=== PATIENT | female | born 1970 | race Caucasian/White ===

== ENCOUNTER 2018-02-21 19:45 | Emergency (ER) | payer OTHER ==
--- OUTSIDE RECORDS SUMMARY | 2018-02-21 19:47 | XMS REPORT ---
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
--- OUTSIDE RECORDS SUMMARY | 2018-02-21 19:47 | XMS REPORT ---
:1970 [facility] Providers Name Role Phone Pernell Hayes Provider Role Unavailable Allergies, Adverse Reactions, Alerts Substance Reaction Event Type N.K.D.A. Info Not Available Non Drug Allergy Problems Problem Type Condition Code Onset Dates Condition Status Assessment BMI 27.0-27.9,adult Z68.27 Active Assessment Encounter for breast cancer Z12.39 Active screening other than mammogram Assessment GERD without esophagitis K21.9 Active Assessment Tobacco use disorder F17.200 Active Assessment Osteoarthritis of multiple joints M15.9 Active Assessment Insomnia G47.00 Active Problem Hypothyroidism E03.9 Active Assessment Generalized anxiety disorder F41.1 Active Problem Hyperlipidemia E78.5 Active Assessment Panic disorder [episodic paroxysmal F41.0 Active anxiety] Problem Memory deficit R41.3 Active Problem Bipolar disorder F31.9 Active Problem Chronic pain syndrome G89.4 Active Problem Panic disorder [episodic paroxysmal F41.0 Active anxiety] Problem 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 without prior episode Assessment Chronic pain syndrome G89.4 Active Assessment Bipolar disorder F31.9 Active Problem Generalized anxiety disorder F41.1 Active Assessment 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 without prior episode Problem Migraine without aura G43.009 Active Problem Osteoarthritis of multiple joints M15.9 Active Problem Tobacco use disorder F17.200 Active Problem GERD without esophagitis K21.9 Active Assessment Encounter for Medicare annual Z00.00 Active wellness exam Assessment Hypothyroidism E03.9 Active Assessment Drug-induced constipation K59.03 Active Assessment Hyperlipidemia E78.5 Active Problem Constipation K59.00 Active Problem Insomnia G47.00 Active Problem Drug-induced constipation K59.03 Active Medications Medication Code Code Instructions Start End Status Dosage System Date Date Fluoxetine HCl ND 28021569447 40 MG Orally Active 1 capsule Once a day Linzess ND 45658694764 290 MCG Orally January Active 1 capsule Once a day 2018 Mirtazapine ND 46475494924 45 MG Orally Active 1 tablet at Once a day bedtime [place] [facility] 75361420418 300 MG Orally Active 1 capsule at Carbonate Once a day bedtime Nexium [facility] 81149848977 40 MG Orally Active 1 capsule Once a day Dilaudid [facility] 78689367785 8 MG Orally Active 1 tablet as every 6 hrs needed Synthroid [facility] 48368568216 75 MCG Orally Active 1 tablet on Once a day an empty stomach in the morning Pravastatin [facility] 04607038140 40 MG Orally Active 1 tablet Sodium Once a day Lunesta [facility] 26521807278 3 MG Orally Active 1 tablet Once a day immediately before bedtime MiraLax [facility] 97715430284 - Orally Active not defined Zanaflex [facility] 90654894551 4 MG Orally Active 1 capsule as Three times a needed day Results No Known Results Summary Purpose eClinicalWorks Submission
--- OUTSIDE RECORDS SUMMARY | 2018-02-21 19:48 | XMS REPORT ---
:1970 Author Organization eClinicalWorks Care Team Providers Name Role Phone Pernell [facility] Provider Role Unavailable Allergies No Known Allergies [...] K59.03 Active Problem Hyperlipidemia E78.5 Active Medications Medication Code System Code Instructions Start End Date Status Dosage Date [facility] 90871449482 24 MCG Orally Feb 13, Active 1 capsule Once a day 2017 with food Results No Known Results Summary Purpose eClinicalWorks Submission
[2018-02-21 20:27] LABS: Absolute Lymphocytes (CBC) 3.7 K/uL (0.7-4.9); Absolute Monocytes 0.9 K/uL (0.1-1.3); Absolute Neutrophil 5.9 K/uL (1.8-8.0); Eosinophils % 3.1 % (0-4.4); Hematocrit 34.1 % (36.0-45.0); Lymphocytes % 33.3 % (15.3-44.8); MCH 33.2 pg (27.0-35.0); MCV 97.9 fL (80-100); MPV 8.3 fL (7.6-11.3); RBC Red Blood Cell Count 3.48 M/uL (3.86-4.86)
[2018-02-21] MEDS ORDERED: NA CHLORIDE 0.9% 1,000 ML ONE (20:35)
[2018-02-21 20:58] LABS: Barbiturates NEGATIVE (NEGATIVE); Benzodiazepines NEGATIVE (NEGATIVE); Cocaine NEGATIVE (NEGATIVE); METHAMPHETAM NEGATIVE (NEGATIVE); Methadone NEGATIVE (NEGATIVE); Opiates POSITIVE (NEGATIVE); Phencyclidine NEGATIVE (NEGATIVE); THC Cannibis NEGATIVE (NEGATIVE)
--- NOTE | 2018-02-21 21:09 | RAD REPORT ---
EXAM DESCRIPTION: CT - Head Brain Wo Cont - 02/21/2018 8:48 pm CLINICAL HISTORY: Transient alteration of awareness COMPARISON: June 2012 TECHNIQUE: Axial 5 mm thick images of the head were obtained without IV contrast. All CT scans are performed using dose optimization technique as appropriate and may include automated exposure control or mA/KV adjustment according to patient size. FINDINGS: No intracranial hemorrhage, mass, edema or shift of mid-line structures. No acute infarcti on changes seen. Bilateral subfrontal gliosis is present matching the prior study. This is usually fr om old trauma. Ventricles are normal. Basilar cisterns are normal. Mastoid air cells and visualized portions of the paranasal sinuses are clear. No acute bony findings. IMPRESSION: Negative non-contrast CT head examination for acute finding. Subfrontal gliosis is present matching the 2012 study.
--- NOTE | 2018-02-21 21:11 | RAD REPORT ---
EXAM DESCRIPTION: RAD - Chest Single View - 02/21/2018 8:39 pm CLINICAL HISTORY: Transient alteration of awareness COMPARISON: October 2015 TECHNIQUE: AP portable chest image was obtained 2025 hours . FINDINGS: Lungs are clear. Heart and vasculature are normal. No measurable pleural effusion and no p neumothorax. No gross bony abnormality seen. No acute aortic findings suspected. IMPRESSION: No acute cardiopulmonary process. No significant change from comparison.
[2018-02-21 21:13] LABS: ALT/SGPT 20 U/L (12-78); AST/SGOT 20 U/L (15-37); Albumin 3.5 g/dL (3.4-5.0); Alkaline Phosphatase 63 U/L (45-117); BUN Blood Urea Nitrogen 7 mg/dL (7-18); Bicarbonate 29 mmol/L (21-32); Bilirubin Direct < 0.1 mg/dL (0-0.2); Bilirubin Total 0.2 mg/dL (0.2-1.0); CKMB Creatine Kinase MB 1.4 ng/mL (0.3-3.6); Creatine Phosphokinase 139 U/L (26-192); Glucose Level 94 mg/dL (74-106); Magnesium 2.5 mg/dL (1.8-2.4); NT PRO-BNP 143 pg/mL (<125); Potassium 3.6 mmol/L (3.5-5.1); Protein, Total 6.6 g/dL (6.4-8.2); Sodium Level 139 mmol/L (136-145)
[2018-02-21 21:27] LABS: Urine Blood TRACE (NEG); Urine Glucose NEGATIVE (NEG); Urine Protein NEGATIVE (NEG); Urine Specific Gravity 1.015 (1.005-1.030)
[2018-02-21 21:29] LABS: Urine Bacteria <20 /HPF (<20); Urine Culture Reflex Order NOT NEEDED; Urine Mucus SLIGHT /HPF (NONE SEEN); Urine RBC <5 /HPF (NONE SEEN)
--- NOTE | 2018-02-21 21:55 | ER ---
Nurse's Notes [facility] Name: Mitzi Murphy Age: 48 yrs Sex: Female : 1970 Arrival Date: 02/21/2018 Time: 19:47 Bed 28 Private MD: Diagnosis: Patient's other noncompliance with medication regimen;Opioid abuse Presentation: 02/21 19:47 Presenting complaint: EMS states: "TWO DAYS AGO SHE HAS BEEN OFF AND TWO HOURS AGO rv SHE'S BEEN LETHARGIC AND SLOW. SHE HAS A HISTORY OF HEAD INJURY 20 YEARS AGO AND SHE IS ON DILAUDID SINCE THEN. SHE TOOK 8MG/TAB 4 TABS OF DILAUDID TODAY BUT PARENT IS NOT SURE IF SHE TOOK MORE THAN THAT AFTER". Transition of care: patient was not received from another setting of care. Onset of symptoms was February 21, 2018 at 19:30. Risk Assessment: Do you want to hurt yourself or someone else? Patient reports no desire to harm self or others. Initial Sepsis Screen: Does the patient meet any 2 criteria? No. Patient's initial sepsis screen is negative. Does the patient have a suspected source of infection? No. Patient's initial sepsis screen is negative. Care prior to arrival: None. 19:47 Method Of Arrival: EMS: [facility] rv 19:47 Acuity: DIANA 3 rv Historical: - Allergies: 21:20 No Known Allergies; rv - Home Meds: 21:20 dilaudid 8mg/tab 4 tabs per day [Active]; rv - PMHx: 21:20 Bipolar disorder; insomnia; rv - PSHx: 21:20 None; rv - Immunization history:: Adult Immunizations up to date. - Ebola Screening: : Patient negative for fever greater than or equal to 101.5 degrees Fahrenheit, and additional compatible Ebola Virus Disease symptoms Patient denies exposure to infectious person Patient denies travel to an Ebola-affected area in the 21 days before illness onset. - Social history:: Smoking status: Smoking status: Patient uses tobacco products, smokes one-half pack cigarettes per day. Screenin:51 Abuse screen: Denies threats or abuse. Denies injuries from another. Nutritional rv screening: No deficits noted. Tuberculosis screening: No symptoms or risk factors identified. Fall Risk None identified. Assessment: 19:51 General: Appears in no apparent distress. comfortable, Behavior is calm, cooperative, rv drowsy, quiet. Pain: Denies pain. Neuro: Level of Consciousness is awake, alert, obeys commands, Oriented to person, place, time, situation. Cardiovascular: Capillary refill < 3 seconds. Respiratory: Airway is patent. GI: No signs and/or symptoms were reported involving the gastrointestinal system. : No signs and/or symptoms were reported regarding the genitourinary system. EENT: No signs and/or symptoms were reported regarding the EENT system. Derm: Skin is intact. Vital Signs: 19:50 BP 116 / 73; Pulse 62; Pulse Ox 95% on R/A; rv 22:07 BP 132 / 61; Pulse 61; Pulse Ox 95% on R/A; rv ED Course: 19:47 Patient arrived in ED. rv 19:50 Triage completed. rv 19:52 Arm band placed on left wrist. rv 19:52 Patient has correct armband on for positive identification. Bed in low position. Call rv light in reach. Side rails up X 1. court monitor on. Pulse ox on. NIBP on. 19:54 Luis Alfredo Rose PA is PHCP. cp 19:54 Luis Alfredo Brown MD is Attending Physician. cp 20:00 EKG done, by ED staff, reviewed by Luis Alfredo SMITH. jp3 20:15 Initial lab(s) drawn, by nj, sent to lab. First set of blood cultures drawn by nj, jp3 Second set of blood cultures drawn by nj. 20:37 XRAY Chest (1 view) In Process Unspecified. EDMS 20:48 CT Head Brain wo Cont In Process Unspecified. EDMS 21:00 Lab(s) recollected, by me, sent to lab. jp3 21:00 No provider procedures requiring assistance completed. Inserted saline lock: 20 gauge rv in left hand, using aseptic technique. 21:08 PT-INR Sent. jp3 21:08 Ptt, Activated Sent. jp3 22:08 IV discontinued, bleeding controlled, No redness/swelling at site. Pressure dressing rv applied. Administered Medications: 20:30 Drug: NS 0.9% 1000 ml Route: IV; Rate: 1 bolus; Site: left hand; rv Outcome: 21:55 Discharge ordered by . cp 22:08 Discharged to home ambulatory. rv 22:08 Condition: good 22:08 Discharge instructions given to patient, family, Instructed on discharge instructions, follow up and referral plans. 22:09 Patient left the ED. rv Signatures: Dispatcher [employer] EDMS Luis Alfredo Roes PA PA cp Vicente, Ronaldo, RN RN rv Emmanuel Stockton jp3
--- NOTE | 2018-02-21 21:56 | EDPHYS ---
Physician Documentation [facility] Name: Mitzi Murphy Age: 48 yrs Sex: Female : 1970 Arrival Date: 02/21/2018 Time: 19:47 Bed 28 Private MD: ED Physician Luis Alfredo Brown HPI: 02/21 20:05 This 48 yrs old Female presents to ER via EMS with complaints of medication cp overdose. 20:05 The patient presents with decreased responsiveness. Onset: The symptoms/episode cp began/occurred today. Possible causes: drug use, narcotics. 20:05 Associated signs and symptoms: Pertinent negatives: abdominal pain, chest pain, cp diaphoresis, dizziness, headache, seizure, vomiting. Current symptoms: In the emergency department the patient's symptoms are unchanged from the initial presentation, despite home interventions. Patient's baseline: The patient has a previous history of head injury. Historical: - Allergies: 21:20 No Known Allergies; rv - Home Meds: 21:20 dilaudid 8mg/tab 4 tabs per day [Active]; rv - PMHx: 21:20 Bipolar disorder; insomnia; rv - PSHx: 21:20 None; rv - Immunization history:: Adult Immunizations up to date. - Ebola Screening: : Patient negative for fever greater than or equal to 101.5 degrees Fahrenheit, and additional compatible Ebola Virus Disease symptoms Patient denies exposure to infectious person Patient denies travel to an Ebola-affected area in the 21 days before illness onset. - Social history:: Smoking status: Smoking status: Patient uses tobacco products, smokes one-half pack cigarettes per day. ROS: 20:10 Constitutional: Negative for body aches, chills, fever, poor PO intake. cp 20:10 Eyes: Negative for injury, pain, redness, and discharge. cp 20:10 ENT: Negative for drainage from ear(s), ear pain, sore throat, difficulty swallowing, difficulty handling secretions. 20:10 Cardiovascular: Negative for chest pain, edema, palpitations. 20:10 Respiratory: Negative for cough, shortness of breath, wheezing. 20:10 Abdomen/GI: Negative for abdominal pain, nausea, vomiting, and diarrhea, constipation, black/tarry stool, rectal bleeding. 20:10 Back: Negative for pain at rest, pain with movement, radiated pain. 20:10 Skin: Negative for cellulitis, rash. 20:10 Neuro: Positive for altered mental status, Negative for headache, loss of consciousness, syncope, near syncope, weakness. 20:10 All other systems are negative. Exam: 20:15 Constitutional: The patient appears in no acute distress, alert, awake, cp non-diaphoretic, non-toxic, well developed, well nourished. 20:15 Head/Face: Normocephalic, atraumatic. cp 20:15 Eyes: Periorbital structures: appear normal, Pupils: constricted, bilaterally, Extraocular movements: intact throughout, Conjunctiva: normal, no exudate, no injection, Sclera: no appreciated abnormality, Lids and lashes: appear normal, bilaterally. 20:15 ENT: External ear(s): are unremarkable, Ear canal(s): are normal, clear, TM's: dullness, bilaterally, Nose: is normal, Mouth: Lips: moist, Oral mucosa: moist, Posterior pharynx: is normal, airway is patent, no erythema, no exudate. 20:15 Neck: ROM/movement: is normal, is supple, without pain, no range of motions limitations, no nuchal rigidity. 20:15 Chest/axilla: Inspection: normal, Palpation: is normal, no crepitus, no tenderness. 20:15 Cardiovascular: Rate: normal, Rhythm: regular, Pulses: Pulses are 2+ in right radial artery and left radial artery. Edema: is not appreciated, JVD: is not appreciated. 20:15 Respiratory: the patient does not display signs of respiratory distress, Respirations: normal, no use of accessory muscles, no retractions, no splinting, no tachypnea, labored breathing, is not present, Breath sounds: are clear throughout, no decreased breath sounds, no stridor, no wheezing. 20:15 Abdomen/GI: Inspection: abdomen appears normal, Bowel sounds: active, all quadrants, Palpation: abdomen is soft and non-tender, in all quadrants, rebound tenderness, is not appreciated, voluntary guarding, is not appreciated, involuntary guarding, is not appreciated. 20:15 Back: pain, is absent, ROM is normal. 20:15 Skin: cellulitis, is not appreciated, no rash present. 20:15 Neuro: Orientation: to person, place, Mentation: able to follow commands, slow to respond, Motor: moves all fours, strength is normal, Sensation: no obvious gross deficits. Vital Signs: 19:50 BP 116 / 73; Pulse 62; Pulse Ox 95% on R/A; rv 22:07 BP 132 / 61; Pulse 61; Pulse Ox 95% on R/A; rv MDM: 20:13 Patient medically screened. lacie 21:00 Differential Diagnosis: CVA, electrolyte abnormality, alcohol intoxication, cp intracranial bleed, overdose, pneumonia, seizure, TIA, UTI, volume depletion. 21:53 Data reviewed: vital signs, nurses notes, lab test result(s), radiologic studies, CT cp scan, plain films. 21:53 Test interpretation: by ED physician or midlevel provider: plain radiologic studies. cp Counseling: I had a detailed discussion with the patient and/or guardian regarding: the historical points, exam findings, and any diagnostic results supporting the discharge/admit diagnosis, lab results, radiology results, to return to the emergency department if symptoms worsen or persist or if there are any questions or concerns that arise at home. Response to treatment: the patient's symptoms have markedly improved after treatment, Mother at bedside with patient and reports patient at baseline. Patient and family requesting discharge, and as a result, I will discharge patient. 02/21 19:57 Order name: Basic Metabolic Panel; Complete Time: 21:50 cp 02/21 21:50 Interpretation: Normal except: GFR 59. cp 02/21 19:57 Order name: CBC with Diff; Complete Time: 21:50 cp 02/21 21:52 Interpretation: Normal except: WBC 11.1; RBC 3.48; HGB 11.6; HCT 34.1; BASO% 2.0. cp 02/21 19:57 Order name: Ckmb; Complete Time: 21:50 cp 02/21 19:57 Order name: CPK; Complete Time: 21:50 cp 02/21 19:57 Order name: LFT's; Complete Time: 21:50 cp 02/21 19:57 Order name: Magnesium; Complete Time: 21:50 cp 02/21 19:57 Order name: NT PRO-BNP; Complete Time: 21:50 cp 02/21 19:57 Order name: PT-INR; Complete Time: 21:50 cp 02/21 19:57 Order name: Ptt, Activated; Complete Time: 21:50 cp 02/21 19:57 Order name: Troponin (emerg Dept Use Only); Complete Time: 21:50 02/21 19:57 Order name: UDS; Complete Time: 21:50 02/21 21:51 Interpretation: Normal except: OPI POSITIVE. 02/21 19:57 Order name: AMMONIA; Complete Time: 21:50 02/21 19:57 Order name: Blood Culture Adult (2) 02/21 19:57 Order name: Urine Microscopic Only; Complete Time: 21:50 02/21 19:57 Order name: Urine Test (obtain specimen); Complete Time: 21:19 02/21 19:57 Order name: XRAY Chest (1 view); Complete Time: 21:50 02/21 21:51 Interpretation: Report review. 02/21 19:57 Order name: EKG; Complete Time: 19:57 02/21 19:57 Order name: Cardiac monitoring; Complete Time: 20:39 02/21 19:57 Order name: EKG - Nurse/Tech; Complete Time: 20:39 02/21 19:57 Order name: IV Saline Lock; Complete Time: 20:39 02/21 19:57 Order name: Labs collected and sent; Complete Time: 20:39 02/21 19:57 Order name: O2 Per Protocol; Complete Time: 20:39 02/21 19:57 Order name: O2 Sat Monitoring; Complete Time: 20:39 02/21 19:57 Order name: Urine Dipstick-Ancillary (obtain specimen); Complete Time: 21:13 02/21 19:57 Order name: CT Head Brain wo Cont; Complete Time: 21:50 02/21 21:52 Interpretation: Report reviewed. 02/21 21:21 Order name: Urine Dipstick--Ancillary (enter results); Complete Time: 21:50 rg2 02/21 21:21 Order name: Urine --Ancillary (enter results); Complete Time: 21:50 rg2 Administered Medications: 20:30 Drug: NS 0.9% 1000 ml Route: IV; Rate: 1 bolus; Site: left hand; rv Disposition: 02/21/18 21:55 Discharged to Home. Impression: Patient's other noncompliance with medication regimen, Opioid abuse. - Condition is Stable. - Discharge Instructions: Opioid Overdose. - Medication Reconciliation Form, Thank You Letter, Antibiotic Education, Prescription Opioid Use form. - Follow up: Private Physician; When: 1 - 2 days; Reason: Recheck today's complaints. - Problem is new. - Symptoms have improved. Addendum: 02/24/2018 08:57 Co-signature as Attending Physician, Luis Alfredo Brown MD I agree with the assessment and c flor plan of care. Signatures: Dispatcher [employer] EDLuis Alfredo Sandhu MD MD cha Page, Corey, PA PA cp Miguel Barbosa, RN RN rv Corrections: (The following items were deleted from the chart) 02/21 21:12 19:57 [place] ordered. cp rv 21:52 21:51 Normal except: WBC 11.1; RBC 3.48; HGB 11.6; HCT 34.1. cp cp 22:09 21:55 02/21/2018 21:55 Discharged to Home. Impression: Patient's other noncompliance rv with medication regimen; Opioid abuse. Condition is Stable. Forms are Medication Reconciliation Form, Thank You Letter, Antibiotic Education, Prescription Opioid Use. Follow up: Private Physician; When: 1 - 2 days; Reason: Recheck today's complaints. Problem is new. Symptoms have improved. cp 02/22 19:10 19:05 Constitutional: The patient appears in no acute distress, alert, awake, cp non-diaphoretic, non-toxic, well developed, well nourished, cp 19:10 19:05 Head/Face: Normocephalic, atraumatic. cp cp 19:10 19:05 Eyes: Periorbital structures: appear normal, Pupils: constricted, bilaterally, cp Extraocular movements: intact throughout, Conjunctiva: normal, no exudate, no injection, Sclera: no appreciated abnormality, Lids and lashes: appear normal, bilaterally, cp 19:10 19:05 ENT: External ear(s): are unremarkable, Ear canal(s): are normal, clear, TM's: cp bulging, is not appreciated, bilaterally, dullness, bilaterally, erythema, is not appreciated, bilaterally, Nose: is normal, Mouth: is normal, Posterior pharynx: is normal, airway is patent, no erythema, no exudate, cp 19:10 19:05 Neck: ROM/movement: is normal, is supple, without pain, no range of motions cp limitations, no meningismus, no nuchal rigidity, cp 19:10 19:05 Chest/axilla: Inspection: normal, Palpation: is normal, no crepitus, no cp tenderness, cp 19:10 19:05 Cardiovascular: Rate: normal, Rhythm: regular, Edema: is not appreciated, JVD: is cp not appreciated, cp 19:10 19:05 Respiratory: the patient does not display signs of respiratory distress, cp Respirations: labored breathing, is not present, shallow respirations, that is mild, Breath sounds: are clear throughout, no decreased breath sounds, no stridor, no wheezing, cp 19:10 19:05 Abdomen/GI: Inspection: abdomen appears normal, Bowel sounds: active, all cp quadrants, Palpation: abdomen is soft and non-tender, in all quadrants, rebound tenderness, is not appreciated, voluntary guarding, is not appreciated, involuntary guarding, is not appreciated, cp 19:10 19:05 Back: pain, is absent, ROM is normal, cp cp 19:10 19:05 Skin: cellulitis, is not appreciated, no rash present. cp cp 19:10 19:05 Neuro: Orientation: to person, place, Mentation: able to follow commands, slow to cp respond, Motor: moves all fours, strength is normal, Sensation: no obvious gross deficits, cp
[2018-02-21 23:01] VITALS: O2SAT 95
[2018-02-21 23:02] VITALS: BP 132/61
--- NOTE | 2018-02-23 07:49 | EKG ---
Test Date: 2018-02-21 Test Time: 19:47:31 Sports Administrator: SHRADDHA MEASUREMENT RESULTS: Intervals: Rate: 64 NM: 144 QRSD: 88 QT: 460 QTc: 474 [place]: P: 59 NM: 144 QRS: 56 T: 54 INTERPRETIVE STATEMENTS: Normal sinus rhythm Normal ECG Compared to ECG 02/14/2016 13:57:42 Ventricular premature complex(es) no longer present Electronically Signed On 02-23-18 07:45:43 CDT by Shai Jordan
== END 2018-02-21 22:09 | disposition home or self-care (01) ==
LOC: ER 19:45
DX: Z91.14 Patient's other noncompliance with medication regimen (principal); F11.10 Opioid abuse, uncomplicated; F17.210 Nicotine dependence, cigarettes, uncomplicated; F31.9 Bipolar disorder, unspecified
CPT/HCPCS: 36415; 70450; 71045; 80048; 80076; 80307; 81003; 81015; 81025; 82140; 82550; 82553; 82962; 83735; 83880; 84484; 85025; 85610; 85730; 87040; 93005; 99285; J7030

== ENCOUNTER 2020-07-11 | Emergency (ER) | payer OTHER ==
--- OUTSIDE RECORDS SUMMARY | 2020-07-11 15:00 | XMS REPORT ---
:1970 Author Organization [facility] Address [address] [place], [address] [place] [address] Care Team Providers Name Role Phone Gimenez Unavailable [phone] PROBLEMS Type Condition ICD9-CM [id number] Onset Condition SNOMED Code Notes Code Code Dates Status Problem Osteoarthritis of M15.9 Active 929793453 multiple joints Problem Drug-induced K59.03 Active 70916924 constipation Problem GERD without K21.9 Active 630428416 esophagitis Problem Migraine without G43.009 Active 08609223 aura Problem Constipation K59.00 Active 90079166 Problem Tobacco use F17.200 Active 469991598 disorder Problem Hyperlipidemia E78.5 Active 29564561 Problem Memory deficit R41.3 Active 358693234 Problem Chronic pain G89.4 Active 197577585 syndrome Problem Vitamin D E55.9 Active 90560021 deficiency disease Problem Hypothyroidism E03.9 Active 67196499 Problem PAD (peripheral I73.9 Active 663752464 artery disease) Problem Insomnia G47.00 Active 129325642 Problem Bipolar disorder F31.9 Active 14766287 Problem Generalized F41.1 Active 77482565 anxiety disorder Problem 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 59027795 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 without prior episode Problem Panic disorder F41.0 Active 804555451 [episodic paroxysmal anxiety] ALLERGIES No Known Allergies ENCOUNTERS from 1970 to 2020-05-25 Encounter Location Date Provider Diagnosis [facility] [place] [address] [place], Hayes Gimenez Insomnia G47.00 ; Drive [address] [place], [place] [address] of major depre ssive disorder withou t psychotic featu res without prior e pisode F32.2 ; Hypothy roidism E03.9 ; Hyperli pidemia E78.5 ; Drug-in duced constipation K5 9.03 ; Edema of right lower extremity R60.0 ; Chronic pain sy ndrome G89.4 ; Bipolar disorder F31.9 ; Panic disorder [episo dic paroxysmal anxi ety] F41.0 ; Osteoar thritis of multiple nancy nts M15.9 ; General ized anxiety disorde r F41.1 ; Tobacco use d isorder F17.200 ; GERD without esophagitis K21 .9 ; BMI 27.0-27.9,adult Z68.27 ; Migraine with out aura G43.009 ; Overw eight (BMI 25.0-29.9) E66.3 ; Fatigue, unspec ified type R53.83 ; R enal insufficiency N 28.9 ; Vitamin D defic iency disease E55.9 ; Vitamin B12 deficiency E53.8 and PAD (periph eral artery disease) I73.9 IMMUNIZATIONS Vaccine Route Administration Date Status Vitamin B12 (Cyanocobalamin) IM Intramuscular May 25, 2020 Ad ministered Vitamin B12 (Cyanocobalamin) IM Intramuscular Mar 10, 2020 Ad ministered Vitamin B12 (Cyanocobalamin) IM Intramuscular Sep 03, 2019 Ad ministered Vitamin B12 (Cyanocobalamin) IM Intramuscular Jul 20, 2019 Ad ministered Vitamin B12 (Cyanocobalamin) IM Intramuscular Mar 17, 2019 Ad ministered SOCIAL HISTORY Tobacco Use: Social History Observation Description Date Details (start date - stop date) Current Smoker Sex Assigned At : Social History Observation Description Sex Assigned At Unknown PHQ9 Question Answer Notes Little interest or pleasure in doing things Several days Feeling down, depressed, or hopeless Several days Trouble falling or staying asleep or sleeping too much Nearl y every day Feeling tired or having little energy More than half the day s Poor appetite or overeating Several days Feeling bad about yourself, or that you are a failure, Sever al days or have let yourself or your family down Trouble concentrating on things, such as reading the Nearly every day newspaper or watching television Moving or speaking so slowly that other people could Several days have noticed; or the opposite, being so fidgety or restless that you have been moving around a lot more than usual Total Score 13 Interpretation Moderate Depression Thoughts that you would be better off or of Not at all hurting yourself in some way Alcohol Screen Question Answer Notes Did you have a drink containing alcohol in Yes the past year? Points 2 Interpretation Negative How often did you have 6 or more drinks on Never (0 points) one occasion in the past year? How many drinks did you have on a typical 1 or 2 (0 points) day when you were drinking in the past year? How often did you have a drink containing Two to four times a month (2 points) alcohol in the past year? Patient counselled on the dangers of tobacco use and urged to quit Question Answer Notes Patient counselled on the dangers of tobacco 09/03/2019 Discussed smoking cessaction use and urged to quit Tobacco Use/Smoking Question Answer Notes Additional Findings: Tobacco User Moderate cigarette smoker (10-19 cigs/day) Are you a current smoker Are you interested in quitting? Thinking about quitting How many cigarettes a day do you smoke? 6-10 How soon after you wake up do you smoke 6-30 minutes your first cigarette? How often do you smoke cigarettes? every day Tobacco use other than smoking: Question Answer Notes Are you an other tobacco user? No REASON FOR REFERRAL No Information VITAL SIGNS Height 62 in May, Weight 159.6 lbs May, Temperature 97.4 degrees Fahrenheit May, BMI 29.19 kg/m2 May, Oximetry 96 % May, Respiratory Rate 16 /min May, Blood pressure systolic 142 mm Hg May, Blood pressure diastolic 77 mm Hg May, MEDICATIONS Medication SIG (Take, Route, Notes Start Date End Date Status Frequency, Duration) ProAir HFA 108 (90 Base) 2 puffs as needed Active MCG/ACT Inhalation every 6 hrs PRN wheezing, cough or shortness of breath for 30 days Mirtazapine 45 MG 1 tablet at bedtime Active Orally Once a day Cymbalta 30 MG 1 capsule Orally Once a Active day Rosuvastatin Calcium 20 1 tablet Orally Once a Not-Taking MG day for 90 [place] Carbonate 300 MG 1 capsule at bedtime Active Orally TID for 90 days Synthroid 75 MCG 1 tablet on an empty Not-Taking stomach in the morning Orally Once a day for 90 Amitiza 24 MCG TAKE 1 CAPSULE BY MOUTH Active TWICE DAILY WITH FOOD for 90 Vitamin D-3 5000 UNIT/ML 1 ml under the tongue Active Sublingual Once a day for 30 day(s) MiraLax - Orally Active Lunesta 3 MG 1 tablet immediately Ac tive before bedtime Orally Once a day for 30 days Dilaudid 8 MG 1 tablet Orally Three Active times a day Rosuvastatin Calcium 20 1 tablet Orally Once a Active MG day for 90 days Synthroid 75 MCG 1 tablet on an empty Active stomach in the morning Orally Once a day for 30 days Cymbalta 60 MG 1 capsule Orally once a Active day Wellbutrin XL 300 MG 1 tablet in the morning Active Orally Once a day PROCEDURES No Information RESULTS No Results REASON FOR VISIT 2 [facility] f/u. In office. MEDICAL (GENERAL) HISTORY Type Description Date Medical History Bipolar disorder Medical History Hyperlipidemia Medical History Memory deficit Medical History GERD without esophagitis Medical History Migraine without aura Medical History Seizures Medical History Constipation Medical History Chronic pain syndrome Medical History Hypothyroidism Medical History Osteoarthritis of multiple joints Medical History Depression with anxiety Medical History Tobacco use disorder Medical History Insomnia Medical History Drug-induced constipation Medical History Panic disorder [episodic paroxysmal anxi ety] Medical History Current severe episode of major depressi ve disorder without psychotic features without prior episode Medical History Generalized anxiety disorder Surgical History No Surgical history information Goals Section No Information Health Concerns No Information MEDICAL EQUIPMENT No Information MENTAL STATUS No Information FUNCTIONAL STATUS No Information ASSESSMENTS Encounter Date Diagnosis Assessment Treatment Notes Treatment Clinical Notes Notes May, Insomnia (ICD-10 - Discussed good Patient continues G47.00) sleep hygiene. to locate a Managed by [place] psychiatrist I will Coast. Psych in prescribe process of medication with in retiring wanting driving dis tance. to see if PCP can Transporta tion continue Lunesta. issues. Letter from psychiatry reviewed. Rx monitor. No red flags. Side effect panel discussed extensively. Minimal relief with [id number]-[id number] medication. This medication has been working well. Affecting ADLs without medication. 30 days with 1 refill given. May, Current severe Managed by [place] calin of [facility]. Education depressive disorder given. without psychotic features without prior episode (ICD-10 - F32.2) May, Hypothyroidism Stable. Education (ICD-10 - E03.9) given. Refill given. May, Hyperlipidemia CHANGED TO CRESTOR (ICD-10 - E78.5) 20 mg. Side effect discussed. May, Drug-induced Increased Amitiza constipation to BID PRN. If (ICD-10 - K59.03) diarrhea, reduce to once daily. Side effect discussed. Education given. Increase hydration + Exercise + Fiber in diet. May, Edema of right Discussed lower extremity differential (ICD-10 - R60.0) diagnosis extensively with patient. Education given. Reviewed US. May, Chronic pain Managed by [facility]. On syndrome (ICD-10 - a patch but G89.4) doesn't have hope with it. Will f/u with [facility]. May, Bipolar disorder Managed by [place] (ICD-10 - F31.9) Coast. Education given. Denies SI/HI. May, Panic disorder Managed by [place] [episodic Coast. Stable. paroxysmal anxiety] Education given. (ICD-10 - F41.0) May, Osteoarthritis of Stable with multiple joints medications PNM. (ICD-10 - M15.9) May, Generalized anxiety Managed by [facility] disorder (ICD-10 - Coast. F41.1) May, Tobacco use Strongly encourged disorder (ICD-10 - on cessation. F17.200) Education given. Counseling given. Pick a quit date. , Education, counseling done at this visit, offered web sites and medicine to help. Patient is refusing at this time. We did discussed not only the CAD risk also the risk for multiples cancers, peripheral neuropathy, etc. www.quit.statusboom gives you tip[s and tricks, quit smoking chelist, download my quit angely and read quit smoking benefits too. More than 3 min spent. May, GERD without esophagitis (ICD-10 - K21.9) May, BMI 27.0-27.9,adult Counseling given. (ICD-10 - Z68.27) May, Migraine without Stable with OTC aura (ICD-10 - medication. G43.009) May, Overweight (BMI 25.0-29.9) (ICD-10 - E66.3) May, Fatigue, Increased unspecified type hydration + (ICD-10 - R53.83) Exercise + sunlight. Education given. May, Renal insufficiency Discussed DDX. (ICD-10 - N28.9) Education given. Increase hydration. Will monitor May, Vitamin D Unable to afford deficiency disease weekly course. (ICD-10 - E55.9) Taking 5000 IU /daily. Side effect discussed. , Discussed on causes of Vit D Def. Increase sunlight + Hydration + Exercise + Food High in Vit D and OTC supplements. May, Vitamin B12 IM given in deficiency (ICD-10 office. Side - E53.8) effect discussed. Tolerated it well. Will transitions to PO. May, PAD (peripheral On statin and artery disease) aspirin. (ICD-10 - I73.9) Education given. May, Other -- Medication reviewed and updated. -- Dietary and Lifestyle modifications addressed regarding diet, exercise and weight management. -- Treatment options, risks and benefits, side effects reviewed in detail. -- Advised on signs/symptoms to monitor and when to call clinic and/or visit the nearest ER. Patient verbalized understanding and agreeable with plan. PLAN OF TREATMENT Medication Medication Name Sig Start Date Stop Date [place] Carbonate 300 MG 1 capsule at bedtime Orally TID for 90 days Synthroid 75 MCG 1 tablet on an empty stomach in the morning Orally Once a day for 30 days Mirtazapine 45 MG 1 tablet at bedtime Orally Once a day MiraLax - Orally Lunesta 3 MG 1 tablet immediately before bedtime Orally Once a day for 30 days Rosuvastatin Calcium 20 MG 1 tablet Orally Once a day for 90 days ProAir HFA 108 (90 Base) MCG/ACT 2 puffs as needed Inhalation every 6 hrs PRN wheezing, cough or shortness of breath for 30 days Wellbutrin XL 300 MG 1 tablet in the morning Orally Once a day Treatment Notes Assessment Notes Clinical Notes Migraine without aura Stable with OTC medication. Insomnia Discussed good sleep Patient continues t o locate a hygiene. Managed by [place] psychiatrist I will prescribe Coast. Psych in process of medication wi thin driving retiring wanting to see if distance. Tr ansportation PCP can continue Lunesta. issues. Letter from psychiatry reviewed. Rx monitor. No red flags. Side effect panel discussed extensively. Minimal relief with [id number] medication. This medication has been working well. Affecting ADLs without medication. 30 days with 1 refill given. BMI 27.0-27.9,adult Counseling given. Current severe episode of Managed by [facility]. major depressive disorder Education given. without psychotic features without prior episode Renal insufficiency Discussed DDX. Education given. Increase hydration. Will monitor Hypothyroidism Stable. Education given. Refill given. Fatigue, unspecified type Increased hydration + Exercise + sunlight. Education given. Hyperlipidemia CHANGED TO CRESTOR 20 mg. Side effect discussed. Vitamin B12 deficiency IM given in office. Side effect discussed. Tolerated it well. Will transitions to PO. Drug-induced constipation Increased Amitiza to BID PRN. If diarrhea, reduce to once daily. Side effect discussed. Education given. Increase hydration + Exercise + Fiber in diet. Vitamin D deficiency disease Unable to afford weekly course. Taking 5000 IU /daily. Side effect discussed. , Discussed on causes of Vit D Def. Increase sunlight + Hydration + Exercise + Food High in Vit D and OTC supplements. Edema of right lower Discussed differential extremity diagnosis extensively with patient. Education given. Reviewed US. Chronic pain syndrome Managed by [facility]. On a patch but doesn't have hope with it. Will f/u with [facility]. PAD (peripheral artery On statin and aspirin. disease) Education given. Tobacco use disorder Strongly encourged on cessation. Education given. Counseling given. Pick a quit date. , Education, counseling done at this visit, offered web sites and medicine to help. Patient is refusing at this time. We did discussed not only the CAD risk also the risk for multiples cancers, peripheral neuropathy, etc. www.quit.com gives you tip[s and tricks, quit smoking chelist, download my quit angely and read quit smoking benefits too. More than 3 min spent. Generalized anxiety disorder Managed by [facility]. Bipolar disorder Managed by [facility]. Education given. Denies SI/HI. Panic disorder [episodic Managed by [facility]. paroxysmal anxiety] Stable. Education given. Osteoarthritis of multiple Stable with medications joints PNM. Treatment Notes Test Name Order Date Lipid Panel With LDL/HDL Ratio 2020-05-25 Thyroid Panel With TSH 2020-05-25 Vitamin B12 2020-05-25 Comp. Metabolic Panel (14) (CMP) 2020-05-25 CBC With Differential/Platelet 2020-05-25 Vitamin D, 25-Hydroxy 2020-05-25 Next Appt Details 2 Months + Labs 1 week Reason: Provider Name:Hayes Gimenez, 2020-07-18 0 1:30:00 PM, [address], [address], [place], [address], Provider Name:Hayes Gimenez, 2020-07-25 0 1:10:00 PM, [address], [address], [place], [address], Insurance Providers Payer Name Payer Payer Insured Patient Coverage Coverage Address Phone Name Relationship to Start Date End Date Insured [facility] [phone] Patty Murphy [facility] [id number] [facility] [id number]
--- OUTSIDE RECORDS SUMMARY | 2020-07-11 15:00 | XMS REPORT | Continuity of Care Document ---
:1970 Author Organization [facility] t Address [address] [place] [address] Care Team Providers Name Role Phone Unavailable Unavailable Unavailable Problems This patient has no known problems. Allergies, Adverse Reactions, Alerts This patient has no known allergies or adverse reactions. Medications Ordered Filled Start Stop Current Ordering Indication Dosage Frequency Signature Comments Components Source Medication Medication Date Date Medication? Clinician (SIG) Name Name Lu Leigh Yes Hayes [address] [facility] Cecilia Cecilia Yes Hayes [address] Carbonate Carbonate [facility] bed[facility] MiraLax MiraLax Yes Hayes not [facility] defined [facility] Dilaudid Dilaudid Yes Hayes [address] [facility] Amitiza Amitiza Yes Hayes TAKE 1 [facility] CAPSULE BY [facility] M[facility]TH [facility] TWICE l DAILY WITH Outpati FOOD ent Clinics Rosuvastati Rosuvastati Yes Hayes [address] [facility] Calcium n Calcium [facility] Cymbalta Cymbalta Yes Hayes [address] [facility] ProAir HFA ProAir HFA Yes Haeys [address] [facility] Gimenez needed [facility] Synthroid Synthroid Yes Hayes [address] [facility]enez on an [facility] empty [facility] stomach in l the Outpati morning ent Clinics Vitamin D-3 Vitamin D-3 Yes Hayes [address] [facility] the tongue [facility] l Outpati ent Clinics Rosuvastati Rosuvastati Yes Hayes [address] [facility] n Calcium n Calcium [place] [facility] l Outpati ent Clinics Mirtazapine Mirtazapine Yes Hayes [address] [facility] Gimenez at bed[facility] - [facility] l Outpati ent Clinics Synthroid Synthroid Yes Hayes [address] [facility] stomach in l the Outpati morning ent Clinics Cymbalta Cymbalta Yes Hayes [address] [facility] [address] [facility] Out[facility] Clinics Wellbutrin Wellbutrin Yes Hayes [address] [facility] [address] XL XL Gimenez in the [facility] morning [facility] Procedures This patient has no known procedures. Encounters Start End Encounter Admission Attending Care Care Encounter Source Date/Time Date/Time Type Type Clinicians Facility Department ID 2020-05-25 2020-05-25 [facility] [id number] Out[facility] Clinics 2020-03-10 2020-03-10 [facility] [id number] [facility] 15[facility]:00 15:00:00 t [employer] [facility] Medicine Outpati ent Clinics 2020-02-17 2020-02-17 [facility] [id number] 09:50:00 09:50:00 [place] [facility] Medicine l Medicine Outpati ent Clinics 2020-02-10 2020-02-10 [facility] [id number] 10:34:00 10:34:00 t [employer] [facility] Medicine l Medicine Outpati ent Clinics 2019-12-17 2019-12-17 [facility] [id number] 13:30:00 13:30:00 t [employer] [facility] Medicine l Medicine Outpati ent Clinics 2019-10-19 2019-10-19 [facility] [id number] 13:00:00 13:00:00 t [employer] [facility] Medicine l Medicine Outpati ent Clinics 2019-10-16 2019-10-16 [facility] [id number] 13:49:00 13:49:00 [place] [employer] [facility] - [facility] Medicine l Medicine Outpati ent Clinics 2019-09-21 2019-09-21 [facility] [id number] 14[facility]04:00 14:04:00 [place] [facility] [facility] - Drive [facility] l Medicine Outpati ent Clinics 2019-09-03 2019-09-03 [facility] [id number] 10[facility]15:00 10:15:00 [place] [employer] [place] - [facility] Medicine l Medicine Outpati ent Clinics 2019-07-20 2019-07-20 [facility] [id number] 14[facility]15:00 14:15:00 [place] - [place] [facility] Medicine l Medicine Outpati ent Clinics 2019-06-24 2019-06-24 [facility] [id number] 08:12:00 08:12:00 [place] [employer] [place] - [place] [facility] Medicine l Medicine Outpati ent Clinics 2019-06-16 2019-06-16 [facility] [id number] 11:30:00 11:30:00 [place] - [place] [facility] Medicine l Medicine Outpati ent Clinics 2019-06-11 2019-06-11 [facility] [id number] 10:10:00 10:10:00 [place] [employer] [place] - [facility] l Medicine Outpati ent Clinics 2019-06-08 2019-06-08 [facility] [id number] 16:35:00 16:35:00 [place] [employer] [place] - [facility] Medicine l Medicine Outpati ent Clinics 2019-04-16 2019-04-16 [facility] [id number] 16:04:00 16:04:00 [place] [employer] [place] - [facility] Medicine l Medicine Outpati ent Clinics 2019-03-17 2019-03-17 [facility] [id number] 11:30:00 11:30:[address] [place] [address] [place] [facility] - Drive [facility] Medicine l Medicine Outpati ent Clinics 2019-02-03 2019-02-03 [facility] [id number] 11:56:00 11:56:00 [place] s - Drive [facility] l Medicine Outpati ent Clinics 2019-01-26 2019-01-26 [facility] [id number] 08:47:00 08:47:00 [place] [employer] [facility] - Drive [facility] l Medicine Outpati ent Clinics 2019-01-14 2019-01-14 [facility] [id number] 09:30:00 09:30:00 [place] [employer] [facility] - Drive [facility] l Medicine Outpati ent Clinics 2018-10-22 2018-10-22 [facility] [id number] 14:50:00 14:50:00 [place] [employer] [place] - [facility] Medicine Outpati ent Clinics 2018-10-15 2018-10-15 [facility] [id number] 09:45:00 09:45:00 [place] [employer] [place] - [facility] Medicine l Medicine Outpati ent Clinics 2018-07-17 2018-07-17 [facility] [id number] 08:15:00 08:15:00 [place] [employer] [place] - Drive [facility] l Medicine Outpati ent Clinics 2018-04-08 2018-04-08 [facility] [id number] 13:00:00 13:00:00 [place] [employer] [facility] - Drive [facility] Medicine l Medicine Outpati ent Clinics 2018-02-13 2018-02-13 [facility] [id number] 10:56:00 10:56:00 [place] [employer] [facility] - Drive [facility] l Medicine Outpati ent Clinics 2018-02-06 2018-02-06 [facility] [id number] 13:20:00 13:20:00 [place] [employer] [facility] - Drive [facility] l Medicine Outpati ent Clinics 2018-02-05 2018-02-05 [facility] [id number] 08:15:00 08:15:00 t [employer] [facility] Medicine Outpati ent Clinics Results This patient has no known results.
--- NOTE | 2020-07-11 20:23 | ER ---
Nurse's Notes [facility] Name: Mitzi Murphy Age: 50 yrs Sex: Female : 1970 Arrival Date: 07/11/2020 Time: 15:00 Bed Waiting Private MD: Diagnosis: Presentation: 07/11 15:02 Chief complaint: Patient states: "I haven't gotten any good sleep in days. I've had bad sv spirits coming after me for a year now, they're cutting into my skin right now.". Coronavirus screen: Client denies travel out of the [place] in the last 14 days. At this time, the client does not indicate any symptoms associated with coronavirus-19. Ebola Screen: No symptoms or risks identified at this time. Risk Assessment: Do you want to hurt yourself or someone else? Patient reports no desire to harm self or others. Onset of symptoms was 2019. 15:02 Method Of Arrival: Ambulatory sv 15:02 Acuity: DIANA 3 sv 15:06 Initial Sepsis Screen: Does the patient meet any 2 criteria? No. Patient's initial sv sepsis screen is negative. Does the patient have a suspected source of infection? No. Patient's initial sepsis screen is negative. Historical: - Allergies: 15:06 No Known Allergies; sv - Home Meds: 15:06 eszopiclone 3 mg oral tab once daily [Active]; rosuvastatin 20 mg oral tab [Active]; sv hydromorphone 8 mg Oral tab [Active]; tizanidine 4 mg oral tab [Active]; bupropion HCl 300 mg Oral Tb24 [Active]; mirtazapine 45 mg Oral tab [Active]; levothyroxine 75 mcg tab [Active]; gabapentin 600 mg oral tab [Active]; duloxetine 60 mg oral cpDR [Active]; lithium carbonate 300 mg Oral tab [Active]; - PMHx: 15:06 Bipolar disorder; insomnia; sv - PSHx: 15:06 None; sv Vital Signs: 15:06 BP 151 / 90; Pulse 82; Resp 16; Temp 98.7(TE); Pulse Ox 99% on R/A; Weight 68.04 kg; sv Height 5 ft. 2 in. (157.48 cm); 15:06 Body Mass Index 27.44 (68.04 kg, 157.48 cm) sv ED Course: 15:00 Patient arrived in ED. rg4 15:01 Arm band placed on. sv 15:02 Triage completed. sv 20:22 Patient's name was called from ER lobby. No response. Unable to locate patient. Will ca1 disposition as left without being seen by a provider. Administered Medications: No medications were administered Outcome: 20:23 Patient left the ED. ca1 Signatures: Celeste Girard RN RN Elle Thibodeaux rg4 Caitlin Vallejo RN RN ca1 Corrections: (The following items were deleted from the chart) 15:10 15:06 Pulse 82bpm; Resp 16bpm; Pulse Ox 99%; Temp 98.7F; 68.04 kg; Height 5 ft. 2 in.; sv BMI: 27.4; sv
== END 2020-07-11 20:23 | disposition left against medical advice (07) ==
DX: Z53.21 Procedure and treatment not carried out due to patient leaving prior to being seen by health care provider (principal)
CPT/HCPCS: 99281

== ENCOUNTER 2020-08-11 10:21 | Observation (INO) | payer OTHER ==
--- OUTSIDE RECORDS SUMMARY | 2020-08-11 22:23 | XMS REPORT | Continuity of Care Document ---
:1970 Author Organization [facility] t Address [address] [place] [address] Care Team Providers Name Role Phone Unavailable [...] before [facility] bedtime l Outpat[facility] ent Clinics [place] Yes Hayes [address] [...] ent Clinics ProAir HFA ProAir HFA Yes Hayes [address] [facility] Synthroid Synthroid Yes Hayes [address] [facility] an [facility] empty [facility] stomach in l the Outpati morning ent Clinics Vitamin D-3 Vitamin D-3 Yes Hayes [address] [facility] the tongue [facility] - [facility] l Outpati ent Clinics Rosuvastati Rosuvastati Yes Hayes [address] [facility] n Calcium n Calcium [place] - [facility] l Outpati ent Clinics Mirtazapine Mirtazapine Yes Hayes [address] [facility] at bedtime [facility] - [facility] l Outpati ent Clinics Synthroid Synthroid Yes Hayes [address] [facility] stomach in l the Outpati morning ent Clinics Cymbalta Cymbalta Yes Hayes [address] [facility] l Outpati ent Clinics Wellbutrin Wellbutrin Yes Hayes [address] [facility] XL XL [facility] in the [facility] - morning [facility] Procedures This patient has no known procedures. Encounters Start End Encounter Admission Attending Care Care Encounter Source Date/Time Date/Time Type Type Clinicians Facility Department ID 2020-07-25 2020-07-25 Outpatient [facility] [id number] [facility] 2020-05-25 2020-05-25 Outpatient [facility] [id number] [facility]ics 2020-03-10 2020-03-10 [facility] [id number] [facility] 15:00:00 15:00:00 t [employer] [facility] Medicine l Medicine Outpati ent Clinics 2020-02-17 2020-02-17 [facility] [id number] 09:50:00 09:50:00 t [employer] [facility] Medicine l Medicine Outpati ent Clinics 2020-02-10 2020-02-10 [facility] [id number] 10:34:00 10:34:00 t [employer] [facility] Medicine l Medicine Outpati ent Clinics 2019-12-17 2019-12-17 [facility] [id number] [address] 13:30:00 13:30:00 t [employer] [facility] Medicine l Medicine Outpati ent Clinics 2019-10-19 2019-10-19 [facility] [id number] 13:00:00 13:00:00 t [employer] s - [facility] Medicine l Medicine Outpati ent Clinics 2019-10-16 2019-10-16 [facility] [id number] 13:49:00 13:49:00 t [place] [employer] s - Drive [facility] Medicine l Medicine Outpati ent Clinics 2019-09-21 2019-09-21 [facility] [id number] [facility] 14:04:00 14:04:00 t [place] [employer] [facility] Medicine l Medicine Outpati ent Clinics 2019-09-03 2019-09-03 [facility] [id number] 10:15:00 10:15:00 t [place] [employer] [facility] Medicine l Medicine Outpati ent Clinics 2019-07-20 2019-07-20 [facility] [id number] 14:15:00 14:15:00 t [place] [employer] [facility] Medicine l Medicine Outpati ent Clinics 2019-06-24 2019-06-24 [facility] [id number] 08:12:00 08:12:00 t [employer] [employer] [facility] Medicine l Medicine Outpati ent Clinics 2019-06-16 2019-06-16 [facility] [id number] 11:30:00 11:30:00 t [place] [employer] [facility] Medicine l Medicine Outpati ent Clinics 2019-06-11 2019-06-11 [facility] [id number] 10:10:00 10:10:00 t [employer] [employer] [facility] Medicine l Medicine Outpati ent Clinics 2019-06-08 2019-06-08 [facility] [id number] 16:35:00 16:35:00 t [employer] [facility] Medicine l Medicine Outpati ent Clinics 2019-04-16 2019-04-16 [facility] [id number] 16:04:00 16:04:00 t [employer] [facility] Medicine l Medicine Outpati ent Clinics 2019-03-17 2019-03-17 [facility] [id number] 11:30:00 11:30:[address] [facility] [address] - Drive [facility] Medicine l Medicine Outpati ent Clinics 2019-02-03 2019-02-03 [facility] [id number] 11:56:00 11:56:00 t [employer] [employer] Luke s - Drive [facility] Medicine Outpati ent Clinics 2019-01-26 2019-01-26 [facility] [id number] 08:47:00 08:47:00 t [place] [employer] Luke s - Drive [facility] l Medicine Outpati ent Clinics 2019-01-14 2019-01-14 [facility] [id number] 09:30:00 09:30:00 t [employer] s - Drive [facility] Medicine Medicine Outpati ent Clinics 2018-10-22 2018-10-22 [facility] [id number] 14:50:00 14:50:00 t [place] [employer] [employer] s - Drive [facility] Medicine l Medicine Outpati ent Clinics 2018-10-15 2018-10-15 [facility] [id number] 09:45:00 09:45:00 t [employer] [employer] s - Drive [facility] l Medicine Outpati ent Clinics 2018-07-17 2018-07-17 [facility] [id number] 08:15:00 08:15:00 t [place] [employer] [employer] s - Drive [facility] Medicine Outpati ent Clinics 2018-04-08 2018-04-08 [facility] [id number] 13:00:00 13:00:00 t [place] [employer] [employer] s - Drive [facility] Medicine l Medicine Outpati ent Clinics 2018-02-13 2018-02-13 [facility] [id number] 10:56:00 10:56:00 t [place] [employer] [employer] s - Drive [facility] l Medicine Outpati ent Clinics 2018-02-06 2018-02-06 [facility] [id number] 13:20:00 13:20:00 t [place] [employer] [employer] Luke s - Drive [facility] ent [facility] 2018-02-05 2018-02-05 Outpatient Luana Yu [id number] [facility] 08:15:00 08:15:00 t [employer] [facility] ent Clinics Results This patient has no known results.
--- OUTSIDE RECORDS SUMMARY | 2020-08-11 22:23 | XMS REPORT ---
:1970 Author Organization [facility] Address [address], [address] [place] [address] Care Team Providers Name Role Phone Gimenez Unavailable [phone] PROBLEMS Type Condition ICD9-CM IHL69-SH Onset Condition SNOMED Code Notes Code Code Dates Status Problem Osteoarthritis of M15.9 Active 262405220 multiple joints Problem Drug-induced K59.03 Active 33925121 constipation Problem GERD without K21.9 Active 822205368 esophagitis Problem Migraine without G43.009 Active 82796082 aura Problem Constipation K59.00 Active 58581531 Problem Tobacco use F17.200 Active 337200732 disorder Problem Hyperlipidemia E78.5 Active 59709468 Problem Memory deficit R41.3 Active 058159193 Problem Chronic pain G89.4 Active 091154133 syndrome Problem Vitamin D E55.9 Active 29763748 deficiency disease Problem Hypothyroidism E03.9 Active 75252560 Problem PAD (peripheral I73.9 Active 673340479 artery disease) Problem Insomnia G47.00 Active 436843991 Problem Bipolar disorder F31.9 Active 46184762 Problem Generalized F41.1 Active 70468017 anxiety disorder Problem 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 15097371 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 without prior episode Problem Panic disorder F41.0 Active 653485495 [episodic paroxysmal anxiety] ALLERGIES No Known Allergies ENCOUNTERS from 1970 to 2020-07-25 Encounter Location Date Provider Diagnosis [facility] [place] [address] [place], Hayes Gimenez Insomnia G47.00 ; Drive [address] [place], [place] [id number] of major depre ssive disorder withou t [...] disease E55.9 ; Vitamin B12 deficiency E53.8 ; PAD (peripheral artery disease) I73.9 and Elevated BP wit hout diagnosis of hypertension R0 3.0 IMMUNIZATIONS Vaccine Route Administration Date Status Vitamin B12 (Cyanocobalamin) IM Intramuscular Jul 25, 2020 Ad ministered Vitamin B12 (Cyanocobalamin) IM Intramuscular May 25, [...] No Information VITAL SIGNS Height 62 in Jul, Weight 153.6 lbs Jul, Temperature 97.3 degrees Fahrenheit Jul, BMI 28.09 kg/m2 Jul, Oximetry 98 % Jul, Respiratory Rate 19 /min Jul, Blood pressure systolic 148 mm Hg Jul, Blood pressure diastolic 76 mm Hg Jul, MEDICATIONS Medication SIG (Take, Route, Notes Start Date End Date Status Frequency, Duration) Mirtazapine 45 MG 1 tablet at bedtime Active Orally Once a day Rosuvastatin Calcium 20 1 tablet Orally Once a Not-Taking MG day for 90 Vitamin D-3 5000 UNIT/ML 1 ml under the tongue Active Sublingual Once a day for 30 day(s) MiraLax - Orally Active Lunesta 3 MG 1 tablet immediately Ac tive before bedtime Orally Once a day for 30 days [place] Carbonate 300 MG 1 capsule at bedtime Active Orally TID for 90 days Rosuvastatin Calcium 20 1 tablet Orally Once a Active MG day for 90 days Cymbalta 60 MG 1 capsule Orally once a Active day Amitiza 24 MCG TAKE 1 CAPSULE BY MOUTH Active TWICE DAILY WITH FOOD for 90 Synthroid 75 MCG 1 tablet on an empty Active stomach in the morning Orally Once a day for 30 days Cymbalta 30 MG 1 capsule Orally Once a Active day Dilaudid 8 MG 1 tablet Orally Three Active times a day Olanzapine 5 MG 1 tablet Orally Once a Active day ProAir HFA 108 (90 Base) 2 puffs as needed Active MCG/ACT Inhalation every 6 hrs PRN wheezing, cough or shortness of breath for 30 days Wellbutrin XL 300 MG 1 tablet in the morning Active Orally Once a day Synthroid 75 MCG 1 tablet on an empty Not-Taking stomach in the morning Orally Once a day for 90 PROCEDURES No Information RESULTS No Results REASON FOR VISIT 2 [facility] lab f/u [facility] MED[facility] (GENERAL[facility] HISTORY Type Description Date Medical [...] Assessment Treatment Notes Treatment Clinical Notes Notes Jul, Insomnia (ICD-10 - Discussed good Patient continues G47.00) sleep hygiene. to locate a Managed by [facility] psychiatrist I will [place]. Psych in prescribe process of medication with in retiring wanting driving dis tance. to see if PCP can Transporta tion continue . issues. Letter from psychiatry reviewed. Rx monitor. No red flags. Side effect panel discussed extensively. Minimal relief with hfzt-ydu-fkuyuop medication. This medication has been working well. Affecting ADLs without medication. 30 days with 1 refill given. Jul, Current severe Managed by [facility]. Education depressive disorder given. without psychotic features without prior episode (ICD-10 - F32.2) Jul, Hypothyroidism Stable. Education (ICD-10 - E03.9) given. Refill given. Jul, Hyperlipidemia CHANGED TO CRESTOR (ICD-10 - E78.5) 20 mg. Side effect discussed. Jul, Drug-induced Increased Amitiza constipation to BID PRN. If (ICD-10 - K59.03) diarrhea, reduce to once daily. Side effect discussed. Education given. Increase hydration + Exercise + Fiber in diet. Jul, Edema of right Discussed lower extremity differential (ICD-10 - R60.0) diagnosis extensively with patient. Education given. Reviewed US. Jul, Chronic pain Managed by [facility]. On syndrome (ICD-10 - a patch but G89.4) doesn't have hope with it. Will f/u with [facility]. Jul, Bipolar disorder Managed by [facility] (ICD-10 - F31.9) [place]. Education given. Denies SI/HI. Jul, Panic disorder Managed by [facility] [episodic [place]. Stable. paroxysmal anxiety] Education given. (ICD-10 - F41.0) Jul, Osteoarthritis of Stable with multiple joints medications [facility]. (ICD-10 - M15.9) Jul, Generalized anxiety Managed by [facility] disorder (ICD-10 - Coast. F41.1) Jul, Tobacco use Strongly encourged disorder (ICD-10 - [...] benefits too. More than 3 min spent. Jul, GERD without esophagitis (ICD-10 - K21.9) Jul, BMI 27.0-27.9,adult Counseling given. (ICD-10 - Z68.27) Jul, Migraine without Stable with OTC aura (ICD-10 - medication. G43.009) Jul, Overweight (BMI 25.0-29.9) (ICD-10 - E66.3) Jul, Fatigue, Increased unspecified type hydration + (ICD-10 - R53.83) Exercise + sunlight. Education given. Jul, Renal insufficiency Discussed DDX. (ICD-10 - N28.9) Education given. Increase hydration. Will monitor Jul, Vitamin D Unable to afford deficiency disease weekly course. (ICD-10 - E55.9) Taking 5000 IU /daily. Side effect discussed. , Discussed on causes of Vit D Def. Increase sunlight + Hydration + Exercise + Food High in Vit D and OTC supplements. Jul, Vitamin B12 IM given in deficiency (ICD-10 office. Side - E53.8) effect discussed. Tolerated it well. Will transitions to PO. Jul, PAD (peripheral On statin and artery disease) aspirin. (ICD-10 - I73.9) Education given. Jul, Elevated BP without DASH Diet diagnosis of discussed. hypertension Instructed to (ICD-10 - R03.0) measure BP at home and bring in log to f/u appt. Instructions and logs given. Education given. Jul, Other -- Medication reviewed and updated. -- Dietary and Lifestyle modifications addressed regarding diet, exercise and weight management. -- Treatment options, risks and benefits, side effects reviewed in detail. -- Advised on signs/symptoms to monitor and when to call clinic and/or visit the nearest ER. Patient verbalized understanding and agreeable with plan. PLAN OF TREATMENT Medication Medication Name Sig Start Date Stop Date Rosuvastatin Calcium 20 MG 1 tablet Orally Once a day for 90 days ProAir HFA 108 (90 Base) MCG/ACT 2 puffs as needed Inhalation every 6 hrs PRN wheezing, cough or shortness of breath for 30 days [place] Carbonate 300 MG 1 capsule at bedtime Orally TID for 90 days Lunesta 3 MG 1 tablet immediately before bedtime Orally Once a day for 30 days Synthroid 75 MCG 1 tablet on an empty stomach in the morning Orally Once a day for 30 days MiraLax - Orally Mirtazapine 45 MG 1 tablet at bedtime Orally Once a day Wellbutrin XL 300 MG 1 tablet in the morning Orally Once a day Treatment Notes Assessment Notes Clinical Notes Migraine without aura Stable with OTC medication. Insomnia Discussed good sleep Patient continues t o locate a hygiene. Managed by [facility] psychiatrist I will prescribe Coast. Psych in process of medication wi thin driving retiring wanting to see if distance. Tr ansportation PCP can continue esta. issues. Letter from psychiatry reviewed. Rx monitor. No red flags. Side effect panel discussed extensively. Minimal relief with lnra-mcf-vvvmfnw medication. This medication has been working well. Affecting ADLs without medication. 30 days with 1 refill given. BMI 27.0-27.9,adult Counseling given. Current severe episode of Managed by [facility]. major depressive disorder Education given. without psychotic [...] extensively with patient. Education given. Reviewed US. Elevated BP without diagnosis DASH Diet discussed. of hypertension Instructed to measure BP at home and bring in log to f/u appt. Instructions and logs given. Education given. Chronic pain syndrome Managed by PN. On a patch but doesn't have hope [...] min spent. Generalized anxiety disorder Managed by [facility]. Bipolar disorder Managed by [facility]. Education given. Denies SI/HI. Panic disorder [episodic Managed by [facility]. paroxysmal anxiety] Stable. Education given. Osteoarthritis of multiple Stable with medications joints PNM. Treatment Notes Test Name Order Date Lipid Panel With LDL/HDL Ratio 2020-07-25 Thyroid Panel With TSH 2020-07-25 Vitamin B12 2020-07-25 Comp. Metabolic Panel (14) (CMP) 2020-07-25 CBC With Differential/Platelet 2020-07-25 Vitamin D, 25-Hydroxy 2020-07-25 Next Appt Details 4 Weeks + AMW Reason: Provider Name:Hayes Gimenez, 2020-08-25 02:00:00 PM, [address], [place], [address], Provider Name:Hayes Gimenez, 2020-08-25 02:30:00 PM, [address], [place], [address], Insurance Providers Payer Name Payer Payer Insured Patient Coverage Coverage Address Phone Name Relationship to Start Date End Date Insured [facility] [phone] Patty Murphy [facility] [address] [facility] [id number]
[2020-08-11 22:47] LABS: Basophils % 0.5 % (0-1.3); Hematocrit 30.6 % (36.0-45.0); Lymphocytes % 25.3 % (15.3-44.8); MPV 8.7 fL (7.6-11.3)
[2020-08-11] MEDS ORDERED: FAMOTIDINE 20 MG/2 ML VIAL IV ONE (22:55)
[2020-08-11] MEDS ORDERED: NA CHLORIDE 0.9% 1,000 ML ONE (22:55)
[2020-08-11] MEDS ORDERED: THIAMINE 200 MG/2 ML INJ ONE (22:55)
[2020-08-11] MEDS ORDERED: TETANUS & DIPHTHERIA TOX,ADULT 0.5 ML VIAL ONE (22:56)
[2020-08-11] MEDS ORDERED: FOLIC ACID 5 MG/ML VIAL ONE (22:56)
[2020-08-11] MEDS ORDERED: CEFTRIAXONE/SWI 1gm 1 GM/10 ML SYR ONE (22:56)
[2020-08-11] MEDS ORDERED: MULTIVITAMINS 10 ML VIAL (INJ) IV ONE (22:56)
[2020-08-11 23:37] LABS: Urine Blood NEGATIVE (NEG); Urine Glucose NEGATIVE (NEG); Urine Protein NEGATIVE (NEG); Urine pH 6.5 (5.0-7.0)
[2020-08-11 23:37] LABS: ALT/SGPT 31 U/L (12-78); AST/SGOT 32 U/L (15-37); Albumin 3.4 g/dL (3.4-5.0); Alkaline Phosphatase 71 U/L (45-117); BUN Blood Urea Nitrogen 15 mg/dL (7-18); Bicarbonate 27 mmol/L (21-32); Bilirubin Direct 0.1 mg/dL (0-0.2); Bilirubin Total 0.5 mg/dL (0.2-1.0); Glucose Level 83 mg/dL (74-106); Lipase 86 U/L (73-393); NT PRO-BNP 44 pg/mL (<125); Protein, Total 6.4 g/dL (6.4-8.2); Sodium Level 145 mmol/L (136-145); Troponin (Emerg Dept Use Only) < 0.02 ng/mL (0.0-0.045)
[2020-08-11 23:39] LABS: Potassium 2.8 mmol/L (3.5-5.1)
--- NOTE | 2020-08-11 23:43 | EDPHYS ---
Physician Documentation [facility] Name: Mitzi Murphy Age: 50 yrs Sex: Female : 1970 Arrival Date: 08/11/2020 Time: 22:25 Bed 3 Private MD: ED Physician Luis Alfredo Brown HPI: 08/11 22:52 This 50 yrs old Female presents to ER via EMS with complaints of ams, lacie hypotensive and left hand injury, laceration. 22:52 The patient or guardian reports a laceration, irregular, pain. The complaints affect lacie the left hand diffusely. Context: The problem was sustained at home. The patient presents with a contusion, decreased range of motion, pain, swelling, tenderness. The complaints affect the medial aspect of right thigh. Context: The problem was sustained at home, at an unknown site, resulted from a direct blow. Modifying factors: The symptoms are alleviated by nothing. the symptoms are aggravated by nothing. weak, pale , ams , left hand laceration, right leg contusion. The patient presents with confusion, decreased mental status, decreased responsiveness, trouble concentrating. 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 - Social history:: Smoking status: Patient reports the use of cigarette tobacco products. ROS: 22:54 Constitutional: Negative for fever, chills, and weight loss, Eyes: Negative for injury, lacie pain, redness, and discharge, ENT: Negative for injury, pain, and discharge, Neck: Negative for injury, pain, and swelling, Cardiovascular: Negative for chest pain, palpitations, and edema, Respiratory: Negative for shortness of breath, cough, wheezing, and pleuritic chest pain, Abdomen/GI: Negative for abdominal pain, nausea, vomiting, diarrhea, and constipation, Back: Negative for injury and pain, : Negative for injury, bleeding, discharge, and swelling, Psych: Negative for depression, anxiety, suicide ideation, homicidal ideation, and hallucinations, Allergy/Immunology: Negative for hives, rash, and allergies, Endocrine: Negative for neck swelling, polydipsia, polyuria, polyphagia, and marked weight changes. 22:54 MS/extremity: Positive for laceration, of the left hand. 22:54 Skin: Positive for pallor. 22:54 Neuro: Positive for altered mental status, dizziness, weakness. Exam: 22:54 Constitutional: This is a well developed, well nourished patient who is awake, alert, lacie and in no acute distress. Head/Face: Normocephalic, atraumatic. Eyes: Pupils equal round and reactive to light, extra-ocular motions intact. Lids and lashes normal. Conjunctiva and sclera are non-icteric and not injected. Cornea within normal limits. Periorbital areas with no swelling, redness, or edema. Neck: Trachea midline, no thyromegaly or masses palpated, and no cervical lymphadenopathy. Supple, full range of motion without nuchal rigidity, or vertebral point tenderness. No Meningismus. Chest/axilla: Normal chest wall appearance and motion. Nontender with no deformity. No lesions are appreciated. Cardiovascular: Regular rate and rhythm with a normal S1 and S2. No gallops, murmurs, or rubs. Normal PMI, no JVD. No pulse deficits. Respiratory: Lungs have equal breath sounds bilaterally, clear to auscultation and percussion. No rales, rhonchi or wheezes noted. No increased work of breathing, no retractions or nasal flaring. Abdomen/GI: Soft, non-tender, with normal bowel sounds. No distension or tympany. No guarding or rebound. No evidence of tenderness throughout. Back: No spinal tenderness. No costovertebral tenderness. Full range of motion. Female : Normal external genitalia. Psych: Awake, alert, with orientation to person, place and time. Behavior, mood, and affect are within normal limits. 22:54 Eyes: Conjunctiva: pale. 22:54 Musculoskeletal/extremity: ROM: full active range of motion, full passive range of motion, Circulation is intact in all extremities. Sensation intact. Compartment Syndrome exam of affected extremity: is normal. 22:54 Skin: Appearance: Color: pale, Temperature: cool, Moisture: normal moisture, petechiae, not noted, ecchymosis, that are moderate, of the medial aspect of right thigh. 22:54 Neuro: Orientation: to person, place, Not oriented to time, situation, Mentation: slow to respond, confused, Memory: unable to test, Cranial nerves: no acute changes, Cerebellar function: unable to test, Motor: moves all fours, Sensation: no obvious gross deficits, unable to test, Gait: not tested. seizure activity, is not displayed by the patient. Vital Signs: 22:26 BP 104 / 59; Pulse 75; Resp 18; Temp 98.3; Pulse Ox 98% ; 08/12 00:00 BP 105 / 64; Pulse 73; Resp 16; Pulse Ox 100% on R/A; 02:00 BP 101 / 63; Pulse 73; Resp 16; Pulse Ox 98% on R/A; MDM: 08/11 22:32 Patient medically screened. lacie 22:57 Differential diagnosis: closed fracture, contusion. Differential Diagnosis altered lacie mental status, sepsis. Differential Diagnosis: CVA, electrolyte abnormality, alcohol intoxication, hypoglycemia, intracranial bleed, pneumonia, sepsis, TIA, UTI, volume depletion. Data reviewed: vital signs, nurses notes, EMS record, lab test result(s), EKG, radiologic studies, CT scan, plain films. Data interpreted: pattern fitter: rate is 75 beats/min, rhythm is regular, Pulse oximetry: on room air is 98 %. Test interpretation: by ED physician or midlevel provider: ECG, plain radiologic studies. Counseling: I had a detailed discussion with the patient and/or guardian regarding: the historical points, exam findings, and any diagnostic results supporting the discharge/admit diagnosis, lab results, radiology results, the need for further work-up and treatment in the hospital. 08/11 22:30 Order name: Basic Metabolic Panel [facility] 08/11 22:30 Order name: CBC with Diff 08/11 22:30 Order name: LFT's [facility] 08/11 22:30 Order name: Magnesium [facility] 08/11 22:30 Order name: NT PRO-BNP [facility] 08/11 22:30 Order name: PT-INR [facility] 08/11 22:30 Order name: Troponin (emerg Dept Use Only) [facility] 08/11 22:30 Order name: Type And Screen; Complete Time: 00:54 [facility] 08/11 22:30 Order name: AMMONIA; Complete Time: 23:22 lacie 08/11 22:30 Order name: Urine Culture [facility] 08/11 22:30 Order name: Lipase; Complete Time: 23:40 [facility] 08/11 22:30 Order name: Acetaminophen; Complete Time: 23:40 [facility] 08/11 22:30 Order name: ETOH Level; Complete Time: 23:40 [facility] 08/11 22:30 Order name: Ptt, Activated; Complete Time: 23:21 [facility] 08/11 22:30 Order name: Salicylate; Complete Time: 23:21 [facility] 08/11 22:30 Order name: Urine Drug Screen; Complete Time: 00:12 [facility] 08/11 22:31 Order name: Basic Metabolic Panel; Complete Time: 23:40 EDMS 08/11 22:31 Order name: CBC with Automated Diff; Complete Time: 23:21 EDMS 08/11 22:31 Order name: Liver (Hepatic) Function; Complete Time: 23:40 EDMS 08/11 22:31 Order name: Magnesium; Complete Time: 23:40 EDMS 08/11 22:31 Order name: NT PRO-BNP; Complete Time: 23:40 EDMS 08/11 22:31 Order name: Protime (+INR); Complete Time: 23:21 EDMS 08/11 22:31 Order name: Troponin (Emerg Dept Use Only); Complete Time: 23:40 EDMS 08/11 22:32 Order name: Lactate; Complete Time: 23:40 [facility] 08/11 22:40 Order name: Glucose, Ancillary Testing; Complete Time: 23:21 EDMS 04 23:35 Order name: Urine Dipstick--Ancillary (enter results); Complete Time: 23:40 [facility] 08/11 23:40 Order name: Phosphorus [facility] 08/11 23:41 Order name: Phosphorus; Complete Time: 00:54 EDMS 08/12 00:08 Order name: [place]; Complete Time: 00:42 [facility] 08/11 22:30 Order name: XRAY Chest (1 view) [facility] 08/11 22:30 Order name: EKG; Complete Time: 22:32 [facility] 08/11 22:30 Order name: Cardiac monitoring; Complete Time: 23:02 [facility] 08/11 22:30 Order name: EKG - Nurse/Tech; Complete Time: 23:35 [facility] 08/11 22:30 Order name: IV Saline Lock; Complete Time: 23:02 [facility] 08/11 22:30 Order name: Labs collected and sent; Complete Time: 23:02 [facility] 08/11 22:30 Order name: O2 Per Protocol; Complete Time: 23:02 [facility] 08/11 22:30 Order name: O2 Sat Monitoring; Complete Time: 23:02 [facility] 08/11 22:30 Order name: CT Head C Spine [facility] 08/11 22:31 Order name: US Extremity Venous W Compression Abhilash [facility] 08/11 22:31 Order name: Femur Right XRAY [facility] 08/12 01:29 Order name: SARS-COV-2 RT PCR EDMS 08/12 03:36 Order name: Comprehensive Metabolic Panel EDMS 08/12 03:36 Order name: Magnesium EDMS 08/12 03:38 Order name: [place] EDMS 08/12 03:39 Order name: Salicylates Level EDMS 08/12 05:54 Order name: CBC with Automated Diff EDMS 08/12 06:11 Order name: Comprehensive Metabolic Panel EDMS 08/12 06:11 Order name: T4 Free EDMS 08/12 06:11 Order name: Magnesium EDMS 08/12 06:11 Order name: Thyroid Stimulating Hormone EDMS 08/12 10:42 Order name: Sodium Level EDMS 08/12 11:12 Order name: Salicylates Level EDMS 08/12 11:25 Order name: [place] EDMS 08/11 22:30 Order name: Urine Dipstick-Ancillary (obtain specimen); Complete Time: 23:35 [facility] 08/11 22:33 Order name: Wound dressing; Complete Time: 23:01 [facility] Administered Medications: 23:01 Drug: Banana Bag - (NS 0.9% 1000 ml, foLIC Acid 1 mg, Thiamine 100 mg, Multivitamin 1 rv amp) Route: IV; Rate: 125 ml/hr; Site: right antecubital; 08/12 02:07 Follow up: Response: No adverse reaction; IV Status: Completed infusion 08/11 23:01 Drug: Rocephin 1 grams Route: IV; Rate: per protocol; Site: left antecubital; rv 08/12 00:04 Follow up: Response: No adverse reaction; IV Status: Completed infusion 08/11 23:02 Drug: NS 0.9% 500 ml Route: IV; Rate: bolus; Site: left antecubital; rv 08/12 00:03 Follow up: IV Status: Completed infusion; IV Intake: 500ml 08/11 23:02 Drug: Thiamine 100 mg Route: IV; Rate: bolus; Site: right antecubital; rv 08/12 00:03 Follow up: Response: No adverse reaction rv 00:03 Follow up: IV Status: Completed infusion 08/11 23:02 Drug: Pepcid 20 mg Route: IVP; Site: right antecubital; 08/12 00:04 Follow up: Response: No adverse reaction 08/11 23:27 Drug: Tetanus-Diphtheria Toxoid Adult 0.5 ml {[employer]: [email or web address]. Exp: rv 08/27/2022. Lot #: [id number]. } Route: IM; Site: left deltoid; 08/12 00:04 Follow up: Response: No adverse reaction 08/11 23:45 Drug: Potassium Chloride 20 mEq Route: IV; Rate: per protocol; Site: right antecubital; 08/12 01:43 Follow up: Response: No adverse reaction; IV Status: Completed infusion 01:42 Drug: Potassium Chloride 20 mEq Route: IV; Rate: per protocol; Site: right antecubital; 01:43 Follow up: Response: No adverse reaction; IV Status: Infusion continued upon admission Disposition: 08/11/20 23:43 Hospitalization ordered by Dusty Jacques for Observation. Preliminary diagnosis are Altered mental status, unspecified - lithium toxcity, Hypotension - resolved, Bipolar disorder, Hypokalemia. - Bed requested for [facility] ER HOLD. - Status is Observation. jd3 - Condition is Stable. - Problem is new. - Symptoms have improved. Signatures: Dispatcher [employer] EDWY Luis Alfredo Brown MD MD cha Attema, Lee, ASSOCIATE PROFESSOR OF LIBRARY MEDIA-C ASSOCIATE PROFESSOR OF LIBRARY MEDIA-Cla1 Catherine Thibodeaux, ALIVIA BUNCH Milton Merida RN RN Ryland Oneil RN RN jd3 Miguel Barbosa RN RN rv Corrections: (The following items were deleted from the chart) 08/11 23:54 23:43 Hospitalization Ordered by Dhaval Mora DO for Observation. Preliminary la1 diagnosis is Altered mental status, unspecified; Hypotension - resolved; Bipolar disorder; Hypokalemia. Bed requested for Telemetry/MedSurg (observation). Status is Observation. Condition is Stable. Problem is new. Symptoms have improved. [facility] 08/12 00:33 08/11 22:31 CORONAVIRUS+MR.LAB.BRZ ordered. [facility] 08/12 01:01 02 23:54 08/11/2020 23:43 Hospitalization Ordered by Dusty Jacques MD for lacie Observation. Preliminary diagnosis is Altered mental status, unspecified; Hypotension - resolved; Bipolar disorder; Hypokalemia. Bed requested for Telemetry/MedSurg (observation). Status is Observation. Condition is Stable. Problem is new. Symptoms have improved. la1 08/12 01:18 01:01 08/11/2020 23:43 Hospitalization Ordered by Dusty Jacques MD for Observation. cg Preliminary diagnosis is Altered mental status, unspecified - lithium toxcity; Hypotension - resolved; Bipolar disorder; Hypokalemia. Bed requested for Telemetry/MedSurg (observation). Status is Observation. Condition is Stable. Problem is new. Symptoms have improved. lacie 13:23 01:18 08/11/2020 23:43 Hospitalization Ordered by Dusty Jacques MD for Observation. jd3 Preliminary diagnosis is Altered mental status, unspecified - lithium toxcity; Hypotension - resolved; Bipolar disorder; Hypokalemia. Bed requested for [facility] ER HOLD. Status is Observation. Condition is Stable. Problem is new. Symptoms have improved. cg
--- NOTE | 2020-08-11 23:43 | ER ---
Nurse's Notes [facility] Name: Mitzi Murphy Age: 50 yrs Sex: Female : 1970 Arrival Date: 08/11/2020 Time: 22:25 Bed 3 Private MD: Diagnosis: Altered mental status, unspecified-lithium toxcity;Hypotension-resolved;Bipolar disorder;Hypokalemia Presentation: 08/11 22:26 Chief complaint: EMS states: Initially toned for hand bleeding, but when EMS got there Pt was initially awake and talking AOx 4 bbut stated took a bunch of own medication. Then Pt was sleepy and lethargic afterwards. Pt stated Im ready to sleep now and Pt was hypotensive at scene 63/30. Given Iv bolus 500 and BP went up to systolic 97/60. Pt with big hematoma on right thigh. Coronavirus screen: Client denies travel out of the [place] in the last 14 days. Ebola Screen: Patient negative for fever greater than or equal to 101.5 degrees Fahrenheit, and additional compatible Ebola Virus Disease symptoms Patient denies exposure to infectious person. Initial Sepsis Screen: Does the patient meet any 2 criteria? No. Patient's initial sepsis screen is negative. Does the patient have a suspected source of infection? Yes: Skin breakdown/wound. Risk Assessment: Do you want to hurt yourself or someone else? Unable to obtain. Onset of symptoms was August 11, 2020. Care prior to arrival: IV initiated. 20 GA, in the left antecubital area, Glucose check: 121. 22:26 Method Of Arrival: EMS: [facility] 22:26 Acuity: DIANA 3 Triage Assessment: 23:03 General: Appears ill, Behavior is drowsy. Pain: Complains of pain in right leg. EENT: rv No signs and/or symptoms were reported regarding the EENT system. Neuro: Level of Consciousness is confused, lethargic, Oriented to none. Cardiovascular: Patient's skin is warm and dry. Rhythm is regular. Respiratory: Airway is patent Respiratory effort is even, unlabored, Breath sounds are clear bilaterally. Derm: Bruising that is dark purple, on right leg. 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 - Social history:: Smoking status: Patient reports the use of cigarette tobacco products. Screenin:00 Abuse screen: Denies threats or abuse. Denies injuries from another. Nutritional rv screening: No deficits noted. Tuberculosis screening: No symptoms or risk factors identified. Fall Risk None identified. Assessment: 22:30 General: Appears in no apparent distress. sleepy. Behavior is cooperative, drowsy. Pain: Denies pain. Neuro: Level of Consciousness is lethargic, Oriented to person. Cardiovascular: Heart tones S1 S2. Respiratory: Airway is patent Respiratory effort is even, unlabored, Respiratory pattern is regular, symmetrical, Breath sounds are clear bilaterally. GI: Abdomen is flat, non-distended. : No deficits noted. EENT: No deficits noted. Derm: Bruising that is dark purple, on medial aspect of right thigh. Musculoskeletal: Circulation, motion, and sensation intact. 08/12 00:00 Reassessment: Patient appears in no apparent distress at this time. No changes from previously documented assessment. Patient and/or family updated on plan of care and expected duration. Pain level reassessed. 00:43 Reassessment: [facility]: CASE # [id number]. Reassessment: DOUBLE MAINTENANCE rv DOSE OF FLUIDS, KEEP MAGNESIUM LEVEL GREATER THAN 2, AND POTASSIUM GREATER THAN 4.0, TO TREAT THE QTC PROLONGATION. LITHIUM AND LIYA LEVEL MONITORING EVERY 4 HOURS. Reassessment: TALKED TO CHLOE WELLS REGARDING [facility] INSTRUCTIONS. 02:00 Reassessment: Patient appears in no apparent distress at this time. Patient and/or family updated on plan of care and expected duration. Pain level reassessed. Vital Signs: 08/11 22:26 BP 104 / 59; Pulse 75; Resp 18; Temp 98.3; Pulse Ox 98% ; 08/12 00:00 BP 105 / 64; Pulse 73; Resp 16; Pulse Ox 100% on R/A; 02:00 BP 101 / 63; Pulse 73; Resp 16; Pulse Ox 98% on R/A; ED Course: 08/11 22:25 Patient arrived in ED. mw2 22:25 Luis Alfredo Brown MD is Attending Physician. lacie 22:26 Habalo, Winsy, RN is Primary Nurse. wh 22:30 Maintain EMS IV. Dressing intact. Site clean \T\ dry. Gauge \T\ site: G20 LAC. Inserted rv saline lock: 18 gauge in right antecubital area, using aseptic technique. Blood collected. 22:31 Triage completed. wh 22:47 CT Head C Spine In Process Unspecified. EDMS 22:49 XRAY Chest (1 view) In Process Unspecified. EDMS 22:49 Femur Right XRAY In Process Unspecified. EDMS 23:00 Initial lab(s) drawn, by me, sent to lab. rv 23:00 Arm band placed on right wrist. Patient placed in the treatment room, on a stretcher, rv Patient notified of wait time. 23:04 No provider procedures requiring assistance completed. rv 23:04 Patient has correct armband on for positive identification. playground monitor on. Pulse rv ox on. NIBP on. 23:16 US Extremity Venous W Compression Abhilash In Process Unspecified. EDMS 23:39 Notified ED physician of a critical lab result(s). 2.5 K. sg 23:42 Dhaval Mora DO is Hospitalizing Provider. lacie 23:54 Dusty Jacques MD is Hospitalizing Provider. la1 08/12 00:02 Miguel Barbosa, RN is Primary Nurse. rv 01:28 IV is patent, with fluids infusing freely, Patient admitted, IV remains in place. rv 13:05 Patient did not have IV access during this emergency room visit. Pressure dressing mh5 applied. Administered Medications: 08/11 23:01 Drug: Banana Bag - (NS 0.9% 1000 ml, foLIC Acid 1 mg, Thiamine 100 mg, Multivitamin 1 rv amp) Route: IV; Rate: 125 ml/hr; Site: right antecubital; 08/12 02:07 Follow up: Response: No adverse reaction; IV Status: Completed infusion 08/11 23:01 Drug: Rocephin 1 grams Route: IV; Rate: per protocol; Site: left antecubital; rv 08/12 00:04 Follow up: Response: No adverse reaction; IV Status: Completed infusion 08/11 23:02 Drug: NS 0.9% 500 ml Route: IV; Rate: bolus; Site: left antecubital; rv 08/12 00:03 Follow up: IV Status: Completed infusion; IV Intake: 500ml rv 08/11 23:02 Drug: Thiamine 100 mg Route: IV; Rate: bolus; Site: right antecubital; 08/12 00:03 Follow up: Response: No adverse reaction rv 00:03 Follow up: IV Status: Completed infusion 08/11 23:02 Drug: Pepcid 20 mg Route: IVP; Site: right antecubital; rv 08/12 00:04 Follow up: Response: No adverse reaction 08/11 23:27 Drug: Tetanus-Diphtheria Toxoid Adult 0.5 ml {[facility]: [facility]. Exp: rv 08/27/2022. Lot #: [id number]. } Route: IM; Site: left deltoid; 08/12 00:04 Follow up: Response: No adverse reaction 08/11 23:45 Drug: Potassium Chloride 20 mEq Route: IV; Rate: per protocol; Site: right antecubital; 08/12 01:43 Follow up: Response: No adverse reaction; IV Status: Completed infusion 01:42 Drug: Potassium Chloride 20 mEq Route: IV; Rate: per protocol; Site: right antecubital; 01:43 Follow up: Response: No adverse reaction; IV Status: Infusion continued upon admission Intake: 00:03 IV: 500ml; Total: 500ml. rv Outcome: 08/11 23:43 Decision to Hospitalize by Provider. [facility] 08/12 01:28 Admitted to ER Hold. Please see [facility] for further documentation. rv Condition: good Instructed on the need for admit. 13:23 Patient left the ED. jd3 Signatures: Dispatcher [employer] EDMS Eladio Albarado, Luis Alfredo Haji RN, MD MD cha Attema, Lee, VISUAL BASIC DEVELOPER-C VISUAL BASIC DEVELOPER-Cla1 Leticia Hines 5 Milton Merida RN RN Ryland Oneil RN RN jd3 [place], MyKena 2 iMguel Barbosa RN RN rv
[2020-08-11] MEDS ORDERED: KCL 20 MEQ/100 mL IVPB 40 MEQ/200 ML BAG IV ONE (23:59)
[2020-08-12 00:10] LABS: Barbiturates NEGATIVE (NEGATIVE); Benzodiazepines NEGATIVE (NEGATIVE); Cocaine NEGATIVE (NEGATIVE); METHAMPHETAM NEGATIVE (NEGATIVE); Methadone NEGATIVE (NEGATIVE); Opiates POSITIVE (NEGATIVE); Phencyclidine NEGATIVE (NEGATIVE); THC Cannibis NEGATIVE (NEGATIVE)
--- NOTE | 2020-08-12 00:54 | P.HP ---
Certification for Inpatient Patient admitted to: Observation With expected LOS: <2 Midnights Patient will require the following post-hospital care: None Practitioner: I am a practitioner with admitting privileges, knowledge of patient current condition, hospital course, and medical plan of care. Services: Services provided to patient in accordance with Admission requirements found in Title 42 Section 412.3 of the Code of Federal Regulations <Elieser Carey - Last Filed: 08/12/20 00:50> Patient History Date of Service: 08/12/20 Primary Care Provider: unknown Reason for admission: Altered mental status History of Present Illness: 50-year-old female with history of bipolar disorder/schizophrenia presents emergency department for altered mental status. Patient not able to give much history at this time, very lethargic, oriented x2. Called mother to discuss what had happened, mother reports patient has been acting erratically stating she is having visual and auditory hallucinations over the course of the last few days, mother brought her home with her the last few days and she continued to have these manic episodes with hallucinations, EMS was called, patient was found to be hypotensive, altered, diaphoretic on scene, given normal saline bolus and transported to the emergency department. Upon arrival to the ED patient lethargic, oriented x2, given fluid bolus, blood pressure improved. There is some question about whether she may take an extra doses of her medication, patient denies this, patient denies suicidal/homicidal ideations but is not on any state to be making the decisions at this time. Discussed with mother, mother reports that she takes lithium, Cymbalta, Lunesta, gabapentin, Dilaudid. This is unavailable, medications not available to determine how many are in the bottle or missing. Case was discussed with poison control who recommends due to prolonged QT keep potassium greater than 4, magnesium greater than 2, seizure precautions initial lithium level 1.9, trend lithium level q.4h to ensure that it is declining. Increase fluid rate, monitor on telemetry. Patient also with large bruise to right thigh, no fracture or DVT noted. Mother states she is not aware how all these injuries happen. - Past Medical/Surgical History Diabetic: No -: Bipolar disorder -: Schizophrenia Past Surgical History: Unable to obtain Psychosocial/ Personal History: Discussed with mother, patient reportedly lives alone. - Family History Family History: Reviewed- Non-Contributory - Social History Smoking Status: Unknown if ever smoked Alcohol use: No CD- Drugs: Yes Caffeine use: Yes Place of Residence: Home <Elieser Carey - Last Filed: 08/12/20 00:50> Date of Service: 08/22/20 <Dusty Jacques - Last Filed: 08/22/20 20:36> Allergies No Known Allergies Allergy (Verified 02/14/16 13:33) Home Medications: [place] Carbonate [Lithotabs *] 300 mg PO DAILY 07/02/12 Levothyroxine Sodium [Unithroid] 75 mcg PO DAILY 02/14/16 Bupropion HCl [Wellbutrin Xl] 150 mg PO DAILY 08/12/20 Duloxetine HCl [Cymbalta] 50 mg PO BID 08/12/20 Eszopiclone 3 mg PO BEDTIME 08/12/20 Gabapentin [Gralise] 600 mg PO TID 08/12/20 Hydromorphone [Dilaudid] 4 mg PO TID PRN 08/12/20 Mirtazapine 45 mg PO DAILY 08/12/20 OLANZapine [Zyprexa Zydis] 5 mg PO DAILY 08/12/20 Rosuvastatin Calcium [Crestor] 20 mg PO DAILY 08/12/20 Tizanidine [Zanaflex] 8 mg PO TID 08/12/20 Review of Systems is unable to be obtained <Elieser Carey - Last Filed: 08/12/20 00:50> Physical Examination - Physical Exam General: Other (Lethargic, oriented times 1-2, speech is slurred) HEENT: PERRLA, Other (Mucous membranes dry) Neck: No Thyromegaly, No LAD Respiratory: Clear to auscultation bilaterally, Normal air movement Cardiovascular: Regular rate/rhythm, Normal S1 S2 Capillary refill: <2 Seconds Gastrointestinal: Normal bowel sounds, No tenderness, No masses, No rebound Musculoskeletal: No contractures, No erythema, No tenderness Integumentary: No significant lesion, No tenderness/swelling, No erythema Neurological: Normal tone, Sensation intact, Abnormal speech (Speech slurred, slowed) Lymphatics: No axilla or inguinal lymphadenopathy - Studies Laboratory Data (last 24 hrs) 08/11/20 22:30: Phosphorus 4.7 08/11/20 22:30: PT 11.5, INR 1.00, APTT 32.1 08/11/20 22:30: WBC 8.00, Hgb 10.6 L, Hct 30.6 L, Plt Count 331 08/11/20 22:30: Sodium 145, Potassium 2.8 L*, BUN 15, Creatinine 1.26, Glucose 83, Magnesium 2.0 D, Total Bilirubin 0.5, AST 32, ALT 31, Alkaline Phosphatase 71, Lipase 86 <Elieser Carey - Last Filed: 08/12/20 00:50> Assessment and Plan - Plan Assessment Altered mental status likely secondary to toxic encephalopathy related to medication overdose History of bipolar disorder/schizophrenia Plan Altered mental status likely secondary to toxic encephalopathy related to medication overdose: Discussed case with patient's mother reports that she has been acting very manic lately, reports that she has been having visual and auditory hallucinations including trying to fight ghost and inanimate objects. Patient was also noted to be hypotensive, diaphoretic at home upon EMS arrival, mother states that she is not aware if she took any extra medications or if there were any available. Patient does take lithium, gabapentin, Cymbalta, D ilaudid, Lunesta. Initial lithium level 1.9, prolonged QT noted, pointing toward commands keeping magnesium level greater than 2, potassium greater than 4, seizure precautions, trend lithium, salicylate levels. DVT prophylaxis Lovenox 40 mg subcutaneous once daily. Monitor on telemetry. Patient will be evaluated by [facility] or psychology once she is more coherent. Patient does deny SI/HI at this time. History of bipolar disorder/schizophrenia: Hold medications for now until there is a more clear picture of what is going on. Discharge Plan: Home Plan to discharge in: 24 Hours - Advance Directives Does patient have a Living Will: No Does patient have a Durable POA for Healthcare: No - Code Status/Comfort Care Code Status Assessed: Yes (Full code) Critical Care: No Time Spent Managing Pts Care (In Minutes): 55 <Elieser Carey - Last Filed: 08/12/20 00:50> - Plan Plan of care reviewed as noted above by Elieser Carey, and I agree with the management plan as noted above. <Dusty Jacques - Last Filed: 08/22/20 20:36>
[2020-08-12] MEDS ORDERED: ONDANSETRON 4 MG/2 ML VIAL IV PRN (01:36)
[2020-08-12] MEDS: NA CHLORIDE 0.9% 1,000 ML IV SCH ×2 (01:36→07:54)
[2020-08-12 01:39] VITALS: BMI 25.7
[2020-08-12] MEDS ORDERED: NA CHLORIDE 0.9% 1,000 ML ONE ×2 (02:30→07:57)
[2020-08-12 03:24] LABS: Albumin 2.9 g/dL (3.4-5.0); Bilirubin Total 0.4 mg/dL (0.2-1.0); Magnesium 2.1 mg/dL (1.8-2.4); Potassium 3.5 mmol/L (3.5-5.1); Protein, Total 5.5 g/dL (6.4-8.2)
[2020-08-12 03:38] LABS: Lithium 1.6 mmol/L (0.6-1.2); Salicylates Level 3.9 mg/dL (2.8-20)
[2020-08-12 05:47] VITALS: TEMP 98.2
[2020-08-12 05:49] LABS: Absolute Lymphocytes (CBC) 2.3 K/uL (0.7-4.9); Basophils % 0.5 % (0-1.3); Hematocrit 30.6 % (36.0-45.0); Lymphocytes % 22.8 % (15.3-44.8); MPV 8.6 fL (7.6-11.3); RBC Red Blood Cell Count 3.19 M/uL (3.86-4.86)
[2020-08-12 06:09] LABS: Albumin 2.8 g/dL (3.4-5.0); Bilirubin Total 0.4 mg/dL (0.2-1.0); Potassium 3.2 mmol/L (3.5-5.1); Protein, Total 5.4 g/dL (6.4-8.2)
[2020-08-12 06:11] LABS: Thyroid Stimulating Hormone 5.55 uIU/mL (0.360-3.740)
[2020-08-12] MEDS ORDERED: POTASSIUM CL SA 10 MEQ TAB PO ONE ×2 (07:00→07:55)
--- NOTE | 2020-08-12 07:11 | RAD REPORT ---
EXAM DESCRIPTION: US - Extrem Venous W Compress Abhilash - 08/11/2020 11:16 pm CLINICAL HISTORY: PAIN, bilateral lower extremity Preliminary findings provided at time of the study. COMPARISON: None. TECHNIQUE: Real-time sonographic evaluation of the bilateral lower extremity common femoral, superfi cial femoral, popliteal and posterior tibial veins was performed. FINDINGS: Normal compressibility, flow augmentation, phasic flow and spontaneous flow are identified in the left and right lower extremity common femoral, superficial femoral, popliteal and posterior t ibial veins. No intraluminal filling defects seen. IMPRESSION: No DVT in either lower extremity.
--- NOTE | 2020-08-12 07:19 | RAD REPORT ---
EXAM DESCRIPTION: RAD - Chest Single View - 08/11/2020 10:49 pm CLINICAL HISTORY: COUGH, shortness of breath COMPARISON: Portable February 2018 TECHNIQUE: AP portable chest image was obtained 08/11/2020 10:49 pm . FINDINGS: Lungs are clear. Small granulomas are present and stable. Bilateral nipple shadows are pre sent. Heart and vasculature are normal. No measurable pleural effusion and no pneumothorax. No acute bony abnormality seen. No acute aortic findings suspected. IMPRESSION: No acute cardiopulmonary process. No significant change from comparison study.
--- NOTE | 2020-08-12 07:21 | RAD REPORT ---
EXAM DESCRIPTION: RAD - Femur Right - 08/11/2020 10:50 pm CLINICAL HISTORY: Pain;Swelling COMPARISON: No comparisons FINDINGS: No fracture, dislocation or periosteal reaction noted. No acute or suspicious bony finding . No measurable joint effusion at the knee. No periarticular abnormalities are seen. No air or foreign body in the soft tissues. Mild edema changes are evident in the subcutaneous fatty tissues. IMPRESSION: Negative right femur for acute bone or joint finding. Subcutaneous fat appears mildly edematous. No focal soft tissue mass, air or foreign body seen.
[2020-08-12 08:00] VITALS: O2SAT 100
[2020-08-12] MEDS ORDERED: ENOXAPARIN 40 MG/0.4 ML SQ SCH (09:00)
[2020-08-12 12:21] VITALS: BP 143/91
--- NOTE | 2020-08-12 13:41 | P.DS ---
Admission Date: 08/12/20 Discharge Date: 08/12/20 Primary Care Provider: unknown Disposition: TRANSFR TO OTHER-PSY/CD/REHAB Discharge Condition: GOOD Reason for Admission: Altered mental status Procedures: CXR (08/11): Lungs are clear. Small granulomas are present and stable. Bilateral nipple shadows are present. Heart and vasculature are normal. No measurable pleural effusion and no pneumothorax. No acute bony abnormality seen. No acute aortic findings suspected. CT Head / C-spine (08/11): No acute postraumatic findings. There is moderate to severe narrowing of the cecum three four disc with moderate narrowing at C4-5, C5-6, C6-7 and C7-T1. Vertebral body heights are preserved. Soft tissues are unremarkable. Venous U/S (08/11): No DVT in either lower extremity. Femur X-ray (08/11): Negative right femur for acute bone or joint finding. Subcutaneous fat appears mildly edematous. No focal soft tissue mass, air or foreign body seen Problem List: Acute toxic encephalopathy secondary to lithium toxicity lithium toxicity secondary to medication overdose (unclear if intentional) vs due to normal regimen History of bipolar disorder/schizophrenia ongoing hallucinations Brief History of Present Illness: 50-year-old female with history of bipolar disorder/schizophrenia presents emergency department for altered mental status. Patient not able to give much history at this time, very lethargic, oriented x2. Called mother to discuss what had happened, mother reports patient has been acting erratically stating she is having visual and auditory hallucinations over the course of the last few days, mother brought her home with her the last few days and she continued to have these manic episodes with hallucinations. EMS was called, patient was found to be hypotensive, altered, diaphoretic on scene, given normal saline bolus and transported to the emergency department. Upon arrival to the ED patient lethargic, oriented x2, given fluid bolus, blood pressure improved. There is some question about whether she may take an extra doses of her medication, patient denies this, patient denies suicidal/homicidal ideations but is not on any state to be making the decisions at this time. Discussed with mother, mother reports that she takes lithium, Cymbalta, Lunesta, gabapentin, Dilaudid. This is unavailable, medications not available to determine how many are in the bottle or missing. Case was discussed with poison control who recommends due to prolonged QT keep potassium greater than 4, magnesium greater than 2, seizure precautions initial lithium level 1.9, trend lithium level q.4h to ensure that it is declining. Increase fluid rate, monitor on telemetry. Patient also with large bruise to right thigh, no fracture or DVT noted. Mother states she is not aware how all these injuries happen - states patient was trying to get rid of the "snakes" in the bathtub and slipped and landed on her thigh. Hospital Course: Patient became more alert and oriented. She reported dealing with her gremlins and asking if she could go to a place that could deal with these issues. She was found to have elevated lithium levels. It was unclear if patient intentionally took more lithium than normal, unintentionally took more, or this was just due to her current regimen. Denied any suicidal ideation. Her levels improved and the rest of her blood work was rather unremarkable. She was stable and medically cleared for transfer. She was transferred to inpatient psych facility. Vital Signs/Physical Exam: Temp Pulse Resp BP Pulse Ox 98.2 F 70 16 143/91 H 98 08/12/20 12:00 08/12/20 12:00 08/12/20 12:00 08/12/20 12:00 08/12/20 12:00 General: Alert, In no apparent distress HEENT: PERRLA, Sclerae nonicteric Respiratory: Clear to auscultation bilaterally Cardiovascular: No edema, Regular rate/rhythm Gastrointestinal: Soft and benign, Non-distended, No tenderness Integumentary: No rashes, Other (large ecchymosis on r thigh) Neurological: Normal speech, Abnormal affect Laboratory Data at Discharge: WBC 10.30 K/uL (4.3-10.9) D 08/12/20 05:30 Hgb 10.6 g/dL (12.0-15.0) L 08/12/20 05:30 Hct 30.6 % (36.0-45.0) L 08/12/20 05:30 Plt Count 323 K/uL (152-406) 08/12/20 05:30 PT 11.5 SECONDS (9.5-12.5) 08/11/20 22:30 INR 1.00 08/11/20 22:30 APTT 32.1 SECONDS (24.3-36.9) 08/11/20 22:30 Sodium 149 mmol/L (136-145) H 08/12/20 10:18 Potassium 3.2 mmol/L (3.5-5.1) L 08/12/20 05:30 BUN 13 mg/dL (7-18) 08/12/20 05:30 Creatinine 0.89 mg/dL (0.55-1.3) 08/12/20 05:30 Glucose 79 mg/dL (74-106) 08/12/20 05:30 Phosphorus 4.7 mg/dL (2.5-4.9) 08/11/20 22:30 Magnesium 2.0 mg/dL (1.8-2.4) 08/12/20 05:30 Total Bilirubin 0.4 mg/dL (0.2-1.0) 08/12/20 05:30 AST 23 U/L (15-37) 08/12/20 05:30 ALT 28 U/L (12-78) 08/12/20 05:30 Alkaline Phosphatase 53 U/L (45-117) 08/12/20 05:30 Lipase 86 U/L (73-393) 08/11/20 22:30 Home Medications: [place] Carbonate [Lithotabs *] 300 mg PO DAILY 07/02/12 Levothyroxine Sodium [Unithroid] 75 mcg PO DAILY 02/14/16 Bupropion HCl [Wellbutrin Xl] 150 mg PO DAILY 08/12/20 Duloxetine HCl [Cymbalta] 50 mg PO BID 08/12/20 Eszopiclone 3 mg PO BEDTIME 08/12/20 Gabapentin [Gralise] 600 mg PO TID 08/12/20 Hydromorphone [Dilaudid] 4 mg PO TID PRN 08/12/20 Mirtazapine 45 mg PO DAILY 08/12/20 OLANZapine [Zyprexa Zydis] 5 mg PO DAILY 08/12/20 Rosuvastatin Calcium [Crestor] 20 mg PO DAILY 08/12/20 Tizanidine [Zanaflex] 8 mg PO TID 08/12/20 Followup: NONE,NONE [Primary Care Provider] - Time spent managing pt's care (in minutes): 60
--- NOTE | 2020-08-12 17:39 | RAD REPORT ---
EXAM DESCRIPTION: CT - [id number] - 08/12/2020 6:43 am CLINICAL HISTORY: Pain;Weakness COMPARISON: None. TECHNIQUE: CT Head and Cervical spine WO contrast on 08/11/2020 10:30 PM BUDDHIST MONK This exam was performed according to our departmental dose-optimization program, which includes autom ated exposure control, adjustment of the mA and/or kV according to patient size and/or use of iterati ve reconstruction technique. FINDINGS: Brain: There is no acute hemorrhage, mass effect or midline shift. There is mild bifrontal encephalomalacia. There is no hydrocephalus. There is no significant volume loss for age. The calvarium is intact. Orbits and globes are unremarkable. The paranasal sinuses are clear. Mastoid air cells are clear. Cervical Spine: There is no acute fracture. Alignment is anatomic. There is mild upper right-sided fa cet arthritis There is moderate to severe narrowing of the cecum three four disc with moderate narrowing at C4-5, C 5-6, C6-7 and C7-T1. Vertebral body heights are preserved. Soft tissues are unremarkable. IMPRESSION: No acute postraumatic findings. Electronically signed by: Lucas Moralez MD 08/11/2020 11:02 PM BUDDHIST MONK Due to temporary technical issues with the PACS/Fluency reporting system, reports are being signed by the in house radiologists without review as a courtesy to insure prompt reporting. The interpreting radiologist is fully responsible for the content of the report.
== END 2020-08-12 13:13 ==
LOC: ER 22:21 → ERHOLD 08-12 00:27
PROVIDERS: ADMIT Hospitalist; ATTEND Hospitalist
DX: G92 Toxic encephalopathy (principal); T43.595A Adverse effect of other antipsychotics and neuroleptics, initial encounter; F31.9 Bipolar disorder, unspecified; F20.9 Schizophrenia, unspecified; S70.11XA Contusion of right thigh, initial encounter; W18.2XXA Fall in (into) shower or empty bathtub, initial encounter; Z20.822 Contact with and (suspected) exposure to COVID-19; R94.31 Abnormal electrocardiogram [ECG] [EKG]; Z23 Encounter for immunization
CPT/HCPCS: 93005; 87088; 85025 ×2; 87086; 80048; 36415; 80320; 82140; 86900; 83735 ×3; 86850; 80329 ×4; 84100; 85610; 84295; 80178 ×3; 86901; 82947; 80076; 80307 ×8; 83605; 85730; 84443; 81003; 84484; 84439; 83690; 80053 ×2; 83880; 70450; 72125; 71045; 73552; 90471; 93970; 90714; 99285; U0003; J3411; J3480; J0696; J7030 ×3; G0378 ×2

== ENCOUNTER 2020-11-24 01:25 | Inpatient (IN) | payer OTHER ==
--- OUTSIDE RECORDS SUMMARY | 2020-11-24 01:30 | XMS REPORT | Continuity of Care Document ---
:1970 Author Organization [facility] t Address [address] [place] [address] Care Team Providers Name Role Phone Unavailable [...] before [facility] bedtime l Outpati ent Clinics Gratiot Gratiot Yes Hayes [address] [facility] ml [facility] Rosuvastati Rosuvastati Yes Hayes [address] [facility] n Calcium n Calcium [facility] Mirtazapine Mirtazapine Yes Hayes [address] [facility] Synthroid Synthroid Yes Hayes [address] [facility] on an [facility] stomach in l [facility] Clinics Cymbalta Cymbalta Yes Hayes [address] [facility] Wellbutrin Wellbutrin Yes Hayes [address] XL XL [place] in the [facility] Procedures This patient has no known procedures. Encounters Start End Encounter Admission Attending Care Care Encounter Source Date/Time Date/Time Type Type Clinicians Facility Department ID 2020-11-01 2020-11-01 Out[facility] [id number] [facility] 2020-11-01 2020-11-01 [facility] [id number] [facility] 2020-10-24 2020-10-24 [facility] [id number] [facility] 2020-09-26 2020-09-26 [facility] [id number] [facility] 2020-07-25 2020-07-25 [facility] [id number] [facility] 2020-05-25 2020-05-25 [facility] [id number] [facility] 2020-03-10 2020-03-10 [facility] [id number] [facility] 15[facility]00 15:00:00 t [place] [employer] [facility] Medicine Medicine Outpati ent Clinics 2020-02-17 2020-02-17 [facility] [id number] 09:50:00 09:50:00 t [place] [employer] [facility] l Medicine Outpati ent Clinics 2020-02-10 2020-02-10 [facility] [id number] 10:34:00 10:34:00 t [employer] [facility] Medicine l Medicine Outpati ent Clinics 2019-12-17 2019-12-17 [facility] [id number] [address] 13:30:00 13:30:00 t [place] [employer] [facility] l Medicine Outpati ent Clinics 2019-10-19 2019-10-19 [facility] [id number] 13:00:00 13:00:00 t [employer] [facility] Medicine Outpati ent Clinics 2019-10-16 2019-10-16 [facility] [id number] 13:49:00 13:49:00 t [employer] [facility] l Medicine Outpati ent Clinics 2019-09-21 2019-09-21 [facility] [id number] 14:04:00 14:04:00 t [employer] [facility] l Medicine Outpati ent Clinics 2019-09-03 2019-09-03 [facility] [id number] 10:15:00 10:15:00 t [employer] [facility] Medicine l Medicine Outpati ent Clinics 2019-07-20 2019-07-20 [facility] [id number] 14:15:00 14:15:00 t [place] [employer] [facility] l Medicine Outpati ent Clinics 2019-06-24 2019-06-24 [facility] [id number] 08:12:00 08:12:00 t [place] [employer] [facility] Medicine Outpati ent Clinics 2019-06-16 2019-06-16 [facility] [id number] 11:30:00 11:30:[address] [facility] l Medicine Outpati ent Clinics 2019-06-11 2019-06-11 [facility] [id number] 10:10:00 10:10:00 t [place] [employer] [facility] Medicine l Medicine Outpati ent Clinics 2019-06-08 2019-06-08 [facility] [id number] 16:35:00 16:35:00 t Grid[place] [employer] [facility] Medicine l Medicine Outpati ent Clinics 2019-04-16 2019-04-16 [facility] [id number] 16:04:00 16:04:00 t Gridley [employer] s - [facility] Medicine l Medicine Outpati ent Clinics 2019-03-17 2019-03-17 [facility] [id number] 11:30:00 11:30:00 t Grid[place] [employer] - [facility] Medicine l Medicine Outpati ent Clinics 2019-02-03 2019-02-03 [facility] [id number] 11:56:00 11:56:00 t Grid[place] [employer] [facility] - [facility] Medicine l Medicine Outpati ent Clinics 2019-01-26 2019-01-26 [facility] [id number] 08:47:00 08:47:00 t Grid[place] [employer] [facility] - [facility] Medicine l Medicine Outpati ent Clinics 2019-01-14 2019-01-14 [facility] [id number] 09:30:00 09:30:00 t Gridley [employer] [facility] [facility] - [facility] Medicine l Medicine Outpati ent Clinics 2018-10-22 2018-10-22 [facility] [id number] 14:50:00 14:50:00 t Gridley Gridley [employer] [facility] [facility] - [facility] Medicine l Medicine Outpati ent Clinics 2018-10-15 2018-10-15 [facility] [id number] 09:45:00 09:45:00 t Gridley [employer] [facility] - [facility] Medicine l Medicine Outpati ent Clinics 2018-07-17 2018-07-17 [facility] [id number] 08:15:00 08:15:00 t [place] [employer] [facility] Medicine Outpati ent Clinics 2018-04-08 2018-04-08 [facility] [id number] 13:00:00 13:00:00 t [place] [employer] [facility] Medicine Outpati ent Clinics 2018-02-13 2018-02-13 [facility] [id number] 10:56:00 10:56:00 t [employer]it[employer] [facility] Medicine Outpati ent Clinics 2018-02-06 2018-02-06 [facility] [id number] [facility] 13:20:00 13:20:00 t [employer]it[employer] [facility] Medicine Outpati ent Clinics 2018-02-05 2018-02-05 [facility] [id number] 08:15:00 08:15:00 t Positron [facility] Medicine Outpati ent Clinics Results This patient has no known results.
[2020-11-24 02:01] LABS: Absolute Lymphocytes (CBC) 2.3 K/uL (0.7-4.9); Basophils % 0.2 % (0-1.3); Hematocrit 40.3 % (36.0-45.0); Lymphocytes % 14.3 % (15.3-44.8); MPV 9.1 fL (7.6-11.3); RBC Red Blood Cell Count 4.07 M/uL (3.86-4.86)
[2020-11-24 02:35] LABS: Arterial Blood Carboxyhemoglob 7.2 % (0-1.5); Blood Gas Oxyhemoglobin 85.6 % (94-97); Blood O2 Saturation 93.3 % (92-98.5)
[2020-11-24 02:40] LABS: Protime INR 0.98
[2020-11-24 03:03] LABS: ALT/SGPT 42 U/L (12-78); AST/SGOT 54 U/L (15-37); Albumin 3.8 g/dL (3.4-5.0); Alkaline Phosphatase 74 U/L (45-117); BUN Blood Urea Nitrogen 21 mg/dL (7-18); Bicarbonate 28 mmol/L (21-32); Bilirubin Direct 0.1 mg/dL (0-0.2); Bilirubin Total 0.4 mg/dL (0.2-1.0); Glucose Level 86 mg/dL (74-106); Magnesium 2.5 mg/dL (1.8-2.4); NT PRO-BNP 2543 pg/mL (<125); Potassium 4.1 mmol/L (3.5-5.1); Protein, Total 7.1 g/dL (6.4-8.2); Sodium Level 136 mmol/L (136-145)
[2020-11-24 03:03] LABS: Barbiturates NEGATIVE (NEGATIVE); Benzodiazepines NEGATIVE (NEGATIVE); Cocaine NEGATIVE (NEGATIVE); METHAMPHETAM NEGATIVE (NEGATIVE); Methadone NEGATIVE (NEGATIVE); Opiates POSITIVE (NEGATIVE); Phencyclidine NEGATIVE (NEGATIVE); THC Cannibis NEGATIVE (NEGATIVE)
[2020-11-24 03:04] LABS: Troponin (Emerg Dept Use Only) 0.67 ng/mL (0.0-0.045)
--- NOTE | 2020-11-24 03:18 | EDPHYS ---
Physician Documentation [facility] Name: Mitzi Murphy Age: 50 yrs Sex: Female : 1970 Arrival Date: 11/24/2020 Time: 01:28 Bed 24 Private MD: ED Physician Luis Alfredo Brown HPI: 11/24 02:50 This 50 yrs old Female presents to ER via EMS with complaints of lacie unintentional overdose. 02:50 took too many dilaudid. The patient presents with decreased mental status. Onset: The lacie symptoms/episode began/occurred just prior to arrival. Possible causes: drug use, narcotics. Associated signs and symptoms: Pertinent positives: confusion. Onset: The symptoms/episode began/occurred. Current symptoms: In the emergency department the patient's symptoms have improved, moderately. Patient's baseline: Neuro: alert and fully oriented. It is unknown whether or not the patient has had similar symptoms in the past. - Immunization history:: Adult Immunizations up to date. - Social history:: Smoking status: unknown. - Family history:: not pertinent. ROS: 02:50 Constitutional: Negative for fever, chills, and weight loss, Eyes: Negative for injury, lacie pain, redness, and discharge, ENT: Negative for injury, pain, and discharge, Neck: Negative for injury, pain, and swelling, Cardiovascular: Negative for chest pain, palpitations, and edema, Respiratory: Negative for shortness of breath, cough, wheezing, and pleuritic chest pain, Abdomen/GI: Negative for abdominal pain, nausea, vomiting, diarrhea, and constipation, Back: Negative for injury and pain, : Negative for injury, bleeding, discharge, and swelling, MS/Extremity: Negative for injury and deformity, Skin: Negative for injury, rash, and discoloration, Psych: Negative for depression, anxiety, suicide ideation, homicidal ideation, and hallucinations, Allergy/Immunology: Negative for hives, rash, and allergies, Endocrine: Negative for neck swelling, polydipsia, polyuria, polyphagia, and marked weight changes, Hematologic/Lymphatic: Negative for swollen nodes, abnormal bleeding, and unusual bruising. 02:50 Neuro: Positive for altered mental status, weakness. Exam: 02:50 Constitutional: This is a well developed, well nourished patient who is awake, alert, lacie and in no acute distress. Head/Face: Normocephalic, atraumatic. Eyes: Pupils equal round and reactive to light, extra-ocular motions intact. Lids and lashes normal. Conjunctiva and sclera are non-icteric and not injected. Cornea within normal limits. Periorbital areas with no swelling, redness, or edema. ENT: Nares patent. No nasal discharge, no septal abnormalities noted. Tympanic membranes are normal and external auditory canals are clear. Oropharynx with no redness, swelling, or masses, exudates, or evidence of obstruction, uvula midline. Mucous membranes moist. Neck: Trachea midline, no thyromegaly or masses palpated, and no cervical lymphadenopathy. Supple, full range of motion without nuchal rigidity, or vertebral point tenderness. No Meningismus. Chest/axilla: Normal chest wall appearance and motion. Nontender with no deformity. No lesions are appreciated. Cardiovascular: Regular rate and rhythm with a normal S1 and S2. No gallops, murmurs, or rubs. Normal PMI, no JVD. No pulse deficits. Abdomen/GI: Soft, non-tender, with normal bowel sounds. No distension or tympany. No guarding or rebound. No evidence of tenderness throughout. Back: No spinal tenderness. No costovertebral tenderness. Full range of motion. Skin: Warm, dry with normal turgor. Normal color with no rashes, no lesions, and no evidence of cellulitis. MS/ Extremity: Pulses equal, no cyanosis. Neurovascular intact. Full, normal range of motion. Psych: Awake, alert, with orientation to person, place and time. Behavior, mood, and affect are within normal limits. 02:50 Respiratory: mild respiratory distress is noted, Respirations: labored breathing, that is mild, Breath sounds: bronchial sounds, that are mild, decreased breath sounds, that are mild, rhonchi, that are mild, are scattered, stridor, is not appreciated, wheezing: expiratory 03:13 ECG was reviewed by the Attending Physician. [facility] Vital Signs: 01:49 BP 129 / 65; Pulse 97; Resp 20; Temp 97.9; Pulse Ox 100% on R/A; Weight 68.04 kg; ak2 Height 5 ft. 2 in. (157.48 cm); 03:54 BP 122 / 72; Pulse 90; Resp 18; Pulse Ox 99% on R/A; ak2 05:17 BP 106 / 46; Pulse 95; Resp 18; Temp 98.4; Pulse Ox 98% on R/A; ak2 01:49 Body Mass Index 27.44 (68.04 kg, 157.48 cm) ak2 MDM: 01:29 Patient medically screened. lacie 02:56 Differential Diagnosis altered mental status. Differential Diagnosis: electrolyte lacie abnormality, alcohol intoxication, hypoglycemia, overdose, pneumonia, sepsis, TIA, volume depletion. Data reviewed: vital signs, nurses notes, lab test result(s), EKG, radiologic studies, plain films. Data interpreted: warp hanger: rate is 97 beats/min, rhythm is regular. Test interpretation: by ED physician or midlevel provider: ECG, plain radiologic studies. Counseling: I had a detailed discussion with the patient and/or guardian regarding: the historical points, exam findings, and any diagnostic results supporting the discharge/admit diagnosis, the presence of at least one elevated blood pressure reading (>120/80) during this emergency department visit, lab results, radiology results, the need for outpatient follow up. 11/24 01:31 Order name: Basic Metabolic Panel; Complete Time: 03:08 lacie 11/24 01:31 Order name: CBC with Diff 11/24 01:31 Order name: LFT's; Complete Time: 03:08 lacie 11/24 01:31 Order name: Magnesium; Complete Time: 03:08 11/24 01:31 Order name: NT PRO-BNP; Complete Time: 03:08 lacie 11/24 01:31 Order name: PT-INR; Complete Time: 02:49 lacie 11/24 01:31 Order name: Troponin (emerg Dept Use Only); Complete Time: 03:08 11/24 01:31 Order name: Acetaminophen; Complete Time: 03:08 [facility] 11/24 01:31 Order name: ETOH Level; Complete Time: 02:37 [facility] 11/24 01:31 Order name: Ptt, Activated; Complete Time: 02:49 [facility] 11/24 01:31 Order name: Salicylate [facility] 11/24 01:31 Order name: Urine Drug Screen; Complete Time: 03:08 [facility] 11/24 01:31 Order name: ABG: room air; Complete Time: 02:49 [facility] 11/24 02:05 Order name: CBC with Automated Diff; Complete Time: 02:37 EDMS 11/24 01:31 Order name: XRAY Chest (1 view) [facility] 11/24 02:08 Order name: Salicylates Level; Complete Time: 02:37 [facility] 11/24 03:12 Order name: Blood Culture Adult (2) [facility] 11/24 05:24 Order name: SARS-COV-2 RT PCR [facility] 11/24 07:49 Order name: Troponin I [facility] 11/24 07:49 Order name: T4 Free [facility] 11/24 07:49 Order name: Thyroid Stimulating Hormone [facility] 11/24 14:20 Order name: Troponin I [facility] 11/24 01:31 Order name: EKG; Complete Time: 01:32 [facility] 11/24 01:31 Order name: Cardiac monitoring [facility] 11/24 01:31 Order name: EKG - Nurse/Tech [facility] 11/24 01:31 Order name: IV Saline Lock [facility] 11/24 01:31 Order name: Labs collected and sent [facility] 11/24 01:31 Order name: O2 Per Protocol [facility] 11/24 01:31 Order name: O2 Sat Monitoring [facility] 11/24 01:31 Order name: Suicide Screening ([place]) [facility] 11/24 01:31 Order name: Urine Dipstick-Ancillary (obtain specimen) [facility] EC:13 Rate is 96 beats/min. Rhythm is regular. QRS [place] is Normal. [place] interval is normal. QRS lacie interval is normal. QT interval is normal. No Q waves. T waves are Normal. No ST changes noted. Clinical impression: Normal ECG and No evidence of ischemia. Interpreted by me. Reviewed by me. Administered Medications: 01:56 Drug: NS 0.9% 1000 ml Route: IV; Rate: 1 bolus; Site: right forearm; ak2 03:06 Drug: Albuterol - atroVENT (ipratropium) (3:1) (2.5 mg - 0.5 mg) 3 ml Route: Nebulizer; ak2 03:06 Drug: SOLU-Medrol (methylPrednisoLONE) 125 mg Route: IVP; Site: right antecubital; ak2 03:23 Drug: Lovenox (enoxaparin) 60 mg Route: Sub-Q; Site: right lower abdomen; ak2 03:23 Drug: Zosyn (piperacillin-tazobactam) 3.375 grams Route: IVPB; Infused Over: 60 mins; ak2 Site: right antecubital; 03:24 Drug: Pepcid (famotidine) 20 mg Route: IVP; Site: right antecubital; ak2 03:24 Drug: NS 0.9% 1000 ml Route: IV; Rate: 125 ml/hr; Site: right antecubital; ak2 03:24 Drug: Aspirin Chewable Tablet 324 mg Route: PO; ak2 Disposition: 11/24/20 03:17 Hospitalization ordered by Jr Maddox for Inpatient Admission. Preliminary diagnosis are Respiratory failure, unspecified - status post, Poisoning by analeptics and opioid receptor antagonists, accidental (unintentional), Non-ST elevation (NSTEMI) myocardial infarction, Tobacco abuse counseling, Tobacco use - elevated carboxy hemoglobin 7.2%, Bronchitis, not specified as acute or chronic, Chronic pain, not elsewhere classified, Elevated white blood cell count. - Bed requested for Telemetry/MedSurg (Inpatient). - Status is Inpatient Admission. ll1 - Condition is Fair. - Problem is new. - Symptoms have improved. Signatures: Dispatcher [employer] [facility] Elsa Ruvalcaba RN RN dw Anderson, Corey, MD MD cha Lewis, Lynsay, RN RN ll1 Adolfo Neves ak2 Corrections: (The following items were deleted from the chart) 03:44 03:13 CORONAVIRUS+ ordered. [facility] 03:50 03:17 Hospitalization Ordered by Jr Maddox for Inpatient Admission. Preliminary [facility] diagnosis is Respiratory failure, unspecified - status post; Poisoning by analeptics and opioid receptor antagonists, accidental (unintentional); Non-ST elevation (NSTEMI) myocardial infarction; Tobacco abuse counseling; Tobacco use - elevated carboxy hemoglobin 7.2%; Bronchitis, not specified as acute or chronic; Chronic pain, not elsewhere classified. Bed requested for Telemetry/MedSurg (Inpatient). Status is Inpatient Admission. Condition is Fair. Problem is new. Symptoms have improved. [facility] 05:25 03:50 11/24/2020 03:17 Hospitalization Ordered by Jr Maddox for Inpatient dw Admission. Preliminary diagnosis is Respiratory failure, unspecified - status post; Poisoning by analeptics and opioid receptor antagonists, accidental (unintentional); Non-ST elevation (NSTEMI) myocardial infarction; Tobacco abuse counseling; Tobacco use - elevated carboxy hemoglobin 7.2%; Bronchitis, not specified as acute or chronic; Chronic pain, not elsewhere classified; Elevated white blood cell count. Bed requested for Telemetry/MedSurg (Inpatient). Status is Inpatient Admission. Condition is Fair. Problem is new. Symptoms have improved. [facility] 13:40 05:25 11/24/2020 03:17 Hospitalization Ordered by Jr Maddox for Inpatient dw Admission. Preliminary diagnosis is Respiratory failure, unspecified - status post; Poisoning by analeptics and opioid receptor antagonists, accidental (unintentional); Non-ST elevation (NSTEMI) myocardial infarction; Tobacco abuse counseling; Tobacco use - elevated carboxy hemoglobin 7.2%; Bronchitis, not specified as acute or chronic; Chronic pain, not elsewhere classified; Elevated white blood cell count. Bed requested for [facility] ER HOLD. Status is Inpatient Admission. Condition is Fair. Problem is new. Symptoms have improved. 15:11 13:40 11/24/2020 03:17 Hospitalization Ordered by Jr Maddox for Inpatient ll1 Admission. Preliminary diagnosis is Respiratory failure, unspecified - status post; Poisoning by analeptics and opioid receptor antagonists, accidental (unintentional); Non-ST elevation (NSTEMI) myocardial infarction; Tobacco abuse counseling; Tobacco use - elevated carboxy hemoglobin 7.2%; Bronchitis, not specified as acute or chronic; Chronic pain, not elsewhere classified; Elevated white blood cell count. Bed requested for Telemetry/MedSurg (Inpatient). Status is Inpatient Admission. Condition is Fair. Problem is new. Symptoms have improved.
--- NOTE | 2020-11-24 03:18 | ER ---
Nurse's Notes [facility] Name: Mitzi Murphy Age: 50 yrs Sex: Female : 1970 Arrival Date: 11/24/2020 Time: 01:28 Bed 24 Private MD: Diagnosis: Respiratory failure, unspecified-status post;Poisoning by analeptics and opioid receptor antagonists, accidental (unintentional);Non-ST elevation (NSTEMI) myocardial infarction;Tobacco abuse counseling;Tobacco use-elevated carboxy hemoglobin 7.2%;Bronchitis, not specified as acute or chronic;Chronic pain, not elsewhere classified;Elevated white blood cell count Presentation: 11/24 01:49 Chief complaint: Patient states: took dilaudid for pain and fell asleep EMS states: OD ak2 on dilaudid, 0.8mg narcan given group captain. awake and alert at this time. denies si/hi. Coronavirus screen: Client denies travel out of the [place] in the last 14 days. Ebola Screen: Patient negative for fever greater than or equal to 101.5 degrees Fahrenheit, and additional compatible Ebola Virus Disease symptoms Patient denies exposure to infectious person. Patient denies travel to an Ebola-affected area in the 21 days before illness onset. No symptoms or risks identified at this time. Initial Sepsis Screen: Does the patient meet any 2 criteria? No. Patient's initial sepsis screen is negative. Does the patient have a suspected source of infection? No. Patient's initial sepsis screen is negative. Risk Assessment: Do you want to hurt yourself or someone else? Patient reports no desire to harm self or others. Onset of symptoms was November 24, 2020. 01:49 Method Of Arrival: EMS: [facility] ak2 01:49 Acuity: DIANA 3 ak2 Triage Assessment: 01:53 General: Appears in no apparent distress. Behavior is calm, cooperative. Pain: Denies ak2 pain. - Immunization history:: Adult Immunizations up to date. - Social history:: Smoking status: unknown. - Family history:: not pertinent. Screenin:54 Abuse screen: Denies threats or abuse. Denies injuries from another. Nutritional ak2 screening: No deficits noted. Tuberculosis screening: No symptoms or risk factors identified. Fall Risk None identified. Vital Signs: 01:49 BP 129 / 65; Pulse 97; Resp 20; Temp 97.9; Pulse Ox 100% on R/A; Weight 68.04 kg; ak2 Height 5 ft. 2 in. (157.48 cm); 03:54 BP 122 / 72; Pulse 90; Resp 18; Pulse Ox 99% on R/A; ak2 05:17 BP 106 / 46; Pulse 95; Resp 18; Temp 98.4; Pulse Ox 98% on R/A; ak2 01:49 Body Mass Index 27.44 (68.04 kg, 157.48 cm) ak2 ED Course: 01:28 Patient arrived in ED. lacie 01:28 Luis Alfredo Brown MD is Attending Physician. lacie 01:49 Adolfo Neves is Primary Nurse. ak2 01:52 Triage completed. ak2 01:53 Arm band placed on left wrist. EKG completed in triage. Results shown to MD. ak2 01:54 No apparent distress. ak2 01:54 Patient has correct armband on for positive identification. Placed in gown. Bed in low ak2 position. Call light in reach. Side rails up X2. 01:54 No provider procedures requiring assistance completed. Inserted saline lock: 20 gauge ak2 in right forearm, using aseptic technique. Blood collected. 02:19 XRAY Chest (1 view) In Process Unspecified. EDMS 03:14 Jr Maddox is Hospitalizing Provider. lacie Administered Medications: 01:56 Drug: NS 0.9% 1000 ml Route: IV; Rate: 1 bolus; Site: right forearm; ak2 03:06 Drug: Albuterol - atroVENT (ipratropium) (3:1) (2.5 mg - 0.5 mg) 3 ml Route: Nebulizer; ak2 03:06 Drug: SOLU-Medrol (methylPrednisoLONE) 125 mg Route: IVP; Site: right antecubital; ak2 03:23 Drug: Lovenox (enoxaparin) 60 mg Route: Sub-Q; Site: right lower abdomen; ak2 03:23 Drug: Zosyn (piperacillin-tazobactam) 3.375 grams Route: IVPB; Infused Over: 60 mins; ak2 Site: right antecubital; 03:24 Drug: Pepcid (famotidine) 20 mg Route: IVP; Site: right antecubital; ak2 03:24 Drug: NS 0.9% 1000 ml Route: IV; Rate: 125 ml/hr; Site: right antecubital; ak2 03:24 Drug: Aspirin Chewable Tablet 324 mg Route: PO; ak2 Outcome: 03:17 Decision to Hospitalize by Provider. lacie 15:11 Patient left the ED. [facility] Signatures: Dispatcher [employer] Luis Alfredo Richards MD MD cha Lewis, Lynsay, RN RN 1 Adolfo Neves nd2
[2020-11-24] MEDS ORDERED: METHYLPREDNISOLONE 125 MG INJ ONE (03:24)
[2020-11-24] MEDS ORDERED: IPRATROPIUM BROM 0.5MG/2.5ML ONE ×3 (03:25→14:24)
[2020-11-24] MEDS ORDERED: PIPER/TAZO/NS 3.375gm 3.375 GM/100 ML BAG ONE (03:39)
[2020-11-24] MEDS ORDERED: ASPIRIN 81 MG CHEWABLE TABLET ONE (03:39)
[2020-11-24] MEDS ORDERED: FAMOTIDINE 20 MG/2 ML VIAL IV ONE (03:39)
[2020-11-24] MEDS ORDERED: ENOXAPARIN 60 MG/0.6 ML SQ ONE (03:39)
[2020-11-24] MEDS ORDERED: NA CHLORIDE 0.9% 1,000 ML ONE (03:39)
[2020-11-24] MEDS ORDERED: ACETAMINOPHEN 500 MG TAB PO PRN (05:36)
[2020-11-24] MEDS ORDERED: ALBUTEROL 2.5 MG/3 ML NEB SOL NEB PRN (05:36)
[2020-11-24] MEDS ORDERED: ONDANSETRON 4 MG/2 ML VIAL IV PRN (05:36)
[2020-11-24 05:49] VITALS: BMI 27.4
[2020-11-24 05:57] VITALS: TEMP 98.6
[2020-11-24] MEDS: NA CHLORIDE 0.9% 1,000 ML IV SCH ×2 (06:00→14:44)
[2020-11-24] MEDS ORDERED: Levofloxacin 750mg IV 750 MG/150 ML BAG IV SCH (06:00)
--- NOTE | 2020-11-24 06:24 | P.HP ---
Certification for Inpatient Patient admitted to: Observation With expected LOS: <2 Midnights Patient will require the following post-hospital care: None Practitioner: I am a practitioner with admitting privileges, knowledge of patient current condition, hospital course, and medical plan of care. Services: Services provided to patient in accordance with Admission requirements found in Title 42 Section 412.3 of the Code of Federal Regulations Patient History Date of Service: 11/24/20 Reason for admission: opioid overdose History of Present Illness: Ms. Murphy is a 50 yo F with COPD, bipolar, and schizophrenia brought in today for opioid overdose. Alert to person, place and time. Unable to give any other history. WBC 16.4. BUN 21, Cr 1.92, GFR 28. Trop 0.67. BNP 2543. Allergies No Known Allergies Allergy (Verified 02/14/16 13:33) Home Medications: [place] Carbonate [Lithotabs *] 300 mg PO DAILY 07/02/12 Levothyroxine Sodium [Unithroid] 75 mcg PO DAILY 02/14/16 Bupropion HCl [Wellbutrin Xl] 150 mg PO DAILY 08/12/20 Duloxetine HCl [Cymbalta] 50 mg PO BID 08/12/20 Eszopiclone 3 mg PO BEDTIME 08/12/20 Gabapentin [Gralise] 600 mg PO TID 08/12/20 Hydromorphone [Dilaudid] 4 mg PO TID PRN 08/12/20 Mirtazapine 45 mg PO DAILY 08/12/20 OLANZapine [Zyprexa Zydis] 5 mg PO DAILY 08/12/20 Rosuvastatin Calcium [Crestor] 20 mg PO DAILY 08/12/20 Tizanidine [Zanaflex] 8 mg PO TID 08/12/20 - Past Medical/Surgical History Has patient received pneumonia vaccine in the past: Yes Diabetic: No -: Bipolar disorder -: Schizophrenia Past Surgical History: Unable to obtain Psychosocial/ Personal History: Discussed with mother, patient reportedly lives alone. - Social History Smoking Status: Unknown if ever smoked Alcohol use: No CD- Drugs: Yes Caffeine use: Yes Place of Residence: Home Review of Systems is unable to be obtained Physical Examination - Vital Signs Temperature: 98.6 F Blood Pressure: 105/62 Pulse: 81 Respirations: 18 Pulse Ox (%): 96 - Physical Exam General: Oriented x3, Other (somnolent) HEENT: Atraumatic, Normocephalic, PERRLA, Mucous membr. moist/pink, EOMI, Sclerae nonicteric Neck: Supple, 2+ carotid pulse no bruit, JVD not distended, No Thyromegaly, No LAD Respiratory: Normal air movement, Expiratory wheezes Cardiovascular: No edema, Normal pulses, Regular rate/rhythm, Normal S1 S2, No gallops, No rubs, No murmurs Capillary refill: <2 Seconds Gastrointestinal: Normal bowel sounds, Soft and benign, Non-distended, No ascites, No tenderness, No masses, No rebound, No guarding Musculoskeletal: No clubbing, No swelling, No contractures, No erythema, No tenderness, No warmth Integumentary: No rashes, No breakdown, No significant lesion, No tenderness/swelling, No erythema, No warmth, No cyanosis Neurological: Normal strength at 5/5 x4 extr, Normal tone, Sensation intact, Cranial nerves 3-12 intact, Abnormal speech, Abnormal affect Lymphatics: No axilla or inguinal lymphadenopathy - Studies Laboratory Data (last 24 hrs) 11/24/20 02:10: PT 11.3, INR 0.98, APTT 25.4 11/24/20 02:10: Sodium 136, Potassium 4.1, BUN 21 H, Creatinine 1.92 H, Glucose 86, Magnesium 2.5 H D, Total Bilirubin 0.4, AST 54 H, ALT 42, Alkaline Phosphatase 74 11/24/20 01:36: WBC 16.40 H, Hgb 13.0, Hct 40.3, Plt Count 271 Assessment and Plan - Problems (Diagnosis) (1) Opioid overdose Current Visit: Yes Status: Acute Qualifiers: Encounter type: initial encounter Injury intent: undetermined intent Qualified Code(s): T40.2X4A - Poisoning by other opioids, undetermined, initial encounter (2) Bipolar disorder Current Visit: Yes Status: Chronic Qualifiers: Active/Remission status: remission status unspecified Qualified Code(s): F31.9 - Bipolar disorder, unspecified (3) Schizophrenia Current Visit: Yes Status: Chronic Qualifiers: Schizophrenia type: unspecified Qualified Code(s): F20.9 - Schizophrenia, unspecified - Plan continuous pulse ox, O2 as needed gentle fluid hydration trend troponins Urinalysis pending, leukocytosis may be due to UTI vs COPD exacerbation IV levofloxacin, breathing treatments, IV steroids will obtain further history when patient is more alert discharge to home vs need for inpatient psychiatry Discharge Plan: Home Plan to discharge in: 48 Hours - Advance Directives Does patient have a Living Will: No Does patient have a Durable POA for Healthcare: No - Code Status/Comfort Care Code Status Assessed: Yes (full code) Critical Care: No Time Spent Managing Pts Care (In Minutes): 70
[2020-11-24] MEDS ORDERED: Levofloxacin 750mg IV 750 MG/150 ML BAG IV ONE (06:25)
[2020-11-24] MEDS ORDERED: MAGNESIUM SULFATE 1 gm IVPB 1 GM/100 ML BAG IV ONE (07:03)
--- NOTE | 2020-11-24 07:36 | RAD REPORT ---
EXAM DESCRIPTION: Varsha Single View11/24/2020 1:48 am CLINICAL HISTORY: Cough COMPARISON: August 2020 FINDINGS: The lungs appear clear of acute infiltrate. The heart is normal size IMPRESSION: No acute abnormalities displayed
[2020-11-24] MEDS: IPRATROPIUM BROM 0.5MG/2.5ML NEB SCH ×2 (07:45→14:50)
[2020-11-24 07:49] LABS: Thyroid Stimulating Hormone 1.41 uIU/mL (0.360-3.740); Troponin I 0.44 ng/mL (0.0-0.045)
[2020-11-24] MEDS ORDERED: METHYLPREDNISOLONE 40 MG INJ IV SCH (09:00)
[2020-11-24] MEDS ORDERED: PNEUMOCOCCAL VACCINE 0.5 ML IMVAC ONE (09:00)
[2020-11-24] MEDS ORDERED: HEPARIN 5000 UNIT/ML 1 ML VIAL SQ SCH (09:00)
[2020-11-24 09:55] VITALS: O2SAT 92
[2020-11-24] MEDS ORDERED: METHYLPREDNISOLONE 40 MG INJ ONE (11:02)
[2020-11-24 14:00] VITALS: BP 111/70
--- NOTE | 2020-12-12 02:16 | P.DS ---
Discharge Date: 11/24/20 Disposition: AMA-LEFT AGAINST MEDICAL ADVIC Reason for Admission: opioid overdose Brief History of Present Illness: Ms. Murphy is a 50 yo F with COPD, bipolar, and schizophrenia brought in today for opioid overdose. Alert to person, place and time. Unable to give any other history. WBC 16.4. BUN 21, Cr 1.92, GFR 28. Trop 0.67. BNP 2543. Hospital Course: Patient woke up and was clinically doing well. She wanted to leave against m edical advice. She was counseled but still decided to leave. Patient signed out AMA. Vital Signs/Physical Exam: Temp Pulse Resp BP Pulse Ox 98.6 F 70 16 111/70 95 11/24/20 06:23 11/24/20 13:59 11/24/20 13:59 11/24/20 13:59 11/24/20 13:59 General: Alert, In no apparent distress, Oriented x3 Laboratory Data at Discharge: WBC 16.40 K/uL (4.3-10.9) H 11/24/20 01:36 Hgb 13.0 g/dL (12.0-15.0) 11/24/20 01:36 Hct 40.3 % (36.0-45.0) 11/24/20 01:36 Plt Count 271 K/uL (152-406) 11/24/20 01:36 PT 11.3 SECONDS (9.5-12.5) 11/24/20 02:10 INR 0.98 11/24/20 02:10 APTT 25.4 SECONDS (24.3-36.9) 11/24/20 02:10 Sodium 136 mmol/L (136-145) 11/24/20 02:10 Potassium 4.1 mmol/L (3.5-5.1) 11/24/20 02:10 BUN 21 mg/dL (7-18) H 11/24/20 02:10 Creatinine 1.92 mg/dL (0.55-1.3) H 11/24/20 02:10 Glucose 86 mg/dL (74-106) 11/24/20 02:10 Magnesium 2.5 mg/dL (1.8-2.4) H D 11/24/20 02:10 Total Bilirubin 0.4 mg/dL (0.2-1.0) 11/24/20 02:10 AST 54 U/L (15-37) H 11/24/20 02:10 ALT 42 U/L (12-78) 11/24/20 02:10 Alkaline Phosphatase 74 U/L (45-117) 11/24/20 02:10 Troponin I 0.24 ng/mL (0.0-0.045) H 11/24/20 13:48 Home Medications: [place] Carbonate [Lithotabs *] 300 mg PO DAILY 07/02/12 Levothyroxine Sodium [Unithroid] 75 mcg PO DAILY 02/14/16 Bupropion HCl [Wellbutrin Xl] 150 mg PO DAILY 08/12/20 Duloxetine HCl [Cymbalta] 50 mg PO BID 08/12/20 Eszopiclone 3 mg PO BEDTIME 08/12/20 Gabapentin [Gralise] 600 mg PO TID 08/12/20 Hydromorphone [Dilaudid] 4 mg PO TID PRN 08/12/20 Mirtazapine 45 mg PO DAILY 08/12/20 OLANZapine [Zyprexa Zydis] 5 mg PO DAILY 08/12/20 Rosuvastatin Calcium [Crestor] 20 mg PO DAILY 08/12/20 Tizanidine [Zanaflex] 8 mg PO TID 08/12/20 Physician Discharge Instructions: Patient left against medical advice Followup: Unknown,U [Primary Care Provider] - Time spent managing pt's care (in minutes): 35
== END 2020-11-24 16:27 | disposition left against medical advice (07) | DRG 918 ==
LOC: ER 01:25 → ERHOLD 05:29 → 2ND 14:17
PROVIDERS: ADMIT Hospitalist; ATTEND Hospitalist
DX: T40.2X4A Poisoning by other opioids, undetermined, initial encounter (principal); F20.9 Schizophrenia, unspecified; J44.9 Chronic obstructive pulmonary disease, unspecified; F31.9 Bipolar disorder, unspecified; D72.829 Elevated white blood cell count, unspecified; Z53.29 Procedure and treatment not carried out because of patient's decision for other reasons; Z79.890 Hormone replacement therapy; Z79.899 Other long term (current) drug therapy; Z60.2 Problems related to living alone; Z20.822 Contact with and (suspected) exposure to COVID-19
CPT/HCPCS: 36415; 71045; 80048; 80076; 80307; 80320; 80329; 82805; 83735; 83880; 84439; 84443; 84484; 85025; 85610; 85730; 87040; 93005; 94640; 94760; 96372; 96374; 96375; 99284; J1644; J1650; J2543; J2920; J2930; J3475; J7030; U0003

== ENCOUNTER 2021-01-12 09:13 | Emergency (ER) | payer OTHER ==
--- OUTSIDE RECORDS SUMMARY | 2021-01-12 09:17 | XMS REPORT | Continuity of Care Document ---
:1970 Author Organization [facility] t Address [address] [place] [address] Care Team Providers Name Role Phone Unavailable [...] before [facility] bedtime l Outpat[facility] ent Clinics [place] [address] [facility] ml [facility] the tongue [facility] Rosuvastati Rosuvastati Yes Hayes [address] n Calcium n Calcium Gimenez [facility] Mirtazapine Mirtazapine Yes Hayes [address] [facility] at bedtime [facility] Synthroid Synthroid Yes Hayes [address] [facility] l [facility] Cymbalta Cymbalta Yes Hayes [address] [facility] l [facility] ent Clinics Wellbutrin Wellbutrin Yes Hayes [address] XL XL Gimenez in the [facility] - morning [facility] Procedures This patient has no known procedures. Encounters Start End Encounter Admission Attending Care Care Encounter Source Date/Time Date/Time Type Type Clinicians Facility Department ID 2020-11-01 2020-11-01 [facility] [id number] 2020-11-01 2020-11-01 [facility] [id number] [facility] 2020-10-24 2020-10-24 [facility] [id number] [facility] 2020-09-26 2020-09-26 [facility] [id number] [facility] 2020-07-25 2020-07-25 [facility] [id number] [facility] 2020-05-25 2020-05-25 [facility] [id number] [facility] 2020-03-10 2020-03-10 [facility] [id number] [facility] 15[facility] 15:00:[place] [employer] - [employer] [facility] Medicine l Medicine Outpati ent Clinics 2020-02-17 2020-02-17 [facility] [id number] 09:50:00 09:50:00 [place] [employer] - Drive [facility] l Medicine Outpati ent Clinics 2020-02-10 2020-02-10 [facility] [id number] 10[facility]34:00 10:34:00 [place] [employer] - [employer] [facility] Medicine Outpati ent Clinics 2019-12-17 2019-12-17 [facility] [id number] 13:30:00 13:30:00 [place] [employer] - [employer] [facility] Medicine Outpati ent Clinics 2019-10-19 2019-10-19 [facility] [id number] 13:00:00 13:00:00 t [employer] - [employer] [facility] Medicine Outpati ent Clinics 2019-10-16 2019-10-16 [facility] [id number] 13:49:00 13:49:00 [place] [employer] - [employer] [facility] Medicine l Medicine Outpati ent Clinics 2019-09-21 2019-09-21 [facility] [id number] 14:04:00 14:04:00 t [employer] mojio [facility] Medicine Outpati ent Clinics 2019-09-03 2019-09-03 [facility] [id number] 10:15:00 10:15:00 [place] [employer] mo[employer]io [facility] Medicine Medicine Outpati ent Clinics 2019-07-20 2019-07-20 [facility] [id number] 14:15:00 14:15:00 [place] [employer] - [employer] [facility] Medicine Outpati ent Clinics 2019-06-24 2019-06-24 [facility] [id number] 08:12:00 08:12:00 [place] [employer] mo[employer]io [facility] Medicine Outpati ent Clinics 2019-06-16 2019-06-16 [facility] [id number] 11:30:[facility] 11:30:[address] [place] [address] [place] [address] [place] - Drive [facility] Medicine l Medicine Outpati ent Clinics 2019-06-11 2019-06-11 [facility] [id number] 10:10:00 10:10:[address] [place] [address] [place] - Drive [facility] Medicine l Medicine Outpati ent Clinics 2019-06-08 2019-06-08 [facility] [id number] 16:35:00 16:35:[address] [place] [address] [place] - Drive [facility] Medicine l Medicine Outpati ent Clinics 2019-04-16 2019-04-16 [facility] [id number] 16:04:00 16:04:[address] [place] [address] Luke [place] - Drive [facility] Medicine l Medicine Outpati ent Clinics 2019-03-17 2019-03-17 [facility] [id number] 11:30:00 11:30:[address] [place] [address] [place] - Drive [facility] Medicine l Medicine Outpati ent Clinics 2019-02-03 2019-02-03 [facility] [id number] 11:56:00 11:56:[address] [place] [address] Luke [place] - Drive [facility] Medicine l Medicine Outpati ent Clinics 2019-01-26 2019-01-26 [facility] [id number] 08:47:00 08:47:[address] [place] [address] Luke [place] - Drive [facility] Medicine l Medicine Outpati ent Clinics 2019-01-14 2019-01-14 [facility] [id number] 09:30:00 09:30:[address] [place] [address] Luke [place] - Drive [facility] Medicine l Medicine Outpati ent Clinics 2018-10-22 2018-10-22 [facility] [id number] 14[facility]50:00 14:50:[address] [place] [address] Luke [place] - Drive [facility] Medicine l Medicine Outpati ent Clinics 2018-10-15 2018-10-15 [facility] [id number] 09[facility]45:00 09:45:[address] [place] [address] Luke [place] - Drive [facility] Medicine l Medicine Outpati ent Clinics 2018-07-17 2018-07-17 [facility] [id number] 08:15:00 08:15:00 t [employer] [facility] Medicine Outpati ent Clinics 2018-04-08 2018-04-08 [facility] [id number] 13:00:00 13:00:00 t [facility] Medicine Outpati ent Clinics 2018-02-13 2018-02-13 [facility] [id number] 10:56:00 10:56:00 t [facility] Medicine Outpati ent Clinics 2018-02-06 2018-02-06 [facility] [id number] 13:20:00 13:20:00 t [facility] Medicine Outpati ent Clinics 2018-02-05 2018-02-05 [facility] [id number] 08:15:00 08:15:00 t [facility] Medicine Outpati ent Clinics Results This patient has no known results.
[2021-01-12 09:32] LABS: Urine Blood Negative (Negative); Urine Glucose Negative (Negative); Urine Protein Negative (Negative)
[2021-01-12 10:00] LABS: Absolute Lymphocytes (CBC) 2.8 K/uL (0.7-4.9); Basophils % 0.5 % (0-1.3); Hematocrit 40.6 % (36.0-45.0); Lymphocytes % 29.8 % (15.3-44.8); MPV 8.7 fL (7.6-11.3); Protime INR 1.06; RBC Red Blood Cell Count 4.21 M/uL (3.86-4.86)
[2021-01-12 10:03] LABS: Barbiturates NEGATIVE (NEGATIVE); Benzodiazepines NEGATIVE (NEGATIVE); Cocaine NEGATIVE (NEGATIVE); METHAMPHETAM NEGATIVE (NEGATIVE); Methadone NEGATIVE (NEGATIVE); Opiates NEGATIVE (NEGATIVE); Phencyclidine NEGATIVE (NEGATIVE); THC Cannibis NEGATIVE (NEGATIVE)
[2021-01-12 10:13] LABS: ALT/SGPT 41 U/L (12-78); AST/SGOT 49 U/L (15-37); Albumin 3.7 g/dL (3.4-5.0); Alkaline Phosphatase 66 U/L (45-117); BUN Blood Urea Nitrogen 11 mg/dL (7-18); Bicarbonate 30 mmol/L (21-32); Bilirubin Direct < 0.1 mg/dL (0-0.2); Bilirubin Total 0.3 mg/dL (0.2-1.0); Glucose Level 87 mg/dL (74-106); Magnesium 2.4 mg/dL (1.8-2.4); NT PRO-BNP 252 pg/mL (<125); Potassium 3.9 mmol/L (3.5-5.1); Protein, Total 6.9 g/dL (6.4-8.2); Sodium Level 147 mmol/L (136-145); Troponin (Emerg Dept Use Only) < 0.02 ng/mL (0.0-0.045)
--- NOTE | 2021-01-12 10:15 | RAD REPORT ---
EXAM DESCRIPTION: RAD - Chest Single View - 01/12/2021 9:52 am CLINICAL HISTORY: CHEST PAIN COMPARISON: Portable November 24 TECHNIQUE: AP portable chest image was obtained 01/12/2021 9:52 am . FINDINGS: Lungs are clear. Bilateral nipple shadows are present. Piercing is present on the right. H eart and vasculature are normal. No measurable pleural effusion and no pneumothorax. No acute bony ab normality seen. No acute aortic findings suspected. IMPRESSION: No acute cardiopulmonary process. No significant change from comparison study.
[2021-01-12] MEDS ORDERED: ASPIRIN 81 MG CHEWABLE TABLET ONE (10:24)
[2021-01-12] MEDS ORDERED: MORPHINE 4 MG/ML SYR ONE (10:35)
--- NOTE | 2021-01-12 11:05 | ER ---
Nurse's Notes [facility] Name: Mitzi Murphy Age: 50 yrs Sex: Female : 1970 Arrival Date: 01/12/2021 Time: 09:16 Bed 6 Private MD: Hayes Gimenez Diagnosis: Chest pain, unspecified Presentation: 01/12 09:25 Initial Sepsis Screen: Does the patient meet any 2 criteria? No. Patient's initial kg sepsis screen is negative. Does the patient have a suspected source of infection? No. Patient's initial sepsis screen is negative. Risk Assessment: Do you want to hurt yourself or someone else? Patient reports no desire to harm self or others. Onset of symptoms was January 09, 2021. 09:25 Acuity: DIANA 3 kg 09:35 Chief complaint: Patient states: Chest pain starting 3 days ago. Coronavirus screen: kg Client denies travel out of the [place] in the last 14 days. At this time, unable to obtain information related to travel outside the [place] At this time, the client does not indicate any symptoms associated with coronavirus-19. Ebola Screen: Patient negative for fever greater than or equal to 101.5 degrees Fahrenheit, and additional compatible Ebola Virus Disease symptoms Patient denies exposure to infectious person. Patient denies travel to an Ebola-affected area in the 21 days before illness onset. No symptoms or risks identified at this time. 09:35 Method Of Arrival: Ambulatory kg Triage Assessment: 09:53 General: Appears unkempt, Behavior is cooperative, anxious. Pain: Complains of pain in kg chest Pain currently is 4 out of 10 on a pain scale. at worst was 4 out of 10 on a pain scale. level that patient reports is acceptable is 2 out of 10 on a pain scale. Quality of pain is described as aching, sharp, stabbing, Pain began 2-3 days ago. EENT: No deficits noted. Neuro: No deficits noted. Cardiovascular: Reports chest pain, nausea, Heart tones S1 S2 Capillary refill < 3 seconds Pulses are 3+ in right radial artery and left radial artery Rhythm is regular. Respiratory: No deficits noted. GI: No deficits noted. : No deficits noted. Derm: No deficits noted. Musculoskeletal: No deficits noted. 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 - Social history:: Smoking status: Patient reports the use of cigarette tobacco products, smokes one pack cigarettes per day. Patient uses alcohol, occasionally. street drugs, cocaine. Screenin:57 Abuse screen: Denies threats or abuse. Denies injuries from another. Nutritional kg screening: No deficits noted. Tuberculosis screening: No symptoms or risk factors identified. Fall Risk None identified. No fall in past 12 months (0 pts). No secondary diagnosis (0 pts). IV access (20 points). Ambulatory Aid- None/Bed Rest/Nurse Assist (0 pts). Gait- Normal/Bed Rest/Wheelchair (0 pts) Mental Status- Oriented to own ability (0 pts). Total Blanc Fall Scale indicates No Risk (0-24 pts). Assessment: 09:57 Reassessment: See triage assessment. Pain: Complains of pain in chest Pain does not kg radiate. 11:56 Reassessment: Patient states feeling better. Patient states symptoms have improved. kg Vital Signs: 09:25 BP 174 / 91; Pulse 72; Resp 20; Temp 96.8(TE); Pulse Ox 98% on R/A; Weight 56.7 kg (M); kg Height 5 ft. 2 in. (157.48 cm); Pain 4/10; 10:00 BP 149 / 102; Pulse 71; Resp 20; Pulse Ox 100% on R/A; kg 11:30 BP 166 / 105; Pulse 75; Resp 20; Pulse Ox 99% on R/A; kg 09:25 Body Mass Index 22.86 (56.70 kg, 157.48 cm) kg ED Course: 09:16 Patient arrived in ED. mr 09:16 Hayes Gimenez DO is Private Physician. mr 09:22 Arm band placed on Patient placed in an exam room, on a stretcher. ll1 09:26 Heraclio Oreilly PA is PHCP. jr8 09:26 Noel Jacques MD is Attending Physician. jr8 09:35 Inserted saline lock: 20 gauge in right in left. kg 09:42 Francine Bates, RN is Primary Nurse. kg 09:53 XRAY Chest (1 view) In Process Unspecified. EDMS 09:53 Triage completed. kg 09:57 Patient has correct armband on for positive identification. Placed in gown. Bed in low kg position. Call light in reach. Side rails up X 1. monitor worker on. Pulse ox on. NIBP on. 09:58 Patient maintains SpO2 saturation greater than 95% on room air. kg 11:03 Hayes Gimenez DO is Referral Physician. jr8 11:55 No provider procedures requiring assistance completed. IV discontinued, intact, kg bleeding controlled, No redness/swelling at site. Pressure dressing applied. Administered Medications: 10:12 Not Given (Pt took ENTRY ANALYST): Aspirin Chewable Tablet 324 mg PO once; 81 mg tablets x 4 kg 10:17 Drug: morphine 4 mg Route: IVP; Site: right antecubital; kg 10:40 Follow up: Response: No adverse reaction; No change in condition kg 11:29 Drug: Dilaudid (HYDROmorphone) 2 mg Route: IVP; Site: right antecubital; ll1 11:57 Follow up: Response: No adverse reaction; Marked relief of symptoms kg Outcome: 11:04 Discharge ordered by MD. jr8 11:56 Discharged to home ambulatory, with family. kg 11:56 Condition: stable 11:56 Discharge instructions given to patient, family, Instructed on discharge instructions, follow up and referral plans. Demonstrated understanding of instructions, follow-up care. 12:04 Patient left the ED. kg Signatures: Dispatcher [employer] EDIN Shazia Granados Josh, PA PA jr8 Mai Gaston, RN RN ll1 Francine Bates, RN RN kg
--- NOTE | 2021-01-12 11:05 | EDPHYS ---
Physician Documentation [facility] Name: Mitzi Murphy Age: 50 yrs Sex: Female : 1970 Arrival Date: 01/12/2021 Time: 09:16 Bed 6 Private MD: Pernell [facility] ED Physician Noel Jacques HPI: 01/12 10:43 This 50 yrs old Female presents to ER via Ambulatory with complaints of Chest jr8 Pain. 10:43 The patient or guardian reports chest pain that is located primarily in the substernal jr8 area, anterior chest wall, right. Onset: acutely. The pain does not radiate. Associated signs and symptoms: The patient has no apparent associated signs or symptoms. The chest pain is described as sharp. Duration: The patient or guardian reports a single episode, that is still ongoing. Modifying factors: The symptoms are alleviated by nothing. the symptoms are aggravated by movement, palpation of area. Severity of pain: At its worst the pain was moderate in the emergency department the pain is unchanged. The patient has not experienced similar symptoms in the past. The patient has not recently seen a physician. Patient stated that she strained herself with moving things yesterday. Stated that since then has had pain to substernal and right anterior chest . 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 - Social history:: Smoking status: Patient reports the use of cigarette tobacco products, smokes one pack cigarettes per day. Patient uses alcohol, occasionally. street drugs, cocaine. ROS: 10:43 Eyes: Negative for injury, pain, redness, and discharge, ENT: Negative for injury, jr8 pain, and discharge, Neck: Negative for injury, pain, and swelling, Respiratory: Negative for shortness of breath, cough, wheezing, and pleuritic chest pain, Abdomen/GI: Negative for abdominal pain, nausea, vomiting, diarrhea, and constipation, Back: Negative for injury and pain, MS/Extremity: Negative for injury and deformity, Skin: Negative for injury, rash, and discoloration, Neuro: Negative for headache, weakness, numbness, tingling, and seizure. 10:43 Cardiovascular: Positive for chest pain, Negative for edema, orthopnea, palpitations, paroxysmal nocturnal dyspnea. Exam: 10:43 Constitutional: This is a well developed, well nourished patient who is awake, alert, jr8 and in no acute distress. Neck: Trachea midline, no thyromegaly or masses palpated, and no cervical lymphadenopathy. Supple, full range of motion without nuchal rigidity, or vertebral point tenderness. No Meningismus. Cardiovascular: Regular rate and rhythm with a normal S1 and S2. No gallops, murmurs, or rubs. Normal PMI, no JVD. No pulse deficits. Respiratory: Lungs have equal breath sounds bilaterally, clear to auscultation and percussion. No rales, rhonchi or wheezes noted. No increased work of breathing, no retractions or nasal flaring. Abdomen/GI: Soft, non-tender, with normal bowel sounds. No distension or tympany. No guarding or rebound. No evidence of tenderness throughout. Back: No spinal tenderness. No costovertebral tenderness. Full range of motion. Skin: Warm, dry with normal turgor. Normal color with no rashes, no lesions, and no evidence of cellulitis. MS/ Extremity: Pulses equal, no cyanosis. Neurovascular intact. Full, normal range of motion. Neuro: Awake and alert, GCS 15, oriented to person, place, time, and situation. Cranial nerves II-XII grossly intact. Motor strength 5/5 in all extremities. Sensory grossly intact. Cerebellar exam normal. Normal gait. 10:43 Chest/axilla: Inspection: normal, Palpation: tenderness, that is moderate, of the anterior aspect of right upper chest, that partially reproduces the patient's complaints, Axilla: are normal, Lymph nodes: lymphadenopathy is not appreciated. 10:47 ECG was reviewed by the Attending Physician. [facility] Vital Signs: 09:25 BP 174 / 91; Pulse 72; Resp 20; Temp 96.8(TE); Pulse Ox 98% on R/A; Weight 56.7 kg (M); kg Height 5 ft. 2 in. (157.48 cm); Pain 4/10; 10:00 BP 149 / 102; Pulse 71; Resp 20; Pulse Ox 100% on R/A; kg 11:30 BP 166 / 105; Pulse 75; Resp 20; Pulse Ox 99% on R/A; kg 09:25 Body Mass Index 22.86 (56.70 kg, 157.48 cm) kg MDM: 09:26 Patient medically screened. jr8 10:43 Differential diagnosis: abnormal EKG, acute myocardial infarction, acute pericarditis, jr8 anxiety, chest wall pain, cholecystitis, Cholelithiasis costochondritis, esophagitis, gastroesophageal reflux disease (GERD), pancreatitis, peptic ulcer disease, pleurisy, pneumonia, pneumothorax, pulmonary embolus, stable angina, thoracic aortic disection, unstable angina. The patient was not given aspirin in the Emergency Department. Patient reports taking aspirin within the past 24 hours. Data reviewed: vital signs, nurses notes, lab test result(s), EKG, radiologic studies, plain films. Counseling: I had a detailed discussion with the patient and/or guardian regarding: the historical points, exam findings, and any diagnostic results supporting the discharge/admit diagnosis, lab results, radiology results, the need for outpatient follow up, a hazardous substances scientist, a family practitioner, to return to the emergency department if symptoms worsen or persist or if there are any questions or concerns that arise at home. 10:47 HILARY Risk Score: 1 - Recent [<24hrs] Severe Angina, TOTAL SCORE = 1. Data interpreted: jr8 Pulse oximetry: on room air is 98 %. Interpretation: normal. 11:02 Special discussion: I have referred the patient to see his PCP for further evaluation jr8 of high blood pressure. ED course: Discussed with patient that she needs to see her pain management physician for her Dilaudid prescription as we do not fill those medications. Patient understood and has appointment with Dr. Louis in [place] this Saturday . 01/12 09:32 Order name: Urine Dipstick-Ancillary; Complete Time: 09:39 EDMS 01/12 09:33 Order name: Basic Metabolic Panel; Complete Time: 10:16 01/12 09:33 Order name: CBC with Diff; Complete Time: 10:08 01/12 09:33 Order name: LFT's; Complete Time: 10:16 01/12 09:33 Order name: Magnesium; Complete Time: 10:16 01/12 09:33 Order name: NT PRO-BNP; Complete Time: 10:16 01/12 09:33 Order name: PT-INR; Complete Time: 10:01/12 09:33 Order name: Troponin (emerg Dept Use Only); Complete Time: 10:16 01/12 09:33 Order name: XRAY Chest (1 view); Complete Time: 10:16 01/12 09:43 Order name: Urine Drug Screen; Complete Time: 10:08 kg 01/12 10:59 Order name: Urine --Ancillary (enter results); Complete Time: 11:39 mt 01/12 09:33 Order name: EKG; Complete Time: 09:34 01/12 09:33 Order name: Cardiac monitoring; Complete Time: 10:01/12 09:33 Order name: EKG - Nurse/Tech; Complete Time: 10:01/12 09:33 Order name: IV Saline Lock; Complete Time: 10:01/12 09:33 Order name: Labs collected and sent; Complete Time: 10:01/12 09:33 Order name: O2 Per Protocol; Complete Time: 10:01/12 09:33 Order name: O2 Sat Monitoring; Complete Time: 10: EC:47 Rate is 67 beats/min. Rhythm is regular, Sinus Rhythm. QRS [place] is Normal. [place] interval jr8 is normal at 120 msec. QRS interval is normal at 76 msec. QT interval is normal at 414 msec. No Q waves. T waves are Normal. No ST changes noted. Clinical impression: Normal ECG. Interpreted by me. 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 rn Disposition Summary: 01/12/21 11:04 Discharge Ordered Location: Home jr8 Problem: new jr8 Symptoms: have improved jr8 Condition: Stable jr8 Diagnosis - Chest pain, unspecified jr8 Followup: jr8 - With: Hayes Gimenez, - When: 2 - 3 days - Reason: Recheck today's complaints, Continuance of care, Re-evaluation by your physician Discharge Instructions: - Discharge Summary Sheet jr8 - Chest Wall Pain jr8 Forms: - Medication Reconciliation Form jr8 - Thank You Letter jr8 - Antibiotic Education jr8 - Prescription Opioid Use jr8 Prescriptions: - amlodipine 5 mg Oral tablet - take 1 tablet by ORAL route once daily; 30 tablet; Refills: 0, Product jr8 Selection Permitted Signatures: Dispatcher [employer] EDMS Noel Jacques MD MD rn Heraclio Oreilly PA PA jr8 Mai Gaston RN RN ll1 Francine Bates RN RN kg
[2021-01-12 11:39] LABS: Urine Specific Gravity/Preg 1.025 (1.005-1.030)
[2021-01-12] MEDS ORDERED: HYDROMORPHONE HCL 2 MG/ML inj ONE (11:45)
[2021-01-12 12:23] VITALS: TEMP 96.8
[2021-01-12 12:35] VITALS: BP 166/105; O2SAT 99
--- NOTE | 2021-01-13 07:46 | EKG ---
Test Date: 2021-01-12 Test Time: 09:31:48 [place]: BROWN MEASUREMENT RESULTS: Intervals: Rate: 67 AR: 120 QRSD: 76 QT: 414 QTc: 437 [place]: P: 48 AR: 120 QRS: 60 T: 56 INTERPRETIVE STATEMENTS: Normal sinus rhythm Normal ECG Compared to ECG 11/24/2020 01:34:26 No significant changes Electronically Signed On 01-13-21 07:42:56 CDT by Shai Jodran
== END 2021-01-12 12:04 | disposition home or self-care (01) ==
LOC: ER 09:13
DX: R07.9 Chest pain, unspecified (principal); F17.210 Nicotine dependence, cigarettes, uncomplicated
CPT/HCPCS: 93005; 85025; 80048; 36415; 83735; 81025; 85610; 80076; 81003; 84484; 83880; 80307; 71045; 96375; 96374; 99285; J1170

== ENCOUNTER 2021-03-12 21:57 | Emergency (ER) | payer OTHER ==
--- OUTSIDE RECORDS SUMMARY | 2021-03-12 22:00 | XMS REPORT | Continuity of Care Document ---
:1970 Author Organization [facility] t Address [address] [place] [address] Care Team Providers Name Role Phone Unavailable [...] before [facility]oria bedtime l [facility]pat[facility] Yes [place] [address] [facility] ml [facility] the tongue [facility] Rosuvastati Rosuvastati Yes Hayes [address] n Calcium n Calcium Gimenez [facility] Mirtazapine Mirtazapine Yes Hayes [address] [facility] [address] [facility] at bedtime [facility] Synthroid Synthroid Yes Hayes [address] [facility] [address] [facility] on an [facility] stomach in l the [facility] Cymbalta Cymbalta Yes Hayes [address] [facility] Wellbutrin Wellbutrin Yes Hayes [address] XL XL Gimenez in the [facility] - morning [facility] Procedures This patient has no known procedures. Encounters Start End Encounter Admission Attending Care Care Encounter Source Date/Time Date/Time Type Type Clinicians Facility Department ID 2021-01-19 2021-01-[id number] 2021-01-17 2021-01-[facility] [id number] [facility] 2021-01-12 2021-01-12 [facility] [id number] [facility] 2020-11-01 2020-11-[address] [facility] [id number] [facility] 2020-11-01 2020-11-[address] [facility] [id number] [facility] 2020-10-24 2020-10-[facility] [id number] [facility] 2020-09-26 2020-09-[address] [facility] [id number] [facility] 2020-07-25 2020-07-25 [facility] [id number] 2020-05-25 2020-05-[facility] [id number] [facility] 2020-03-10 2020-03-10 [facility] [id number] [address] [facility]00:00 [place] [address] [facility] - [facility] l Medicine Outpati ent Clinics 2020-02-17 2020-02-17 [facility] [id number] 09:50:00 09:50:00 [place] [facility] - [facility] l Medicine Outpati ent Clinics 2020-02-10 2020-02-10 [facility] [id number] 10:34:00 10:34:00 [place] [facility] - [facility] l Medicine Outpati ent Clinics 2019-12-17 2019-12-17 [facility] [id number] 13:30:00 13:30:00 [place] [facility] - [facility] Medicine l Medicine Outpati ent Clinics 2019-10-19 2019-10-19 [facility] [id number] 13:00:00 13:00:00 [place] [facility] - [facility] Medicine l Medicine Outpati ent Clinics 2019-10-16 2019-10-16 [facility] [id number] 13[facility]49:00 13:49:00 [place] [address] [facility] - [facility] l Medicine Outpati ent Clinics 2019-09-21 2019-09-21 [facility] [id number] 14:04:00 14:04:00 [place] [address] [facility] - Drive [facility] Medicine l Medicine Outpati ent Clinics 2019-09-03 2019-09-03 [facility] [id number] 10:15:00 10:15:00 [place] [address] [facility] - Drive [facility] Medicine l Medicine Outpati ent Clinics 2019-07-20 2019-07-20 [facility] [id number] 14:15:00 14:15:00 [place] [address] [facility] - Drive [facility] Medicine l Medicine Outpati ent Clinics 2019-06-24 2019-06-24 [facility] [id number] 08:12:00 08:12:00 [place] [facility] - Drive [facility] l Medicine Outpati ent Clinics 2019-06-16 2019-06-16 [facility] [id number] 11:30:00 11:30:00 [place] [facility] - Drive [facility] l Medicine Outpati ent Clinics 2019-06-11 2019-06-11 [facility] [id number] 10:10:00 10:10:00 [place] [employer] s - Drive [facility] l Medicine Outpati ent Clinics 2019-06-08 2019-06-08 [facility] [id number] 16:35:00 16:35:00 [place] [employer] - Drive [facility] Medicine Medicine Outpati ent Clinics 2019-04-16 2019-04-16 [facility] [id number] 16:04:00 16:04:00 [place] [employer] s - Drive [facility] l Medicine Outpati ent Clinics 2019-03-17 2019-03-17 [facility] [id number] 11:30:00 11:30:00 [place] [facility] - Drive [facility] Medicine Medicine Outpati ent Clinics 2019-02-03 2019-02-03 [facility] [id number] 11:56:00 11:56:00 [place] [employer] s - Drive [facility] Medicine Outpati ent Clinics 2019-01-26 2019-01-26 [facility] [id number] 08:47:00 08:47:00 [place] [employer] s - Drive [facility] l Medicine Outpati ent Clinics 2019-01-14 2019-01-14 [facility] [id number] 09:30:00 09:30:00 [place] [employer] [facility] - [place] [facility] Medicine Outpati ent Clinics 2018-10-22 2018-10-22 [facility] [id number] 14:50:00 14:50:00 [place] [employer] - [place] [facility] Medicine Outpati ent Clinics 2018-10-15 2018-10-15 [facility] [id number] 09:45:00 09:45:00 [place] [employer] - [place] [facility] Medicine Outpati ent Clinics 2018-07-17 2018-07-17 [facility] [id number] 08:15:00 08:15:00 [place] [employer] - [place] [facility] Medicine Outpati ent Clinics 2018-04-08 2018-04-08 [facility] [id number] 13:00:00 13:00:00 t [employer] - [place] [facility] Medicine Outpati ent Clinics 2018-02-13 2018-02-13 [facility] [id number] 10:56:00 10:56:00 [place] [employer] - [place] [facility] Medicine Outpati ent Clinics 2018-02-06 2018-02-06 [facility] [id number] 13:20:00 13:20:00 t [employer] [facility] Medicine Outpati ent Clinics 2018-02-05 2018-02-05 [facility] [id number] 08:15:00 08:15:00 t [employer] - [place] [facility] Medicine Outpati ent Clinics Results This patient has no known results.
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
[2021-03-12 22:47] VITALS: BP 129/70; O2SAT 98
== END 2021-03-12 22:41 | disposition home or self-care (01) ==
LOC: ER 21:57
DX: G89.29 Other chronic pain (principal); F31.9 Bipolar disorder, unspecified
CPT/HCPCS: 99283

== ENCOUNTER 2021-04-18 14:44 | Emergency (ER) | payer OTHER ==
[2021-04-18 15:13] LABS: Absolute Lymphocytes (CBC) 1.7 K/uL (0.7-4.9); Basophils % 0.2 % (0-1.3); Hematocrit 44.3 % (36.0-45.0); Lymphocytes % 9.1 % (15.3-44.8); RBC Red Blood Cell Count 4.59 M/uL (3.86-4.86)
[2021-04-18 15:29] LABS: Albumin 4.2 g/dL (3.4-5.0); Bilirubin Total 0.5 mg/dL (0.2-1.0); Potassium 3.9 mmol/L (3.5-5.1); Protein, Total 7.5 g/dL (6.4-8.2)
--- NOTE | 2021-04-18 15:29 | RAD REPORT ---
EXAM DESCRIPTION: CT - Head C Spine Cap Bessy Sheehan - 04/18/2021 3:08 pm CLINICAL HISTORY: Trauma, head and neck injury. Chest, abdomen and pelvis pain. fall COMPARISON: None TECHNIQUE: CT head without contrast. CT cervical spine without contrast with coronal and sagittal reformatted images. CT chest, abdomen and pelvis with coronal and sagittal reformatted images of the spine. All CT scans are performed using dose optimization technique as appropriate and may include automated exposure control or mA/KV adjustment according to patient size. FINDINGS: CT HEAD WITHOUT CONTRAST: Encephalomalacia in the bilateral frontal lobes consistent with sequela of remote trauma. No acute in tracranial hemorrhage. No mass effect or midline shift. No acute large vascular territory infarct. The paranasal sinuses and mastoids are clear. The calvarium is intact. CT CERVICAL SPINE WITHOUT CONTRAST: Multilevel cervical spondylosis with varying degrees of neural foraminal narrowing which is advanced at C3-4 and C4-5. No definite central spinal stenosis. Anterolisthesis of C7 on T1 is noted likely re lated to underlying degenerative changes. The prevertebral soft tissues are normal in thickness. CT CHEST, ABDOMEN, PELVIS: Thorax: Chest Wall: No abnormal mass Lungs: No acute abnormality. Pleura: No effusions or pneumothorax. Swathi/Mediastinum: No lymphadenopathy. Aorta/Pulmonary Arteries: Unremarkable Heart: Normal size. Abdomen/Pelvis: Liver: No acute abnormality or suspicious lesions. Biliary: No biliary ductal dilatation. Stomach: No significant focal abnormality. Duodenum: No significant focal abnormality. Pancreas: No significant abnormality. Spleen: No significant abnormality. Adrenal: No suspicious lesions. Kidney/ureter: No hydronephrosis. No renal calculi. Too small to characterize and/or benign appearing renal lesions are noted. Retroperitoneum: No retroperitoneal adenopathy. Vascular: No aneurysm. Bowel: No significant focal abnormality. Peritoneum: No ascites or free air. Bladder: Grossly unremarkable. Reproductive: No adnexal masses. Bones: L1 compression fracture with approximately 20% loss of height. Minimal retropulsion. Subacute versus remote right-sided transverse process fractures . Other: n/a IMPRESSION: Acute L1 compression fracture. No other evidence of significant trauma is identified.
[2021-04-18] MEDS ORDERED: HYDROMORPHONE HCL 2 MG/ML inj ONE ×2 (15:46→17:08)
--- NOTE | 2021-04-18 16:20 | RAD REPORT ---
EXAM DESCRIPTION: RAD - Tib Fib Left - 04/18/2021 4:05 pm CLINICAL HISTORY: fall, lower leg injury COMPARISON: Femur Right dated 08/11/2020 FINDINGS: Trimalleolar fracture at the ankle. The distal fibular fracture is displaced by approximat yasmine 1/3 shaft with. There is a medial malleolar fracture. Posterior malleolar fracture also noted. Th ere is disruption of the ankle mortise. IMPRESSION: Trimalleolar fracture with disruption of the ankle mortise.
--- NOTE | 2021-04-18 17:55 | EDPHYS ---
Physician Documentation [facility] Name: Mitzi Murphy Age: 51 yrs Sex: Female : 1970 Arrival Date: 04/18/2021 Time: 14:47 Bed 2 Private MD: ED Physician Gerardo Eldridge HPI: 04/18 14:53 This 51 yrs old Female presents to ER via EMS with complaints of Fall Injury, jmm Trauma Complaint. 14:53 Details of fall: The patient fell from a height, [facility], 2nd story. Onset: The jmm symptoms/episode began/occurred acutely, just prior to arrival. Associated injuries: The patient sustained injury to the low back. This is a 51-year-old female with a history of bipolar, insomnia, manic depression, traumatic brain injury the presents emerge department with complaints of left lower leg pain. Patient states that she was attempting to reach her license while in the [facility] and fell over the top of the rail. Denies head injury or LOC. EMS reported deformity of the left lower leg.. Historical: - Allergies: 14:58 No Known Allergies; ss - PMHx: 14:58 Bipolar disorder; insomnia; manic depressive; TBI- 1993; thyroid problems; ss - Immunization history: Last tetanus immunization: unknown. - Social history:: Smoking status: Patient reports the use of cigarette tobacco products, smokes one-half pack cigarettes per day. ROS: 14:53 Constitutional: Negative for fever, chills, and weight loss, Cardiovascular: Negative jmm for chest pain, palpitations, and edema, Respiratory: Negative for shortness of breath, cough, wheezing, and pleuritic chest pain. 14:53 Back: Positive for pain with movement. 14:53 MS/extremity: Positive for pain. 14:53 All other systems are negative. Exam: 14:53 Constitutional: This is a well developed, well nourished patient who is awake, alert, jmm and in no acute distress. Head/Face: atraumatic. Eyes: EOMI, no conjunctival erythema appreciated ENT: Moist Mucus Membranes Neck: Trachea midline, Supple Chest/axilla: Normal chest wall appearance and motion. Cardiovascular: Regular rate and rhythm. 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 14:53 Musculoskeletal/extremity: ROM: intact in all extremities, Deformity noted to the left ankle, full dorsalis pulse appreciated, compartments are soft, sensation intact, neurovascular intact. 14:53 Skin: Appearance: Color: normal in color. 14:53 Neuro: Orientation: is normal, Mentation: is normal, Memory: is normal. 14:53 Psych: Behavior/mood is pleasant, cooperative. Vital Signs: 14:48 BP 130 / 85; Pulse 77; Resp 18; Temp 98.6(TE); Pulse Ox 100% on R/A; Weight 52.16 kg; ss Aiyana Coma Score: 14:56 Eye Response: spontaneous(4). Verbal Response: oriented(5). Motor Response: obeys ch5 commands(6). Total: 15. Trauma Score (Adult): 14:56 Eye Response: spontaneous(1); Verbal Response: oriented(1); Motor Response: obeys ch5 commands(2); Systolic BP: > 89 mm Hg(4); Respiratory Rate: 10 to 29 per min(4); Aiyana Score: 15; Trauma Score: 12 MDM: 14:53 Patient medically screened. [facility] 17:52 Data reviewed: vital signs, nurses notes. Counseling: I had a detailed discussion with [facility] the patient and/or guardian regarding: the historical points, exam findings, and any diagnostic results supporting the discharge/admit diagnosis, radiology results, the need to transfer to another facility. ED course: I discussed the patient with Dr. Stout who advised to transfer the patient for further evaluation of the lumbar spine fracture.. I discussed the patient with Dr. GUY whom accepted the patient to [facility] trauma services. 04/18 14:54 Order name: CBC with Diff; Complete Time: 15:17 [facility] 04/18 14:54 Order name: CMP; Complete Time: 15:56 [facility] 04/18 14:56 Order name: Type And Screen; Complete Time: 16:33 [facility] 04/18 17:04 Order name: COVID-19 : Document "Date of Symptom Onset" if Symptomatic. [facility] 04/18 17:43 Order name: SARS-COV-2 RT PCR [facility] 04/18 14:54 Order name: CT Traumagram (Head C Spine CAP W Con); Complete Time: 15:56 [facility] 04/18 14:54 Order name: Saline Lock; Complete Time: 15:06 [facility] 04/18 14:54 Order name: Tib Fib Left XRAY; Complete Time: 16:33 jm Administered Medications: 15:20 Drug: Dilaudid (HYDROmorphone) 2 mg Route: IVP; Site: right antecubital; ch5 16:53 Drug: Dilaudid (HYDROmorphone) 1 mg Route: IVP; Site: right antecubital; ch5 17:57 Drug: Nicoderm CQ Patch 21 mg/24 hr 1 patches Route: Transdermal; Site: anterior chest ch5 wall; Disposition: 22:54 Co-signature as Attending Physician, Gerardo Eldridge MD I agree with the assessment and kdr plan of care. Disposition Summary: 04/18/21 17:54 Transfer Ordered Transfer Location: [facility] Reason: Higher level of care jm Condition: Stable jm Problem: new jmm Symptoms: are unchanged jmm Accepting Physician: Dr. Guy(04/18/21 19:01) ch5 Diagnosis - Left Trimalleolar Ankle Fracture jmm - L1 Compression fracture [facility] Forms: - Medication Reconciliation Form jmm - SBAR form jm Signatures: Dispatcher [employer] EDMS Gerardo Eldridge MD MD kdr Mickail, Joel, PA PA m Karena Allen RN RN Hari Lawson RN RN ch5 Corrections: (The following items were deleted from the chart) 15:01 14:55 Ankle Left 3 View+RAD.RAD.BRZ ordered. EDMS EDMS 17:43 17:05 CORONAVIRUS+MR.LAB.BRZ ordered. EDMS EDMS 19:01 17:54 Dr. Guy [facility] ch5
--- NOTE | 2021-04-18 17:55 | ER ---
Nurse's Notes [facility] Name: Mitzi Murphy Age: 51 yrs Sex: Female : 1970 Arrival Date: 04/18/2021 Time: 14:47 Bed 2 Private MD: Diagnosis: Left Trimalleolar Ankle Fracture;L1 Compression fracture Presentation: 04/18 14:48 Chief complaint: EMS states: Fall from second story Bimbasket. Mother told EMS she was ss with patient and turned around for 30 seconds and when she turned back around she had fallen off of Bimbasket. EMS noted obvious deformity to mid back area but is unsure as to whether or not it is new or old as well as bony deformity to L ankle. Splint placed to LLE. C collar and backboard in place. Care prior to arrival: Medication(s) given: Fentanyl 100 mcg IV initiated. 20 GA, in the right antecubital area. Mechanism of Injury: Fall from 2nd story. Trauma event details: Injury occurred: at home. Injury occurred: April 18, 2021. 14:48 Acuity: DIANA 1 ss 14:48 Method Of Arrival: EMS: [facility] ss 14:48 Coronavirus screen: Client denies travel out of the [place] in the last 14 days. Ebola ss Screen: Patient denies exposure to infectious person. Patient denies travel to an Ebola-affected area in the 21 days before illness onset. Initial Sepsis Screen: Does the patient meet any 2 criteria? No. Patient's initial sepsis screen is negative. Does the patient have a suspected source of infection? No. Patient's initial sepsis screen is negative. Risk Assessment: Do you want to hurt yourself or someone else? Patient reports no desire to harm self or others. Onset of symptoms was April 18, 2021. Trauma Activation: Alert Physician: ED Physician; Name: ; Notified At: ; Arrived At: Physician: General Surgeon; Name: ; Notified At: ; Arrived At: Physician: Radiology; Name: ; Notified At: ; Arrived At: Physician: Respiratory; Name: ; Notified At: ; Arrived At: Physician: Lab; Name: ; Notified At: ; Arrived At: Historical: - Allergies: 14:58 No Known Allergies; ss - PMHx: 14:58 Bipolar disorder; insomnia; manic depressive; TBI- 1994; thyroid problems; ss - Immunization history: Last tetanus immunization: unknown. - Social history:: Smoking status: Patient reports the use of cigarette tobacco products, smokes one-half pack cigarettes per day. Screenin:56 Abuse screen: Denies threats or abuse. Denies injuries from another. Nutritional ch5 screening: No deficits noted. Tuberculosis screening: No symptoms or risk factors identified. Primary Survey: 14:48 NO uncontrolled hemorrhage observed. A: The patient is alert. Airway: patent, No ss supplemental oxygen in use on arrival. Oral cavity: clear, Trachea midline. Breathing/Chest: Respiratory pattern: regular, Respiratory effort: spontaneous, unlabored, Chest inspection: symmetrical rise and fall of the chest. Circulation: Pulses: palpable right radial artery, right posterior tibial artery, left radial artery and left posterior tibial artery. Skin color: pink, Skin temperature: warm. Disability Alert. Exposure/Environment: There is no evidence of uncontrolled external bleeding. 14:56 Reassessment Breathing/Chest Respiratory pattern Regular Respiratory effort Spontaneous ch5 Unlabored. Secondary Survey: 14:48 HEENT: Nose: clear Throat: No injury or deformity noted. is clear. ss 14:56 Musculoskeletal: Bony deformity noted of left lateral ankle. ch5 Assessment: 14:56 General: Appears in no apparent distress. uncomfortable, Behavior is calm, cooperative. ch5 Pain: Complains of pain in left medial ankle Aggravated by repositioning, weight bearing. 15:04 Reassessment: No changes from previously documented assessment. ch5 Vital Signs: 14:48 BP 130 / 85; Pulse 77; Resp 18; Temp 98.6(TE); Pulse Ox 100% on R/A; Weight 52.16 kg; ss Aiyana Coma Score: 14:56 Eye Response: spontaneous(4). Verbal Response: oriented(5). Motor Response: obeys ch5 commands(6). Total: 15. Trauma Score (Adult): 14:56 Eye Response: spontaneous(1); Verbal Response: oriented(1); Motor Response: obeys ch5 commands(2); Systolic BP: > 89 mm Hg(4); Respiratory Rate: 10 to 29 per min(4); Aiyana Score: 15; Trauma Score: 12 ED Course: 14:47 Patient arrived in ED. ss 14:48 Patient has correct armband on for positive identification. Bed in low position. Call ss light in reach. monitor and storage bin tender on. Pulse ox on. NIBP on. 14:48 Maintain EMS IV. Dressing intact. Good blood return noted. Site clean \T\ dry. Gauge \T\ ss site: 20 gauge in R AC. 14:53 Wesley Mera PA is PHCP. [facility] 14:53 Gerardo Eldridge MD is Attending Physician. [facility] 14:54 Triage completed. 14:56 Hari Lawson, RN is Primary Nurse. ch5 14:56 Patient maintains SpO2 saturation greater than 95% on room air. Thermoregulation: warm ch5 blanket given to patient. 14:58 Arm band placed on right wrist. ss 15:05 Type And Screen Sent. ch5 15:05 CMP Sent. ch5 15:05 CBC with Diff Sent. ch5 15:06 CT Traumagram (Head C Spine CAP W Con) In Process Unspecified. EDMS 15:45 Tib Fib Left XRAY Sent. ch5 16:05 Tib Fib Left XRAY In Process Unspecified. EDMS 17:09 initiated transfer to [facility]. bd 17:14 Orthoglass splint: Posterior short lleg splint applied on stirrup splint applied on. ch5 Administered Medications: 15:20 Drug: Dilaudid (HYDROmorphone) 2 mg Route: IVP; Site: right antecubital; ch5 16:53 Drug: Dilaudid (HYDROmorphone) 1 mg Route: IVP; Site: right antecubital; ch5 17:57 Drug: Nicoderm CQ Patch 21 mg/24 hr 1 patches Route: Transdermal; Site: anterior chest ch5 wall; Outcome: 17:54 ER care complete, transfer ordered by . [facility] 19:00 Transferred by ground EMS to [facility], Transfer form completed. X-rays sent ch5 w/ patient. 19:00 Condition: stable 19:00 Instructed on the need for admit. 19:01 Patient left the ED. 5 Signatures: Dispatcher [employer] EDMS Ronda Sparrow Wesley Mera PA PA jmm Smirch, Shelby, ALIVIA RN Hari Lawson, ALIVIA RN 5
[2021-04-18] MEDS ORDERED: NICOTINE 21 MG/PAT TD ONE (18:20)
[2021-04-18 19:05] VITALS: BP 130/85; TEMP 98.6; O2SAT 100
== END 2021-04-18 19:01 | disposition short-term general hospital (02) ==
LOC: ER 14:44
DX: S82.852A Displaced trimalleolar fracture of left lower leg, initial encounter for closed fracture (principal); S32.019A Unspecified fracture of first lumbar vertebra, initial encounter for closed fracture; W17.89XA Other fall from one level to another, initial encounter; Y93.89 Activity, other specified; Y92.89 Other specified places as the place of occurrence of the external cause; Z20.822 Contact with and (suspected) exposure to COVID-19; Z87.820 Personal history of traumatic brain injury; F17.210 Nicotine dependence, cigarettes, uncomplicated
CPT/HCPCS: 85025; 36415; 86900; 86850; 86901; 80053; 70450; 72125; 71260; 74177; 73590; U0003; Q9967; J1170 ×2

== ENCOUNTER 2021-08-13 18:13 | Emergency (ER) | payer OTHER ==
--- OUTSIDE RECORDS SUMMARY | 2021-08-13 18:16 | XMS REPORT | Continuity of Care Document ---
:1970 Author Organization [facility] t Address [address] [place] [address] Care Team Providers Name Role Phone Odalis Gimenez Attending Clinician Unavailable EDWARD Attending Clinician Unavailable SHARAD Attending Clinician Unavailable SHARAD Admitting Clinician Unavailable Payers Payer Name Policy Type Policy Number Effective Date Expiration Date [place] [id number] 2016 00:00:00 Problems This patient has no known problems. Allergies, Adverse Reactions, Alerts This patient has no known allergies or adverse reactions. Medications Ordered Filled Start Stop Current Ordering Indication Dosage Frequency Signature Comments Components Source Medication Medication Date Date Medication? Clinician (SIG) Name Name Vitamin D-3 Vitamin D-3 Yes Hayes [address] [facility] the [facility] Rosuvastati Rosuvastati Yes Hayes [address] [facility] n Calcium n Calcium Gimenez [facility] Mirtazapine Mirtazapine Yes Hayes [address] [facility] Gimenez at bedtime [facility] Synthroid Synthroid Yes Hayes [address] [facility]imenez on an [facility] stomach in l [facility] Clinics Cymbalta Cymbalta Yes Hayes [address] [facility]imenez [facility] Wellbutrin Wellbutrin Yes Hayes [address] [facility] XL XL Gimenez in the [facility] Lunesta Lunesta Yes Hayes [address] [facility]imenez immediatel [facility] Bernalillo Bernalillo Yes Hayes [address] [...] in l the Outpati morning ent Clinics Procedures This patient has no known procedures. Encounters Start End Encounter Admission Attending Care Care Encounter Source Date/Time Date/Time Type Type Clinicians Facility Department ID 2021-08-08 Outpatient Gimenez, [facility] 2021-08-02 Out[place], [place] [id number] [facility] 13:27:04 Hayes [id number] [facility] 2021-08-02 Outpatient Gimenez, [place] [id number] [facility] 13:20:29 Hayes [id number] [facility] 2021-08-02 Outpatient Gimenez, [place] [id number] [address] 13:16:34 Hayes 88763 [facility] 2021-08-02 Outpatient Gimenez, [place] [id number] 13:08:55 Hayes [id number] [facility] 2021-08-02 [facility] 12[facility] [id number] [facility] 2021-08-02 Out[facility]im[facility], [facility] 12[facility]12 [facility] 85924 [facility] 2021-08-02 Outpatient Gimenez, [facility] 11[facility]37[facility]11 [facility] [id number] [facility] 2021-08-02 Outpatient Gimenez, [facility] 11:17:50 [facility] [id number] [facility] 2021-08-02 Outpatient Gimenez, [facility] 11:17:40 [facility] 98431 [facility] 2021-08-02 Outpatient Gimenez, [facility] 11:10:21 [place] [id number] [facility] 2021-08-02 Outpatient Gimenez, [facility] 11:09:58 [place] [id number] [facility] 2021-08-02 Outpatient Gimenez, [facility] 10:58:51 [facility] 74527 [facility] 2021-07-26 Outpatient [facility] [id number] [place] 01:05:29 Health 2021-07-20 Outpatient [facility] [id number] [place] 01:04:18 Health 2021-05-19 Outpatient [facility] [id number] [place] 15:09:14 Health 2021-05-10 Outpatient [facility] [id number] [place] 12:40:50 [facility] 2021-04-19 Inpatient E SHARAD, [id number] [facility] H 08:45:00 [place] 2021-01-19 2021-01-19 Outpatient [facility] [id number] [facility] 2021-01-17 2021-01-17 Outpatient [facility] [id number] [facility] 2021-01-12 2021-01-12 Outpatient [facility] [id number] [facility] 2020-11-01 2020-11-01 Outpatient [facility] [id number] [facility] 2020-11-01 2020-11-01 Outpatient [facility] [id number] [facility] 2020-10-24 2020-10-24 Outpatient [facility] [id number] [facility] 2020-09-26 2020-09-26 Outpatient [facility] [id number] [facility] 2020-07-25 2020-07-25 Outpatient [facility] [id number] [facility] 2020-05-25 2020-05-25 Outpatient [facility] [id number] [facility] 2020-03-10 2020-03-10 [facility] [id number] [facility] 15:00:00 15:00:[address] Luke s - Drive [facility] l Medicine Outpati ent Clinics 2020-02-17 2020-02-17 [facility] [id number] 09:50:00 09:50:00 t Early [employer] s - Drive [facility] Medicine Outpati ent Clinics 2020-02-10 2020-02-10 [facility] [id number] 10:34:00 10:34:[address] [employer] s - Drive [facility] Medicine l Medicine Outpati ent Clinics 2019-12-17 2019-12-17 [facility] [id number] 13:30:00 13:30:00 t Early [employer] s - [employer] [facility] l Medicine Outpati ent Clinics 2019-10-19 2019-10-19 [facility] [id number] 13:00:00 13:00:00 t Early [employer] s - [employer] [facility] l Medicine Outpati ent Clinics 2019-10-16 2019-10-16 [facility] [id number] 13:49:00 13:49:00 t Early [employer] s - [employer] [facility] l Medicine Outpati ent Clinics 2019-09-21 2019-09-21 [facility] [id number] 14:04:00 14:04:00 t [employer] [facility] Medicine Outpati ent Clinics 2019-09-03 2019-09-03 [facility] [id number] 10:15:00 10:15:00 t Early [employer] [facility] l Medicine Outpati ent Clinics 2019-07-20 2019-07-20 [facility] [id number] 14:15:00 14:15:00 t [employer] s - [employer] [facility] l Medicine Outpati ent Clinics 2019-06-24 2019-06-24 [facility] [id number] 08:12:00 08:12:00 t Early [employer] [facility] Medicine Outpati ent Clinics 2019-06-16 2019-06-16 [facility] [id number] 11:30:00 11:30:00 t Early [employer] - [employer] [facility] l Medicine Outpati ent Clinics 2019-06-11 2019-06-11 [facility] [id number] 10:10:00 10:10:00 t Early [employer] - [employer] [facility] Medicine Outpati ent Clinics 2019-06-08 2019-06-08 [facility] [id number] 16:35:00 16:35:[address] Luke s - Drive [facility] Medicine l Medicine Outpati ent Clinics 2019-04-16 2019-04-16 [facility] [id number] 16:04:00 16:04:[address] Luke s - Drive [facility] Medicine l Medicine Outpati ent Clinics 2019-03-17 2019-03-17 [facility] [id number] 11:30:00 11:30:00 t Early [employer] Luke s - Drive [facility] Medicine l Medicine Outpati ent Clinics 2019-02-03 2019-02-03 [facility] [id number] 11:56:00 11:56:00 t Early Early [employer] s - Drive [facility] l Medicine Outpati ent Clinics 2019-01-26 2019-01-26 [facility] [id number] 08:47:00 08:47:00 t Early Early [employer] s - Drive [facility] Medicine Medicine Outpati ent Clinics 2019-01-14 2019-01-14 [facility] [id number] 09:30:00 09:30:00 t [employer] s - Drive [facility] Medicine l Medicine Outpati ent Clinics 2018-10-22 2018-10-22 [facility] [id number] 14:50:00 14:50:00 t [employer] s - Drive [facility] Medicine l Medicine Outpati ent Clinics 2018-10-15 2018-10-15 [facility] [id number] 09:45:00 09:45:00 t Early Early [employer] Lu[employer]armia s - Drive [facility] Medicine l Medicine Outpati ent Clinics 2018-07-17 2018-07-17 [facility] [id number] 08:15:00 08:15:00 t Early Early [employer] s - Drive [facility] Medicine l Medicine Outpati ent Clinics 2018-04-08 2018-04-08 [facility] [id number] 13:00:00 13:00:00 t Early Early [employer] s - Drive [facility] Medicine l Medicine Outpati ent Clinics 2018-02-13 2018-02-13 [facility] [id number] 10:56:00 10:56:00 t Virally [facility] 2018-02-06 2018-02-06 [facility] [id number] 13:20:00 13:20:00 [employer] [facility] 2018-02-05 2018-02-05 Outpatient Luana Craftt [id number] [facility] St 08:15:00 08:15:00 [employer] [facility] Results This patient has no known results.
[2021-08-13] MEDS ORDERED: NALOXONE 0.4 MG/ML VIAL ONE (18:27)
--- NOTE | 2021-08-13 22:59 | EDPHYS ---
Physician Documentation [facility] Name: Mitzi Murphy Age: 51 yrs Sex: Female : 1970 Arrival Date: 08/13/2021 Time: 18:14 Bed 5 Private MD: ED Physician Bebeto Bruno HPI: 08/13 18:16 This 51 yrs old Female presents to ER via Unassigned with complaints of Drug Abuse, rn Altered Mental Status. 18:16 The patient presents with decreased responsiveness. Onset: The symptoms/episode rn began/occurred at an unknown time. Possible causes: drug use, narcotics. Associated signs and symptoms: Pertinent negatives: abdominal pain, chest pain, headache. Current symptoms: In the emergency department the patient's symptoms are unchanged from the initial presentation. It is unknown whether or not the patient has had similar symptoms in the past. The patient has not recently seen a physician. EMS reports picked up by department, patient known to have both psychiatric and drug problems. Mother called 911 for decreased responsiveness. EMS reports slow respirations but not enough for them to give her Narcan. Also reports pinpoint pupils. Reports stable vital signs.. With tactile stimulation, patient opens her eyes and reports took opiates at home but cannot tell me how much or when. Falls back asleep snoring.. Historical: - Allergies: 18:18 Unable to obtain; ss - Home Meds: 18:18 Unable to obtain [Active]; ss - PMHx: 18:18 Bipolar disorder; insomnia; manic depressive; TBI- 1993; thyroid problems; ss - PSHx: 18:18 Unable to Obtain; ss - Immunization history:: Unknown. - Social history:: Smoking status: unknown. - Family history:: not pertinent. - Hospitalizations: : No recent hospitalization is reported. ROS: 18:16 Unable to obtain ROS due to patient being uncooperative, Sedated. rn Exam: 18:16 Constitutional: This is a well developed, well nourished patient who is somnolent, rn awakens to voice and tactile stimulation but quickly falls back asleep Head/Face: Normocephalic, atraumatic. Eyes: Pinpoint pupils, no nystagmus ENT: Dry mucous membranes Cardiovascular: Regular rate and rhythm. No pulse deficits. Respiratory: No increased work of breathing, no retractions or nasal flaring. Abdomen/GI: Soft, non-tender Skin: Warm, dry MS/ Extremity: Pulses equal, no cyanosis. Neuro: Somnolent, awakens to voice and tactile stimulation but quickly falls back asleep. Moves all 4 extremities and tells me to "take my f-ing hands off of her " Vital Signs: 18:15 BP 153 / 97; Pulse 94; Resp 12; Temp 97.8(O); Pulse Ox 98% on R/A; ss 19:20 BP 143 / 76; Pulse 80; Resp 14 S; Pulse Ox 100% on R/A; lg3 21:55 BP 125 / 71; Pulse 76; Resp 14 S; Pulse Ox 99% on R/A; lg3 22:37 BP 114 / 70; Pulse 75; Resp 11 S; Pulse Ox 100% on R/A; as6 MDM: 18:16 Patient medically screened. rn 18:22 ED course: Mother told EMS that patient sneaks medications and either mother or patient rn has a prescription for Dilaudid and she is concerned that she took Dilaudid at some time today.. 18:30 Differential Diagnosis: overdose. Data reviewed: vital signs, nurses notes. ED course: rn Patient woke up immediately after 0.4 mg narcan, eyes wide open, talking, states took a few dilaudid, denies suicidal ideation or overdose attempt, states was simply taking her prescription medication. Denies recent illness. . 18:57 Transition of care: After a detail discussion of the patient's case, care is rn transferred to Bebeto Bruno MD. ED course: Pt more alert, is being assisted to bathroom, ambulatory, plan is to PO challenge and monitor, if awake and passes PO challenge can go home since repeatedly denies suicidal or homicidal ideation, acting normal, and stable vitals. . 22:55 Data interpreted: Pulse oximetry: on room air is 100 %. Interpretation: normal. mh7 Counseling: I had a detailed discussion with the patient and/or guardian regarding: the historical points, exam findings, and any diagnostic results supporting the discharge/admit diagnosis, lab results, the need for outpatient follow up. Response to treatment: the patient's symptoms have resolved after treatment, the patient's blood pressure is in an acceptable range, mental status has returned to baseline, the patient no longer shows bradycardia, the patient is not short of breath, the patient is not tachycardic, the patient's pain is gone, the patient's temperature has normalized. ED course: Well-appearing, no acute distress, vital signs stable, no focal neurological deficits. Awake, alert, oriented x4 and appropriate with questions. Ambulating around ED without difficulty and tolerating p.o. intake.. 08/13 18:35 Order name: Glucose, Ancillary Testing; Complete Time: 18:37 EDMS 08/13 18:15 Order name: Cardiac monitoring; Complete Time: 18:19 rn 08/13 18:15 Order name: O2 Sat Monitoring; Complete Time: 18:19 rn 08/13 18:15 Order name: IV Start; Complete Time: 18:19 rn 08/13 18:15 Order name: Glucose Level; Complete Time: 18:19 rn Administered Medications: 18:30 Drug: NARcan (naloxone) 0.4 mg Route: IVP; Site: right wrist; jd3 22:59 Follow up: Response: No adverse reaction as6 Disposition Summary: 08/13/21 22:59 Discharge Ordered Location: Home [facility] Problem: new [facility] Symptoms: have improved mh Condition: Stable [facility] Diagnosis - Opioid abuse with intoxication, unspecified [facility] Followup: 7 - With: Private Physician - When: 1 - 2 days - Reason: Worsening of condition, Recheck today's complaints, Continuance of care, Re-evaluation by your physician Discharge Instructions: - Discharge Summary Sheet [facility] - Opioid Use Disorder mh7 - Prescription Drug Misuse Information [facility] Forms: - Medication Reconciliation Form [facility] - Thank You Letter [facility] - Antibiotic Education [facility] - Prescription Opioid Use [facility] Signatures: Dispatcher [employer] Noel Fajardo MD MD rn Smirch, Shelby, RN RN ss Davies, Jonathon, RN RN jd3 Holmes, Maurice, MD MD mh7 Slawson, Ashby RN as6 Corrections: (The following items were deleted from the chart) 18:19 18:18 Allergies: No Known Allergies; [facility]
--- NOTE | 2021-08-13 22:59 | ER ---
Nurse's Notes [facility] Name: Mitzi Murphy Age: 51 yrs Sex: Female : 1970 Arrival Date: 08/13/2021 Time: 18:14 Bed 5 Private MD: Diagnosis: Opioid abuse with intoxication, unspecified Presentation: 08/13 18:15 Chief complaint: Patient states: Family called 911 for AMS, pupils pinpoint. Pt ss responds to painful stimuli and admits to taking opiods. Coronavirus screen: Client denies travel out of the [place] in the last 14 days. Ebola Screen: Patient denies exposure to infectious person. Patient denies travel to an Ebola-affected area in the 21 days before illness onset. Initial Sepsis Screen: Does the patient meet any 2 criteria? No. Patient's initial sepsis screen is negative. Does the patient have a suspected source of infection? No. Patient's initial sepsis screen is negative. Risk Assessment: Do you want to hurt yourself or someone else? Patient reports no desire to harm self or others. Onset of symptoms was August 13, 2021. 18:15 Method Of Arrival: EMS: [facility] ss 18:15 Acuity: DIANA 2 ss Historical: - Allergies: 18:18 Unable to obtain; ss - Home Meds: 18:18 Unable to obtain [Active]; ss - PMHx: 18:18 Bipolar disorder; insomnia; manic depressive; TBI- 1993; thyroid problems; ss - PSHx: 18:18 Unable to Obtain; ss - Immunization history:: Unknown. - Social history:: Smoking status: unknown. - Family history:: not pertinent. - Hospitalizations: : No recent hospitalization is reported. Screenin:37 Abuse screen: Denies threats or abuse. Nutritional screening: No deficits noted. jd3 Tuberculosis screening: No symptoms or risk factors identified. Fall Risk Ambulatory Aid- None/Bed Rest/Nurse Assist (0 pts). Gait- Normal/Bed Rest/Wheelchair (0 pts) Mental Status- Oriented to own ability (0 pts). Total Blanc Fall Scale indicates No Risk (0-24 pts). Assessment: 18:20 [place]: [facility] [phone] Morena Keenan. jd3 18:20 General: Appears comfortable, Behavior is drowsy. Pain: Unable to use pain scale. FLACC jd3 scale score is 0 out of 10. Neuro: Level of Consciousness is obtunded, obtunded. will wake up with painful stimuli.. Oriented to none. Cardiovascular: Capillary refill < 3 seconds Patient's skin is warm and dry. Rhythm is regular. Respiratory: Airway is patent Respiratory effort is even, unlabored, Respiratory pattern is regular, symmetrical, Denies cough, shortness of breath. GI: No signs and/or symptoms were reported involving the gastrointestinal system. : No signs and/or symptoms were reported regarding the genitourinary system. EENT: No signs and/or symptoms were reported regarding the EENT system. Derm: Skin is intact, Skin is dry, Skin is normal, Skin temperature is warm. Musculoskeletal: Circulation, motion, and sensation intact. Range of motion: intact in all extremities. 18:35 General: Appears in no apparent distress. comfortable, Behavior is calm, cooperative, jd3 appropriate for age, drowsy. Pain: Denies pain. Neuro: Level of Consciousness is awake, alert, obeys commands, Oriented to person, place, time, situation. Cardiovascular: Capillary refill < 3 seconds Patient's skin is warm and dry. Rhythm is regular. Respiratory: Airway is patent Respiratory effort is even, unlabored, Respiratory pattern is regular, symmetrical. 19:18 Reassessment: Patient appears in no apparent distress at this time. No changes from lg3 previously documented assessment. Patient and/or family updated on plan of care and expected duration. Pain level reassessed. Patient is alert, oriented x 3, equal unlabored respirations, skin warm/dry/pink. Respiratory: Airway is patent Trachea midline Respiratory effort is even, unlabored, Respiratory pattern is regular, symmetrical. 21:54 General: pt quietly resting at this time. lg3 22:36 General: pt sleeping at this time . Respiratory: Respiratory effort is even, unlabored. as6 22:56 General: pt awake and alert, ambulated to bathroom . as6 Vital Signs: 18:15 BP 153 / 97; Pulse 94; Resp 12; Temp 97.8(O); Pulse Ox 98% on R/A; ss 19:20 BP 143 / 76; Pulse 80; Resp 14 S; Pulse Ox 100% on R/A; lg3 21:55 BP 125 / 71; Pulse 76; Resp 14 S; Pulse Ox 99% on R/A; lg3 22:37 BP 114 / 70; Pulse 75; Resp 11 S; Pulse Ox 100% on R/A; as6 ED Course: 18:14 Patient arrived in ED. rn 18:16 Noel Jacques MD is Attending Physician. rn 18:18 Triage completed. ss 18:18 Arm band placed on right wrist. 18:19 Ryland Oneil RN is Primary Nurse. jd3 18:32 Maintain EMS IV. Dressing intact. Good blood return noted. Site clean \T\ dry. Gauge \T\ ashley 3 site: 20 G right wrist. 18:37 Patient has correct armband on for positive identification. Bed in low position. Call jd3 light in reach. Side rails up X2. auger supervisor on. Pulse ox on. NIBP on. 18:37 Warm blanket given. Pillow given. jd3 19:00 Attending Physician role handed off by Noel Jacques MD 7 19:00 Bebeto Bruno MD is Attending Physician. [facility] 19:10 Primary Nurse role handed off by Ryland Oneil RN 2 19:21 Priscilla Arnold RN is Primary Nurse. lg3 23:17 No provider procedures requiring assistance completed. IV discontinued, intact, lg3 bleeding controlled, No redness/swelling at site. Pressure dressing applied. Administered Medications: 18:30 Drug: NARcan (naloxone) 0.4 mg Route: IVP; Site: right wrist; jd3 22:59 Follow up: Response: No adverse reaction as6 Outcome: 22:59 Discharge ordered by . Gissel 23:17 Discharged to via cab lg3 23:17 Condition: stable 23:17 Discharge instructions given to patient. 23:20 Patient left the ED. lg3 Signatures: Noel Jacques MD MD rn Smirch, Shelby, RN RN Ryland Oneil RN RN [facility] Armen Townsend mw2 Priscilla Arnold RN RN lg3 Bebeto Bruno MD MD [facility] Shaquille Gordon RN RN as6 Corrections: (The following items were deleted from the chart) 18:19 18:18 Allergies: No Known Allergies; [facility] 18:20 18:20 Reassessment: [facility] [phone] j jd3 18:33 18:30 NARcan (naloxone) 0.4 mg IVP in right antecubital jd3 jd3
[2021-08-13 23:39] VITALS: TEMP 97.8
[2021-08-13 23:42] VITALS: BP 114/70; O2SAT 100
== END 2021-08-13 23:20 | disposition home or self-care (01) ==
LOC: ER 18:13
DX: F11.129 Opioid abuse with intoxication, unspecified (principal); F31.9 Bipolar disorder, unspecified
CPT/HCPCS: 82947; 96374; 99291; 99292; J2310

== ENCOUNTER 2022-03-25 17:35 | Observation (INO) | payer OTHER ==
--- OUTSIDE RECORDS SUMMARY | 2022-03-25 17:42 | XMS REPORT | Continuity of Care Document ---
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 2021-05-19 Outpatient [facility] [id number] [place] 15:09:14 [facility] 2021-05-10 Outpatient LIA LEON [facility] [id number] [place] 12:40:50 [facility] 2021-04-19 Inpatient Marlo [facility] [address] [facility] H 08:45:00 [place] 2022-03-05 2022-03-05 ambulatory STLMLC STLMLC [id number] Common 00:00:00 00:00:00 [facility] 2022-02-01 2022-02-01 Emergency [facility] [id number] 11:02:00 11:02:00 41 2022-02-01 2022-02-01 Emergency Emergency Ernesto Saldivar [facility] JM0 [id number] [facility] 11:02:00 11:02:00 41 2021-10-27 2021-10-27 ambulatory STLMLC STLMLC [id number] Common 00:00:00 00:00:00 [facility] 2021-04-19 2021-05-10 Inpatient [facility] [id number] Memoria 13:45:00 01:22:[address] 2021-04-19 2021-05-09 Outpatient Mouser, [facility] [id number] 08:45:00 20:22:00 Antony D 85 2021-04-19 2021-05-09 Outpatient Mouser, [facility] [id number] 08:45:00 20:22:00 Antony D 85 2021-04-18 2021-04-18 Outpatient Karian, [facility] [id number] 19:54:00 19:54:00 Tavares 85 2021-01-19 2021-01-19 Outpatient STLMLC STLMLC [id number] Common 00:00:00 00:00:00 [facility] 2021-01-17 2021-01-17 Outpatient STLMLC STLMLC [id number] Common 00:00:00 00:00:00 [facility] 2021-01-12 2021-01-12 Outpatient STLMLC STLMLC [id number] Common 00:00:00 00:00:00 [facility] 2020-11-01 2020-11-01 Outpatient STLMLC STLMLC [id number] Common 00:00:00 00:00:00 [facility] 2020-11-01 2020-11-01 Outpatient STLMLC STLMLC [id number] Common 00:00:00 00:00:00 [facility] 2020-10-24 2020-10-24 Outpatient STLMLC STLMLC [id number] Common 00:00:00 00:00:00 [facility] 2020-09-26 2020-09-26 Outpatient STLMLC STLMLC [id number] Common 00:00:00 00:00:00 [facility] 2020-07-25 2020-07-25 Outpatient STLMLC STLMLC [id number] Common 00:00:00 00:00:00 [facility] 2020-05-25 2020-05-25 Outpatient STLMLC STLMLC [id number] Common 00:00:00 00:00:00 [facility] 2020-03-10 2020-03-10 [facility] [id number] Common 15:00:00 15:00:[address] [facility] 2020-02-17 2020-02-17 [facility] [id number] Common 09:50:00 09:50:[address] [facility] 2020-02-10 2020-02-10 [facility] [id number] Common 10:34:00 10:34:[address] [facility] 2019-12-17 2019-12-17 [facility] [id number] Common 13:30:00 13:30:[address] [facility] 2019-10-19 2019-10-19 [facility] [id number] Common 13:00:00 13:00:[address] [facility] 2019-10-16 2019-10-16 [facility] [id number] Common 13:49:00 13:49:[address] [facility] 2019-09-21 2019-09-21 [facility] [id number] Common 14:04:00 14:04:[address] [facility] 2019-09-03 2019-09-03 [facility] [id number] Common 10:15:00 10:15:[address] [facility] 2019-07-20 2019-07-20 [facility] [id number] Common 14:15:00 14:15:[address] [facility] 2019-06-24 2019-06-24 [facility] [id number] Common 08:12:00 08:12:[address] [facility] 2019-06-16 2019-06-16 [facility] [id number] Common 11:30:00 11:30:[address] [facility] 2019-06-11 2019-06-11 [facility] [id number] Common 10:10:00 10:10:[address] [facility] 2019-06-08 2019-06-08 [facility] [id number] Common 16:35:00 16:35:[address] [facility] 2019-04-16 2019-04-16 [facility] [id number] Common 16:04:00 16:04:[address] [facility] 2019-03-17 2019-03-17 [facility] [id number] Common 11:30:00 11:30:[address] [facility] 2019-02-03 2019-02-03 [facility] [id number] Common 11:56:00 11:56:[address] [facility] 2019-01-26 2019-01-26 [facility] [id number] Common 08:47:00 08:47:[address] [place] [facility] 2019-01-14 2019-01-14 [facility] [id number] Common 09:30:00 09:30:[address] [facility] 2018-10-22 2018-10-22 [facility] [id number] Common 14:50:00 14:50:[address] [facility] 2018-10-15 2018-10-15 [facility] [id number] Common 09:45:00 09:45:[address] [place] [facility] 2018-07-17 2018-07-17 [facility] [id number] Common 08:15:00 08:15:[address] [place] [facility] 2018-04-08 2018-04-08 [facility] [id number] Common 13:00:00 13:00:[address] [place] [facility] 2018-02-13 2018-02-13 [facility] [id number] Common 10:56:00 10:56:[address] [facility] 2018-02-06 2018-02-06 [facility] [id number] Common 13:20:00 13:20:[address] [facility] 2018-02-05 2018-02-05 [facility] [id number] Common 08:15:00 08:15:[address] [facility] Results Test Description Test Time Test Comments Results Result Comments Source UA, Urinalysis Rflx Cult/Sedmt 2022-02-01 12:20:00 Test Item Value Reference Range Interpretation Comme nts Color,Urine (test code = UCOL) Yellow Yellow Clarity,Urine (test code = UCLAR) Clear Clear Ph, Urine (test code = UPH) 7.5 5.0-9.0 N Specific [place],Urine (test code = USG) 1.010 1.005-1.030 N Blood,Urine (test code = UBLD) Negative mg/dL Negative Protein,Urine (test code = UPRO) Negative mg/dL Negative Glucose,Urine (UA) (test code = UGLU) Negative mg/dL Negative Ketones,Urine (test code = UKET) Negative mg/dL Negative Nitrate,Urine (test code = UNIT) Negative Negative Bilirubin,Urine (test code = UBIL) Negative mg/dL Negative Urobilinogen,Urine (test code = UURO) 0.2 E.U./dL Normal Leukocyte Esterase,Urine (test code = ULEU) Negative mg/dL Negative Complete Blood Count Auto [id number] 12:20:00 Test Item Value Reference Range Interpretation Comments White Blood Count (test code = 7.0 x10 3/uL 4.4-10.5 N WBCT) Red Blood Count (test code = 4.20 x10 6/uL 3.75-5.20 N RBC) Hemoglobin (test code = HGBT) 13.4 g/dL 12.2-14.8 N Hematocrit (test code = HCTT) 40.6 % 36.5-44.4 N Mean Corpuscular Volume (test 96.70 fL 80.00-100.00 N code = MCV) Mean Corpuscular Hemoglobin 31.9 pg 27.0-32.5 N (test code = MCH) Mean Corpuscular HGB Conc 33.00 g/dL 32.00-37.50 N (test code = MCHC) RDW Coefficient of Variation 13.7 % 11.5-14.5 N (test code = RDWCV) Platelet Count (test code = 318.0 x10 3/uL 140.0-440.0 N PLTT) Mean Platelet Volume (test 10.0 fL code = MPV) Immature Granulocytes % (Auto) 0.1 % 0.0-5.0 N (test code = IMMGRAN%) Neutrophils % (Auto) (test 44.4 % 36.0-70.0 N code = NE%) Lymphocytes % (Auto) (test 40.5 % 12.0-44.0 N code = LY%) Monocytes % (Auto) (test code 10.1 % 0.0-11.0 N = MO%) Eosinophils % (Auto) (test 4.5 % 0.0-7.0 N code = EO%) Basophils % (Auto) (test code 0.4 % 0.0-2.0 N = BA%) Immature Granulocytes # (Auto) 0.01 x10 3/uL (test code = IMMGRAN#) Neutrophils # (Auto) (test 3.1 x10 3/uL 1.6-7.4 N code = NE#) Lymphocytes # (Auto) (test 2.85 x10 3/uL 0.50-4.60 N code = LY#) Monocytes # (Auto) (test code 0.71 x10 3/uL 0.00-1.20 N = MO#) Eosinophils # (Auto) (test 0.32 x10 3/uL 0.00-0.74 N code = EO#) Basophils # (Auto) (test code 0.03 x10 3/uL 0.00-0.21 N = BA#) nRBC Abs (test code = NRBCA) 0 nRBC Pct (test code = NRBCP) 0 % Drug Screen,[id number] 12:20:00 Test Item Value Reference Range Interpretation Comments PCP Phencyclidine Screen,Urine (test Negative Negative code = PCPU) Amphetamine Screen,Urine (test code Negative Negative = AMPU) Methadone Screen,Urine (test code = Negative Negative METHU) Opiate Screen,Urine (test code = Negative Negative UOPIS) Barbituates Screen,Urine (test code Negative Negative = BARBU) Benzodiazepines Screen,Urine (test Negative Negative code = UBENZS) Cocaine Screen,Urine (test code = Negative Negative UCOCS) Cannabinoid Screen,Urine (test code Negative Negative = UTHCS) Propoxyphene Screen, Urine (test Negative Negative code = UPROP) Comprehensive Metabolic [id number] 12:20:00 Test Item Value Reference Range Interpretation Comments SODIUM (test code = NA) 143.0 mmol/L 136.0-145.0 N Potassium,K (test code = K) 4.6 mmol/L 3.0-5.1 N Chloride (test code = CL) 109 mmol/L 98-107 H Carbon Dioxide (test code = CO2) 30 mmol/L 20-31 N Anion Gap (test code = GAP) 4 mmol/L 5-15 L Blood Urea Nitrogen (test code = 16 mg/dL 9-23 N BUN) Creatinine (test code = CREATT) 0.97 mg/dL 0.55-1.02 N Creatinine Clr Calc Pharmacy 53.05 mL/min (test code = CRCLPHA) Estimated GFR ( Char > 60 mL/min/1.73m2 (test code = EGFRAA) Estimated GFR (Non Afr Char > 60 mL/min/1.73m2 (test code = EGFRNAA) BUN/Creatinine Ratio (test code 16 ratio 10-20 N = BCRATIO) Glucose (test code = GLU) 96 mg/dL 74-106 N Osmolality,Calculated (test code 296.7 = OSMOC) Calcium (test code = CA) 10.1 mg/dL 8.3-10.6 N Bilirubin,Total (test code = 0.4 mg/dL 0.2-1.1 N BILIT) Aspartate Amino Transferase 13 U/L 0-34 N (test code = AST) Alanine Aminotransferase (test 8 U/L 10-49 L code = ALT) Total Protein (test code = TP) 6.9 g/dL 5.7-8.2 N Albumin Level (test code = ALB) 4.7 g/dL 3.2-4.8 N Globulin (test code = GLOB) 2.2 mg/dL 2.3-3.5 L Albumin/Globulin Ratio (test 2.1 ratio 0.8-2.0 H code = AGRATIO) Alkaline Phosphatase (test code 64 U/L 46-116 N = ALP) Ethanol [id number] 12:20:00 Test Item Value Reference Range Interpretation Comments Ethanol (test code < 3 mg/dL The pharm acological = ETOH) response to blo od alcohol levels mayvary from individual to i ndividual. The fatal asher ntrationhas been reported t o be >400mg/dL. Coronavirus PCR, COVID19 [id number] 12:20:00 Test Item Value Reference Range Interpretation Comments Coronavirus PCR, COVID19 Rapid (test code = SARSCOV2) Coronavirus PCR, COVID19 Reference Range: Rapid (test code = Negative ZEOUDAE64.1) SARS-CoV-2 PCR Result: Negative by RT-PCR (test code = SARS-CoV-2 PCR Result:) COVID-19 Status: [id number] 14:44:00 Test Item Value Reference Range Interpretation Comments Coronavirus (COVID-19) Not Detected (05/09/21 JACKSON (test code = 9:44 AM) Coronavirus (COVID-19) JACKSON) [facility]2021-10-27 10:19:00 Test Item Value Reference Range Interpretation Comments Glucose Lvl (test code = Glucose Lvl) 80 70-99 [place] [id number] 10:19:00 Test Item Value Reference Range Interpretation Comments BUN (test code = BUN) 25 7-22 [place] 872121-10-27 10:19:00 Test Item Value Reference Range Interpretation Comments Creatinine Lvl (test code = Creatinine 0.72 0.50-1.40 Lvl) [place] [id number] 10:19:00 Test Item Value Reference Range Interpretation Comments Sodium Lvl (test code = Sodium Lvl) 141 135-145 [place] 872121-10-27 10:19:00 Test Item Value Reference Range Interpretation Comments Potassium Lvl (test code = Potassium 4.0 3.5-5.1 Lvl) [place] 872121-10-27 10:19:00 Test Item Value Reference Range Interpretation Comments Chloride Lvl (test code = Chloride Lvl) 113 95-109 [place] 872121-10-27 10:19:00 Test Item Value Reference Range Interpretation Comments CO2 (test code = CO2) 23 24-32 [place] 872121-10-27 10:19:00 Test Item Value Reference Range Interpretation Comments Calcium Lvl (test code = Calcium Lvl) 9.7 8.5-10.5 [place] 872121-10-27 10:19:00 Test Item Value Reference Range Interpretation Comments AGAP (test code = AGAP) 9.0 10.0-20.0 [place] 872121-10-27 10:19:00 Test Item Value Reference Range Interpretation Comments eGFR (test code = eGFR) 97 [id number] 10:19:00 Test Item Value Reference Range Interpretation Comments Segs (test code = Segs) 45.5 45.0-75.0 [place] 78606-10-27 10:19:00 Test Item Value Reference Range Interpretation Comments Lymphocytes (test code = Lymphocytes) 39.9 20.0-40.0 [place] 911131-10-27 10:19:00 Test Item Value Reference Range Interpretation Comments Monocytes (test code = Monocytes) 8.8 2.0-12.0 [place] 911131-10-27 10:19:00 Test Item Value Reference Range Interpretation Comments Eosinophils (test code = 5.4 See_Comment [A utomated message] The Eosinophils) system which ge nerated this result tra nsmitted reference range : <=4.0. The reference r luli was not used to int erpret this result as normal/abnormal . [place] 911131-10-27 10:19:00 Test Item Value Reference Range Interpretation Comments Basophils (test code = 0.4 See_Comment [Aut omated message] The Basophils) system which ge nerated this result tra nsmitted reference range : <=1.0. The reference r luli was not used to int erpret this result as normal/abnormal . [place] 911131-10-27 10:19:00 Test Item Value Reference Range Interpretation Comments Neutrophils # (test code = Neutrophils 3.8 1.5-8.1 #) [place] 911131-10-27 10:19:00 Test Item Value Reference Range Interpretation Comments Lymphocytes # (test code = Lymphocytes 3.3 1.0-5.5 #) [facility] S[id number] 10:19:00 Test Item Value Reference Range Interpretation Comments Monocytes # (test code 0.7 See_Comment [Aut omated message] The = Monocytes #) system which generated this result tra nsmitted reference range : <=0.8. The reference r luli was not used to int erpret this result as normal/abnormal . [place] 911131-10-27 10:19:00 Test Item Value Reference Range Interpretation Comments Eosinophils # (test code 0.4 See_Comment [A utomated message] The = Eosinophils #) system whic h generated this result tra nsmitted reference range : <=0.5. The reference r luli was not used to int erpret this result as normal/abnormal . [facility] [id number] 10:19:00 Test Item Value Reference Range Interpretation Comments WBC (test code = WBC) 8.3 3.7-10.4 [place] 911131-10-27 10:19:00 Test Item Value Reference Range Interpretation Comments RBC (test code = RBC) 3.31 4.20-5.40 [place] 911131-10-27 10:19:00 Test Item Value Reference Range Interpretation Comments Hgb (test code = Hgb) 11.0 12.0-16.0 [place] 911131-10-27 10:19:00 Test Item Value Reference Range Interpretation Comments Hct (test code = Hct) 32.4 36.0-48.0 [place] 911131-10-27 10:19:00 Test Item Value Reference Range Interpretation Comments MCV (test code = MCV) 97.7 80.0-98.0 [place] 911131-10-27 10:19:00 Test Item Value Reference Range Interpretation Comments MCH (test code = MCH) 33.0 pg 27.0-31.0 [place] 911131-10-27 10:19:00 Test Item Value Reference Range Interpretation Comments MCHC (test code = MCHC) 33.8 32.0-36.0 [place] 911131-10-27 10:19:00 Test Item Value Reference Range Interpretation Comments RDW (test code = RDW) 14.1 11.5-14.5 [place] 911131-10-27 10:19:00 Test Item Value Reference Range Interpretation Comments Platelet (test code = Platelet) 414 133-450 [facility] SystemWbxdgmeKZJZVAFCSN0313-11-09 10:19:00 Test Item Value Reference Range Interpretation Comments MPV (test code = MPV) 8.0 7.4-10.4 [facility]2021-10-22 09:19:00 Test Item Value Reference Range Interpretation Comments Glucose Lvl (test code = Glucose Lvl) 106 70-99 [place] 872121-10-22 09:19:00 Test Item Value Reference Range Interpretation Comments BUN (test code = BUN) 24 7-22 [facility]2021-10-22 09:19:00 Test Item Value Reference Range Interpretation Comments Creatinine Lvl (test code = Creatinine 0.84 0.50-1.40 Lvl) [facility]2021-10-22 09:19:00 Test Item Value Reference Range Interpretation Comments Sodium Lvl (test code = Sodium Lvl) 144 135-145 [place] 872121-10-22 09:19:00 Test Item Value Reference Range Interpretation Comments Potassium Lvl (test code = Potassium 4.3 3.5-5.1 Lvl) [place] 872121-10-22 09:19:00 Test Item Value Reference Range Interpretation Comments Chloride Lvl (test code = Chloride Lvl) 115 95-109 [place] 872121-10-22 09:19:00 Test Item Value Reference Range Interpretation Comments CO2 (test code = CO2) 23 24-32 [place] 872121-10-22 09:19:00 Test Item Value Reference Range Interpretation Comments AGAP (test code = AGAP) 10.3 10.0-20.0 [place] 872121-10-22 09:19:00 Test Item Value Reference Range Interpretation Comments Calcium Lvl (test code = Calcium Lvl) 9.5 8.5-10.5 [place] 872121-10-22 09:19:00 Test Item Value Reference Range Interpretation Comments eGFR (test code = eGFR) 80 [place] 911131-10-22 09:19:00 Test Item Value Reference Range Interpretation Comments Segs (test code = Segs) 47.4 45.0-75.0 [place] [address]-10-22 09:19:00 Test Item Value Reference Range Interpretation Comments Lymphocytes (test code = Lymphocytes) 39.9 20.0-40.0 [place] 78[address]-10-22 09:19:00 Test Item Value Reference Range Interpretation Comments Monocytes (test code = Monocytes) 6.9 2.0-12.0 [place] 78[address]-10-22 09:19:00 Test Item Value Reference Range Interpretation Comments Eosinophils (test code = 5.5 See_Comment [A utomated message] The Eosinophils) system which ge nerated this result tra nsmitted reference range : <=4.0. The reference r luli was not used to int erpret this result as normal/abnormal . [place] 911131-10-22 09:19:00 Test Item Value Reference Range Interpretation Comments Basophils (test code = 0.3 See_Comment [Aut omated message] The Basophils) system which ge nerated this result tra nsmitted reference range : <=1.0. The reference r luli was not used to int erpret this result as normal/abnormal . [facility] S[id number] 09:19:00 Test Item Value Reference Range Interpretation Comments Neutrophils # (test code = Neutrophils 4.7 1.5-8.1 #) [facility] [id number] 09:19:00 Test Item Value Reference Range Interpretation Comments Lymphocytes # (test code = Lymphocytes 4.0 1.0-5.5 #) [facility] SystemUuizripCKCMSMXYXF8111-22-01 09:19:00 Test Item Value Reference Range Interpretation Comments Monocytes # (test code 0.7 See_Comment [Aut omated message] The = Monocytes #) system which generated this result tra nsmitted reference range : <=0.8. The reference r ulli was not used to int erpret this result as normal/abnormal . [facility] SystemHmfxrcwAVCIRKLYYO5530-50-76 09:19:00 Test Item Value Reference Range Interpretation Comments Eosinophils # (test code 0.5 See_Comment [A utomated message] The = Eosinophils #) system whic h generated this result tra nsmitted reference range : <=0.5. The reference r luli was not used to int erpret this result as normal/abnormal . [facility] SystemZsvugleCMIKAYYHHX3657-88-73 09:19:00 Test Item Value Reference Range Interpretation Comments WBC (test code = WBC) 10.0 3.7-10.4 [facility] SystemCnvhizlHJUCPUMVVV8961-83-01 09:19:00 Test Item Value Reference Range Interpretation Comments RBC (test code = RBC) 3.55 4.20-5.40 [facility] SystemCoajtbtFKHVBMKJRW6036-39-25 09:19:00 Test Item Value Reference Range Interpretation Comments Hgb (test code = Hgb) 11.8 12.0-16.0 [facility] [id number] 09:19:00 Test Item Value Reference Range Interpretation Comments Hct (test code = Hct) 34.9 36.0-48.0 [facility] Syst[id number] 09:19:00 Test Item Value Reference Range Interpretation Comments MCV (test code = MCV) 98.3 80.0-98.0 [facility] [id number] 09:19:00 Test Item Value Reference Range Interpretation Comments MCH (test code = MCH) 33.4 pg 27.0-31.0 [place] 911131-10-22 09:19:00 Test Item Value Reference Range Interpretation Comments MCHC (test code = MCHC) 33.9 32.0-36.0 [place] 911131-10-22 09:19:00 Test Item Value Reference Range Interpretation Comments RDW (test code = RDW) 14.0 11.5-14.5 [place] 911131-10-22 09:19:00 Test Item Value Reference Range Interpretation Comments Platelet (test code = Platelet) 366 133-450 [facility] S[id number] 09:19:00 Test Item Value Reference Range Interpretation Comments MPV (test code = MPV) 8.5 7.4-10.4 [facility] 09:19:00 Test Item Value Reference Range Interpretation Comments [place] Lvl (test code = [place] Lvl) 0.99 0.50-1.50 [place] 872121-10-21 17:20:00 Test Item Value Reference Range Interpretation Comments Magnesium Lvl (test code = Magnesium 2.5 1.8-2.4 Lvl) [place] 872121-10-21 17:20:00 Test Item Value Reference Range Interpretation Comments Glucose Lvl (test code = Glucose Lvl) 96 70-99 [facility]2021-10-21 17:20:00 Test Item Value Reference Range Interpretation Comments BUN (test code = BUN) 23 7-22 [facility]2021-10-21 17:20:00 Test Item Value Reference Range Interpretation Comments Creatinine Lvl (test code = Creatinine 1.34 0.50-1.40 Lvl) [facility]2021-10-21 17:20:00 Test Item Value Reference Range Interpretation Comments Sodium Lvl (test code = Sodium Lvl) 141 135-145 [place] 872121-10-21 17:20:00 Test Item Value Reference Range Interpretation Comments Potassium Lvl (test code = Potassium 4.1 3.5-5.1 Lvl) [place] 872121-10-21 17:20:00 Test Item Value Reference Range Interpretation Comments Chloride Lvl (test code = Chloride Lvl) 112 95-109 [place] 872121-10-21 17:20:00 Test Item Value Reference Range Interpretation Comments CO2 (test code = CO2) 23 24-32 [facility]2021-10-21 17:20:00 Test Item Value Reference Range Interpretation Comments Calcium Lvl (test code = Calcium Lvl) 9.4 8.5-10.5 [facility]2021-10-21 17:20:00 Test Item Value Reference Range Interpretation Comments AGAP (test code = AGAP) 10.1 10.0-20.0 [facility]2021-10-21 17:20:00 Test Item Value Reference Range Interpretation Comments eGFR (test code = eGFR) 46 [facility]qiceipNRKQRPEMTB1079-23-76 17:20:00 Test Item Value Reference Range Interpretation Comments WBC (test code = WBC) 10.2 3.7-10.4 [facility] SystemJgiurmgQSYHKPJTSF7912-10-62 17:20:00 Test Item Value Reference Range Interpretation Comments RBC (test code = RBC) 3.64 4.20-5.40 [facility] SystemAhuvhrvUINNLEHDGV7499-47-55 17:20:00 Test Item Value Reference Range Interpretation Comments Hgb (test code = Hgb) 12.0 12.0-16.0 [facility] SystemXvrbueyFJTSSRETVA7243-69-86 17:20:00 Test Item Value Reference Range Interpretation Comments Hct (test code = Hct) 36.0 36.0-48.0 [facility] SystemFxbmxtwCTGXXRLLOY1056-39-30 17:20:00 Test Item Value Reference Range Interpretation Comments MCV (test code = MCV) 99.0 80.0-98.0 [facility] SystemSkmadsxHHOXKLWPNA5636-90-60 17:20:00 Test Item Value Reference Range Interpretation Comments MCH (test code = MCH) 32.9 pg 27.0-31.0 [facility] SystemXotjoivUAVIXWCTGO8142-93-33 17:20:00 Test Item Value Reference Range Interpretation Comments MCHC (test code = MCHC) 33.2 32.0-36.0 [facility] SystemDaurjtdNRIWHLNFTJ7906-75-93 17:20:00 Test Item Value Reference Range Interpretation Comments RDW (test code = RDW) 14.3 11.5-14.5 [facility] SystemBfqdiouSWVWWSJIQA3489-34-59 17:20:00 Test Item Value Reference Range Interpretation Comments Platelet (test code = Platelet) 358 133-450 [place] 911131-10-21 17:20:00 Test Item Value Reference Range Interpretation Comments MPV (test code = MPV) 8.3 7.4-10.4 [place] 911131-10-21 17:20:00 Test Item Value Reference Range Interpretation Comments Segs (test code = Segs) 62.4 45.0-75.0 [place] 911131-10-21 17:20:00 Test Item Value Reference Range Interpretation Comments Lymphocytes (test code = Lymphocytes) 27.0 20.0-40.0 [place] 911131-10-21 17:20:00 Test Item Value Reference Range Interpretation Comments Monocytes (test code = Monocytes) 8.9 2.0-12.0 [place] 911131-10-21 17:20:00 Test Item Value Reference Range Interpretation Comments Eosinophils (test code = 1.5 See_Comment [A utomated message] The Eosinophils) system which ge nerated this result tra nsmitted reference range : <=4.0. The reference r luli was not used to int erpret this result as normal/abnormal . [place] 911131-10-21 17:20:00 Test Item Value Reference Range Interpretation Comments Basophils (test code = 0.2 See_Comment [Aut omated message] The Basophils) system which ge nerated this result tra nsmitted reference range : <=1.0. The reference r luli was not used to int erpret this result as normal/abnormal . [place] 911131-10-21 17:20:00 Test Item Value Reference Range Interpretation Comments Neutrophils # (test code = Neutrophils 6.3 1.5-8.1 #) [place] 911131-10-21 17:20:00 Test Item Value Reference Range Interpretation Comments Lymphocytes # (test code = Lymphocytes 2.7 1.0-5.5 #) [place] 911131-10-21 17:20:00 Test Item Value Reference Range Interpretation Comments Monocytes # (test code 0.9 See_Comment [Aut omated message] The = Monocytes #) system which generated this result tra nsmitted reference range : <=0.8. The reference r luli was not used to int erpret this result as normal/abnormal . [place] [address]-10-21 17:20:00 Test Item Value Reference Range Interpretation Comments Eosinophils # (test code 0.2 See_Comment [A utomated message] The = Eosinophils #) system whic h generated this result tra nsmitted reference range : <=0.5. The reference r luli was not used to int erpret this result as normal/abnormal . [facility] [employer] [id number] 11:05:00 Test Item Value Reference Range Interpretation Comments ABO/Rh (test code = ABO/Rh) O POS [facility] [id number] 11:05:00 Test Item Value Reference Range Interpretation Comments Antibody Scrn (test Negative (04/26/21 code = Antibody Scrn) 6:05 AM) [facility] [employer] [id number] 10:03:00 Test Item Value Reference Range Interpretation Comments Glucose Lvl (test code = Glucose Lvl) 83 70-99 [facility] [employer] [id number] 10:03:00 Test Item Value Reference Range Interpretation Comments BUN (test code = BUN) 10 7-22 [facility] [employer] [id number] 10:03:00 Test Item Value Reference Range Interpretation Comments Creatinine Lvl (test code = Creatinine 0.83 0.50-1.40 Lvl) [facility] [employer] [id number] 10:03:00 Test Item Value Reference Range Interpretation Comments Sodium Lvl (test code = Sodium Lvl) 142 135-145 [facility] [employer] [id number] 10:03:00 Test Item Value Reference Range Interpretation Comments Potassium Lvl (test code = Potassium 3.7 3.5-5.1 Lvl) [facility] [employer] [id number] 10:03:00 Test Item Value Reference Range Interpretation Comments Chloride Lvl (test code = Chloride Lvl) 115 95-109 [facility] [employer] [id number] 10:03:00 Test Item Value Reference Range Interpretation Comments CO2 (test code = CO2) 22 24-32 [facility] [employer] [id number] 10:03:00 Test Item Value Reference Range Interpretation Comments Calcium Lvl (test code = Calcium Lvl) 9.0 8.5-10.5 [facility] [employer] [id number] 10:03:00 Test Item Value Reference Range Interpretation Comments AGAP (test code = AGAP) 8.7 10.0-20.0 [facility]2021-10-16 10:03:00 Test Item Value Reference Range Interpretation Comments eGFR (test code = eGFR) 81 [facility]2021-10-16 10:03:00 Test Item Value Reference Range Interpretation Comments eGFR (test code = eGFR) 81 [facility]2021-10-16 10:03:00 Test Item Value Reference Range Interpretation Comments Glucose Lvl (test code = Glucose Lvl) 83 70-99 [facility]2021-10-16 10:03:00 Test Item Value Reference Range Interpretation Comments BUN (test code = BUN) 10 7-22 [facility]2021-10-16 10:03:00 Test Item Value Reference Range Interpretation Comments Creatinine Lvl (test code = Creatinine 0.83 0.50-1.40 Lvl) [facility]2021-10-16 10:03:00 Test Item Value Reference Range Interpretation Comments Sodium Lvl (test code = Sodium Lvl) 142 135-145 [facility]2021-10-16 10:03:00 Test Item Value Reference Range Interpretation Comments Potassium Lvl (test code = Potassium 3.7 3.5-5.1 Lvl) [facility]2021-10-16 10:03:00 Test Item Value Reference Range Interpretation Comments Chloride Lvl (test code = Chloride Lvl) 115 95-109 [facility]2021-10-16 10:03:00 Test Item Value Reference Range Interpretation Comments CO2 (test code = CO2) 22 24-32 [facility]2021-10-16 10:03:00 Test Item Value Reference Range Interpretation Comments AGAP (test code = AGAP) 8.7 10.0-20.0 [facility]2021-10-16 10:03:00 Test Item Value Reference Range Interpretation Comments Calcium Lvl (test code = Calcium Lvl) 9.0 8.5-10.5 [facility]2021-10-16 10:03:00 Test Item Value Reference Range Interpretation Comments B/C Ratio (test code = B/C Ratio) 12 1 6-25 [facility]2021-10-16 10:03:00 Test Item Value Reference Range Interpretation Comments Total Protein (test code = Total 6.0 6.4-8.4 Protein) [facility]2021-10-16 10:03:00 Test Item Value Reference Range Interpretation Comments Albumin Lvl (test code = Albumin Lvl) 2.8 3.5-5.0 [place] 872121-10-16 10:03:00 Test Item Value Reference Range Interpretation Comments Globulin (test code = Globulin) 3.2 2.7-4.2 [facility]2021-10-16 10:03:00 Test Item Value Reference Range Interpretation Comments A/G Ratio (test code = A/G Ratio) 0.9 1 0.7-1.6 [place] 872121-10-16 10:03:00 Test Item Value Reference Range Interpretation Comments ALT (test code = ALT) 6 See_Comment [Auto mated message] The system which ge nerated this result transmit jana reference range : <=65. The reference range was not used to interpr et this result as gabbie l/abnormal. [facility]2021-10-16 10:03:00 Test Item Value Reference Range Interpretation Comments AST (test code = AST) 12 See_Comment [Auto mated message] The system which ge nerated this result transmit jana reference range : <=37. The reference range was not used to interpr et this result as gabbie l/abnormal. [facility]2021-10-16 10:03:00 Test Item Value Reference Range Interpretation Comments Alk Phos (test code = Alk Phos) 47 39-136 [facility]2021-10-16 10:03:00 Test Item Value Reference Range Interpretation Comments Bili Total (test code = Bili Total) 0.5 0.2-1.3 [facility] SystemGvvtiefAMVSWZCUYH6600-30-27 10:03:00 Test Item Value Reference Range Interpretation Comments WBC (test code = WBC) 8.6 3.7-10.4 [facility] SystemLyqghsySFHFFGIIYW8619-04-20 10:03:00 Test Item Value Reference Range Interpretation Comments RBC (test code = RBC) 4.01 4.20-5.40 [facility] SystemGzfkjzeISXJWMLRFJ3945-23-30 10:03:00 Test Item Value Reference Range Interpretation Comments Hgb (test code = Hgb) 13.0 12.0-16.0 [place] 911131-10-16 10:03:00 Test Item Value Reference Range Interpretation Comments Hct (test code = Hct) 39.1 36.0-48.0 [place] 911131-10-16 10:03:00 Test Item Value Reference Range Interpretation Comments MCV (test code = MCV) 97.5 80.0-98.0 [facility] SystemMsnjvfaDBFUSNYILT5443-38-55 10:03:00 Test Item Value Reference Range Interpretation Comments MCH (test code = MCH) 32.5 pg 27.0-31.0 [facility] SystemOrmhpqeMJZEUGKRFB7835-65-77 10:03:00 Test Item Value Reference Range Interpretation Comments MCHC (test code = MCHC) 33.3 32.0-36.0 [facility] SystemAgsppteBTXXDKXPDN5301-48-15 10:03:00 Test Item Value Reference Range Interpretation Comments RDW (test code = RDW) 14.0 11.5-14.5 [facility] SystemAokfbrxUPUKMBRXZR4938-53-64 10:03:00 Test Item Value Reference Range Interpretation Comments Platelet (test code = Platelet) 258 133-450 [facility] SystemMogeurvFRSQSHCUSF4139-33-37 10:03:00 Test Item Value Reference Range Interpretation Comments MPV (test code = MPV) 9.1 7.4-10.4 [facility] SystemQnaypbqXYNAINRHIW6581-48-32 10:03:00 Test Item Value Reference Range Interpretation Comments Segs (test code = Segs) 54.9 45.0-75.0 [facility] SystemIkemlkzSFMGOYXQYG5898-06-18 10:03:00 Test Item Value Reference Range Interpretation Comments Lymphocytes (test code = Lymphocytes) 34.5 20.0-40.0 [facility] SystemCxnsyeaTQRKQDJVEU8383-48-91 10:03:00 Test Item Value Reference Range Interpretation Comments Monocytes (test code = Monocytes) 5.8 2.0-12.0 [place] 911131-10-16 10:03:00 Test Item Value Reference Range Interpretation Comments Eosinophils (test code = 4.6 See_Comment [A utomated message] The Eosinophils) system which ge nerated this result tra nsmitted reference range : <=4.0. The reference r luli was not used to int erpret this result as normal/abnormal . [facility] SystemQtxkuppRWAVCERYKC2299-83-98 10:03:00 Test Item Value Reference Range Interpretation Comments Basophils (test code = 0.2 See_Comment [Aut omated message] The Basophils) system which ge nerated this result tra nsmitted reference range : <=1.0. The reference r luli was not used to int erpret this result as normal/abnormal . [place] 911131-10-16 10:03:00 Test Item Value Reference Range Interpretation Comments Neutrophils # (test code = Neutrophils 4.7 1.5-8.1 #) [place] 911131-10-16 10:03:00 Test Item Value Reference Range Interpretation Comments Lymphocytes # (test code = Lymphocytes 3.0 1.0-5.5 #) [place] 911131-10-16 10:03:00 Test Item Value Reference Range Interpretation Comments Monocytes # (test code 0.5 See_Comment [Aut omated message] The = Monocytes #) system which generated this result tra nsmitted reference range : <=0.8. The reference r luli was not used to int erpret this result as normal/abnormal . [place] 911131-10-16 10:03:00 Test Item Value Reference Range Interpretation Comments Eosinophils # (test code 0.4 See_Comment [A utomated message] The = Eosinophils #) system whic h generated this result tra nsmitted reference range : <=0.5. The reference r luli was not used to int erpret this result as normal/abnormal . [facility]2021-10-15 08:31:00 Test Item Value Reference Range Interpretation Comments Glucose Lvl (test code = Glucose Lvl) 117 70-99 [place] 872121-10-15 08:31:00 Test Item Value Reference Range Interpretation Comments BUN (test code = BUN) 11 7-22 [place] 872121-10-15 08:31:00 Test Item Value Reference Range Interpretation Comments Creatinine Lvl (test code = Creatinine 1.00 0.50-1.40 Lvl) [facility]2021-10-15 08:31:00 Test Item Value Reference Range Interpretation Comments Sodium Lvl (test code = Sodium Lvl) 139 135-145 [place] 872121-10-15 08:31:00 Test Item Value Reference Range Interpretation Comments Potassium Lvl (test code = Potassium 4.0 3.5-5.1 Lvl) [facility] [id number] 08:31:00 Test Item Value Reference Range Interpretation Comments Chloride Lvl (test code = Chloride Lvl) 113 95-109 [facility]FishidyCIND[facility] [place] [id number] 08:31:00 Test Item Value Reference Range Interpretation Comments CO2 (test code = CO2) 18 24-32 [facility] [id number] 08:31:00 Test Item Value Reference Range Interpretation Comments Calcium Lvl (test code = Calcium Lvl) 8.9 8.5-10.5 [facility] [id number] 08:31:00 Test Item Value Reference Range Interpretation Comments Total Protein (test code = Total 6.6 6.4-8.4 Protein) [place] 872121-10-15 08:31:00 Test Item Value Reference Range Interpretation Comments Albumin Lvl (test code = Albumin Lvl) 3.1 3.5-5.0 [facility] [id number] 08:31:00 Test Item Value Reference Range Interpretation Comments ALT (test code = ALT) 9 See_Comment [Auto mated message] The system which ge nerated this result transmit jana reference range : <=65. The reference range was not used to interpr et this result as gabbie l/abnormal. [facility] [id number] 08:31:00 Test Item Value Reference Range Interpretation Comments AST (test code = AST) 13 See_Comment [Auto mated message] The system which ge nerated this result transmit jana reference range : <=37. The reference range was not used to interpr et this result as gabbie l/abnormal. [facility] [id number] 08:31:00 Test Item Value Reference Range Interpretation Comments Alk Phos (test code = Alk Phos) 54 39-136 [facility] [id number] 08:31:00 Test Item Value Reference Range Interpretation Comments Bili Total (test code = Bili Total) 0.6 0.2-1.3 [facility] [id number] 08:31:00 Test Item Value Reference Range Interpretation Comments AGAP (test code = AGAP) 12.0 10.0-20.0 [facility] [id number] 08:31:00 Test Item Value Reference Range Interpretation Comments B/C Ratio (test code = B/C Ratio) 11 1 6-25 [place] 872121-10-15 08:31:00 Test Item Value Reference Range Interpretation Comments Globulin (test code = Globulin) 3.5 2.7-4.2 [place] 872121-10-15 08:31:00 Test Item Value Reference Range Interpretation Comments A/G Ratio (test code = A/G Ratio) 0.9 1 0.7-1.6 [place] [address]-10-15 08:31:00 Test Item Value Reference Range Interpretation Comments eGFR (test code = eGFR) 65 [place] 911131-10-15 08:31:00 Test Item Value Reference Range Interpretation Comments WBC (test code = WBC) 8.2 3.7-10.4 [place] 911131-10-15 08:31:00 Test Item Value Reference Range Interpretation Comments RBC (test code = RBC) 4.20 4.20-5.40 [place] [address]-10-15 08:31:00 Test Item Value Reference Range Interpretation Comments Hgb (test code = Hgb) 13.5 12.0-16.0 [place] [address]-10-15 08:31:00 Test Item Value Reference Range Interpretation Comments Hct (test code = Hct) 40.6 36.0-48.0 [place] 911131-10-15 08:31:00 Test Item Value Reference Range Interpretation Comments MCV (test code = MCV) 96.8 80.0-98.0 [place] [address]-10-15 08:31:00 Test Item Value Reference Range Interpretation Comments MCH (test code = MCH) 32.1 pg 27.0-31.0 [place] [address]-10-15 08:31:00 Test Item Value Reference Range Interpretation Comments MCHC (test code = MCHC) 33.2 32.0-36.0 [place] 911131-10-15 08:31:00 Test Item Value Reference Range Interpretation Comments RDW (test code = RDW) 14.3 11.5-14.5 [place] 911131-10-15 08:31:00 Test Item Value Reference Range Interpretation Comments Platelet (test code = Platelet) 257 133-450 [facility] SystemMzpgmqhLJCXBSTKUU6609-56-04 08:31:00 Test Item Value Reference Range Interpretation Comments MPV (test code = MPV) 8.8 7.4-10.4 [facility] SystemNgxeszsYMADOBTLZC2698-11-67 08:31:00 Test Item Value Reference Range Interpretation Comments Segs (test code = Segs) 56.0 45.0-75.0 [facility] SystemWgszufgEZUPTBHPXK7319-50-59 08:31:00 Test Item Value Reference Range Interpretation Comments Lymphocytes (test code = Lymphocytes) 33.0 20.0-40.0 [facility] SystemDqwxncqLVFKBTPKTZ9661-59-46 08:31:00 Test Item Value Reference Range Interpretation Comments Monocytes (test code = Monocytes) 7.6 2.0-12.0 [facility] SystemWfrylhzUSUUGBSJYJ6742-41-07 08:31:00 Test Item Value Reference Range Interpretation Comments Eosinophils (test code = 2.9 See_Comment [A utomated message] The Eosinophils) system which ge nerated this result tra nsmitted reference range : <=4.0. The reference r luli was not used to int erpret this result as normal/abnormal . [facility] SystemJyfjwdeGUVCLZPPXP6318-54-50 08:31:00 Test Item Value Reference Range Interpretation Comments Basophils (test code = 0.5 See_Comment [Aut omated message] The Basophils) system which ge nerated this result tra nsmitted reference range : <=1.0. The reference r luli was not used to int erpret this result as normal/abnormal . [facility] SystemHpagxhlPDUECZOWBD0580-99-47 08:31:00 Test Item Value Reference Range Interpretation Comments Neutrophils # (test code = Neutrophils 4.6 1.5-8.1 #) [place] 911131-10-15 08:31:00 Test Item Value Reference Range Interpretation Comments Lymphocytes # (test code = Lymphocytes 2.7 1.0-5.5 #) [place] 911131-10-15 08:31:00 Test Item Value Reference Range Interpretation Comments Monocytes # (test code 0.6 See_Comment [Aut omated message] The = Monocytes #) system which generated this result tra nsmitted reference range : <=0.8. The reference r luli was not used to int erpret this result as normal/abnormal . [facility] SystemUambjiiHEDLKGWJFE3040-06-22 08:31:00 Test Item Value Reference Range Interpretation Comments Eosinophils # (test code 0.2 See_Comment [A utomated message] The = Eosinophils #) system [employer] generated this result tra nsmitted reference range : <=0.5. The reference r luli was not used to int erpret this result as normal/abnormal . [facility] [id number] 08:39:00 Test Item Value Reference Range Interpretation Comments Procalcitonin Lvl <0.05 ng/mL See_Comment [Automate d message] (test code = The system [place] Procalcitonin Lvl) generated this result transmit jana reference range : <=0.10. The reference range was not used to interpret this result as normal/abnormal . [facility] [id number] 08:39:00 Test Item Value Reference Range Interpretation Comments Total Protein (test code = Total 7.6 6.4-8.4 Protein) [facility] [id number] 08:39:00 Test Item Value Reference Range Interpretation Comments Albumin Lvl (test code = Albumin Lvl) 3.9 3.5-5.0 [facility] [id number] 08:39:00 Test Item Value Reference Range Interpretation Comments ALT (test code = ALT) 12 See_Comment [Auto mated message] The system which ge nerated this result transmit jana reference range : <=65. The reference range was not used to interpr et this result as gabbie l/abnormal. [facility] [employer] [id number] 08:39:00 Test Item Value Reference Range Interpretation Comments AST (test code = AST) 10 See_Comment [Auto mated message] The system which ge nerated this result transmit jana reference range : <=37. The reference range was not used to interpr et this result as gabbie l/abnormal. [facility] [employer] [id number] 08:39:00 Test Item Value Reference Range Interpretation Comments Alk Phos (test code = Alk Phos) 65 39-136 [facility] [employer] [id number] 08:39:00 Test Item Value Reference Range Interpretation Comments Bili Total (test code = Bili Total) 0.8 0.2-1.3 [facility] [place]Roger [place] 748391-10-14 08:39:00 Test Item Value Reference Range Interpretation Comments B/C Ratio (test code = B/C Ratio) 11 1 6-25 [place] [address]-10-14 08:39:00 Test Item Value Reference Range Interpretation Comments Globulin (test code = Globulin) 3.7 2.7-4.2 [place] 872121-10-14 08:39:00 Test Item Value Reference Range Interpretation Comments A/G Ratio (test code = A/G Ratio) 1.1 1 0.7-1.[address]10-14 08:39:00 Test Item Value Reference Range Interpretation Comments Magnesium Lvl (test code = Magnesium 2.6 1.8-2.4 Lvl) [place] 872121-10-14 08:39:00 Test Item Value Reference Range Interpretation Comments Phosphorus (test code = Phosphorus) 3.5 2.5-4.5 [place] 911131-10-14 08:39:00 Test Item Value Reference Range Interpretation Comments WBC (test code = WBC) 9.3 3.7-10.4 [place] [address]-10-14 08:39:00 Test Item Value Reference Range Interpretation Comments RBC (test code = RBC) 4.48 4.20-5.40 [place] 911131-10-14 08:39:00 Test Item Value Reference Range Interpretation Comments Hgb (test code = Hgb) 14.6 12.0-16.0 [place] 911131-10-14 08:39:00 Test Item Value Reference Range Interpretation Comments Hct (test code = Hct) 43.6 36.0-48.0 [place] [address]-10-14 08:39:00 Test Item Value Reference Range Interpretation Comments MCV (test code = MCV) 97.3 80.0-98.0 [place] [address]-10-14 08:39:00 Test Item Value Reference Range Interpretation Comments MCH (test code = MCH) 32.5 pg 27.0-31.0 [place] [id number] 08:39:00 Test Item Value Reference Range Interpretation Comments MCHC (test code = MCHC) 33.5 32.0-36.0 [place] [address]-10-14 08:39:00 Test Item Value Reference Range Interpretation Comments RDW (test code = RDW) 14.5 11.5-14.5 [place] [id number] 08:39:00 Test Item Value Reference Range Interpretation Comments Platelet (test code = Platelet) 296 133-450 [facility]RGJ[facility]MPAFFP8789[facility]41-67 08:39:00 Test Item Value Reference Range Interpretation Comments MPV (test code = MPV) 9.0 7.4-10.4 [place] [id number] 08:39:00 Test Item Value Reference Range Interpretation Comments PT (test code = PT) 13.4 s 12.0-14.7 [place] 911131-10-14 08:39:00 Test Item Value Reference Range Interpretation Comments INR (test code = INR) 1.03 1 0.85-1.17 [place] 911131-10-14 08:39:00 Test Item Value Reference Range Interpretation Comments PTT (test code = PTT) 36.3 s 22.9-35.8 [place] 911131-10-14 08:39:00 Test Item Value Reference Range Interpretation Comments Segs (test code = Segs) 61.3 45.0-75.0 [place] 911131-10-14 08:39:00 Test Item Value Reference Range Interpretation Comments Lymphocytes (test code = Lymphocytes) 29.7 20.0-40.0 [facility] SystemAdmdzqzLVEWEKLYPN9319-53-16 08:39:00 Test Item Value Reference Range Interpretation Comments Monocytes (test code = Monocytes) 8.1 2.0-12.0 [place] 911131-10-14 08:39:00 Test Item Value Reference Range Interpretation Comments Eosinophils (test code = 0.4 See_Comment [A utomated message] The Eosinophils) system which ge nerated this result tra nsmitted reference range : <=4.0. The reference r luli was not used to int erpret this result as normal/abnormal . [place] 911131-10-14 08:39:00 Test Item Value Reference Range Interpretation Comments Basophils (test code = 0.5 See_Comment [Aut omated message] The Basophils) system which ge nerated this result tra nsmitted reference range : <=1.0. The reference r luli was not used to int erpret this result as normal/abnormal . [facility] 08:[facility]:00 Test Item Value Reference Range Interpretation Comments Neutrophils # (test code = Neutrophils 5.7 1.5-8.1 #) [facility]ulqWYSLEKHVGZ4948-78-96 08:39:00 Test Item Value Reference Range Interpretation Comments Lymphocytes # (test code = Lymphocytes 2.8 1.0-5.5 #) [facility]XrwkuuoOYNMTLYKCP4040-45-17 08:39:00 Test Item Value Reference Range Interpretation Comments Monocytes # (test code 0.7 See_Comment [Aut omated message] The = Monocytes #) system which generated this result tra nsmitted reference range : <=0.8. The reference r luli was not used to int erpret this result as normal/abnormal . [facility] CenterQumodejERWBT2289-12-87 08:39:00 Test Item Value Reference Range Interpretation Comments Mosheim Lvl (test code = Mosheim Lvl) 0.89 0.50-1.50 [facility] CenterCbuftddTXDFRTLBGU4510-67-57 20:30:00 Test Item Value Reference Range Interpretation Comments Acetaminoph Lvl (test code = no gt 04-26 Acetaminoph Lvl) [facility]CEWCO4774-82-06 20:30:00 Test Item Value Reference Range Interpretation Comments Ethanol Lvl (test code = Ethanol Lvl) no gt [facility] CenterZyetdgsAUJUPMLKWE1222-13-68 20:30:00 Test Item Value Reference Range Interpretation Comments Etoh (%) (test code = Etoh (%)) no gt [facility] CenterUvsbyuvYXUHPGYHHO5399-40-42 20:30:00 Test Item Value Reference Range Interpretation Comments Salicylate Lvl (test 3.4 See_Comment [Autom ated message] The code = Salicylate Lvl) syste m which generated this result tra nsmitted reference range : <=30.0. The reference r luli was not used to int erpret this result as normal/abnormal . [facility] CenterURINE [id number] 14:23:00 Test Item Value Reference Range Interpretation Comments U Preg (test code = U Negative (04/19/21 9:23 Preg) AM) [facility] CenterGezhcosQLSIIMYFWV1837-55-88 14:11:00 Test Item Value Reference Range Interpretation Comments Coronavirus (COVID-19) Not Detected JACKSON (test code = (04/19/21 9:11 AM) Coronavirus (COVID-19) JACKSON) [facility] [id number] 11:20:00 Test Item Value Reference Range Interpretation Comments ABO/Rh (test code = ABO/Rh) O POS [facility] [id number] 11:20:00 Test Item Value Reference Range Interpretation Comments Antibody Scrn (test Negative (04/19/21 code = Antibody Scrn) 6:20 AM) [facility] SystemBhedxqpMXKIBYILHQ9899-27-68 11:17:52 Test Item Value Reference Range Interpretation Comments ACT (TEG) Rapid (test code = ACT (TEG) 82 s 86-118 Rapid) [facility] SystemKhicshfBNDXDQCICG3102-86-36 11:17:52 Test Item Value Reference Range Interpretation Comments Split Point Rapid (test code = Split 0.3 min Point Rapid) [facility] SystemKuroenuVKDKNMWXYM5530-13-21 11:17:52 Test Item Value Reference Range Interpretation Comments R-time Rapid (test code = R-time 0.3 min 0.4-0.7 Rapid) [facility] SystemSaxiuubKAEMOEHZXN7396-64-37 11:17:52 Test Item Value Reference Range Interpretation Comments K-time Rapid (test code = K-time 0.9 min 0.6-2.3 Rapid) [facility] SystemVutxvxpTZLJFDWDZZ8739-72-07 11:17:52 Test Item Value Reference Range Interpretation Comments Angle Rapid (test code = Angle 80 degrees 64-80 Rapid) [facility] SystemZqbxrzhYHPVTEHJJH3440-02-27 11:17:52 Test Item Value Reference Range Interpretation Comments Max Amplitude Rapid (test code = Max 68 mm 52-71 Amplitude Rapid) [facility] SystemWdayqhfRHQKZQUFVE1692-53-68 11:17:52 Test Item Value Reference Range Interpretation Comments G-value Rapid (test code = G-value 10.7 5.0-11.6 Rapid) [facility] SystemLzfczzwNAKCRRUFDE1800-17-98 11:17:52 Test Item Value Reference Range Interpretation Comments Estimated % Lysis Rapid 1.1 See_Comment [Au tomated message] The (test code = Estimated syste m which generated % Lysis Rapid) this result t ransmitted reference range : <=7.5. The reference r luli was not used to int erpret this result as normal/abnormal . [facility] SystemIwnmczsSNLKSZNRJQ5253-54-35 11:17:42 Test Item Value Reference Range Interpretation Comments PT (test code = PT) 12.8 s 12.0-14.7 [facility] SystemCuxbbspIWUUFPOQKR0324-43-70 11:17:42 Test Item Value Reference Range Interpretation Comments INR (test code = INR) 0.97 1 0.85-1.17 [facility] SystemRhcsxjqQONMKLHEKL6148-10-85 11:17:42 Test Item Value Reference Range Interpretation Comments PTT (test code = PTT) 35.1 s 22.9-35.8 [facility]
[2022-03-25 18:46] LABS: Absolute Lymphocytes (CBC) 2.2 K/uL (0.7-4.9); Hematocrit 36.3 % (36.0-45.0); Lymphocytes % 34.4 % (15.3-44.8); MPV 7.9 fL (7.6-11.3); RBC Red Blood Cell Count 3.63 M/uL (3.86-4.86)
[2022-03-25 18:47] LABS: Protime INR 1.08
[2022-03-25 19:03] LABS: ALT/SGPT 15 U/L (12-78); Albumin 3.2 g/dL (3.4-5.0); Alkaline Phosphatase 48 U/L (45-117); BUN Blood Urea Nitrogen 11 mg/dL (7-18); Bicarbonate 27 mmol/L (21-32); Bilirubin Total 0.3 mg/dL (0.2-1.0); Glomerular Filtration Rate 74 ml/min (=/>90); Glucose Level 100 mg/dL (74-106); Protein, Total 6.6 g/dL (6.4-8.2); Sodium Level 140 mmol/L (136-145)
[2022-03-25 19:05] LABS: AST/SGOT 17 U/L (15-37); Bilirubin Direct < 0.1 mg/dL (0-0.2); Potassium 4.3 mmol/L (3.5-5.1)
--- NOTE | 2022-03-25 19:24 | RAD REPORT ---
EXAM DESCRIPTION: CT - CTHCSPWOC - 03/25/2022 7:05 pm CLINICAL HISTORY: fall COMPARISON: CT head and cervical 08/11/2020 TECHNIQUE: Axial 5 mm thick images of the head were obtained. Axial 2 mm thick images of the cervic al spine were obtained with sagittal and coronal reconstruction images generated and reviewed. All CT scans are performed using dose optimization technique as appropriate and may include automated exposure control or mA/KV adjustment according to patient size. FINDINGS: No intracranial hemorrhage, mass, edema or acute intracranial finding. No suspicion for ac inupiat infarction. Bilateral subfrontal encephalomalacia changes match comparison. No extra-axial fluid collections. Mastoid air cells and paranasal sinuses are clear. No globe or orbit abnormality seen. Cervical body height and alignment are normal. Slight wedging of the T1 body is present. This is new or progressive from comparison but does not appear to be in acute. Advanced facet joint degenerative change present on the left at C7-T1. . All disc levels except C2-3 show significant loss in disc heig ht. Large anterior endplate spurs are present C3-T1. An acute or pathologic bone process is not seen. Uncovertebral joint hypertrophy causes significant bilateral bony foraminal stenosis at C3-4 and C4- 5. Significant left foraminal stenosis at C5-6 and mild bilateral at C6-7. Central canal detail is i nherently limited. No paraspinal mass or hematoma. IMPRESSION: Negative CT head examination for acute or significant finding. Advanced for age cervical spine degenerative changes are present without an acute finding.
--- NOTE | 2022-03-25 19:27 | RAD REPORT ---
EXAM DESCRIPTION: RAD - Chest Single View - 03/25/2022 7:14 pm CLINICAL HISTORY: fall COMPARISON: Portable 01/12/2021 TECHNIQUE: AP portable chest image was obtained 03/25/2022 7:14 pm . FINDINGS: Lungs are clear. Interstitial pattern matches comparison. Heart and vasculature are normal . No measurable pleural effusion and no pneumothorax. No acute bony abnormality seen. No acute aortic findings suspected. IMPRESSION: No acute cardiopulmonary process.
[2022-03-25] MEDS ORDERED: NA CHLORIDE 0.9% 1,000 ML ONE ×3 (19:49→20:35)
--- NOTE | 2022-03-25 19:55 | EDPHYS ---
Physician Documentation [facility] Name: Mitzi Murphy Age: 52 yrs Sex: Female : 1970 Arrival Date: 03/25/2022 Time: 17:[address] Private MD: ED Physician Luis Alfredo Brown HPI: 03/25 17:49 This 52 yrs old Female presents to ER via Unassigned with complaints of Altered Mental vt3 Status. 17:49 52-year-old female with past medical history of opioid abuse presents via [place] [id number] [facility] for altered mental status that has been ongoing all day per EMS. Patient denies pain. Patient denies alleviating or inciting factors. Patient denies fevers, chills, nausea, vomiting. Per EMS on their arrival patient's blood pressure was 80s/40s. EMS administered 300 mL of normal saline. 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 - Social history:: Smoking status: Patient reports the use of cigarette tobacco products. ROS: 17:49 Constitutional: Negative for fever, and chills. Neck: Negative for injury, pain, and ms3 swelling, Cardiovascular: Negative for chest pain, and palpitations. Respiratory: Negative for shortness of breath, cough, wheezing, and pleuritic chest pain, Abdomen/GI: Negative for abdominal pain, nausea, vomiting, diarrhea, and constipation, MS/Extremity: Negative for injury and deformity, Skin: Negative for injury, rash, and discoloration, Psych: Negative for depression, anxiety, suicide ideation, homicidal ideation, and hallucinations. 17:49 Neuro: Positive for altered mental status. 17:49 All other systems are negative. Exam: 17:49 Constitutional: This is a well developed, well nourished patient who is awake, alert, ms3 and in no acute distress. Head/Face: Normocephalic, atraumatic. Neck: Trachea midline, no cervical lymphadenopathy. Supple, full range of motion without nuchal rigidity, or vertebral point tenderness. No Meningismus. Chest/axilla: Normal chest wall appearance and motion. Nontender with no deformity. Cardiovascular: Regular rate and rhythm with a normal S1 and S2. No gallops, murmurs, or rubs. Normal PMI, no JVD. No pulse deficits. Respiratory: Lungs have equal breath sounds bilaterally, clear to auscultation and percussion. No rales, rhonchi or wheezes noted. No increased work of breathing, no retractions or nasal flaring. Abdomen/GI: Soft, non-tender, with normal bowel sounds. No distension or tympany. No guarding or rebound. No evidence of tenderness throughout. Skin: Warm, dry with normal turgor. Normal color with no rashes, no lesions, and no evidence of cellulitis. MS/ Extremity: Pulses equal, no cyanosis. Neurovascular intact. Full, normal range of motion. Psych: Awake, alert, with orientation to person, place and time. Behavior, mood, and affect are within normal limits. 17:49 Neuro: Orientation: is normal, Mentation: is normal, Cranial nerves: grossly normal. 18:27 ECG was reviewed by the Attending Physician. ms3 Vital Signs: 17:46 BP 111 / 72; Pulse 77; Resp 14; Pulse Ox 95% ; iw 17:50 Temp 97.9; jl7 18:28 BP 113 / 61; Pulse 70; Resp 19; Pulse Ox 98% ; Weight 67.5 kg; jl7 19:34 BP 89 / 62; Pulse 120; Resp 16; Pulse Ox 100% ; Pain 0/10; ke1 20:22 BP 118 / 73; Pulse 84; Resp 21; Pulse Ox 100% on R/A; Pain 0/10; ke1 20:40 BP 127 / 83; Pulse 91; Resp 20; Pulse Ox 98% on R/A; ke1 21:15 Temp 98.6(TE); ke1 NIH Stroke Scale Scores: 17:40 NIHSS Score: 0 jl7 17:49 NIHSS Score: 0 ms3 MDM: 17:46 Patient medically screened. ms3 19:25 Patient medically screened. lacie 19:51 Differential Diagnosis: electrolyte abnormality, alcohol intoxication, hypoglycemia, lacie intracranial bleed, overdose, pneumonia, sepsis, TIA, UTI, volume depletion. Data reviewed: vital signs, nurses notes, EMS record, lab test result(s), EKG, radiologic studies, CT scan, doppler, plain films. Data interpreted: compliance monitor: rate is 120 beats/min, rhythm is normal sinus rhythm. Test interpretation: by ED physician or midlevel provider: ECG, plain radiologic studies. Counseling: I had a detailed discussion with the patient and/or guardian regarding: the historical points, exam findings, and any diagnostic results supporting the discharge/admit diagnosis, lab results, radiology results, the need for further work-up and treatment in the hospital. 03/25 17:49 Order name: Acetaminophen ms3 03/25 17:49 Order name: Basic Metabolic Panel ms3 03/25 17:49 Order name: CBC with Diff ms3 03/25 17:49 Order name: ETOH Level ms3 03/25 17:49 Order name: Hepatic Function ms3 03/25 17:49 Order name: PT-INR ms3 03/25 17:49 Order name: Ptt, Activated ms3 03/25 17:49 Order name: Salicylate ms3 03/25 17:49 Order name: Urine Drug Screen; Complete Time: 21:30 ms3 03/25 18:35 Order name: Urine Microscopic Only; Complete Time: 21:09 ms3 03/25 18:48 Order name: Protime (+INR); Complete Time: 18:49 EDMS 03/25 18:48 Order name: PTT, Activated Partial Thromb; Complete Time: 18:49 EDMS 03/25 18:48 Order name: CBC with Automated Diff; Complete Time: 18:49 EDMS 03/25 18:51 Order name: Troponin High Sensitivity ms3 03/25 19:05 Order name: Basic Metabolic Panel; Complete Time: 21:30 EDMS 03/25 19:05 Order name: Liver (Hepatic) Function; Complete Time: 21:30 EDMS 03/25 19:05 Order name: Acetaminophen Level; Complete Time: 21:30 EDMS 03/25 19:05 Order name: Alcohol Serum/Plasma EDMS 03/25 19:07 Order name: Salicylates Level EDMI 03/25 19:23 Order name: Troponin High Sensitivity EDMI 03/25 19:28 Order name: [place] [facility] 03/25 19:28 Order name: Valproic Acid (depakote) [facility] 03/25 19:51 Order name: Blood Culture Adult (2) [facility] 03/25 19:51 Order name: Lactate [facility] 03/25 19:51 Order name: Magnesium [facility] 03/25 19:58 Order name: TSH [facility] 03/25 20:05 Order name: Procalcitonin la1 03/25 20:21 Order name: Urine Dipstick-Ancillary; Complete Time: 20:39 EDMS 03/25 21:12 Order name: Magnesium; Complete Time: 21:30 EDMS 03/25 21:18 Order name: SARS RAPID ll3 03/25 17:49 Order name: EKG; Complete Time: 17:50 ms3 03/25 17:49 Order name: EKG - Nurse/Tech; Complete Time: 18:36 ms3 03/25 17:49 Order name: IV Saline Lock; Complete Time: 18:45 ms3 03/25 17:49 Order name: Labs collected and sent; Complete Time: 18:45 ms3 03/25 17:49 Order name: Suicide Screening ([place]); Complete Time: 18:45 ms3 03/25 17:49 Order name: Urine Dipstick-Ancillary (obtain specimen); Complete Time: 20:40 ms3 03/25 18:30 Order name: CT Head C Spine ms 03/25 18:33 Order name: CXR XRAY [facility] 03/25 19:25 Order name: CT EDMI 03/25 19:28 Order name: RAD EDMI 03/25 19:50 Order name: US Extremity Venous W Compression Abhilash [facility] 03/25 20:59 Order name: Labs - recollect needed: champagne,red, light green mw2 03/25 21:29 Order name: US; Complete Time: 21:30 EDMS 03/25 22:10 Order name: SARS-COV-2 RT PCR EDMS EC:27 Rate is 65 beats/min. Rhythm is regular. QRS [place] is Normal. [place] interval is normal. QRS ms3 interval is normal. Clinical impression: Normal ECG. Interpreted by me. Reviewed by me. Administered Medications: 19:51 Drug: NS 0.9% 1000 ml Route: IV; Rate: 1 bolus; Site: right forearm; ke1 20:00 Drug: NS 0.9% 1000 ml Route: IV; Rate: 1 bolus; Site: right forearm; ke1 20:38 Drug: NS 0.9% 1000 ml Route: IV; Rate: 125 ml/hr; Site: right wrist; ke1 20:38 Drug: Solu-CORTEF (hyrdoCORTISONE) 100 mg Route: IVP; Site: right wrist; ke1 20:39 Drug: Rocephin (cefTRIAXone) 1 grams Route: IV; Rate: per protocol; Site: right forearm;ke1 Disposition Summary: 03/25/22 19:55 Hospitalization Ordered Hospitalization Status: Inpatient Admission lacie Location: Telemetry/MedSurg (Inpatient) lacie Condition: Fair lacie Problem: new lacie Symptoms: have improved lacie Bed/Room Type: Standard lacie Provider: Germaine Walker(03/25/22 20:01) lacie Room Assignment: 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 Level of Consciousness (LOC) - 0(Alert) 1b. Level of Consciousness (LOC) (Month \T\ Age) - 0(Both) 1c. LOC Commands (Open \T\ Closes Eyes/Roofing Foreman) - 0(Both) 2. Best Gaze (Lateral Gaze Paresis) - 0(Normal) 3. Visual Field Loss - 0(No visual loss) 4. Facial Palsy - 0(Normal) 5a. Left Arm: Motor (10-second hold) - 0(No drift) 5b. Right Arm: Motor (10-second hold) - 0(No drift) 6a. Left Leg: Motor (5-second hold - always test supine) - 0(No drift) 6b. Right Leg: Motor (5-second hold - always test supine) - 0(No drift) 7. Limb Ataxia (finger/nose \T\ heel/ramos - test with eyes open) - 0(Absent) 8. Sensory Loss (pinprick arms/legs/face) - 0(Normal) 9. Best Language: Aphasia (description/naming/reading) - 0(No aphasia) 10. Dysarthria (speech clarity - read or repeat words) - 0(Normal) 11. Extinction and Inattention (visual/tactile/auditory/spatial/personal) - 0(No abnormality) Initials: jl7 NIH Stroke Scale - NIH Stroke Score Date: 03/25/2022 Time: 17:49 Total Score = 0 1a. Level of Consciousness (LOC) - 0(Alert) 1b. Level of Consciousness (LOC) (Month \T\ Age) - 0(Both) 1c. LOC Commands (Open \T\ Closes Eyes/Roofing Foreman) - 0(Both) 2. Best Gaze (Lateral Gaze Paresis) - 0(Normal) 3. Visual Field Loss - 0(No visual loss) 4. Facial Palsy - 0(Normal) 5a. Left Arm: Motor (10-second hold) - 0(No drift) 5b. Right Arm: Motor (10-second hold) - 0(No drift) 6a. Left Leg: Motor (5-second hold - always test supine) - 0(No drift) 6b. Right Leg: Motor (5-second hold - always test supine) - 0(No drift) 7. Limb Ataxia (finger/nose \T\ heel/ramos - test with eyes open) - 0(Absent) 8. Sensory Loss (pinprick arms/legs/face) - 0(Normal) 9. Best Language: Aphasia (description/naming/reading) - 0(No aphasia) 10. Dysarthria (speech clarity - read or repeat words) - 0(Normal) 11. Extinction and Inattention (visual/tactile/auditory/spatial/personal) - 0(No abnormality) Initials: ms3 Signatures: Dispatcher [employer] EDMS Luis Alfredo Brown MD MD cha Williams, Irene, RN RN Elieser Solorzano, FRONT OFFICE ASSOCIATE-C FRONT OFFICE ASSOCIATE-Cla1 Catherine Thibodeaux, RN Melinda Tamez RN RN jl7 Armen Townsend mw2 Chaim Christian DO DO ms3 Bruno Ivory, RN RN ke1 Corrections: (The following items were deleted from the chart) 17:51 17:50 Allergies: No Known Allergies; jl7 17:51 17:51 Allergies: Unable to obtain; [facility] : 19:55 Randy Kong cha, cha 20:40 19:48 Cha madison cha [facility] 22:20 19:55 lacie
--- NOTE | 2022-03-25 19:55 | ER ---
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 Pt was initially hypotensive on scene BS 120. Coronavirus screen: At this time, the client does not indicate any symptoms associated with coronavirus-19. Ebola Screen: Patient negative for fever greater than or equal to 101.5 degrees Fahrenheit, and additional compatible Ebola Virus Disease symptoms Patient denies exposure to infectious person. Patient denies travel to an Ebola-affected area in the 21 days before illness onset. No symptoms or risks identified at this time. Initial Sepsis Screen: Does the patient meet any 2 criteria? No. Patient's initial sepsis screen is negative. Does the patient have a suspected source of infection? No. Patient's initial sepsis screen is negative. Risk Assessment: Do you want to hurt yourself or someone else? Patient reports no desire to harm self or others. Onset of symptoms was March 25, 2022. 17:46 Method Of Arrival: EMS: [facility] iw 17:46 Acuity: DIANA 3 iw 17:53 Care prior to arrival: Medication(s) given: Normal saline infusion, 300 mL IV iw initiated. 18 GA, in the left wrist, Glucose check: 120. Triage Assessment: 17:40 General: Appears in no apparent distress. uncomfortable, Behavior is calm, cooperative, jl7 drowsy. Pain: Denies pain. EENT: Sclera/Cornea are reddened in left eye. Neuro: Wilkes Agitation-Sedation Scale (RASS): -1 Drowsy Level of Consciousness is awake, obeys commands, Oriented to person, place, time, situation. Cardiovascular: Patient's skin is warm and dry. Respiratory: Airway is patent Respiratory effort is even, unlabored, Respiratory pattern is regular, symmetrical. GI: No signs and/or symptoms were reported involving the gastrointestinal system. Derm: Skin is pink, warm \T\ dry. 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 - Social history:: Smoking status: Patient reports the use of cigarette tobacco products. Screenin:28 Abuse screen: Denies threats or abuse. Denies injuries from another. Nutritional jl7 screening: No deficits noted. Tuberculosis screening: No symptoms or risk factors identified. Fall Risk IV access (20 points). Total Blanc Fall Scale indicates No Risk (0-24 pts). Assessment: 18:28 Reassessment: While assessing NIHSS a bottle of 8 mg buprenorphine was noted to be jl7 under pt's left leg, pt reports just starting the medication yesterday to get off pain medications. Rx was filled 03/19/22, 30 sublingual tabs and there are 24 pills counted in the bottle at this time. 18:28 Reassessment: witnessed Melinda RN count 24 tablets in pt med bottle of buprenorphine. vg1 18:59 Reassessment: Pt to CT via wheelchair, will provide urine sample upon return. jl7 19:30 Reassessment: YARELY SHETH MOM: [id number] MITZI HERNANDEZ 1970. ke1 19:30 Reassessment: Patient appears in no apparent distress at this time. Patient is alert, ke1 oriented x 3, equal unlabored respirations, skin warm/dry/pink. Pain: Denies pain. 20:30 Reassessment: No changes from previously documented assessment. ke1 Vital Signs: 17:46 BP 111 / 72; Pulse 77; Resp 14; Pulse Ox 95% ; iw 17:50 Temp 97.9; jl7 18:28 BP 113 / 61; Pulse 70; Resp 19; Pulse Ox 98% ; Weight 67.5 kg; jl7 19:34 BP 89 / 62; Pulse 120; Resp 16; Pulse Ox 100% ; Pain 0/10; ke1 20:22 BP 118 / 73; Pulse 84; Resp 21; Pulse Ox 100% on R/A; Pain 0/10; ke1 20:40 BP 127 / 83; Pulse 91; Resp 20; Pulse Ox 98% on R/A; ke1 21:15 Temp 98.6(TE); ke1 NIH Stroke Scale Scores: 17:40 NIHSS Score: 0 jl7 17:49 NIHSS Score: 0 ms3 ED Course: 17:39 Patient arrived in ED. eb 17:39 Chaim Christian DO is Attending Physician. ms3 17:49 Triage completed. iw 17:50 Melinda Zamorano, RN is Primary Nurse. jl7 17:50 Arm band placed on. iw 18:28 Patient has correct armband on for positive identification. Bed in low position. Call jl7 light in reach. Side rails up X2. Client placed on continuous cardiac and pulse oximetry monitoring. NIBP monitoring applied. 18:28 Initial lab(s) drawn, by me, sent to lab. EKG done, by ED staff, reviewed by Chaim Christian DO. Inserted saline lock: 22 gauge in right forearm, using aseptic technique. 18:28 Maintain EMS IV. Dressing intact. Site clean \T\ dry. Gauge \T\ site: 18 right wrist, poor jl 7 blood return, flushes easily. 19:25 Attending Physician role handed off by Chaim Christian DO lacie 19:25 Luis Alfredo Brown MD is Attending Physician. lacie 19:53 Randy Kong MD is Hospitalizing Provider. lacie 20:01 Germaine Walker MD is Hospitalizing Provider. lacie 20:06 CT In Process Unspecified. EDMS 20:07 RAD In Process Unspecified. EDMS 23:26 No provider procedures requiring assistance completed. Patient admitted, IV remains in ll3 place. Administered Medications: 19:51 Drug: NS 0.9% 1000 ml Route: IV; Rate: 1 bolus; Site: right forearm; ke1 20:00 Drug: NS 0.9% 1000 ml Route: IV; Rate: 1 bolus; Site: right forearm; ke1 20:38 Drug: NS 0.9% 1000 ml Route: IV; Rate: 125 ml/hr; Site: right wrist; ke1 20:38 Drug: Solu-CORTEF (hyrdoCORTISONE) 100 mg Route: IVP; Site: right wrist; ke1 20:39 Drug: Rocephin (cefTRIAXone) 1 grams Route: IV; Rate: per protocol; Site: right forearm;ke1 Medication: 18:28 VIS not applicable for this client. jl7 Outcome: 19:55 Decision to Hospitalize by Provider. lacie 23:26 Admitted to Tele accompanied by tech, via stretcher, room 431, with chart, Report ll3 called to Receiving RN 23:26 Condition: stable 23:26 Instructed on the need for admit, Demonstrated understanding of instructions. 23:27 Patient left the ED. ll3 NIH Stroke Scale - NIH Stroke Score Date: 03/25/2022 Time: 17:40 Total Score = 0 1a. Level of Consciousness (LOC) - 0(Alert) 1b. Level of Consciousness (LOC) (Month \T\ Age) - 0(Both) 1c. LOC Commands (Open \T\ Closes Eyes/Locate Technician) - 0(Both) 2. Best Gaze (Lateral Gaze Paresis) - 0(Normal) 3. Visual Field Loss - 0(No visual loss) 4. Facial Palsy - 0(Normal) 5a. Left Arm: Motor (10-second hold) - 0(No drift) 5b. Right Arm: Motor (10-second hold) - 0(No drift) 6a. Left Leg: Motor (5-second hold - always test supine) - 0(No drift) 6b. Right Leg: Motor (5-second hold - always test supine) - 0(No drift) 7. Limb Ataxia (finger/nose \T\ heel/ramos - test with eyes open) - 0(Absent) 8. Sensory Loss (pinprick arms/legs/face) - 0(Normal) 9. Best Language: Aphasia (description/naming/reading) - 0(No aphasia) 10. Dysarthria (speech clarity - read or repeat words) - 0(Normal) 11. Extinction and Inattention (visual/tactile/auditory/spatial/personal) - 0(No abnormality) Initials: jl7 NIH Stroke Scale - NIH Stroke Score Date: 03/25/2022 Time: 17:49 Total Score = 0 1a. Level of Consciousness (LOC) - 0(Alert) 1b. Level of Consciousness (LOC) (Month \T\ Age) - 0(Both) 1c. LOC Commands (Open \T\ Closes Eyes/Locate Technician) - 0(Both) 2. Best Gaze (Lateral Gaze Paresis) - 0(Normal) 3. Visual Field Loss - 0(No visual loss) 4. Facial Palsy - 0(Normal) 5a. Left Arm: Motor (10-second hold) - 0(No drift) 5b. Right Arm: Motor (10-second hold) - 0(No drift) 6a. Left Leg: Motor (5-second hold - always test supine) - 0(No drift) 6b. Right Leg: Motor (5-second hold - always test supine) - 0(No drift) 7. Limb Ataxia (finger/nose \T\ heel/ramos - test with eyes open) - 0(Absent) 8. Sensory Loss (pinprick arms/legs/face) - 0(Normal) 9. Best Language: Aphasia (description/naming/reading) - 0(No aphasia) 10. Dysarthria (speech clarity - read or repeat words) - 0(Normal) 11. Extinction and Inattention (visual/tactile/auditory/spatial/personal) - 0(No abnormality) Initials: ms3 Signatures: Dispatcher [employer] EDLuis Alfredo Sandhu MD MD cha Williams, Irene, RN ALIVIA iw Melinda Zamorano RN RN jl7 Tika Marques Victoria, RN RN buddy1 Chaim Christian DO DO ms3 Brett Harden, RN RN 3 Bruno Ivory RN RN ke1 Corrections: (The following items were deleted from the chart) 17:51 17:50 Allergies: No Known Allergies; jl7 iw 17:51 17:51 Allergies: Unable to obtain; iw iw
[2022-03-25 20:21] LABS: Urine Blood Negative (Negative); Urine Glucose Negative (Negative); Urine Protein Negative (Negative)
[2022-03-25] MEDS ORDERED: CEFTRIAXONE 1000 MG/VIAL ONE (20:35)
[2022-03-25] MEDS ORDERED: HYDROCORTISONE SUC 100 MG INJ ONE (20:35)
[2022-03-25 20:42] LABS: Urine Mucus Slight /HPF (None Seen); Urine RBC <5 /HPF (None Seen)
[2022-03-25 21:10] LABS: Barbiturates NEGATIVE (NEGATIVE); Benzodiazepines NEGATIVE (NEGATIVE); Cocaine NEGATIVE (NEGATIVE); METHAMPHETAM NEGATIVE (NEGATIVE); Methadone NEGATIVE (NEGATIVE); Opiates NEGATIVE (NEGATIVE); Phencyclidine NEGATIVE (NEGATIVE)
[2022-03-25 21:11] LABS: THC Cannibis POSITIVE (NEGATIVE)
[2022-03-25 21:11] LABS: Magnesium 2.1 mg/dL (1.8-2.4)
--- NOTE | 2022-03-25 21:28 | RAD REPORT ---
EXAM DESCRIPTION: US - Extrem Venous W Compress Abhilash - 03/25/2022 9:05 pm CLINICAL HISTORY: PAIN COMPARISON: None. TECHNIQUE: Real-time sonographic evaluation of the bilateral lower extremity common femoral, superfi cial femoral, popliteal and posterior tibial veins was performed. FINDINGS: Normal compressibility, flow augmentation, phasic flow and spontaneous flow are identified in the left and right lower extremity common femoral, superficial femoral, popliteal and posterior t ibial veins. No intraluminal filling defects seen. IMPRESSION: No DVT in either lower extremity.
--- NOTE | 2022-03-25 21:36 | P.HP ---
Certification for Inpatient Patient admitted to: Observation With expected LOS: <2 Midnights Patient will require the following post-hospital care: None Practitioner: I am a practitioner with admitting privileges, knowledge of patient current condition, hospital course, and medical plan of care. Services: Services provided to patient in accordance with Admission requirements found in Title 42 Section 412.3 of the Code of Federal Regulations Patient History Date of Service: 03/25/22 Reason for admission: AMS, hypotension, weakness History of Present Illness: 52-year-old female with history of previous TBI, bipolar disorder, hypothyroidism presents emergency department for altered mentation, weakness, low blood pressure. She is currently oriented x4, alert but a little drowsy she reports that since she woke up this morning she is been feeling weak and tired. Patient does have a history of opioid use/abuse she is currently taking buprenorphine at home which was found between her legs in the stretcher. She is given IV fluids in the emergency department labs were unremarkable thus far, she does take lithium, divalproex at home, serum levels have been ordered. No source of infection identified blood pressure is improved simply with IV fluids. We will admit under observation for AMS, weakness, hypotension. Allergies No Known Allergies Allergy (Verified 02/14/16 13:33) Home Medications: [place] Carbonate [Lithotabs *] 300 mg PO DAILY 07/02/12 Levothyroxine Sodium [Unithroid] 75 mcg PO DAILY 02/14/16 Bupropion HCl [Wellbutrin Xl] 150 mg PO DAILY 08/12/20 Duloxetine HCl [Cymbalta] 50 mg PO BID 08/12/20 Eszopiclone 3 mg PO BEDTIME 08/12/20 Gabapentin [Gralise] 600 mg PO TID 08/12/20 Hydromorphone [Dilaudid] 4 mg PO TID PRN 08/12/20 Mirtazapine 45 mg PO DAILY 08/12/20 OLANZapine [Zyprexa Zydis] 5 mg PO DAILY 08/12/20 Rosuvastatin Calcium [Crestor] 20 mg PO DAILY 08/12/20 Tizanidine [Zanaflex] 8 mg PO TID 08/12/20 - Past Medical/Surgical History Diabetic: No -: Bipolar disorder -: Schizophrenia -: TBI -: none Psychosocial/ Personal History: Pt stays with her mother, is disabled. - Social History Smoking Status: Current some day smoker Alcohol use: No CD- Drugs: Yes Caffeine use: Yes Place of Residence: Home Review of Systems 10-point ROS is otherwise unremarkable General: Weakness, Malaise Physical Examination - Physical Exam General: Alert, In no apparent distress, Oriented x3, Other (drowsy) HEENT: Atraumatic, PERRLA, Mucous membr. moist/pink, EOMI, Sclerae nonicteric Neck: Supple, 2+ carotid pulse no bruit, No LAD, Without JVD or thyroid abnormality Respiratory: Clear to auscultation bilaterally, Normal air movement Cardiovascular: Regular rate/rhythm, Normal S1 S2 Gastrointestinal: Normal bowel sounds, No tenderness Musculoskeletal: No tenderness Integumentary: No rashes Neurological: Normal speech, Normal strength at 5/5 x4 extr, Normal tone, Normal affect - Studies Laboratory Data (last 24 hrs) 03/25/22 20:27: Magnesium Cancelled 03/25/22 18:19: PT 11.9, INR 1.08, APTT 28.4 03/25/22 18:19: WBC 6.40, Hgb 11.9 L, Hct 36.3, Plt Count 207 03/25/22 18:19: Sodium 140, Potassium 4.3, BUN 11, Creatinine 0.92, Glucose 100, Magnesium 2.1, Total Bilirubin 0.3, AST 17, ALT 15, Alkaline Phosphatase 48 Assessment and Plan - Plan Assessment: AMS/weakness/hypotension Bipolar disorder History of TBI Hypothyroidism Plan: AMS/weakness/hypotension: Unclear etiology, no focal neurological deficits, no signs or source of infection identified. Patient did have her medication buprenorphine in the bed with her she denies taking any additional doses that are not prescribed. Her mental status is improving along with her blood pressure, continue IV fluids monitor on telemetry. We will have patient seen by physical therapy in the morning. Serum drug levels pending. Bipolar disorder: Serum drug level pending, restart medications as appropriate. History of TBI: Stable. Hypothyroidism: Obtain thyroid studies, restart home medication. DVT PPX: Lovenox Code status: Full Discharge Plan: Home Plan to discharge in: 24 Hours - Advance Directives Does patient have a Living Will: No Does patient have a Durable POA for Healthcare: No - Code Status/Comfort Care Code Status Assessed: Yes (Full code) Critical Care: No Time Spent Managing Pts Care (In Minutes): 70
[2022-03-25] MEDS ORDERED: ONDANSETRON 4 MG/2 ML VIAL IV PRN (23:42)
[2022-03-25] MEDS: Ringers Lactate 1,000 ML IV SCH (23:42)
[2022-03-25 23:58] VITALS: BMI 27.1
[2022-03-26] MEDS ORDERED: ALPRAZOLAM 0.25 MG TABLET PO ONE (00:33)
[2022-03-26 02:05] LABS: Absolute Lymphocytes (CBC) 0.5 K/uL (0.7-4.9); Hematocrit 33.1 % (36.0-45.0); Lymphocytes % 6.3 % (15.3-44.8); MCV 98.7 fL (80-100); MPV 7.6 fL (7.6-11.3); RBC Red Blood Cell Count 3.35 M/uL (3.86-4.86)
[2022-03-26 02:23] LABS: Albumin 3.3 g/dL (3.4-5.0); Bilirubin Total 0.3 mg/dL (0.2-1.0); Magnesium 1.9 mg/dL (1.8-2.4); Phosphorus 2.4 mg/dL (2.5-4.9); Potassium 3.8 mmol/L (3.5-5.1); Protein, Total 6.8 g/dL (6.4-8.2)
[2022-03-26] MEDS: Ringers Lactate 1,000 ML IV SCH ×2 (08:20→09:42)
[2022-03-26] MEDS: POTASS/SODIUM PHOSPHATE 1 PKT POWD.PACK PO SCH ×2 (08:22→09:56)
[2022-03-26] MEDS ORDERED: POTASSIUM CL SA 10 MEQ TAB PO ONE (09:00)
[2022-03-26] MEDS ORDERED: ENOXAPARIN 40 MG/0.4 ML SQ SCH (09:00)
--- NOTE | 2022-03-26 14:13 | P.DS ---
Discharge Date: 03/26/22 Disposition: ROUTINE DISCHARGE Discharge Condition: GOOD Reason for Admission: AMS, hypotension, weakness Brief History of Present Illness: 52-year-old female with history of previous TBI, bipolar disorder, hypothyroidism presents emergency department for altered mentation, weakness, low blood pressure. She is currently oriented x4, alert but a little drowsy she reports that since she woke up this morning she is been feeling weak and tired. Patient does have a history of opioid use/abuse she is currently taking buprenorphine at home which was found between her legs in the stretcher. She is given IV fluids in the emergency department labs were unremarkable thus far, she does take lithium, divalproex at home, serum levels have been ordered. No source of infection identified blood pressure is improved simply with IV fluids. We will admit under observation for AMS, weakness, hypotension. Hospital Course: Pt awake and alert and oriented to person place and time. Pt counseled regarding substance use. She will need to see psych and pain specialist as an outpt. Vital Signs/Physical Exam: Temp Pulse Resp BP Pulse Ox 97.7 F 79 20 128/60 98 03/26/22 08:00 03/26/22 08:00 03/26/22 08:00 03/26/22 08:00 03/26/22 08:00 General: Alert, In no apparent distress, Oriented x3 Laboratory Data at Discharge: WBC 8.50 K/uL (4.3-10.9) 03/26/22 01:52 Hgb 11.1 g/dL (12.0-15.0) L 03/26/22 01:52 Hct 33.1 % (36.0-45.0) L 03/26/22 01:52 Plt Count 285 K/uL (152-406) D 03/26/22 01:52 PT 11.9 SECONDS (9.5-12.5) 03/25/22 18:19 INR 1.08 03/25/22 18:19 APTT 28.4 SECONDS (24.3-36.9) 03/25/22 18:19 Sodium 142 mmol/L (136-145) 03/26/22 01:52 Potassium 3.8 mmol/L (3.5-5.1) 03/26/22 01:52 BUN 9 mg/dL (7-18) 03/26/22 01:52 Creatinine 0.86 mg/dL (0.55-1.3) 03/26/22 01:52 Glucose 141 mg/dL (74-106) H 03/26/22 01:52 Phosphorus 2.4 mg/dL (2.5-4.9) L 03/26/22 01:52 Magnesium 1.9 mg/dL (1.8-2.4) 03/26/22 01:52 Total Bilirubin 0.3 mg/dL (0.2-1.0) 03/26/22 01:52 AST 10 U/L (15-37) L 03/26/22 01:52 ALT 12 U/L (12-78) 03/26/22 01:52 Alkaline Phosphatase 52 U/L (45-117) 03/26/22 01:52 Home Medications: [place] Carbonate [Lithotabs *] 300 mg PO DAILY 07/02/12 Levothyroxine Sodium [Unithroid] 75 mcg PO DAILY 02/14/16 Duloxetine HCl [Cymbalta] 50 mg PO BID 08/12/20 Eszopiclone 3 mg PO BEDTIME 08/12/20 Gabapentin [Gralise] 600 mg PO TID 08/12/20 Mirtazapine 45 mg PO DAILY 08/12/20 Rosuvastatin Calcium [Crestor] 20 mg PO DAILY 08/12/20 Divalproex Sodium [Depakote ER] 500 mg PO DAILY 03/26/22 Risperidone 4 mg PO BEDTIME 03/26/22 Physician Discharge Instructions: -DC IV and DC home -Follow-up with PCP in 1 to 2 weeks -Please call Dr. Walker at [phone] if any questions regarding hospital stay -Please call nursing station at [phone] if any nursing or medication questions -Return to the emergency room if symptoms worsen -Please follow-up with psychiatrist and pain specialist to readdress medications Diet: Regular Activity: Fall precautions Followup: NONE,NONE [Primary Care Provider] - Time spent managing pt's care (in minutes): 35
[2022-03-26 14:24] VITALS: TEMP 98.5
[2022-03-27 09:45] VITALS: BP 113/61; O2SAT 98
--- NOTE | 2022-03-28 06:40 | EKG ---
Test Date: 2022-03-25 Test Time: 18:27:10 [place]: RAYA MEASUREMENT RESULTS: Intervals: Rate: 65 MA: 142 QRSD: 90 QT: 440 QTc: 457 [place]: P: 61 MA: 142 QRS: 63 T: 55 INTERPRETIVE STATEMENTS: Normal sinus rhythm Normal ECG Compared to ECG 01/12/2021 09:31:48 No significant changes Electronically Signed On 03-28-22 06:32:31 CDT by Shai Jordan
== END 2022-03-26 16:47 | disposition home or self-care (01) ==
LOC: ER 17:35 → ERHOLD 20:49 → 4TH 22:41
PROVIDERS: ADMIT Hospitalist; ATTEND Hospitalist
DX: F11.10 Opioid abuse, uncomplicated (principal); R29.700 NIHSS score 0; E03.9 Hypothyroidism, unspecified; F31.9 Bipolar disorder, unspecified; F17.210 Nicotine dependence, cigarettes, uncomplicated; Z20.822 Contact with and (suspected) exposure to COVID-19; Z87.820 Personal history of traumatic brain injury; Z71.51 Drug abuse counseling and surveillance of drug abuser
CPT/HCPCS: 93005; 87040 ×2; 85025 ×2; 80048; 36415; 80320; 83735 ×2; 80329 ×2; 84100; 85610; 80178; 80076; 80164; 83605; 85730; 84443; 84484; 80053; 84145; 80307; 70450; 72125; 71045; 93970; 99285; U0003; J7120; J7030 ×3; J1720; G0378 ×3; 81003; 81015; J1650

== ENCOUNTER 2022-05-15 15:53 | Emergency (ER) | payer OTHER ==
--- OUTSIDE RECORDS SUMMARY | 2022-05-15 16:00 | XMS REPORT | Continuity of Care Document ---
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 Cymbalta MG MG le} 30 MG Cymbalta 60 Cymbalta 60 No 1{capsu QD Cymbalta MG MG le} 60 MG amLODIPine amLODIPine No 1{table QD amLODIPine Besylate 5 Besylate 5 t} Besylate 5 MG MG MG Vitamin D-3 Vitamin D-3 No QD Vitamin 5000 5000 D-3 5000 UNIT/ML UNIT/ML UNIT/ML Rosuvastati Rosuvastati No 1{table QD Rosuvastat n Calcium n Calcium t} in Calcium 20 MG 20 MG 20 MG Murphy Murphy No 1{capsu TID Murphy Carbonate Carbonate le_at_b Carbonate 300 MG 300 MG edtime} 300 MG Mirtazapine Mirtazapine No 1{table QD Mirtazapin 45 MG 45 MG t_at_be e 45 MG dtime} MiraLax - MiraLax - No MiraLax - Rosuvastati Rosuvastati No Rosuvastat n Calcium n Calcium in Calcium 20 MG 20 MG 20 MG Amitiza 24 Amitiza 24 No Amitiza 24 MCG MCG MCG ProAir HFA ProAir HFA No 2{puffs ProAir HFA 108 (90 108 (90 _as_nee 108 (90 Base) Base) ded} Base) MCG/ACT MCG/ACT MCG/ACT Gabapentin Gabapentin No 1{table TID Gabapentin 600 MG 600 MG t} 600 MG Dilaudid 8 Dilaudid 8 No 1{table TID Dilaudid 8 MG MG t} MG tiZANidine tiZANidine No 4{table QD tiZANidine HCl 4 MG HCl 4 MG ts_as_n HCl 4 MG eeded} Synthroid Synthroid No QD Synthroid 75 MCG 75 MCG 75 MCG Wellbutrin Wellbutrin No 1{table QD Wellbutrin XL 300 MG XL 300 MG t_in_th XL 300 MG e_morni ng} OLANZapine OLANZapine No 1{table QD OLANZapine 5 MG 5 MG t} 5 MG Cymbalta 30 Cymbalta 30 No 1{capsu QD Cymbalta MG MG le} 30 MG Cymbalta 60 Cymbalta 60 No 1{capsu QD Cymbalta MG MG le} 60 MG amLODIPine amLODIPine No 1{table QD amLODIPine Besylate 5 Besylate 5 t} Besylate 5 MG MG MG Vitamin D-3 Vitamin D-3 No QD Vitamin 5000 5000 D-3 5000 UNIT/ML UNIT/ML UNIT/ML Rosuvastati Rosuvastati No 1{table QD Rosuvastat n Calcium n Calcium t} in Calcium 20 MG 20 MG 20 MG Murphy Murphy No 1{capsu TID Murphy Carbonate Carbonate le_at_b Carbonate 300 MG 300 MG edtime} 300 MG Mirtazapine Mirtazapine No 1{table QD Mirtazapin 45 MG 45 MG t_at_be e 45 MG dtime} MiraLax - MiraLax - No MiraLax - Rosuvastati Rosuvastati No Rosuvastat n Calcium n Calcium in Calcium 20 MG 20 MG 20 MG Amitiza 24 Amitiza 24 No Amitiza 24 MCG MCG MCG ProAir HFA ProAir HFA No 2{puffs ProAir HFA 108 (90 108 (90 _as_nee 108 (90 Base) Base) ded} Base) MCG/ACT MCG/ACT MCG/ACT Gabapentin Gabapentin No 1{table TID Gabapentin 600 MG 600 MG t} 600 MG Dilaudid 8 Dilaudid 8 No 1{table TID Dilaudid 8 MG MG t} MG tiZANidine tiZANidine No 4{table QD tiZANidine HCl 4 MG HCl 4 MG ts_as_n HCl 4 MG eeded} Synthroid Synthroid No QD Synthroid 75 MCG 75 MCG 75 MCG Wellbutrin Wellbutrin No 1{table QD Wellbutrin XL 300 MG XL 300 MG t_in_th XL 300 MG e_morni ng} OLANZapine OLANZapine No 1{table QD OLANZapine 5 MG 5 MG t} 5 MG ProAir HFA ProAir HFA No 2{puffs ProAir HFA 108 (90 108 (90 _as_nee 108 (90 Base) Base) ded} Base) MCG/ACT MCG/ACT MCG/ACT MiraLax - MiraLax - No MiraLax - amLODIPine amLODIPine No 1{table QD amLODIPine Besylate 5 Besylate 5 t} Besylate 5 MG MG MG Wellbutrin Wellbutrin No 1{table QD Wellbutrin XL 300 MG XL 300 MG t_in_th XL 300 MG e_morni ng} tiZANidine tiZANidine No 4{table QD tiZANidine HCl 4 MG HCl 4 MG ts_as_n HCl 4 MG eeded} OLANZapine OLANZapine No 1{table QD OLANZapine 5 MG 5 MG t} 5 MG Gabapentin Gabapentin No 1{table TID Gabapentin 600 MG 600 MG t} 600 MG Cymbalta 60 Cymbalta 60 No 1{capsu QD Cymbalta MG MG le} 60 MG Mirtazapine Mirtazapine No 1{table QD Mirtazapin 45 MG 45 MG t_at_be e 45 MG dtime} Rosuvastati Rosuvastati No 1{table QD Rosuvastat n Calcium n Calcium t} in Calcium 20 MG 20 MG 20 MG Rosuvastati Rosuvastati No Rosuvastat n Calcium n Calcium in Calcium 20 MG 20 MG 20 MG Amitiza 24 Amitiza 24 No Amitiza 24 MCG MCG MCG Vitamin D-3 Vitamin D-3 No QD Vitamin 5000 5000 D-3 5000 UNIT/ML UNIT/ML UNIT/ML Murphy Murphy No 1{capsu TID Murphy Carbonate Carbonate le_at_b Carbonate 300 MG 300 MG edtime} 300 MG Cymbalta 30 Cymbalta 30 No 1{capsu QD Cymbalta MG MG le} 30 MG Dilaudid 8 Dilaudid 8 No 1{table TID Dilaudid 8 MG MG t} MG Synthroid Synthroid No QD Synthroid 75 MCG 75 MCG 75 MCG ProAir HFA ProAir HFA No 2{puffs ProAir HFA 108 (90 108 (90 _as_nee 108 (90 Base) Base) ded} Base) MCG/ACT MCG/ACT MCG/ACT MiraLax - MiraLax - No MiraLax - amLODIPine amLODIPine No 1{table QD amLODIPine Besylate 5 Besylate 5 t} Besylate 5 MG MG MG Wellbutrin Wellbutrin No 1{table QD Wellbutrin XL 300 MG XL 300 MG t_in_th XL 300 MG e_morni ng} tiZANidine tiZANidine No 4{table QD tiZANidine HCl 4 MG HCl 4 MG ts_as_n HCl 4 MG eeded} OLANZapine OLANZapine No 1{table QD OLANZapine 5 MG 5 MG t} 5 MG Gabapentin Gabapentin No 1{table TID Gabapentin 600 MG 600 MG t} 600 MG Cymbalta 60 Cymbalta 60 No 1{capsu QD Cymbalta MG MG le} 60 MG Mirtazapine Mirtazapine No 1{table QD Mirtazapin 45 MG 45 MG t_at_be e 45 MG dtime} Rosuvastati Rosuvastati No 1{table QD Rosuvastat n Calcium n Calcium t} in Calcium 20 MG 20 MG 20 MG Rosuvastati Rosuvastati No Rosuvastat n Calcium n Calcium in Calcium 20 MG 20 MG 20 MG Amitiza 24 Amitiza 24 No Amitiza 24 MCG MCG MCG Vitamin D-3 Vitamin D-3 No QD Vitamin 5000 5000 D-3 5000 UNIT/ML UNIT/ML UNIT/ML Murphy Murphy No 1{capsu TID Murphy Carbonate Carbonate le_at_b Carbonate 300 MG 300 MG edtime} 300 MG Cymbalta 30 Cymbalta 30 No 1{capsu QD Cymbalta MG MG le} 30 MG Dilaudid 8 Dilaudid 8 No 1{table TID Dilaudid 8 MG MG t} MG Synthroid Synthroid No QD Synthroid 75 MCG 75 MCG 75 MCG ProAir HFA ProAir HFA No 2{puffs ProAir HFA 108 (90 108 (90 _as_nee 108 (90 Base) Base) ded} Base) MCG/ACT MCG/ACT MCG/ACT MiraLax - MiraLax - No MiraLax - amLODIPine amLODIPine No 1{table QD amLODIPine Besylate 5 Besylate 5 t} Besylate 5 MG MG MG Wellbutrin Wellbutrin No 1{table QD Wellbutrin XL 300 MG XL 300 MG t_in_th XL 300 MG e_morni ng} tiZANidine tiZANidine No 4{table QD tiZANidine HCl 4 MG HCl 4 MG ts_as_n HCl 4 MG eeded} OLANZapine OLANZapine No 1{table QD OLANZapine 5 MG 5 MG t} 5 MG Gabapentin Gabapentin No 1{table TID Gabapentin 600 MG 600 MG t} 600 MG Cymbalta 60 Cymbalta 60 No 1{capsu QD Cymbalta MG MG le} 60 MG Mirtazapine Mirtazapine No 1{table QD Mirtazapin 45 MG 45 MG t_at_be e 45 MG dtime} Rosuvastati Rosuvastati No 1{table QD Rosuvastat n Calcium n Calcium t} in Calcium 20 MG 20 MG 20 MG Rosuvastati Rosuvastati No Rosuvastat n Calcium n Calcium in Calcium 20 MG 20 MG 20 MG Amitiza 24 Amitiza 24 No Amitiza 24 MCG MCG MCG Vitamin D-3 Vitamin D-3 No QD Vitamin 5000 5000 D-3 5000 UNIT/ML UNIT/ML UNIT/ML Murphy Murphy No 1{capsu TID Murphy Carbonate Carbonate le_at_b Carbonate 300 MG 300 MG edtime} 300 MG Cymbalta 30 Cymbalta 30 No 1{capsu QD Cymbalta MG MG le} 30 MG Dilaudid 8 Dilaudid 8 No 1{table TID Dilaudid 8 MG MG t} MG Synthroid Synthroid No QD Synthroid 75 MCG 75 MCG 75 MCG Vital Signs Vital Name Observation Time Observation Value Comments Source height 2022-04-05 09:40:00 62 [in_i] [facility] weight 2022-04-05 09:40:00 135 [lb_av] [facility] bmi 2022-04-05 09:40:00 24.69 kg/m2 Common S [facility] oximetry 2022-04-05 09:40:00 93 % Common S [facility] respiratory rate 2022-04-05 09:40:00 16 /min Comm on [facility] blood pressure 2022-04-05 09:40:00 123 mm[Hg] Common [facility] - systolic [facility] blood pressure 2022-04-05 09:40:00 77 mm[Hg] Common [facility] - diastolic [facility] height 2022-04-05 14:50:00 62 [in_i] Common [facility] weight 2022-04-05 14:50:00 145.3 [lb_av] [facility] temperature 2022-04-05 14:50:00 97.6 [degF] Common [facility] bmi 2022-04-05 14:50:00 26.57 kg/m2 Common S [facility] oximetry 2022-04-05 14:50:00 93 % Common [facility] respiratory rate 2022-04-05 14:50:00 16 /min Comm on [facility] blood pressure 2022-04-05 14:50:00 123 mm[Hg] Common [facility] - systolic [facility] blood pressure 2022-04-05 14:50:00 77 mm[Hg] Common [facility] - diastolic [facility] height 2021-10-27 10:40:00 62 [in_i] Common S [facility] weight 2021-10-27 10:40:00 135 [lb_av] Common [facility] temperature 2021-10-27 10:40:00 98 [degF] [facility] bmi 2021-10-27 10:40:00 24.69 kg/m2 Common S [facility] blood pressure 2021-10-27 10:40:00 133 mm[Hg] Common [facility] - systolic [facility] blood pressure 2021-10-27 10:40:00 76 mm[Hg] Common [facility] - diastolic [facility] Temperature Oral (F) 2021-05-09 21:32:00 98.2 F [facility] Heart Rate 2021-05-09 21:32:00 [facility] Respitory Rate 2021-05-09 21:32:00 [facility] Systolic (mm Hg) 2021-05-09 21:32:00 [facility] Diastolic (mm Hg) 2021-05-09 21:32:00 Mem [facility] Heart Rate 2021-05-09 17:52:00 [facility] Rate 2021-05-09 17:52:00 [facility] Systolic (mm Hg) 2021-05-09 17:52:00 William [facility] Diastolic (mm Hg) 2021-05-09 17:52:00 [facility] Rate 2021-05-09 13:31:00 [facility] Respitory Rate 2021-05-09 13:31:00 [facility] Systolic (mm Hg) 2021-05-09 13:31:00 [facility] Diastolic (mm Hg) 2021-05-09 13:31:00 Mem [facility] Temperature Oral (F) 2021-05-09 00:13:00 98.6 F [facility] Temperature Oral (F) 2021-05-08 16:58:00 99.2 F [facility] Temperature Oral (F) 2021-04-24 05:06:00 98.4 F [facility] Heart Rate 2021-04-24 05:06:00 [facility]itory Rate 2021-04-24 05:06:00 [facility] Systolic (mm Hg) 2021-04-24 05:06:00 [facility] Diastolic (mm Hg) 2021-04-24 05:06:00 [facility] Temperature Oral (F) 2021-04-24 01:21:00 98.3 F [facility] Rate 2021-04-24 01:21:00 [facility] Respitory Rate 2021-04-24 01:21:00 [facility] Systolic (mm Hg) 2021-04-24 01:21:00 [facility] Diastolic (mm Hg) 2021-04-24 01:21:00 [facility] Temperature Oral (F) 2021-04-23 20:49:00 98.0 F [facility] Heart Rate 2021-04-23 20:49:00 [facility] Respitory Rate 2021-04-23 20:49:00 [facility] Systolic (mm Hg) 2021-04-23 20:49:00 [facility] Diastolic (mm Hg) 2021-04-23 20:49:00 Mem [facility] Height 2021-04-20 08:45:00 162.56 cm [facility] Weight 2021-04-20 08:45:00 [facility] BMI Calculated 2021-04-20 08:45:00 [facility] Height 2021-04-19 00:54:00 162.56 cm [facility] BMI Calculated 2021-04-19 00:54:00 [facility] Weight 2021-04-19 00:54:00 [facility] Procedures This patient has no known procedures. Encounters Start End Encounter Admission Attending Care Care Encounter Source Date/Time Date/Time Type Type Clinicians Facility Department ID 2022-04-[address] [facility] [id number] CT 11:32:09 [id number] [facility] 2021-11-[address] [facility] [id number] CT 08:29:44 [id number] [facility] 2021-08-08 Outpatient Gimenez, ST[facility] Common 13:26:00 [facility] 2021-08-02 Outpatient Gimenez, ST[facility] Common 13:27:04 [facility] [address] [facility] 2021-08-02 [facility] 13:20[facility]29 [facility] 2021-08-02 Outpatient Gimenez, STLC [facility] Common 13:16:34 [facility] [id number] [facility] 2021-08-02 Outpatient Gimenez, STLMLC [facility] Common 13:08:55 Hayes [address] [facility] 2021-08-02 Outpatient Gimenez, STLMLC STLMLC Common 12:42:20 Hayes [address] [facility] 2021-08-02 Outpatient Gimenez, STLMLC STLMLC Common 12:06:12 Hayes [address] [facility] 2021-08-02 Outpatient Gimenez, STLMLC STLMLC Common 11:37:11 Hayes [address] [facility] 2021-08-02 Outpatient Gimenez, STLMLC STLMLC Common 11:17:50 Hayes [address] [facility] 2021-08-02 Outpatient Gimenez, STLMLC STLMLC Common 11:17:40 Hayes [address] [facility] 2021-08-02 Outpatient Gimenez, STLMLC STLMLC Common 11:10:21 Hayes [address] [facility] 2021-08-02 Outpatient Gimenez, STLMLC STLMLC Common 11:09:58 Hayes [address] [facility] 2021-08-02 Outpatient Gimenez, STLMLC STLMLC Common 10:58:51 Hayes [address] [facility] 2021-07-26 Outpatient LIA LEON [facility] [id number] [place] 01:05:29 [facility] 2021-07-20 Outpatient LIA LEON [facility] [id number] [place] 01:04:18 [facility] 2021-05-[address] [facility] [id number] [place] 15:09:14 [facility] 2021-05-10 Outpatient LIA LEON [facility] [id number] [place] 12:40:50 [facility] 2021-04-19 Inpatient Marlo OROURKE, [facility] MED [id number] [facility] H 08:45:00 AMADO 2022-04-05 2022-04-05 SUB ANNUAL STLMLC STLMLC [id number] Common 00:00:00 00:00:[address] [facility] VISIT [facility] 2022-04-05 2022-04-05 OFFICE STLMLC STLMLC [id number] Co mmon 00:00:00 00:00:00 VISIT Spirit ESTAB PT - CHI LEVEL 4 [facility] 2022-03-05 2022-03-05 (TEL) STLMLC STLMLC [id number] Co mmon 00:00:00 00:00:00 [facility] 2022-02-01 2022-02-[address] [facility] [id number] [facility] 11:02:00 11:02:00 41 2022-02-01 2022-02-01 Emergency Emergency Ernesto Saldivar [facility] [id number] [facility] 11:02:00 11:02:00 41 2021-10-27 2021-10-27 OFFICE STLMLC STLMLC [id number] Co mmon 00:00:00 00:00:00 VISIT Psychiatric PT - CHI LEVEL 4 [facility] 2021-04-19 2021-05-10 Inpatient [facility] [id number] Memoria 13:45:00 01:22:[address] 2021-01-19 2021-01-19 Outpatient STLMLC STLMLC [id number] Common 00:00:00 00:00:00 [facility] 2021-01-17 2021-01-17 Outpatient STLMLC STLMLC [id number] Common 00:00:00 00:00:00 [facility] 2021-01-12 2021-01-12 Outpatient STLMLC STLMLC [id number] Common 00:00:00 00:00:00 [facility] 2020-11-01 2020-11-01 Outpatient STLMLC STLMLC [id number] Common 00:00:00 00:00:00 [facility] 2020-11-01 2020-11-01 Outpatient STLMLC STLMLC [id number] Common 00:00:00 00:00:00 [facility] 2020-10-24 2020-10-24 Outpatient STLMLC STLMLC [id number] Common 00:00:00 00:00:00 [facility] 2020-09-26 2020-09-26 Outpatient STLMLC STLMLC [id number] Common 00:00:00 00:00:00 [facility] 2020-07-25 2020-07-25 Outpatient STLMLC STLMLC [id number] Common 00:00:00 00:00:00 [facility] 2020-05-25 2020-05-25 Outpatient STLMLC STLMLC [id number] Common 00:00:00 00:00:00 [facility] 2020-03-10 2020-03-10 [id number] Common 15:00:00 15:00:[address] [facility] 2020-02-17 2020-02-17 [facility] [id number] Common 09:50:00 09:50:[address] [facility] 2020-02-10 2020-02-10 [facility] [id number] Common 10:34:00 10:34:[address] [facility] 2019-12-17 2019-12-17 [facility] [id number] Common 13:30:00 13:30:[address] [facility] 2019-10-19 2019-10-19 Out[facility] [id number] Common 13:00:00 13:00:[address] [facility] 2019-10-16 2019-10-16 [facility] [id number] Common 13:49:00 13:49:[address] [facility] 2019-09-21 2019-09-21 Out[facility] [id number] Common 14:04:00 14:04:[address] [facility] 2019-09-03 2019-09-03 Out[facility] [id number] Common 10:15:00 10:15:[address] [facility] 2019-07-20 2019-07-20 [facility] [id number] Common 14:15:00 14:15:[address] [facility] 2019-06-24 2019-06-24 [facility] [id number] Common 08:12:00 08:12:[address] [facility] 2019-06-16 2019-06-16 Out[facility] [id number] Common 11:30:00 11:30:[address] [facility] 2019-06-11 2019-06-11 Out[facility] [id number] Common 10:10:00 10:10:[address] [facility] 2019-06-08 2019-06-08 Out[facility] [id number] Common 16:35:00 16:35:[address] [facility] 2019-04-16 2019-04-16 [facility] [id number] Common 16:04:00 16:04:[address] [facility] 2019-03-17 2019-03-17 Out[facility] [id number] Common 11:30:00 11:30:[address] [facility] 2019-02-03 2019-02-03 Out[facility] [id number] Common 11:56:00 11:56:[address] [facility] 2019-01-26 2019-01-26 [facility] [id number] Common 08:47:00 08:47:[address] [facility] 2019-01-14 2019-01-14 Out[facility] [id number] Common 09:30:00 09:30:[address] [facility] 2018-10-22 2018-10-22 Outpatient [facility] [id number] Common 14:50:00 14:50:[address] [facility] 2018-10-15 2018-10-15 Out[facility] [id number] Common 09:45:00 09:45:[address] [facility] 2018-07-17 2018-07-17 Outpatient [facility] [id number] Common 08:15:00 08:15:[address] [facility] 2018-04-08 2018-04-08 Out[facility] [id number] Common 13:00:00 13:00:[address] [facility] 2018-02-13 2018-02-13 Outpatient [facility] [id number] Common 10:56:00 10:56:[address] [facility] 2018-02-06 2018-02-06 Out[facility] [id number] Common 13:20:00 13:20:[address] [facility] 2018-02-05 2018-02-05 [facility] [id number] Common 08:15:00 08:15:[address] [facility] Results Test Description Test Time Test Comments Results Result Comments Source UA, Urinalysis Rflx Cult/Sedmt 2022-02-01 12:20:00 Test Item Value Reference Range Interpretation Comme nts Color,Urine (test code = UCOL) Yellow Yellow Clarity,Urine (test code = UCLAR) Clear Clear Ph, Urine (test code = UPH) 7.5 5.0-9.0 N Specific [place],Urine (test code = USG) 1.010 1.005-1.030 N [...] Negative mg/dL Negative Complete Blood Count Auto [id number] 12:20:00 Test Item Value Reference Range Interpretation [...] (test code = NRBCP) 0 % Drug Screen,[id number] 12:20:00 Test Item Value Reference Range Interpretation [...] Negative Negative code = UPROP) Comprehensive Metabolic [id number] 12:20:00 Test Item Value Reference Range Interpretation [...] 64 U/L 46-116 N = ALP) Ethanol [id number] 12:20:00 Test Item Value Reference Range Interpretation Comments Ethanol (test code < 3 mg/dL The pharm acological = ETOH) response to blo od alcohol levels mayvary from individual to i ndividual. The fatal asher ntrationhas been reported t o be >400mg/dL. Coronavirus PCR, COVID19 [id number] 12:20:00 Test Item Value Reference Range Interpretation Comments Coronavirus PCR, COVID19 Rapid (test code = SARSCOV2) Coronavirus PCR, COVID19 Reference Range: Rapid (test code = Negative XGQCVDV38.1) SARS-CoV-2 PCR Result: Negative by RT-PCR (test code = SARS-CoV-2 PCR Result:) COVID-19 Status: [id number] 14:44:00 Test Item Value Reference Range Interpretation Comments Coronavirus (COVID-19) Not Detected (05/09/21 JACKSON (test code = 9:44 AM) Coronavirus (COVID-19) JACKSON) [facility] [id number] 10:19:00 Test Item Value Reference Range Interpretation Comments Glucose Lvl (test code = Glucose Lvl) 80 70-99 [place] [id number] 10:19:00 Test Item Value Reference Range Interpretation Comments BUN (test code = BUN) 25 7-22 [place] [id number] 10:19:00 Test Item Value Reference Range Interpretation Comments Creatinine Lvl (test code = Creatinine 0.72 0.50-1.40 Lvl) [facility]2021-10-27 10:19:00 Test Item Value Reference Range Interpretation Comments Sodium Lvl (test code = Sodium Lvl) 141 135-145 [place] [id number] 10:19:00 Test Item Value Reference Range Interpretation Comments Potassium Lvl (test code = Potassium 4.0 3.5-5.1 Lvl) [place] [id number] 10:19:00 Test Item Value Reference Range Interpretation Comments Chloride Lvl (test code = Chloride Lvl) 113 95-109 [place] [id number] 10:19:00 Test Item Value Reference Range Interpretation Comments CO2 (test code = CO2) 23 24-32 [place] [id number] 10:19:00 Test Item Value Reference Range Interpretation Comments Calcium Lvl (test code = Calcium Lvl) 9.7 8.5-10.5 [place] [id number] 10:19:00 Test Item Value Reference Range Interpretation Comments AGAP (test code = AGAP) 9.0 10.0-20.0 [place] [id number] 10:19:00 Test Item Value Reference Range Interpretation Comments eGFR (test code = eGFR) 97 [id number] 10:19:00 Test Item Value Reference Range Interpretation Comments Segs (test code = Segs) 45.5 45.0-75.0 [place] [id number] 10:19:00 Test Item Value Reference Range Interpretation Comments Lymphocytes (test code = Lymphocytes) 39.9 20.0-40.0 [place] [id number] 10:19:00 Test Item Value Reference Range Interpretation Comments Monocytes (test code = Monocytes) 8.8 2.0-12.0 [place] [id number] 10:19:00 Test Item Value Reference Range Interpretation Comments Eosinophils (test code = 5.4 See_Comment [A utomated message] The Eosinophils) system which ge nerated this result tra nsmitted reference range : <=4.0. The reference r luli was not used to int erpret this result as normal/abnormal . [place] [id number] 10:19:00 Test Item Value Reference Range Interpretation Comments Basophils (test code = 0.4 See_Comment [Aut omated message] The Basophils) system which ge nerated this result tra nsmitted reference range : <=1.0. The reference r luli was not used to int erpret this result as normal/abnormal . [facility] AreaMkezygxKSKRTXQDVP3144-89-79 10:19:00 Test Item Value Reference Range Interpretation Comments Neutrophils # (test code = Neutrophils 3.8 1.5-8.1 #) [facility] AreaXtxqmymYOJYCLGRLW9257-09-58 10:19:00 Test Item Value Reference Range Interpretation Comments Lymphocytes # (test code = Lymphocytes 3.3 1.0-5.5 #) [facility] AreaZlelmbqJDWDBDUNZP0451-11-73 10:19:00 Test Item Value Reference Range Interpretation Comments Monocytes # (test code 0.7 See_Comment [Aut omated message] The = Monocytes #) system which generated this result tra nsmitted reference range : <=0.8. The reference r luli was not used to int erpret this result as normal/abnormal . [facility] AreaKpcrjofSEQOZKUIUK1498-08-98 10:19:00 Test Item Value Reference Range Interpretation Comments Eosinophils # (test code 0.4 See_Comment [A utomated message] The = Eosinophils #) system whic h generated this result tra nsmitted reference range : <=0.5. The reference r luli was not used to int erpret this result as normal/abnormal . [facility] AreaAywmitiXKRSUAIXJM5212-82-96 10:19:00 Test Item Value Reference Range Interpretation Comments WBC (test code = WBC) 8.3 3.7-10.4 [place] 578711-10-27 10:19:00 Test Item Value Reference Range Interpretation Comments RBC (test code = RBC) 3.31 4.20-5.40 [place] 578711-10-27 10:19:00 Test Item Value Reference Range Interpretation Comments Hgb (test code = Hgb) 11.0 12.0-16.0 [place] [address]-10-27 10:19:00 Test Item Value Reference Range Interpretation Comments Hct (test code = Hct) 32.4 36.0-48.0 [place] 578711-10-27 10:19:00 Test Item Value Reference Range Interpretation Comments MCV (test code = MCV) 97.7 80.0-98.0 [place] 578711-10-27 10:19:00 Test Item Value Reference Range Interpretation Comments MCH (test code = MCH) 33.0 pg 27.0-31.0 [facility] AreaYmdjpvcOHQJVQEFQM2256-64-39 10:19:00 Test Item Value Reference Range Interpretation Comments MCHC (test code = MCHC) 33.8 32.0-36.0 [facility] AreaGxvttutLNAETPNQXO7520-91-56 10:19:00 Test Item Value Reference Range Interpretation Comments RDW (test code = RDW) 14.1 11.5-14.5 [place] 578711-10-27 10:19:00 Test Item Value Reference Range Interpretation Comments Platelet (test code = Platelet) 414 133-450 [facility] AreaAonctfoPMLYTRHJBB8339-32-00 10:19:00 Test Item Value Reference Range Interpretation Comments MPV (test code = MPV) 8.0 7.4-10.4 [facility]2021-10-22 09:19:00 Test Item Value Reference Range Interpretation Comments Glucose Lvl (test code = Glucose Lvl) 106 70-99 [facility]2021-10-22 09:19:00 Test Item Value Reference Range Interpretation Comments BUN (test code = BUN) 24 7-22 [facility]2021-10-22 09:19:00 Test Item Value Reference Range Interpretation Comments Creatinine Lvl (test code = Creatinine 0.84 0.50-1.40 Lvl) [facility]2021-10-22 09:19:00 Test Item Value Reference Range Interpretation Comments Sodium Lvl (test code = Sodium Lvl) 144 135-145 [facility]2021-10-22 09:19:00 Test Item Value Reference Range Interpretation Comments Potassium Lvl (test code = Potassium 4.3 3.5-5.1 Lvl) [place] 153651-10-22 09:19:00 Test Item Value Reference Range Interpretation Comments Chloride Lvl (test code = Chloride Lvl) 115 95-109 [place] 153651-10-22 09:19:00 Test Item Value Reference Range Interpretation Comments CO2 (test code = CO2) 23 24-32 [place] 153651-10-22 09:19:00 Test Item Value Reference Range Interpretation Comments AGAP (test code = AGAP) 10.3 10.0-20.0 [address]10-22 09:19:00 Test Item Value Reference Range Interpretation Comments Calcium Lvl (test code = Calcium Lvl) 9.5 8.5-10.5 [place] 153651-10-22 09:19:00 Test Item Value Reference Range Interpretation Comments eGFR (test code = eGFR) 80 [place] 578711-10-22 09:19:00 Test Item Value Reference Range Interpretation Comments Segs (test code = Segs) 47.4 45.0-75.0 [address]10-22 09:19:00 Test Item Value Reference Range Interpretation Comments Lymphocytes (test code = Lymphocytes) 39.9 20.0-40.0 [place] 578711-10-22 09:19:00 Test Item Value Reference Range Interpretation Comments Monocytes (test code = Monocytes) 6.9 2.0-12.0 [place] 578711-10-22 09:19:00 Test Item Value Reference Range Interpretation Comments Eosinophils (test code = 5.5 See_Comment [A utomated message] The Eosinophils) system which nerated this result tra nsmitted reference range : <=4.0. The reference r luli was not used to int erpret this result as normal/abnormal . [place] [address]-10-22 09:19:00 Test Item Value Reference Range Interpretation Comments Basophils (test code = 0.3 See_Comment [Aut omated message] The Basophils) system which ge nerated this result tra nsmitted reference range : <=1.0. The reference r luli was not used to int erpret this result as normal/abnormal . [place] [address]-10-22 09:19:00 Test Item Value Reference Range Interpretation Comments Neutrophils # (test code = Neutrophils 4.7 1.5-8.1 #) [facility] AreaRkgfadsKRKZWWYBFU1408-45-71 09:19:00 Test Item Value Reference Range Interpretation Comments Lymphocytes # (test code = Lymphocytes 4.0 1.0-5.5 #) [facility] AreaBkqpmziTORJXJKFDU6325-49-42 09:19:00 Test Item Value Reference Range Interpretation Comments Monocytes # (test code 0.7 See_Comment [Aut omated message] The = Monocytes #) system which generated this result tra nsmitted reference range : <=0.8. The reference r luli was not used to int erpret this result as normal/abnormal . [facility] AreaBmoynifKIYLOALLAI0097-23-35 09:19:00 Test Item Value Reference Range Interpretation Comments Eosinophils # (test code 0.5 See_Comment [A utomated message] The = Eosinophils #) system whic h generated this result tra nsmitted reference range : <=0.5. The reference r luli was not used to int erpret this result as normal/abnormal . [facility] AreaJkhewukLQNWCFSPRJ7662-84-92 09:19:00 Test Item Value Reference Range Interpretation Comments WBC (test code = WBC) 10.0 3.7-10.4 [facility] AreaVuhhxgpBAQNXPIJGI1045-81-76 09:19:00 Test Item Value Reference Range Interpretation Comments RBC (test code = RBC) 3.55 4.20-5.40 [place] 578711-10-22 09:19:00 Test Item Value Reference Range Interpretation Comments Hgb (test code = Hgb) 11.8 12.0-16.0 [place] 578711-10-22 09:19:00 Test Item Value Reference Range Interpretation Comments Hct (test code = Hct) 34.9 36.0-48.0 [place] 578711-10-22 09:19:00 Test Item Value Reference Range Interpretation Comments MCV (test code = MCV) 98.3 80.0-98.0 [place] 578711-10-22 09:19:00 Test Item Value Reference Range Interpretation Comments MCH (test code = MCH) 33.4 pg 27.0-31.0 [place] 578711-10-22 09:19:00 Test Item Value Reference Range Interpretation Comments MCHC (test code = MCHC) 33.9 32.0-36.0 [facility] AreaLvsslvySPKYWCJPXJ0076-43-69 09:19:00 Test Item Value Reference Range Interpretation Comments RDW (test code = RDW) 14.0 11.5-14.5 [facility] AreaSazyascOMCRVZAVXJ8101-82-17 09:19:00 Test Item Value Reference Range Interpretation Comments Platelet (test code = Platelet) 366 133-375 [facility] AreaJvxfdmxEGDZNUQZMF5385-09-88 09:19:00 Test Item Value Reference Range Interpretation Comments MPV (test code = MPV) 8.5 7.4-10.4 [facility]SY[facility] 09:19:00 Test Item Value Reference Range Interpretation Comments Murphy Lvl (test code = Murphy Lvl) 0.99 0.50-1.50 [facility] AreaUkpsgxhILDTFTGSBP7090-69-22 17:20:00 Test Item Value Reference Range Interpretation Comments RDW (test code = RDW) 14.3 11.5-14.5 [facility] AreaNmznyavGQMKLBCFTW5901-14-03 17:20:00 Test Item Value Reference Range Interpretation Comments Platelet (test code = Platelet) 358 133-450 [facility] AreaQsseonzVLQUCERDAR3949-66-80 17:20:00 Test Item Value Reference Range Interpretation Comments MPV (test code = MPV) 8.3 7.4-10.4 [facility] AreaZacsswvUKRQLXTOSD5428-20-75 17:20:00 Test Item Value Reference Range Interpretation Comments Segs (test code = Segs) 62.4 45.0-75.0 [facility] AreaRpedumbGPWGKQRHHY3973-25-46 17:20:00 Test Item Value Reference Range Interpretation Comments Lymphocytes (test code = Lymphocytes) 27.0 20.0-40.0 [place] 578711-10-21 17:20:00 Test Item Value Reference Range Interpretation Comments Monocytes (test code = Monocytes) 8.9 2.0-12.0 [place] 578711-10-21 17:20:00 Test Item Value Reference Range Interpretation Comments Eosinophils (test code = 1.5 See_Comment [A utomated message] The Eosinophils) system which ge nerated this result tra nsmitted reference range : <=4.0. The reference r luli was not used to int erpret this result as normal/abnormal . [place] 578711-10-21 17:20:00 Test Item Value Reference Range Interpretation Comments Basophils (test code = 0.2 See_Comment [Aut omated message] The Basophils) system which ge nerated this result tra nsmitted reference range : <=1.0. The reference r luli was not used to int erpret this result as normal/abnormal . [facility] AreaLzilxdiKGKULPWRHS3587-97-61 17:20:00 Test Item Value Reference Range Interpretation Comments Neutrophils # (test code = Neutrophils 6.3 1.5-8.1 #) [facility] AreaQgdxbvdWWOKWCIATJ6691-20-14 17:20:00 Test Item Value Reference Range Interpretation Comments Lymphocytes # (test code = Lymphocytes 2.7 1.0-5.5 #) [facility] AreaZdrcchaCJZLISIAKC0438-07-24 17:20:00 Test Item Value Reference Range Interpretation Comments Monocytes # (test code 0.9 See_Comment [Aut omated message] The = Monocytes #) system which generated this result tra nsmitted reference range : <=0.8. The reference r luli was not used to int erpret this result as normal/abnormal . [facility] AreaYsoqvkmCXEVBNFTNO0766-77-49 17:20:00 Test Item Value Reference Range Interpretation Comments Eosinophils # (test code 0.2 See_Comment [A utomated message] The = Eosinophils #) system whic h generated this result tra nsmitted reference range : <=0.5. The reference r luli was not used to int erpret this result as normal/abnormal . [facility]2021-10-21 17:20:00 Test Item Value Reference Range Interpretation Comments Magnesium Lvl (test code = Magnesium 2.5 1.8-2.4 Lvl) [place] 153651-10-21 17:20:00 Test Item Value Reference Range Interpretation Comments Glucose Lvl (test code = Glucose Lvl) 96 70-99 [place] 153651-10-21 17:20:00 Test Item Value Reference Range Interpretation Comments BUN (test code = BUN) 23 7-22 [place] 153651-10-21 17:20:00 Test Item Value Reference Range Interpretation Comments Creatinine Lvl (test code = Creatinine 1.34 0.50-1.40 Lvl) [place] 153651-10-21 17:20:00 Test Item Value Reference Range Interpretation Comments Sodium Lvl (test code = Sodium Lvl) 141 135-145 [place] 153651-10-21 17:20:00 Test Item Value Reference Range Interpretation Comments Potassium Lvl (test code = Potassium 4.1 3.5-5.1 Lvl) [place] 153651-10-21 17:20:00 Test Item Value Reference Range Interpretation Comments Chloride Lvl (test code = Chloride Lvl) 112 95-109 [place] 153651-10-21 17:20:00 Test Item Value Reference Range Interpretation Comments CO2 (test code = CO2) 23 24-32 [place] 153651-10-21 17:20:00 Test Item Value Reference Range Interpretation Comments Calcium Lvl (test code = Calcium Lvl) 9.4 8.5-10.5 [place] 153651-10-21 17:20:00 Test Item Value Reference Range Interpretation Comments AGAP (test code = AGAP) 10.1 10.0-20.0 [place] 153651-10-21 17:20:00 Test Item Value Reference Range Interpretation Comments eGFR (test code = eGFR) 46 [place] 578711-10-21 17:20:00 Test Item Value Reference Range Interpretation Comments WBC (test code = WBC) 10.2 3.7-10.4 [place] [address]-10-21 17:20:00 Test Item Value Reference Range Interpretation Comments RBC (test code = RBC) 3.64 4.20-5.40 [place] [address]-10-21 17:20:00 Test Item Value Reference Range Interpretation Comments Hgb (test code = Hgb) 12.0 12.0-16.0 [place] [address]-10-21 17:20:00 Test Item Value Reference Range Interpretation Comments Hct (test code = Hct) 36.0 36.0-48.0 [place] [address]-10-21 17:20:00 Test Item Value Reference Range Interpretation Comments MCV (test code = MCV) 99.0 80.0-98.0 [place] [address]-10-21 17:20:00 Test Item Value Reference Range Interpretation Comments MCH (test code = MCH) 32.9 pg 27.0-31.0 [facility]EakjrxrQJBUPAGQNF0804-98-64 17:20:00 Test Item Value Reference Range Interpretation Comments MCHC (test code = MCHC) 33.2 32.0-36.0 [facility] [id number] 11:05:00 Test Item Value Reference Range Interpretation Comments ABO/Rh (test code = ABO/Rh) O POS [facility] [employer] EVNRQXY1471-69-27 11:05:00 Test Item Value Reference Range Interpretation Comments Antibody Scrn (test Negative (04/26/21 code = Antibody Scrn) 6:05 AM) [facility] [id number] 10:03:00 Test Item Value Reference Range Interpretation Comments Glucose Lvl (test code = Glucose Lvl) 83 70-99 [facility] [id number] 10:03:00 Test Item Value Reference Range Interpretation Comments BUN (test code = BUN) 10 7-22 [facility] [id number] 10:03:00 Test Item Value Reference Range Interpretation Comments Creatinine Lvl (test code = Creatinine 0.83 0.50-1.40 Lvl) [facility] RLYZQ3958-27-10 10:03:00 Test Item Value Reference Range Interpretation Comments Sodium Lvl (test code = Sodium Lvl) 142 135-145 [facility] [id number] 10:03:00 Test Item Value Reference Range Interpretation Comments Potassium Lvl (test code = Potassium 3.7 3.5-5.1 Lvl) [facility] [id number] 10:03:00 Test Item Value Reference Range Interpretation Comments Chloride Lvl (test code = Chloride Lvl) 115 95-109 [facility] [id number] 10:03:00 Test Item Value Reference Range Interpretation Comments CO2 (test code = CO2) 22 24-32 [facility] [id number] 10:03:00 Test Item Value Reference Range Interpretation Comments Calcium Lvl (test code = Calcium Lvl) 9.0 8.5-10.5 [facility] [id number] 10:03:00 Test Item Value Reference Range Interpretation Comments AGAP (test code = AGAP) 8.7 10.0-20.0 [facility]2021-10-16 10:03:00 Test Item Value Reference Range Interpretation Comments eGFR (test code = eGFR) 81 [facility]2021-10-16 10:03:00 Test Item Value Reference Range Interpretation Comments eGFR (test code = eGFR) 81 [facility]2021-10-16 10:03:00 Test Item Value Reference Range Interpretation Comments Glucose Lvl (test code = Glucose Lvl) 83 70-99 [facility]2021-10-16 10:03:00 Test Item Value Reference Range Interpretation Comments BUN (test code = BUN) 10 7-22 [facility]2021-10-16 10:03:00 Test Item Value Reference Range Interpretation Comments Creatinine Lvl (test code = Creatinine 0.83 0.50-1.40 Lvl) [facility]2021-10-16 10:03:00 Test Item Value Reference Range Interpretation Comments Sodium Lvl (test code = Sodium Lvl) 142 135-145 [facility]2021-10-16 10:03:00 Test Item Value Reference Range Interpretation Comments Potassium Lvl (test code = Potassium 3.7 3.5-5.1 Lvl) [facility]2021-10-16 10:03:00 Test Item Value Reference Range Interpretation Comments Chloride Lvl (test code = Chloride Lvl) 115 95-109 [facility]2021-10-16 10:03:00 Test Item Value Reference Range Interpretation Comments CO2 (test code = CO2) 22 24-32 [facility]2021-10-16 10:03:00 Test Item Value Reference Range Interpretation Comments AGAP (test code = AGAP) 8.7 10.0-20.0 [facility]2021-10-16 10:03:00 Test Item Value Reference Range Interpretation Comments Calcium Lvl (test code = Calcium Lvl) 9.0 8.5-10.5 [facility]2021-10-16 10:03:00 Test Item Value Reference Range Interpretation Comments B/C Ratio (test code = B/C Ratio) 12 1 6-25 [facility]2021-10-16 10:03:00 Test Item Value Reference Range Interpretation Comments Total Protein (test code = Total 6.0 6.4-8.4 Protein) [place] 153651-10-16 10:03:00 Test Item Value Reference Range Interpretation Comments Albumin Lvl (test code = Albumin Lvl) 2.8 3.5-5.0 [place] 153651-10-16 10:03:00 Test Item Value Reference Range Interpretation Comments Globulin (test code = Globulin) 3.2 2.7-4.2 [place] 153651-10-16 10:03:00 Test Item Value Reference Range Interpretation Comments A/G Ratio (test code = A/G Ratio) 0.9 1 0.7-1.6 [place] [address]-10-16 10:03:00 Test Item Value Reference Range Interpretation Comments ALT (test code = ALT) 6 See_Comment [Auto mated message] The system which ge nerated this result transmit jana reference range : <=65. The reference range was not used to interpr et this result as gabbie l/abnormal. [place] 153651-10-16 10:03:00 Test Item Value Reference Range Interpretation Comments AST (test code = AST) 12 See_Comment [Auto mated message] The system which ge nerated this result transmit jana reference range : <=37. The reference range was not used to interpr et this result as gabbie l/abnormal. [facility] [id number] 10:03:00 Test Item Value Reference Range Interpretation Comments Alk Phos (test code = Alk Phos) 47 39-136 [place] 153651-10-16 10:03:00 Test Item Value Reference Range Interpretation Comments Bili Total (test code = Bili Total) 0.5 0.2-1.3 [place] 578711-10-16 10:03:00 Test Item Value Reference Range Interpretation Comments WBC (test code = WBC) 8.6 3.7-10.4 [place] [address]-10-16 10:03:00 Test Item Value Reference Range Interpretation Comments RBC (test code = RBC) 4.01 4.20-5.40 [place] 578711-10-16 10:03:00 Test Item Value Reference Range Interpretation Comments Hgb (test code = Hgb) 13.0 12.0-16.0 [place] [address]-10-16 10:03:00 Test Item Value Reference Range Interpretation Comments Hct (test code = Hct) 39.1 36.0-48.0 [place] 578711-10-16 10:03:00 Test Item Value Reference Range Interpretation Comments MCV (test code = MCV) 97.5 80.0-98.0 [place] 578711-10-16 10:03:00 Test Item Value Reference Range Interpretation Comments MCH (test code = MCH) 32.5 pg 27.0-31.0 [facility] AreaExsdyfkLALOUOKSCW6781-26-82 10:03:00 Test Item Value Reference Range Interpretation Comments MCHC (test code = MCHC) 33.3 32.0-36.0 [facility] AreaEuwxtdzBKANGEXJXK1376-14-17 10:03:00 Test Item Value Reference Range Interpretation Comments RDW (test code = RDW) 14.0 11.5-14.5 [place] 578711-10-16 10:03:00 Test Item Value Reference Range Interpretation Comments Platelet (test code = Platelet) 258 133-450 [facility] AreaAimgwiwMWTCWTALTX8036-76-64 10:03:00 Test Item Value Reference Range Interpretation Comments MPV (test code = MPV) 9.1 7.4-10.4 [facility] AreaHiiwujgEXRUZFATEL7497-13-15 10:03:00 Test Item Value Reference Range Interpretation Comments Segs (test code = Segs) 54.9 45.0-75.0 [facility] AreaOgqwhpxLWHNPTBZDQ8894-24-89 10:03:00 Test Item Value Reference Range Interpretation Comments Lymphocytes (test code = Lymphocytes) 34.5 20.0-40.0 [place] 578711-10-16 10:03:00 Test Item Value Reference Range Interpretation Comments Monocytes (test code = Monocytes) 5.8 2.0-12.0 [place] 578711-10-16 10:03:00 Test Item Value Reference Range Interpretation Comments Eosinophils (test code = 4.6 See_Comment [A utomated message] The Eosinophils) system which ge nerated this result tra nsmitted reference range : <=4.0. The reference r luli was not used to int erpret this result as normal/abnormal . [facility] AreaIttzfpxAQGXKWDQXL9593-72-59 10:03:00 Test Item Value Reference Range Interpretation Comments Basophils (test code = 0.2 See_Comment [Aut omated message] The Basophils) system which ge nerated this result tra nsmitted reference range : <=1.0. The reference r luli was not used to int erpret this result as normal/abnormal . [place] 578711-10-16 10:03:00 Test Item Value Reference Range Interpretation Comments Neutrophils # (test code = Neutrophils 4.7 1.5-8.1 #) [facility] AreaMtvrvfzBGWEVBJJBM9880-49-73 10:03:00 Test Item Value Reference Range Interpretation Comments Lymphocytes # (test code = Lymphocytes 3.0 1.0-5.5 #) [place] 578711-10-16 10:03:00 Test Item Value Reference Range Interpretation Comments Monocytes # (test code 0.5 See_Comment [Aut omated message] The = Monocytes #) system which generated this result tra nsmitted reference range : <=0.8. The reference r luli was not used to int erpret this result as normal/abnormal . [place] 578711-10-16 10:03:00 Test Item Value Reference Range Interpretation Comments Eosinophils # (test code 0.4 See_Comment [A utomated message] The = Eosinophils #) system whic h generated this result tra nsmitted reference range : <=0.5. The reference r luli was not used to int erpret this result as normal/abnormal . [facility]2021-10-15 08:31:00 Test Item Value Reference Range Interpretation Comments Glucose Lvl (test code = Glucose Lvl) 117 70-99 [place] 153651-10-15 08:31:00 Test Item Value Reference Range Interpretation Comments BUN (test code = BUN) 11 7-22 [place] [address]-10-15 08:31:00 Test Item Value Reference Range Interpretation Comments Creatinine Lvl (test code = Creatinine 1.00 0.50-1.40 Lvl) [place] 153651-10-15 08:31:00 Test Item Value Reference Range Interpretation Comments Sodium Lvl (test code = Sodium Lvl) 139 135-145 [place] 153651-10-15 08:31:00 Test Item Value Reference Range Interpretation Comments Potassium Lvl (test code = Potassium 4.0 3.5-5.1 Lvl) [place] 153651-10-15 08:31:00 Test Item Value Reference Range Interpretation Comments Chloride Lvl (test code = Chloride Lvl) 113 95-109 [facility] [id number] 08:31:00 Test Item Value Reference Range Interpretation Comments CO2 (test code = CO2) 18 24-32 [facility] [id number] 08:31:00 Test Item Value Reference Range Interpretation Comments Calcium Lvl (test code = Calcium Lvl) 8.9 8.5-10.5 [facility] [id number] 08:31:00 Test Item Value Reference Range Interpretation Comments Total Protein (test code = Total 6.6 6.4-8.4 Protein) [facility] [id number] 08:31:00 Test Item Value Reference Range Interpretation Comments Albumin Lvl (test code = Albumin Lvl) 3.1 3.5-5.0 [facility] [id number] 08:31:00 Test Item Value Reference Range Interpretation Comments ALT (test code = ALT) 9 See_Comment [Auto mated message] The system which ge nerated this result transmit jana reference range : <=65. The reference range was not used to interpr et this result as gabbie l/abnormal. [facility] [id number] 08:31:00 Test Item Value Reference Range Interpretation Comments AST (test code = AST) 13 See_Comment [Auto mated message] The system which ge nerated this result transmit jana reference range : <=37. The reference range was not used to interpr et this result as gabbie l/abnormal. [facility] [id number] 08:31:00 Test Item Value Reference Range Interpretation Comments Alk Phos (test code = Alk Phos) 54 39-136 [facility] Lob [id number] 08:31:00 Test Item Value Reference Range Interpretation Comments Bili Total (test code = Bili Total) 0.6 0.2-1.3 [facility] Lob [id number] 08:31:00 Test Item Value Reference Range Interpretation Comments AGAP (test code = AGAP) 12.0 10.0-20.0 [facility] Lob [id number] 08:31:00 Test Item Value Reference Range Interpretation Comments B/C Ratio (test code = B/C Ratio) 11 1 6-25 [place] 153651-10-15 08:31:00 Test Item Value Reference Range Interpretation Comments Globulin (test code = Globulin) 3.5 2.7-4.2 [place] 153651-10-15 08:31:00 Test Item Value Reference Range Interpretation Comments A/G Ratio (test code = A/G Ratio) 0.9 1 0.7-1.6 [place] [address]-10-15 08:31:00 Test Item Value Reference Range Interpretation Comments eGFR (test code = eGFR) 65 [facility]HxcpjcdRPMCQYOLTG7372-25-74 08:31:00 Test Item Value Reference Range Interpretation Comments WBC (test code = WBC) 8.2 3.7-10.4 [place] 578711-10-15 08:31:00 Test Item Value Reference Range Interpretation Comments RBC (test code = RBC) 4.20 4.20-5.40 [place] 578711-10-15 08:31:00 Test Item Value Reference Range Interpretation Comments Hgb (test code = Hgb) 13.5 12.0-16.0 [place] 578711-10-15 08:31:00 Test Item Value Reference Range Interpretation Comments Hct (test code = Hct) 40.6 36.0-48.0 [facility] AreaKhwsprdHTFJUTSAKU3118-65-34 08:31:00 Test Item Value Reference Range Interpretation Comments MCV (test code = MCV) 96.8 80.0-98.0 [place] 578711-10-15 08:31:00 Test Item Value Reference Range Interpretation Comments MCH (test code = MCH) 32.1 pg 27.0-31.0 [place] [address]-10-15 08:31:00 Test Item Value Reference Range Interpretation Comments MCHC (test code = MCHC) 33.2 32.0-36.0 [place] 578711-10-15 08:31:00 Test Item Value Reference Range Interpretation Comments RDW (test code = RDW) 14.3 11.5-14.5 [facility] AreaDcizuyiHKLDBZGXMI4434-90-55 08:31:00 Test Item Value Reference Range Interpretation Comments Platelet (test code = Platelet) 257 133-450 [facility] AreaMhsvqldSYWKQRBCDF9303-95-09 08:31:00 Test Item Value Reference Range Interpretation Comments MPV (test code = MPV) 8.8 7.4-10.4 [place] 578711-10-15 08:31:00 Test Item Value Reference Range Interpretation Comments Segs (test code = Segs) 56.0 45.0-75.0 [facility] AreaXirsfebNCRIXMHETF1543-97-05 08:31:00 Test Item Value Reference Range Interpretation Comments Lymphocytes (test code = Lymphocytes) 33.0 20.0-40.0 [place] 578711-10-15 08:31:00 Test Item Value Reference Range Interpretation Comments Monocytes (test code = Monocytes) 7.6 2.0-12.0 [facility] AreaUegeukiVIPVSAYRXI7559-06-85 08:31:00 Test Item Value Reference Range Interpretation Comments Eosinophils (test code = 2.9 See_Comment [A utomated message] The Eosinophils) system which ge nerated this result tra nsmitted reference range : <=4.0. The reference r luli was not used to int erpret this result as normal/abnormal . [facility] AreaXsqjmvlXBIAVKXBTP4737-68-10 08:31:00 Test Item Value Reference Range Interpretation Comments Basophils (test code = 0.5 See_Comment [Aut omated message] The Basophils) system which ge nerated this result tra nsmitted reference range : <=1.0. The reference r luli was not used to int erpret this result as normal/abnormal . [facility] AreaQmvecfqGVJWUTECOD7526-67-83 08:31:00 Test Item Value Reference Range Interpretation Comments Neutrophils # (test code = Neutrophils 4.6 1.5-8.1 #) [place] 578711-10-15 08:31:00 Test Item Value Reference Range Interpretation Comments Lymphocytes # (test code = Lymphocytes 2.7 1.0-5.5 #) [place] [address]-10-15 08:31:00 Test Item Value Reference Range Interpretation Comments Monocytes # (test code 0.6 See_Comment [Aut omated message] The = Monocytes #) system which generated this result tra nsmitted reference range : <=0.8. The reference r luli was not used to int erpret this result as normal/abnormal . [place] 578711-10-15 08:31:00 Test Item Value Reference Range Interpretation Comments Eosinophils # (test code 0.2 See_Comment [A utomated message] The = Eosinophils #) system [employer] generated this result tra nsmitted reference range : <=0.5. The reference r luli was not used to int erpret this result as normal/abnormal . [employer]2021-10-14 08:39:00 Test Item Value Reference Range Interpretation Comments Procalcitonin Lvl <0.05 ng/mL See_Comment [Automate d message] (test code = The system [employer] Procalcitonin Lvl) generated this result transmit jana reference range : <=0.10. The reference range was not used to interpret this result as normal/abnormal . [employer]1-10-14 08:39:00 Test Item Value Reference Range Interpretation Comments Total Protein (test code = Total 7.6 6.4-8.4 Protein) [employer]2021-10-14 08:39:00 Test Item Value Reference Range Interpretation Comments Albumin Lvl (test code = Albumin Lvl) 3.9 3.5-5.0 [employer]2021-10-14 08:39:00 Test Item Value Reference Range Interpretation Comments ALT (test code = ALT) 12 See_Comment [Auto mated message] The system which ge nerated this result transmit jana reference range : <=65. The reference range was not used to interpr et this result as gabbie l/abnormal. [employer]1-10-14 08:39:00 Test Item Value Reference Range Interpretation Comments AST (test code = AST) 10 See_Comment [Auto mated message] The system which ge nerated this result transmit jana reference range : <=37. The reference range was not used to interpr et this result as gabbie l/abnormal. [employer]1-10-14 08:39:00 Test Item Value Reference Range Interpretation Comments Alk Phos (test code = Alk Phos) 65 39-136 [employer]1-10-14 08:39:00 Test Item Value Reference Range Interpretation Comments Bili Total (test code = Bili Total) 0.8 0.2-1.3 [employer]1-10-14 08:39:00 Test Item Value Reference Range Interpretation Comments B/C Ratio (test code = B/C Ratio) 11 1 6-25 [place] 153651-10-14 08:39:00 Test Item Value Reference Range Interpretation Comments Globulin (test code = Globulin) 3.7 2.7-4.2 [place] 153651-10-14 08:39:00 Test Item Value Reference Range Interpretation Comments A/G Ratio (test code = A/G Ratio) 1.1 1 0.7-1.6 [place] 153651-10-14 08:39:00 Test Item Value Reference Range Interpretation Comments Magnesium Lvl (test code = Magnesium 2.6 1.8-2.4 Lvl) [place] 153651-10-14 08:39:00 Test Item Value Reference Range Interpretation Comments Phosphorus (test code = Phosphorus) 3.5 2.5-4.5 [place] 578711-10-14 08:39:00 Test Item Value Reference Range Interpretation Comments WBC (test code = WBC) 9.3 3.7-10.4 [place] 578711-10-14 08:39:00 Test Item Value Reference Range Interpretation Comments RBC (test code = RBC) 4.48 4.20-5.40 [place] 578711-10-14 08:39:00 Test Item Value Reference Range Interpretation Comments Hgb (test code = Hgb) 14.6 12.0-16.0 [place] 578711-10-14 08:39:00 Test Item Value Reference Range Interpretation Comments Hct (test code = Hct) 43.6 36.0-48.0 [place] 578711-10-14 08:39:00 Test Item Value Reference Range Interpretation Comments MCV (test code = MCV) 97.3 80.0-98.0 [place] [address]-10-14 08:39:00 Test Item Value Reference Range Interpretation Comments MCH (test code = MCH) 32.5 pg 27.0-31.0 [place] 578711-10-14 08:39:00 Test Item Value Reference Range Interpretation Comments MCHC (test code = MCHC) 33.5 32.0-36.0 [place] 578711-10-14 08:39:00 Test Item Value Reference Range Interpretation Comments RDW (test code = RDW) 14.5 11.5-14.5 [facility] AreaZubmablUITMAFYURQ0790-56-80 08:39:00 Test Item Value Reference Range Interpretation Comments Platelet (test code = Platelet) 296 133-450 [facility] AreaCmbrxyrIKUEXEYNNR4797-59-95 08:39:00 Test Item Value Reference Range Interpretation Comments MPV (test code = MPV) 9.0 7.4-10.4 [facility] AreaOewkvisZJFFEXSHRC3149-96-01 08:39:00 Test Item Value Reference Range Interpretation Comments PT (test code = PT) 13.4 s 12.0-14.7 [facility] AreaSagxaemHFDNKHSMXC1789-65-15 08:39:00 Test Item Value Reference Range Interpretation Comments INR (test code = INR) 1.03 1 0.85-1.17 [place] 578711-10-14 08:39:00 Test Item Value Reference Range Interpretation Comments PTT (test code = PTT) 36.3 s 22.9-35.8 [facility] AreaDayiywnGJAAYDWNTA5339-29-06 08:39:00 Test Item Value Reference Range Interpretation Comments Segs (test code = Segs) 61.3 45.0-75.0 [facility] AreaDdxgmwxHSJUCYLCLU2463-57-89 08:39:00 Test Item Value Reference Range Interpretation Comments Lymphocytes (test code = Lymphocytes) 29.7 20.0-40.0 [facility] AreaWddhntdANRTWOXNHK8647-37-50 08:39:00 Test Item Value Reference Range Interpretation Comments Monocytes (test code = Monocytes) 8.1 2.0-12.0 [facility] AreaAbcugfqFHPEETZKIC8558-53-37 08:39:00 Test Item Value Reference Range Interpretation Comments Eosinophils (test code = 0.4 See_Comment [A utomated message] The Eosinophils) system which ge nerated this result tra nsmitted reference range : <=4.0. The reference r luli was not used to int erpret this result as normal/abnormal . [facility] AreaTnmqzhoSBSWMVTTKY6793-04-08 08:39:00 Test Item Value Reference Range Interpretation Comments Basophils (test code = 0.5 See_Comment [Aut omated message] The Basophils) system which ge nerated this result tra nsmitted reference range : <=1.0. The reference r luli was not used to int erpret this result as normal/abnormal . [place] [address]-10-14 08:39:00 Test Item Value Reference Range Interpretation Comments Neutrophils # (test code = Neutrophils 5.7 1.5-8.1 #) [facility] AreaOyggjtqXLMDTIGKXV4939-81-92 08:39:00 Test Item Value Reference Range Interpretation Comments Lymphocytes # (test code = Lymphocytes 2.8 1.0-5.5 #) [facility] AreaPfdncsxLGQYBPDJXM8437-23-85 08:39:00 Test Item Value Reference Range Interpretation Comments Monocytes # (test code 0.7 See_Comment [Aut omated message] The = Monocytes #) system which generated this result tra nsmitted reference range : <=0.8. The reference r luli was not used to int erpret this result as normal/abnormal . [facility]UjacvcrEIMRY1553-90-41 08:39:00 Test Item Value Reference Range Interpretation Comments Murphy Lvl (test code = Murphy Lvl) 0.89 0.50-1.50 [facility]HixzeyjBGAQOMNXYK6697-38-53 20:30:00 Test Item Value Reference Range Interpretation Comments Acetaminoph Lvl (test code = no gt 04-26 Acetaminoph Lvl) [place] [id number] 20:30:00 Test Item Value Reference Range Interpretation Comments Ethanol Lvl (test code = Ethanol Lvl) no gt [facility]bergBjgfhxnWHKANDXIWJ6981-61-41 20:30:00 Test Item Value Reference Range Interpretation Comments Etoh (%) (test code = Etoh (%)) no gt [facility]bergMpnusqbJETZPFAQZG8687-89-06 20:30:00 Test Item Value Reference Range Interpretation Comments Salicylate Lvl (test 3.4 See_Comment [Autom ated message] The code = Salicylate Lvl) syste m which generated this result tra nsmitted reference range : <=30.0. The reference r luli was not used to int erpret this result as normal/abnormal . [facility]bergURINE NQYH1507-65-03 14:23:00 Test Item Value Reference Range Interpretation Comments U Preg (test code = U Negative (04/19/21 9:23 Preg) AM) [facility] KlebergLftfecuANUIJJOYSZ9812-56-20 14:11:00 Test Item Value Reference Range Interpretation Comments Coronavirus (COVID-19) Not Detected JACKSON (test code = (04/19/21 9:11 AM) Coronavirus (COVID-19) JACKSON) [facility] [id number] 11:20:00 Test Item Value Reference Range Interpretation Comments ABO/Rh (test code = ABO/Rh) O POS [facility] NWNPJLO5693-00-97 11:20:00 Test Item Value Reference Range Interpretation Comments Antibody Scrn (test Negative (04/19/21 code = Antibody Scrn) 6:20 AM) [facility] AreaIvhbgftRZSKGYKXCW5791-84-17 11:17:52 Test Item Value Reference Range Interpretation Comments ACT (TEG) Rapid (test code = ACT (TEG) 82 s 86-118 Rapid) [facility] AreaYuxkiysCZHVZDBKJN7470-66-82 11:17:52 Test Item Value Reference Range Interpretation Comments Split Point Rapid (test code = Split 0.3 min Point Rapid) [facility] AreaUivydevMUCFEAIBQP7064-51-26 11:17:52 Test Item Value Reference Range Interpretation Comments R-time Rapid (test code = R-time 0.3 min 0.4-0.7 Rapid) [facility] AreaIlvaxkxOAYCDHMLTG6297-14-72 11:17:52 Test Item Value Reference Range Interpretation Comments K-time Rapid (test code = K-time 0.9 min 0.6-2.3 Rapid) [facility] AreaNuxdvhmTAKHOBOQVY3422-38-20 11:17:52 Test Item Value Reference Range Interpretation Comments Angle Rapid (test code = Angle 80 degrees 64-80 Rapid) [facility] AreaDcdhsthKTCQVNWKLS6997-99-81 11:17:52 Test Item Value Reference Range Interpretation Comments Max Amplitude Rapid (test code = Max 68 mm 52-71 Amplitude Rapid) [facility] AreaLrxvcjxQXPRATULHJ0392-74-12 11:17:52 Test Item Value Reference Range Interpretation Comments G-value Rapid (test code = G-value 10.7 5.0-11.6 Rapid) [facility] AreaZwsnajbKDACCHYRAU9764-42-91 11:17:52 Test Item Value Reference Range Interpretation Comments Estimated % Lysis Rapid 1.1 See_Comment [Au tomated message] The (test code = Estimated syste m which generated % Lysis Rapid) this result t ransmitted reference range : <=7.5. The reference r luli was not used to int erpret this result as normal/abnormal . [facility] AreaGbloluxLFLJEXZXQT3216-22-57 11:17:42 Test Item Value Reference Range Interpretation Comments PT (test code = PT) 12.8 s 12.0-14.7 [facility] AreaBvasuzlBRLEXJEYDW6735-69-20 11:17:42 Test Item Value Reference Range Interpretation Comments INR (test code = INR) 0.97 1 0.85-1.17 [facility] AreaHjyqqgpBFWBGRSCOV3107-69-35 11:17:42 Test Item Value Reference Range Interpretation Comments PTT (test code = PTT) 35.1 s 22.9-35.8 [facility]
[2022-05-15] MEDS ORDERED: ASPIRIN 81 MG CHEWABLE TABLET ONE (16:01)
[2022-05-15] MEDS ORDERED: NA CHLORIDE 0.9% 500 ML ONE (16:02)
[2022-05-15] MEDS ORDERED: NITROGLYCERIN 0.4 MG/TAB SL ONE (16:02)
[2022-05-15 16:30] LABS: Absolute Lymphocytes (CBC) 2.8 K/uL (0.7-4.9); Hematocrit 40.9 % (36.0-45.0); Lymphocytes % 42.3 % (15.3-44.8); MCV 93.3 fL (80-100); MPV 7.9 fL (7.6-11.3); RBC Red Blood Cell Count 4.38 M/uL (3.86-4.86)
[2022-05-15 16:31] LABS: Protime INR 1.12
[2022-05-15 16:41] LABS: SARS-CoV-2 Antigen Rapid Res Negative (Negative)
[2022-05-15 16:50] LABS: ALT/SGPT 19 U/L (12-78); Albumin 3.8 g/dL (3.4-5.0); Alkaline Phosphatase 61 U/L (45-117); BUN Blood Urea Nitrogen 10 mg/dL (7-18); Bicarbonate 26 mmol/L (21-32); Bilirubin Total 0.3 mg/dL (0.2-1.0); Glomerular Filtration Rate 66 ml/min (=/>90); Glucose Level 107 mg/dL (74-106); NT PRO-BNP 78 pg/mL (<125); Protein, Total 7.1 g/dL (6.4-8.2); Sodium Level 140 mmol/L (136-145); Troponin High Sensitivity 6.5 pg/mL (<58.9)
[2022-05-15 16:51] LABS: AST/SGOT 18 U/L (15-37); Bilirubin Direct < 0.1 mg/dL (0-0.2); Magnesium 2.3 mg/dL (1.8-2.4); Potassium 4.2 mmol/L (3.5-5.1)
--- NOTE | 2022-05-15 16:59 | RAD REPORT ---
EXAM DESCRIPTION: RAD - Chest Single View - 05/15/2022 4:45 pm CLINICAL HISTORY: CHEST PAIN Chest pain. COMPARISON: Chest Single View dated 03/25/2022; Chest Single View dated 01/12/2021; Chest Single View d ated 11/24/2020; Chest Single View dated 08/11/2020 FINDINGS: Portable technique limits examination quality. The lungs are grossly clear. The heart is normal in size. No displaced fractures. IMPRESSION: No acute intrathoracic process suspected.
[2022-05-15] MEDS ORDERED: NA CHLORIDE 0.9% 1,000 ML ONE (17:27)
--- NOTE | 2022-05-15 18:30 | ER ---
Nurse's Notes [facility] Name: Mitzi Murphy Age: 52 yrs Sex: Female : 1970 Arrival Date: 05/15/2022 Time: 15:54 Bed 5 Private MD: Diagnosis: Chest pain, unspecified Presentation: 05/15 15:54 Chief complaint: EMS states: pt is having chest pain on and off fir the past week, mb9 Starts on the right side of chest and spreads to the left side and abdomen. Coronavirus screen: Client denies travel out of the [place] in the last 14 days. Ebola Screen: No symptoms or risks identified at this time. Initial Sepsis Screen: Does the patient meet any 2 criteria? No. Patient's initial sepsis screen is negative. Does the patient have a suspected source of infection? No. Patient's initial sepsis screen is negative. Risk Assessment: Do you want to hurt yourself or someone else? Patient reports no desire to harm self or others. Onset of symptoms was May 08, 2022. 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 method mb9 Historical: - Allergies: 15:56 No Known Allergies; mb9 - Home Meds: 15:56 Risperdal 4 mg Oral tab 1 tab 2 times per day [Active]; quetiapine 100 mg Oral tab mb9 nightly [Active]; lithium carbonate 300 mg Oral cap 1 cap 2 times per day [Active]; gabapentin 100 mg Oral tab 2 tab three times a day [Active]; divalproex 500 mg Oral TbEC 1 tab 2 times per day [Active]; buprenorphine HCl 8 mg sublingual subl 1 tab BID [Active]; levothyroxine oral [Active]; Propranolol Oral [Active]; - PMHx: 15:56 Bipolar disorder; thyroid problems; TBI- 1993; manic depressive; insomnia; mb9 - PSHx: 15:56 None; mb9 - Immunization history:: Adult Immunizations not up to date. - Social history:: Smoking status: Patient reports the use of cigarette tobacco products, smokes one-half pack cigarettes per day. Screenin:15 Abuse screen: Denies threats or abuse. Nutritional screening: No deficits noted. mb9 Tuberculosis screening: No symptoms or risk factors identified. Fall Risk None identified. Assessment: 16:12 General: Appears in no apparent distress. comfortable, Behavior is calm, cooperative, mb9 appropriate for age. Pain: Complains of pain in chest Pain currently is 6 out of 10 on a pain scale. Quality of pain is described as pressure, Pain began 1 week ago. Neuro: Level of Consciousness is awake, alert, obeys commands, Oriented to person, place, time, situation, Appropriate for age. Cardiovascular: Heart tones S1 S2 present Capillary refill < 3 seconds Rhythm is sinus tachycardia. Respiratory: Airway is patent Respiratory effort is even, unlabored, Respiratory pattern is regular, symmetrical, Breath sounds are clear bilaterally. GI: Abdomen is flat, Bowel sounds present X 4 quads. Abd is soft and non tender X 4 quads. : No signs and/or symptoms were reported regarding the genitourinary system. EENT: No signs and/or symptoms were reported regarding the EENT system. Derm: Skin is pink, warm \T\ dry. Musculoskeletal: Range of motion: intact in all extremities. 17:23 Reassessment: Patient appears in no apparent distress at this time. No changes from tw2 previously documented assessment. Patient and/or family updated on plan of care and expected duration. Pain level reassessed. Patient is alert, oriented x 3, equal unlabored respirations, skin warm/dry/pink. 18:30 General: Appears in no apparent distress. comfortable, Behavior is calm, cooperative, mb9 appropriate for age. Pain: Denies pain. Cardiovascular:. 18:30 Cardiovascular: Heart tones S1 S2 present Rhythm is regular. Respiratory: Airway is mb9 patent. Derm: Skin is pink, warm \T\ dry. Vital Signs: 15:54 BP 149 / 63; Pulse 73; Resp 18; Temp 97.8(O); Pulse Ox 100% on R/A; Weight 62.6 kg; mb9 Height 5 ft. 2 in. (157.48 cm); Pain 6/10; 16:11 BP 131 / 85; Pulse 110; Resp 16; Pulse Ox 100% on R/A; mb9 17:23 BP 111 / 91; Pulse 74; Resp 24; Pulse Ox 100% on R/A; tw2 15:54 Body Mass Index 25.24 (62.60 kg, 157.48 cm) mb9 ED Course: 15:54 Patient arrived in ED. mb9 15:55 Luis Alfredo Rose PA is PHCP. cp 15:55 Noel Jacques MD is Attending Physician. cp 15:56 Triage completed. mb9 15:58 Arm band placed on. mb9 15:58 EKG done, by ED staff, reviewed by Luis Alfredo SMITH. mb9 16:10 Shazia Pinon, RN is Primary Nurse. mb9 16:11 Basic Metabolic Panel Sent. mb9 16:11 CBC with Diff Sent. mb9 16:11 LFT's Sent. mb9 16:11 Magnesium Sent. mb9 16:11 NT PRO-BNP Sent. mb9 16:11 PT-INR Sent. mb9 16:11 Troponin HS Sent. mb9 16:11 Inserted saline lock: 20 gauge in right antecubital area, using aseptic technique. mb9 Blood collected. 16:14 Placed in gown. Bed in low position. Call light in reach. Side rails up X 1. Client mb9 placed on continuous cardiac and pulse oximetry monitoring. NIBP monitoring applied. change consultant on. 16:21 SARS RAPID Sent. mb9 16:47 XRAY Chest (1 view) In Process Unspecified. EDMS 17:12 pt mom. bd 18:42 No provider procedures requiring assistance completed. mb9 18:42 IV discontinued, intact, bleeding controlled, No redness/swelling at site. Pressure mb9 dressing applied. 18:58 taxi called for pt, will be at hospital in about 30 min. bd Administered Medications: 16:10 Drug: NS 0.9% 500 ml Route: IV; Rate: bolus; Site: right antecubital; mb9 16:11 Drug: Aspirin Chewable Tablet 324 mg Route: PO; mb9 16:11 Drug: Nitroglycerin 0.4 mg Route: Sublingual; mb9 17:31 Drug: NS 0.9% 1000 ml Route: IV; Rate: 1 bolus; Site: right antecubital; aa5 Medication: 16:15 VIS not applicable for this client. mb9 Outcome: 18:29 Discharge ordered by . cp 18:42 Discharged to home mb9 18:42 Condition: stable 18:42 Discharge instructions given to patient, Instructed on discharge instructions, follow up and referral plans. Demonstrated understanding of instructions, follow-up care. 18:42 Patient left the ED. mb9 Signatures: Dispatcher [employer] EDRonda Russell Audri, RN RN aa5 Luis Alfredo Rose PA PA cp Wise, Tara RN RN tw2 Shazia Pinon RN RN mb9
--- NOTE | 2022-05-15 18:30 | EDPHYS ---
Physician Documentation [facility] Name: Mitzi Murphy Age: 52 yrs Sex: Female : 1970 Arrival Date: 05/15/2022 Time: 15:54 Bed 5 Private MD: ED Physician Noel Jacques HPI: 05/15 15:58 This 52 yrs old Female presents to ER via EMS with complaints of Chest Pain. cp 15:58 The patient or guardian reports chest pain that is located primarily in the anterior cp chest wall, bilaterally. Onset: 1 week(s) ago. The pain does not radiate. The chest pain is described as sharp. Duration: The patient or guardian reports multiple episodes, that are intermittent. 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 - control method mb9 Historical: - Allergies: 15:56 No Known Allergies; mb9 - Home Meds: 15:56 Risperdal 4 mg Oral tab 1 tab 2 times per day [Active]; quetiapine 100 mg Oral tab mb9 nightly [Active]; lithium carbonate 300 mg Oral cap 1 cap 2 times per day [Active]; gabapentin 100 mg Oral tab 2 tab three times a day [Active]; divalproex 500 mg Oral TbEC 1 tab 2 times per day [Active]; buprenorphine HCl 8 mg sublingual subl 1 tab BID [Active]; levothyroxine oral [Active]; Propranolol Oral [Active]; - PMHx: 15:56 Bipolar disorder; thyroid problems; TBI- 1993; manic depressive; insomnia; mb9 - PSHx: 15:56 None; mb9 - Immunization history:: Adult Immunizations not up to date. - Social history:: Smoking status: Patient reports the use of cigarette tobacco products, smokes one-half pack cigarettes per day. ROS: 16:00 Constitutional: Negative for body aches, chills, fever, poor PO intake. cp 16:00 Eyes: Negative for injury, pain, redness, and discharge. cp 16:00 Neck: Negative for pain with movement, pain at rest, stiffness. 16:00 Cardiovascular: Positive for chest pain, Negative for edema, palpitations. 16:00 Respiratory: Negative for cough, shortness of breath, wheezing. 16:00 Abdomen/GI: Positive for abdominal pain, Negative for vomiting, diarrhea, constipation. 16:00 Back: Negative for pain at rest, pain with movement. 16:00 : Negative for urinary symptoms. 16:00 Neuro: Negative for altered mental status, dizziness, headache, weakness. 16:00 All other systems are negative. Exam: 15:59 ECG was reviewed by the Attending Physician. cp 16:05 Constitutional: The patient appears in no acute distress, alert, awake, cp non-diaphoretic, non-toxic, well developed, well nourished. 16:05 Head/Face: Normocephalic, atraumatic. cp 16:05 Eyes: Periorbital structures: appear normal, Conjunctiva: normal, no exudate, no injection, Sclera: no appreciated abnormality, Lids and lashes: appear normal, bilaterally. 16:05 ENT: External ear(s): are unremarkable, Nose: is normal, Mouth: Lips: moist, Oral mucosa: moist, Posterior pharynx: Airway: no evidence of obstruction, patent. 16:05 Neck: ROM/movement: is normal, is supple, without pain, no range of motions limitations. 16:05 Chest/axilla: Inspection: normal. 16:05 Cardiovascular: Rate: normal, Rhythm: regular, Edema: is not appreciated, JVD: is not appreciated. 16:05 Respiratory: the patient does not display signs of respiratory distress, Respirations: normal, no use of accessory muscles, no retractions, labored breathing, is not present, Breath sounds: are clear throughout, no decreased breath sounds, no stridor, no wheezing. 16:05 Abdomen/GI: Inspection: abdomen appears normal, Bowel sounds: active, all quadrants, Palpation: abdomen is soft and non-tender, in all quadrants. 16:05 Back: pain, is absent, ROM is normal. 16:05 Neuro: Orientation: to person, place \T\ time. Mentation: able to follow commands, slow to respond, Motor: moves all fours, strength is normal, Sensation: is normal. Vital Signs: 15:54 BP 149 / 63; Pulse 73; Resp 18; Temp 97.8(O); Pulse Ox 100% on R/A; Weight 62.6 kg; mb9 Height 5 ft. 2 in. (157.48 cm); Pain 6/10; 16:11 BP 131 / 85; Pulse 110; Resp 16; Pulse Ox 100% on R/A; mb9 17:23 BP 111 / 91; Pulse 74; Resp 24; Pulse Ox 100% on R/A; tw2 15:54 Body Mass Index 25.24 (62.60 kg, 157.48 cm) mb9 MDM: 15:56 Patient medically screened. cp 16:00 Differential diagnosis: acute myocardial infarction, anxiety, Cholelithiasis cp pancreatitis, pericarditis, pleurisy, pneumonia, pneumothorax, pulmonary embolus, stable angina, thoracic aortic disection, unstable angina. 18:24 Data reviewed: vital signs, nurses notes, lab test result(s), EKG, radiologic studies, cp plain films. 18:24 The patient was given aspirin in the Emergency Department. Special discussion: Based on cp the patient's history, exam, and Dx evaluation, there is no indication for emergent intervention or inpatient Tx. It is understood by the patient/guardian that if the Sx's persist or worsen they need to return immediately for re-evaluation. ED course: Patient declines any further testing to r/o AK and requesting discharge to home. Initial EKG and troponin negative. 05/15 15:56 Order name: Basic Metabolic Panel; Complete Time: 17:01 05/15 15:56 Order name: CBC with Diff; Complete Time: 17:01 05/15 15:56 Order name: LFT's; Complete Time: 17:01 05/15 15:56 Order name: Magnesium; Complete Time: 17:01 05/15 15:56 Order name: NT PRO-BNP; Complete Time: 17:01 05/15 15:56 Order name: PT-INR; Complete Time: 18:24 05/15 15:56 Order name: Troponin HS; Complete Time: 17:01 05/15 15:56 Order name: XRAY Chest (1 view); Complete Time: 17:01 05/15 16:00 Order name: SARS RAPID; Complete Time: 17:01 05/15 17:03 Order name: LAB Add On 05/15 17:08 Order name: D-Dimer; Complete Time: 18:24 EDMS 05/15 18:24 Interpretation: Reviewed. 05/15 15:56 Order name: EKG; Complete Time: 15:56 05/15 15:56 Order name: Cardiac monitoring; Complete Time: 15:59 cp 05/15 15:56 Order name: EKG - Nurse/Tech; Complete Time: 15:59 cp 05/15 15:56 Order name: IV Saline Lock; Complete Time: 16:11 cp 05/15 15:56 Order name: Labs collected and sent; Complete Time: 16:11 cp 05/15 15:56 Order name: O2 Per Protocol; Complete Time: 15:59 cp 05/15 15:56 Order name: O2 Sat Monitoring; Complete Time: 15:59 cp EC:59 Rate is 70 beats/min. Rhythm is regular. [place] interval is normal. QRS interval is normal. cp QT interval is normal. T waves are Inverted in lead aVR. Interpreted by me. Reviewed by me. Administered Medications: 16:10 Drug: NS 0.9% 500 ml Route: IV; Rate: bolus; Site: right antecubital; mb9 16:11 Drug: Aspirin Chewable Tablet 324 mg Route: PO; mb9 16:11 Drug: Nitroglycerin 0.4 mg Route: Sublingual; mb9 17:31 Drug: NS 0.9% 1000 ml Route: IV; Rate: 1 bolus; Site: right antecubital; aa5 Disposition Summary: 05/15/22 18:29 Discharge Ordered Location: Home cp Problem: new cp Symptoms: are resolved cp Condition: Stable cp Diagnosis - Chest pain, unspecified cp Followup: cp - With: Private Physician - When: 1 - 2 days - Reason: Recheck today's complaints Discharge Instructions: - Discharge Summary Sheet cp - Nonspecific Chest Pain, Adult cp - Aspirin and Your Heart cp Forms: - Medication Reconciliation Form cp - Thank You Letter cp - Antibiotic Education cp - Prescription Opioid Use cp Addendum: 05/17/2022 07:35 Co-signature as Attending Physician, Noel Jacques MD. r n Signatures: Dispatcher [employer] EDMS Noel Jacques MD MD rn Calderon, Audri RN RN aa5 Luis Alfredo Rose PA PA cp Breneman, Mary Beth RN RN mb9 Corrections: (The following items were deleted from the chart) 05/15 17:08 17:04 D-[email or web address] ordered. EDMS EDMS
[2022-05-15 19:20] VITALS: TEMP 97.8; O2SAT 100
[2022-05-15 19:22] VITALS: BP 111/91
--- NOTE | 2022-05-17 06:35 | EKG ---
Test Date: 2022-05-15 Test Time: 15:52:24 Substance Abuse Prevention Coordinator: BRITTANY MEASUREMENT RESULTS: Intervals: Rate: 70 NC: 138 QRSD: 86 QT: 414 QTc: 447 [place]: P: 57 NC: 138 QRS: 70 T: 53 INTERPRETIVE STATEMENTS: Normal sinus rhythm Normal ECG Compared to ECG 03/25/2022 18:27:10 No significant changes Electronically Signed On 05-17-22 06:30:47 LINER HELPER by Shai Jordan
== END 2022-05-15 18:42 | disposition home or self-care (01) ==
LOC: ER 15:53
DX: R07.9 Chest pain, unspecified (principal); F17.210 Nicotine dependence, cigarettes, uncomplicated; Z20.822 Contact with and (suspected) exposure to COVID-19; F32.A Depression, unspecified; E03.9 Hypothyroidism, unspecified
CPT/HCPCS: 93005; 85025; 80048; 36415; 83735; 85610; 85379; 80076; 84484; 83880; 71045; 99284; 87811; J7040; J7030

== ENCOUNTER 2022-09-05 03:36 | Inpatient (IN) | payer OTHER ==
--- OUTSIDE RECORDS SUMMARY | 2022-09-05 03:43 | XMS REPORT | Continuity of Care Document ---
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 TWICE [facility] DAILY WITH [facility] Rosuvastati Yes Hayes 1 tablet Common n Calcium n Calcium Gimenez Spir [facility] Cymbalta Cymbalta Yes Hayes 1 capsule Common Gimenez [facility] ProAir HFA ProAir HFA Yes Hayes 2 puffs as Common Gimenez needed [facility] Synthroid Synthroid Yes Hayes 1 tablet Common Gimenez on an Spirit empty - [facility]I stomach in [facility] Vitamin D-3 Vitamin D-3 Yes Hayes 1 ml under Common Gimenez the tongue [facility] Yes Hayes 1 tablet Common n Calcium n Calcium Gimenez Spir [facility] Mirtazapine Mirtazapine Yes Hayes 1 tablet Common Gimenez at bedtime [facility] Synthroid Synthroid Yes Hayes 1 tablet Common Gimenez on an Spirit empty - CHI stomach in [facility] Cymbalta Cymbalta Yes Hayes 1 capsule Common Gimenez [facility] Wellbutrin Wellbutrin Yes Hayes 1 tablet Common XL XL Gimenez in the [facility] Cymbalta 30 Cymbalta 30 No 1{capsu QD [...] Calcium 20 MG 20 MG 20 MG [place] No 1{capsu TID [place] Carbonate Carbonate le_at_b Carbonate 300 MG 300 [...] Calcium 20 MG 20 MG 20 MG [place] No 1{capsu TID [place] Carbonate Carbonate le_at_b Carbonate 300 MG 300 [...] 5000 5000 D-3 5000 UNIT/ML UNIT/ML UNIT/ML Winslow [place] No 1{capsu TID [place] Carbonate Carbonate le_at_b Carbonate 300 MG 300 [...] 5000 5000 D-3 5000 UNIT/ML UNIT/ML UNIT/ML [place] No 1{capsu TID [place] Carbonate Carbonate le_at_b Carbonate 300 MG 300 MG edtime} 300 MG Cymbalta 30 Cymbalta 30 No 1{capsu QD Cymbalta MG MG le} 30 MG Dilaudid 8 Dilaudid 8 No 1{table TID Dilaudid 8 MG MG t} MG Synthroid Synthroid No QD Synthroid 75 MCG 75 MCG 75 MCG amLODIPine amLODIPine No 1{table QD amLODIPine Besylate 5 Besylate 5 t} Besylate 5 MG MG MG [place] No 1{capsu TID [place] Carbonate Carbonate le_at_b Carbonate 300 MG 300 MG edtime} 300 MG Rosuvastati Rosuvastati No 1{table QD Rosuvastat n Calcium n Calcium t} in Calcium 20 MG 20 MG 20 MG Amitiza 24 Amitiza 24 No Amitiza 24 MCG MCG MCG OLANZapine OLANZapine No 1{table QD OLANZapine 5 MG 5 MG t} 5 MG Cymbalta 30 Cymbalta 30 No 1{capsu QD Cymbalta MG MG le} 30 MG Cymbalta 60 Cymbalta 60 No 1{capsu QD Cymbalta MG MG le} 60 MG Vitamin D-3 Vitamin D-3 No QD Vitamin 5000 5000 D-3 5000 UNIT/ML UNIT/ML UNIT/ML Synthroid Synthroid No QD Synthroid 50 MCG 50 MCG 50 MCG MiraLax - MiraLax - No MiraLax - Gabapentin Gabapentin No 1{table TID Gabapentin 600 MG 600 MG t} 600 MG ProAir HFA ProAir HFA No 2{puffs ProAir HFA 108 (90 108 (90 _as_nee 108 (90 Base) Base) ded} Base) MCG/ACT MCG/ACT MCG/ACT Rosuvastati Rosuvastati No Rosuvastat n Calcium n Calcium in Calcium 20 MG 20 MG 20 MG Wellbutrin Wellbutrin No 1{table QD Wellbutrin XL 300 MG XL 300 MG t_in_th XL 300 MG e_morni ng} Dilaudid 8 Dilaudid 8 No 1{table TID Dilaudid 8 MG MG t} MG tiZANidine tiZANidine No 4{table QD tiZANidine HCl 4 MG HCl 4 MG ts_as_n HCl 4 MG eeded} Mirtazapine Mirtazapine No 1{table QD Mirtazapin 45 MG 45 MG t_at_be e 45 MG dtime} ProAir HFA ProAir HFA No 2{puffs ProAir [...] 5000 5000 D-3 5000 UNIT/ML UNIT/ML UNIT/ML [place]low [place] No 1{capsu TID [place] Carbonate Carbonate le_at_b Carbonate 300 MG 300 MG edtime} 300 MG Cymbalta 30 Cymbalta 30 No 1{capsu QD Cymbalta MG MG le} 30 MG Dilaudid 8 Dilaudid 8 No 1{table TID Dilaudid 8 MG MG t} MG Synthroid Synthroid No QD Synthroid 75 MCG 75 MCG 75 MCG Vital Signs Vital Name Observation Time Observation Value Comments Source height 2022-04-05 09:40:00 62 [in_i] Common [facility] weight 2022-04-05 09:40:00 135 [lb_av] [facility] bmi 2022-04-05 09:40:00 24.69 kg/m2 [facility] oximetry 2022-04-05 09:40:00 93 % [facility] respiratory rate 2022-04-05 09:40:00 16 /min Comm on [facility] blood pressure 2022-04-05 09:40:00 123 mm[Hg] Common [facility] - systolic [facility] blood pressure 2022-04-05 09:40:00 77 mm[Hg] Common [facility] - diastolic [facility] height 2022-04-05 14:50:00 62 [in_i] [facility] weight 2022-04-05 14:50:00 145.3 [lb_av] [facility] temperature 2022-04-05 14:50:00 97.6 [degF] [facility] bmi 2022-04-05 14:50:00 26.57 kg/m2 [facility] oximetry 2022-04-05 14:50:00 93 % [facility] respiratory rate 2022-04-05 14:50:00 16 /min Comm on [facility] blood pressure 2022-04-05 14:50:00 123 mm[Hg] Common [facility] - systolic [facility] blood pressure 2022-04-05 14:50:00 77 mm[Hg] Common [facility] - diastolic [facility] height 2021-10-27 10:40:00 62 [in_i] Common [facility] weight 2021-10-27 10:40:00 135 [lb_av] Common [facility] temperature 2021-10-27 10:40:00 98 [degF] Common [facility] bmi 2021-10-27 10:40:00 24.69 kg/m2 [facility] blood pressure 2021-10-27 10:40:00 133 mm[Hg] Common [facility] - systolic [facility] blood pressure 2021-10-27 10:40:00 76 mm[Hg] Common [facility] - diastolic [facility] Temperature Oral (F) 2021-05-09 21:32:00 98.2 F [facility] Heart Rate 2021-05-09 21:32:00 [facility] Respitory Rate 2021-05-09 21:32:00 [facility] [place] Systolic (mm Hg) 2021-05-09 21:32:00 [facility] [place] Diastolic (mm Hg) 2021-05-09 21:32:00 [facility] [place] Heart Rate 2021-05-09 17:52:00 [facility] Respitory Rate 2021-05-09 17:52:00 [facility] [place] Systolic (mm Hg) 2021-05-09 17:52:00 William [facility] Diastolic (mm Hg) 2021-05-09 17:52:00 [facility] [place] Heart Rate 2021-05-09 13:31:00 [facility] Respitory Rate 2021-05-09 13:31:00 [facility] [place] Systolic (mm Hg) 2021-05-09 13:31:00 William [facility] Diastolic (mm Hg) 2021-05-09 13:31:00 [facility] [place] Temperature Oral (F) 2021-05-09 00:13:00 98.6 F [facility] Temperature Oral (F) 2021-05-08 16:58:00 99.2 F [facility] Temperature Oral (F) 2021-04-24 05:06:00 98.4 F [facility] Heart Rate 2021-04-24 05:06:00 [facility] Respitory Rate 2021-04-24 05:06:00 [facility] [place] Systolic (mm Hg) 2021-04-24 05:06:00 William [facility] Diastolic (mm Hg) 2021-04-24 05:06:00 [facility] [place] Temperature Oral (F) 2021-04-24 01:21:00 98.3 F [facility] Heart Rate 2021-04-24 01:21:00 [facility] Respitory Rate 2021-04-24 01:21:00 [facility] [place] Systolic (mm Hg) 2021-04-24 01:21:00 William [facility] Diastolic (mm Hg) 2021-04-24 01:21:00 Mem [facility] Temperature Oral (F) 2021-04-23 20:49:00 98.0 F [facility] Heart Rate 2021-04-23 20:49:00 [facility] Respitory Rate 2021-04-23 20:49:00 [facility] [place] Systolic (mm Hg) 2021-04-23 20:49:00 [facility] [place] Diastolic (mm Hg) 2021-04-23 20:49:00 Mem [facility] Height 2021-04-20 08:45:00 162.56 cm [facility] Weight 2021-04-20 08:45:00 [facility] BMI Calculated 2021-04-20 08:45:00 [facility] Height 2021-04-19 00:54:00 162.56 cm [facility] BMI Calculated 2021-04-19 00:54:00 [facility] Weight 2021-04-19 00:54:00 [facility] Procedures This patient has no known procedures. Encounters Start End Encounter Admission Attending Care Care Encounter Source Date/Time Date/Time Type Type Clinicians Facility Department ID 2022-07-[address] [facility] [id number] [place] 09:11:38 [id number] [facility] 2022-07-04 Outpatient Gimenez, [facility] [id number] Common 13:36:00 [facility] 2022-06-21 Outpatient Gimenez, [facility] [id number] Common 15:32:00 [facility] 2022-06-19 Out[facility], [facility] [id number] Common 14:44:00 [facility] 2022-06-18 Outpatient Gimenez, STLMLC STLMLC Common 08:21:00 Hayes [id number] [facility] 2022-04-[address] [facility] [id number] [place] 11:32:09 [id number] [facility] 2021-11-[address] [facility] [id number] [place] 08:29:44 [id number] [facility] 2021-08-08 Outpatient Gimenez, STLMLC STLMLC Common 13:26:00 Hayes [facility] 2021-08-02 Outpatient Gimenez, STLMLC STLMLC Common 13:27:04 Hayes [id number] [facility] 2021-08-02 Outpatient Gimenez, STLMLC STLMLC Common 13:20:29 Hayes [id number] [facility] 2021-08-02 Outpatient Gimenez, STLMLC STLMLC Common 13:16:34 Hayes 10085 [facility] 2021-08-02 Outpatient Gimenez, STLMLC STLMLC Common 13:08:55 Hayes [id number] [facility] 2021-08-02 Outpatient Gimenez, STLMLC STLMLC Common 12:42:20 Hayes [id number] [facility] 2021-08-02 Outpatient Gimenez, STLMLC STLMLC Common 12:06:12 Hayes [id number] [facility] 2021-08-02 Outpatient Gimenez, STLMLC STLMLC Common 11:37:11 Hayes [id number] [facility] 2021-08-02 Outpatient Gimenez, STLMLC STLMLC [id number] Common 11:17:50 Hayes [id number] [facility] 2021-08-02 Outpatient Gimenez, STLMLC STLMLC [id number] Common 11:17:40 Hayes [id number] [facility] 2021-08-02 Outpatient Gimenez, STLMLC STLMLC [id number] Common 11:10:21 [facility] [id number] [facility] 2021-08-02 Outpatient Gimenez, STLMLC STLMLC Common 11:09:58 [facility] 17748 [facility] 2021-08-02 Outpatient Gimenez, STLMLC STLMLC Common 10:58:51 [facility] [id number] [facility] 2021-07-[address] [facility] [id number] [place] 01:05:29 [facility] 2021-07-20 Outpatient EDWARD, [facility] [id number] [place] 01:04:18 [facility] 2021-05-[address] [facility] [id number] [place] 15:09:14 [facility] 2021-05-10 Outpatient MUNGregory, LIA [facility] [id number] [place] 12:40:50 [facility] 2021-04-19 Inpatient E SHARAD, [id number] 08:45:00 AMADO 2022-06-29 2022-06-29 (TEL) STLMLC STLC [id number] Co mmon 00:00:00 00:00:00 Spirit [facility] 2022-04-05 2022-04-05 SUB ANNUAL STLMLC STLC [id number] Common 00:00:00 00:00:00 MCR [facility] WELLNESS - [facility] VISIT [facility] 2022-04-05 2022-04-05 OFFICE STLMLC STLMLC [id number] Co mmon 00:00:00 00:00:00 VISIT [facility] ESTAB PT - [facility] LEVEL 4 [facility] 2022-03-05 2022-03-05 (TEL) STLMLC STLMLC [id number] Co mmon 00:00:00 00:00:00 [facility] 2022-02-01 2022-02-01 Emergency [facility] [id number] [facility] 11:02:00 11:02:00 41 2022-02-01 2022-02-01 Emergency Emergency Ernesto Saldivar [facility] [id number] [facility] 11:02:00 11:02:00 41 2021-10-27 2021-10-27 OFFICE STLMLC STLMLC [id number] Co mmon 00:00:00 00:00:00 VISIT [facility] 4 [facility] 2021-04-19 2021-05-10 Inpatient [facility] [id number] Memoria 13:45:00 01:22:[address] 2021-01-19 2021-01-19 Outpatient STLMLC STLMLC [id number] Common 00:00:00 00:00:00 [facility] 2021-01-17 2021-01-17 Outpatient STLMLC STLMLC [id number] Common 00:00:00 00:00:00 [facility] 2021-01-12 2021-01-12 Outpatient STLMLC STLMLC [id number] Common 00:00:00 00:00:00 [facility] 2020-11-01 2020-11-01 Outpatient STLMLC STLMLC [id number] Common 00:00:00 00:00:00 [facility] 2020-11-01 2020-11-01 Outpatient STLMLC STLMLC [id number] Common 00:00:00 00:00:00 [facility] 2020-10-24 2020-10-24 Outpatient STLMLC STLMLC [id number] Common 00:00:00 00:00:00 [facility] 2020-09-26 2020-09-26 Outpatient STLMLC STLMLC [id number] Common 00:00:00 00:00:00 [facility] 2020-07-25 2020-07-25 Outpatient STLMLC STLMLC [id number] Common 00:00:00 00:00:00 [facility] 2020-05-25 2020-05-25 Outpatient STLMLC STLMLC [id number] Common 00:00:00 00:00:00 [facility] 2020-03-10 2020-03-10 [facility] [id number] Common 15:00:00 15:00:00 [facility] 2020-02-17 2020-02-17 [facility] [id number] Common 09:50:00 09:50:[address] [facility] 2020-02-10 2020-02-10 Out[facility] [id number] Common 10:34:00 10:34:[address] [facility] 2019-12-17 2019-12-17 Outpatient [facility] [id number] Common 13:30:00 13:30:[address] [facility] 2019-10-19 2019-10-19 Outpatient [facility] [id number] Common 13:00:00 13:00:[address] [facility] 2019-10-16 2019-10-16 Outpatient [facility] [id number] Common 13:49:00 13:49:[address] [facility] 2019-09-21 2019-09-21 Outpatient [facility] [id number] Common 14:04:00 14:04:[address] [facility] 2019-09-03 2019-09-03 Outpatient [facility] [id number] Common 10:15:00 10:15:[address] [facility] 2019-07-20 2019-07-20 Outpatient [facility] [id number] Common 14:15:00 14:15:[address] [facility] 2019-06-24 2019-06-24 Outpatient [facility] [id number] Common 08:12:00 08:12:[address] [facility] 2019-06-16 2019-06-16 Outpatient [facility] [id number] Common 11:30:00 11:30:[address] [facility] 2019-06-11 2019-06-11 Outpatient [facility] [id number] Common 10:10:00 10:10:[address] [facility] 2019-06-08 2019-06-08 Outpatient [facility] [id number] Common 16:35:00 16:35:[address] [facility] 2019-04-16 2019-04-16 Outpatient [facility] [id number] Common 16:04:00 16:04:[address] [facility] 2019-03-17 2019-03-17 Outpatient [facility] [id number] Common 11:30:00 11:30:[address] [facility] 2019-02-03 2019-02-03 Outpatient [facility] [id number] Common 11:56:00 11:56:[address] [facility] 2019-01-26 2019-01-26 Outpatient [facility] [id number] Common 08:47:00 08:47:[address] [facility] 2019-01-14 2019-01-14 Outpatient [facility] [id number] Common 09:30:00 09:30:[address] [facility] 2018-10-22 2018-10-22 Outpatient [facility] [id number] Common 14:50:00 14:50:[address] [facility] 2018-10-15 2018-10-15 Outpatient [facility] [id number] Common 09:45:00 09:45:[address] [facility] 2018-07-17 2018-07-17 Outpatient [facility] [id number] Common 08:15:00 08:15:[address] [facility] 2018-04-08 2018-04-08 Outpatient [facility] [id number] Common 13:00:00 13:00:[address] [facility] 2018-02-13 2018-02-13 [facility] [id number] Common 10:56:00 10:56:[address] [facility] 2018-02-06 2018-02-06 Outpatient [facility] [id number] Common 13:20:00 13:20:[address] [facility] 2018-02-05 2018-02-05 [facility] [id number] Common 08:15:00 08:15:[address] [facility] Results Test Description Test Time Test Comments Results Result Comments Source UA, Urinalysis Rflx Cult/Sedmt 2022-02-01 12:20:00 Test Item Value Reference Range Interpretation Comme nts Color,Urine (test code = UCOL) Yellow Yellow Clarity,Urine (test code = UCLAR) Clear Clear Ph, Urine (test code = UPH) 7.5 5.0-9.0 N Specific [place],Urine (test code = USG) 1.010 1.005-1.030 N [...] Negative mg/dL Negative Complete Blood Count Auto [id number] 12:20:00 Test Item Value Reference Range Interpretation [...] (test code = NRBCP) 0 % Drug Screen,[id number] 12:20:00 Test Item Value Reference Range Interpretation [...] Negative Negative code = UPROP) Comprehensive Metabolic [id number] 12:20:00 Test Item Value Reference Range Interpretation [...] 64 U/L 46-116 N = ALP) Ethanol [id number] 12:20:00 Test Item Value Reference Range Interpretation Comments Ethanol (test code < 3 mg/dL The pharm acological = ETOH) response to blo od alcohol levels mayvary from individual to i ndividual. The fatal asher ntrationhas been reported t o be >400mg/dL. Coronavirus PCR, COVID19 [id number] 12:20:00 Test Item Value Reference Range Interpretation Comments Coronavirus PCR, COVID19 Rapid (test code = SARSCOV2) Coronavirus PCR, COVID19 Reference Range: Rapid (test code = Negative GJWIZDD79.1) SARS-CoV-2 PCR Result: Negative by RT-PCR (test code = SARS-CoV-2 PCR Result:) COVID-19 Status: [id number] 14:44:00 Test Item Value Reference Range Interpretation Comments Coronavirus (COVID-19) Not Detected (05/09/21 JACKSON (test code = 9:44 AM) Coronavirus (COVID-19) JACKSON) [facility] [id number] 10:19:00 Test Item Value Reference Range Interpretation Comments Glucose Lvl (test code = Glucose Lvl) 80 70-99 [facility] [employer]2021-10-27 10:19:00 Test Item Value Reference Range Interpretation Comments BUN (test code = BUN) 25 7-22 [facility] [employer]2021-10-27 10:19:00 Test Item Value Reference Range Interpretation Comments Creatinine Lvl (test code = Creatinine 0.72 0.50-1.40 Lvl) [facility] [employer]2021-10-27 10:19:00 Test Item Value Reference Range Interpretation Comments Sodium Lvl (test code = Sodium Lvl) 141 135-145 [facility] [employer]2021-10-27 10:19:00 Test Item Value Reference Range Interpretation Comments Potassium Lvl (test code = Potassium 4.0 3.5-5.1 Lvl) [place] [id number] 10:19:00 Test Item Value Reference Range Interpretation Comments Chloride Lvl (test code = Chloride Lvl) 113 95-109 [place] [id number] 10:19:00 Test Item Value Reference Range Interpretation Comments CO2 (test code = CO2) 23 24-32 [place] [address]-10-27 10:19:00 Test Item Value Reference Range Interpretation Comments Calcium Lvl (test code = Calcium Lvl) 9.7 8.5-10.5 [place] 222911-10-27 10:19:00 Test Item Value Reference Range Interpretation Comments AGAP (test code = AGAP) 9.0 10.0-20.[address]10-27 10:19:00 Test Item Value Reference Range Interpretation Comments eGFR (test code = eGFR) 97 [place] 991441-10-27 10:19:00 Test Item Value Reference Range Interpretation Comments Segs (test code = Segs) 45.5 45.0-75.0 [place] [id number] 10:19:00 Test Item Value Reference Range Interpretation Comments Lymphocytes (test code = Lymphocytes) 39.9 20.0-40.0 [place] [address]-10-27 10:19:00 Test Item Value Reference Range Interpretation Comments Monocytes (test code = Monocytes) 8.8 2.0-12.0 [place] [address]-10-27 10:19:00 Test Item Value Reference Range Interpretation Comments Eosinophils (test code = 5.4 See_Comment [A utomated message] The Eosinophils) system which ge nerated this result tra nsmitted reference range : <=4.0. The reference r luli was not used to int erpret this result as normal/abnormal . [place] [address]-10-27 10:19:00 Test Item Value Reference Range Interpretation Comments Basophils (test code = 0.4 See_Comment [Aut omated message] The Basophils) system which ge nerated this result tra nsmitted reference range : <=1.0. The reference r luli was not used to int erpret this result as normal/abnormal . [place] 991441-10-27 10:19:00 Test Item Value Reference Range Interpretation Comments Neutrophils # (test code = Neutrophils 3.8 1.5-8.1 #) [id number] 10:19:00 Test Item Value Reference Range Interpretation Comments Lymphocytes # (test code = Lymphocytes 3.3 1.0-5.5 #) [place] 991441-10-27 10:19:00 Test Item Value Reference Range Interpretation Comments Monocytes # (test code 0.7 See_Comment [Aut omated message] The = Monocytes #) system which generated this result tra nsmitted reference range : <=0.8. The reference r luli was not used to int erpret this result as normal/abnormal . [id number] 10:19:00 Test Item Value Reference Range Interpretation Comments Eosinophils # (test code 0.4 See_Comment [A utomated message] The = Eosinophils #) system whic h generated this result tra nsmitted reference range : <=0.5. The reference r luli was not used to int erpret this result as normal/abnormal . [facility] [facility] [place]25[place]30[place]56 10:19:00 Test Item Value Reference Range Interpretation Comments WBC (test code = WBC) 8.3 3.7-10.4 [facility] [place]IpjauddQWLGMCGASJ4772-94-76 10:19:00 Test Item Value Reference Range Interpretation Comments RBC (test code = RBC) 3.31 4.20-5.40 [place] 991441-10-27 10:19:00 Test Item Value Reference Range Interpretation Comments Hgb (test code = Hgb) 11.0 12.0-16.0 [place] 991441-10-27 10:19:00 Test Item Value Reference Range Interpretation Comments Hct (test code = Hct) 32.4 36.0-48.0 [place] 991441-10-27 10:19:00 Test Item Value Reference Range Interpretation Comments MCV (test code = MCV) 97.7 80.0-98.0 [place] 991441-10-27 10:19:00 Test Item Value Reference Range Interpretation Comments MCH (test code = MCH) 33.0 pg 27.0-31.0 [place] 991441-10-27 10:19:00 Test Item Value Reference Range Interpretation Comments MCHC (test code = MCHC) 33.8 32.0-36.0 [facility] [place]YzbnzlfSEAOGBEYEA2724-05-11 10:19:00 Test Item Value Reference Range Interpretation Comments RDW (test code = RDW) 14.1 11.5-14.5 [place] 991441-10-27 10:19:00 Test Item Value Reference Range Interpretation Comments Platelet (test code = Platelet) 414 133-450 [facility] [place]UccpfwhXQYPQVNGLU0771-52-68 10:19:00 Test Item Value Reference Range Interpretation Comments MPV (test code = MPV) 8.0 7.4-10.4 [facility]2021-10-22 09:19:00 Test Item Value Reference Range Interpretation Comments Glucose Lvl (test code = Glucose Lvl) 106 70-99 [facility]2021-10-22 09:19:00 Test Item Value Reference Range Interpretation Comments BUN (test code = BUN) 24 7-22 [facility]2021-10-22 09:19:00 Test Item Value Reference Range Interpretation Comments Creatinine Lvl (test code = Creatinine 0.84 0.50-1.40 Lvl) [facility]2021-10-22 09:19:00 Test Item Value Reference Range Interpretation Comments Sodium Lvl (test code = Sodium Lvl) 144 135-145 [facility]2021-10-22 09:19:00 Test Item Value Reference Range Interpretation Comments Potassium Lvl (test code = Potassium 4.3 3.5-5.1 Lvl) [facility]2021-10-22 09:19:00 Test Item Value Reference Range Interpretation Comments Chloride Lvl (test code = Chloride Lvl) 115 95-109 [place] 222911-10-22 09:19:00 Test Item Value Reference Range Interpretation Comments CO2 (test code = CO2) 23 24-32 [facility]2021-10-22 09:19:00 Test Item Value Reference Range Interpretation Comments AGAP (test code = AGAP) 10.3 10.0-20.0 [facility]2021-10-22 09:19:00 Test Item Value Reference Range Interpretation Comments Calcium Lvl (test code = Calcium Lvl) 9.5 8.5-10.5 [facility]2021-10-22 09:19:00 Test Item Value Reference Range Interpretation Comments eGFR (test code = eGFR) 80 [place] 991441-10-22 09:19:00 Test Item Value Reference Range Interpretation Comments Segs (test code = Segs) 47.4 45.0-75.0 [place] [address]-10-22 09:19:00 Test Item Value Reference Range Interpretation Comments Lymphocytes (test code = Lymphocytes) 39.9 20.0-40.0 [place] [address]-10-22 09:19:00 Test Item Value Reference Range Interpretation Comments Monocytes (test code = Monocytes) 6.9 2.0-12.0 [place] 991441-10-22 09:19:00 Test Item Value Reference Range Interpretation Comments Eosinophils (test code = 5.5 See_Comment [A utomated message] The Eosinophils) system which ge nerated this result tra nsmitted reference range : <=4.0. The reference r luli was not used to int erpret this result as normal/abnormal . [place] 991441-10-22 09:19:00 Test Item Value Reference Range Interpretation Comments Basophils (test code = 0.3 See_Comment [Aut omated message] The Basophils) system which ge nerated this result tra nsmitted reference range : <=1.0. The reference r luli was not used to int erpret this result as normal/abnormal . [place] 991441-10-22 09:19:00 Test Item Value Reference Range Interpretation Comments Neutrophils # (test code = Neutrophils 4.7 1.5-8.1 #) [place] 991441-10-22 09:19:00 Test Item Value Reference Range Interpretation Comments Lymphocytes # (test code = Lymphocytes 4.0 1.0-5.5 #) [place] [address]-10-22 09:19:00 Test Item Value Reference Range Interpretation Comments Monocytes # (test code 0.7 See_Comment [Aut omated message] The = Monocytes #) system which generated this result tra nsmitted reference range : <=0.8. The reference r luli was not used to int erpret this result as normal/abnormal . [place] [address]-10-22 09:19:00 Test Item Value Reference Range Interpretation Comments Eosinophils # (test code 0.5 See_Comment [A utomated message] The = Eosinophils #) system whic h generated this result tra nsmitted reference range : <=0.5. The reference r luli was not used to int erpret this result as normal/abnormal . [facility] [place]XrphmioNLNFYEOQVN5921-66-21 09:19:00 Test Item Value Reference Range Interpretation Comments WBC (test code = WBC) 10.0 3.7-10.4 [facility] [place]CejfnqiNTPIBUOYUN7351-27-20 09:19:00 Test Item Value Reference Range Interpretation Comments RBC (test code = RBC) 3.55 4.20-5.40 [facility] [place]OggykhaQANAKCDSVI7074-86-14 09:19:00 Test Item Value Reference Range Interpretation Comments Hgb (test code = Hgb) 11.8 12.0-16.0 [facility] [place]ieWssciyvOYMWDLWZKV0542-35-14 09:19:00 Test Item Value Reference Range Interpretation Comments Hct (test code = Hct) 34.9 36.0-48.0 [facility] [place]ieCxmjgfmTTWCDCACVD5859-58-56 09:19:00 Test Item Value Reference Range Interpretation Comments MCV (test code = MCV) 98.3 80.0-98.0 [facility] [place]ieSztrsbbKJRWKTLNHW1468-35-98 09:19:00 Test Item Value Reference Range Interpretation Comments MCH (test code = MCH) 33.4 pg 27.0-31.0 [facility] [place]ieLcmsbrbCBSOAWMDHU0768-94-31 09:19:00 Test Item Value Reference Range Interpretation Comments MCHC (test code = MCHC) 33.9 32.0-36.0 [facility] [place]ieMqezmbaZBSMHQXNIG8795-79-09 09:19:00 Test Item Value Reference Range Interpretation Comments RDW (test code = RDW) 14.0 11.5-14.5 [facility] [place]ieQdwamgpMNCXPEEXLC2258-50-92 09:19:00 Test Item Value Reference Range Interpretation Comments Platelet (test code = Platelet) 366 133-450 [facility] [place]ieJnghugpQQCQTSLJXO6812-68-23 09:19:00 Test Item Value Reference Range Interpretation Comments MPV (test code = MPV) 8.5 7.4-10.4 [facility]XT[facility]SF[facility]381[facility]28-73 09:19:00 Test Item Value Reference Range Interpretation Comments Winslow Lvl (test code = Winslow Lvl) 0.99 0.50-1.50 [place] 991441-10-21 17:20:00 Test Item Value Reference Range Interpretation Comments MCHC (test code = MCHC) 33.2 32.0-36.0 [place] 991441-10-21 17:20:00 Test Item Value Reference Range Interpretation Comments RDW (test code = RDW) 14.3 11.5-14.5 [place] 991441-10-21 17:20:00 Test Item Value Reference Range Interpretation Comments Platelet (test code = Platelet) 358 133-450 [facility] [place]ieFsimjmkAFIBPXKNND5340-86-31 17:20:00 Test Item Value Reference Range Interpretation Comments MPV (test code = MPV) 8.3 7.4-10.4 [place] 991441-10-21 17:20:00 Test Item Value Reference Range Interpretation Comments Segs (test code = Segs) 62.4 45.0-75.0 [place] 991441-10-21 17:20:00 Test Item Value Reference Range Interpretation Comments Lymphocytes (test code = Lymphocytes) 27.0 20.0-40.0 [place] 991441-10-21 17:20:00 Test Item Value Reference Range Interpretation Comments Monocytes (test code = Monocytes) 8.9 2.0-12.0 [facility] [place]ieGmyrsukRXRJAGCGWR9832-76-38 17:20:00 Test Item Value Reference Range Interpretation Comments Eosinophils (test code = 1.5 See_Comment [A utomated message] The Eosinophils) system which ge nerated this result tra nsmitted reference range : <=4.0. The reference r luli was not used to int erpret this result as normal/abnormal . [facility] [place]ieJzzpagoKJPJPXTVIE5591-41-90 17:20:00 Test Item Value Reference Range Interpretation Comments Basophils (test code = 0.2 See_Comment [Aut omated message] The Basophils) system which ge nerated this result tra nsmitted reference range : <=1.0. The reference r luli was not used to int erpret this result as normal/abnormal . [place] 991441-10-21 17:20:00 Test Item Value Reference Range Interpretation Comments Neutrophils # (test code = Neutrophils 6.3 1.5-8.1 #) [place] 991441-10-21 17:20:00 Test Item Value Reference Range Interpretation Comments Lymphocytes # (test code = Lymphocytes 2.7 1.0-5.5 #) [place] 991441-10-21 17:20:00 Test Item Value Reference Range Interpretation Comments Monocytes # (test code 0.9 See_Comment [Aut omated message] The = Monocytes #) system which generated this result tra nsmitted reference range : <=0.8. The reference r luli was not used to int erpret this result as normal/abnormal . [place] 991441-10-21 17:20:00 Test Item Value Reference Range Interpretation Comments Eosinophils # (test code 0.2 See_Comment [A utomated message] The = Eosinophils #) system whic h generated this result tra nsmitted reference range : <=0.5. The reference r luli was not used to int erpret this result as normal/abnormal . [place] 222911-10-21 17:20:00 Test Item Value Reference Range Interpretation Comments Magnesium Lvl (test code = Magnesium 2.5 1.8-2.4 Lvl) [place] 222911-10-21 17:20:00 Test Item Value Reference Range Interpretation Comments Glucose Lvl (test code = Glucose Lvl) 96 70-99 [place] 222911-10-21 17:20:00 Test Item Value Reference Range Interpretation Comments BUN (test code = BUN) 23 7-22 [place] [address]-10-21 17:20:00 Test Item Value Reference Range Interpretation Comments Creatinine Lvl (test code = Creatinine 1.34 0.50-1.40 Lvl) [place] 222911-10-21 17:20:00 Test Item Value Reference Range Interpretation Comments Sodium Lvl (test code = Sodium Lvl) 141 135-145 [place] 222911-10-21 17:20:00 Test Item Value Reference Range Interpretation Comments Potassium Lvl (test code = Potassium 4.1 3.5-5.1 Lvl) [place] [address]-10-21 17:20:00 Test Item Value Reference Range Interpretation Comments Chloride Lvl (test code = Chloride Lvl) 112 95-109 [place] 222911-10-21 17:20:00 Test Item Value Reference Range Interpretation Comments CO2 (test code = CO2) 23 24-32 [facility] [id number] 17:20:00 Test Item Value Reference Range Interpretation Comments Calcium Lvl (test code = Calcium Lvl) 9.4 8.5-10.5 [facility] [place] [id number] 17:20:00 Test Item Value Reference Range Interpretation Comments AGAP (test code = AGAP) 10.1 10.0-20.0 [facility] [id number] 17:20:00 Test Item Value Reference Range Interpretation Comments eGFR (test code = eGFR) 46 [facility]mag[facility]OOOZAKSOZD5230-99-07 17:20:00 Test Item Value Reference Range Interpretation Comments WBC (test code = WBC) 10.2 3.7-10.4 [facility] AjgnaodQACMKRHGYC1823-17-70 17:20:00 Test Item Value Reference Range Interpretation Comments RBC (test code = RBC) 3.64 4.20-5.40 [facility] KzmdodtJLCLVYXGNS8708-07-95 17:20:00 Test Item Value Reference Range Interpretation Comments Hgb (test code = Hgb) 12.0 12.0-16.0 [facility] HospitalEcozwmaIWCWVBUZUZ2925-02-04 17:20:00 Test Item Value Reference Range Interpretation Comments Hct (test code = Hct) 36.0 36.0-48.0 [facility] DyuwghpIMYPPHTUWI5051-89-87 17:20:00 Test Item Value Reference Range Interpretation Comments MCV (test code = MCV) 99.0 80.0-98.0 [facility] EkghkqkHNTOFWCNZR3562-94-12 17:20:00 Test Item Value Reference Range Interpretation Comments MCH (test code = MCH) 32.9 pg 27.0-31.0 [facility] [employer] [id number] 11:05:00 Test Item Value Reference Range Interpretation Comments ABO/Rh (test code = ABO/Rh) O POS [facility] [id number] 11:05:00 Test Item Value Reference Range Interpretation Comments Antibody Scrn (test Negative (04/26/21 code = Antibody Scrn) 6:05 AM) [facility] [place] [id number] 10:03:00 Test Item Value Reference Range Interpretation Comments Glucose Lvl (test code = Glucose Lvl) 83 70-99 [facility] HospitalIkerChemCOMMUNITY HEALTHMYJPH1087-55-61 10:03:00 Test Item Value Reference Range Interpretation Comments BUN (test code = BUN) 10 - [facility] HospitalIkerChemCOMMUNITY HEALTHPLTXX6776-96-54 10:03:00 Test Item Value Reference Range Interpretation Comments Creatinine Lvl (test code = Creatinine 0.83 0.50-1.40 Lvl) [facility]2021-10-16 10:03:00 Test Item Value Reference Range Interpretation Comments Sodium Lvl (test code = Sodium Lvl) 142 135-145 [facility] HospitalBrainlike [id number] 10:03:00 Test Item Value Reference Range Interpretation Comments Potassium Lvl (test code = Potassium 3.7 3.5-5.1 Lvl) [facility] [id number] 10:03:00 Test Item Value Reference Range Interpretation Comments Chloride Lvl (test code = Chloride Lvl) 115 95-109 [facility] [id number] 10:03:00 Test Item Value Reference Range Interpretation Comments CO2 (test code = CO2) 24-32 [facility] [id number] 10:03:00 Test Item Value Reference Range Interpretation Comments Calcium Lvl (test code = Calcium Lvl) 9.0 8.5-10.5 [facility] [id number] 10:03:00 Test Item Value Reference Range Interpretation Comments AGAP (test code = AGAP) 8.7 10.0-20.0 [facility] [id number] 10:03:00 Test Item Value Reference Range Interpretation Comments eGFR (test code = eGFR) 81 [facility]2021-10-16 10:03:00 Test Item Value Reference Range Interpretation Comments eGFR (test code = eGFR) 81 [facility] [id number] 10:03:00 Test Item Value Reference Range Interpretation Comments Glucose Lvl (test code = Glucose Lvl) 83 70-99 [facility]2021-10-16 10:03:00 Test Item Value Reference Range Interpretation Comments BUN (test code = BUN) 10 - [facility] HospitalIkerChemCOMMUNITY HEALTHFTQDP9907-32-31 10:03:00 Test Item Value Reference Range Interpretation Comments Creatinine Lvl (test code = Creatinine 0.83 0.50-1.40 Lvl) [facility] HospitalannCOMMUNITY HEALTHGYKHM2283-10-64 10:03:00 Test Item Value Reference Range Interpretation Comments Sodium Lvl (test code = Sodium Lvl) 142 135-145 [facility]2021-10-16 10:03:00 Test Item Value Reference Range Interpretation Comments Potassium Lvl (test code = Potassium 3.7 3.5-5.1 Lvl) [facility]2021-10-16 10:03:00 Test Item Value Reference Range Interpretation Comments Chloride Lvl (test code = Chloride Lvl) 115 95-109 [facility]2021-10-16 10:03:00 Test Item Value Reference Range Interpretation Comments CO2 (test code = CO2) 22 24-32 [facility]2021-10-16 10:03:00 Test Item Value Reference Range Interpretation Comments AGAP (test code = AGAP) 8.7 10.0-20.0 [facility]2021-10-16 10:03:00 Test Item Value Reference Range Interpretation Comments Calcium Lvl (test code = Calcium Lvl) 9.0 8.5-10.5 [facility]2021-10-16 10:03:00 Test Item Value Reference Range Interpretation Comments B/C Ratio (test code = B/C Ratio) 12 1 6-25 [facility]2021-10-16 10:03:00 Test Item Value Reference Range Interpretation Comments Total Protein (test code = Total 6.0 6.4-8.4 Protein) [facility]2021-10-16 10:03:00 Test Item Value Reference Range Interpretation Comments Albumin Lvl (test code = Albumin Lvl) 2.8 3.5-5.0 [facility]2021-10-16 10:03:00 Test Item Value Reference Range Interpretation Comments Globulin (test code = Globulin) 3.2 2.7-4.2 [place] 222911-10-16 10:03:00 Test Item Value Reference Range Interpretation Comments A/G Ratio (test code = A/G Ratio) 0.9 1 0.7-1.6 [place] 222911-10-16 10:03:00 Test Item Value Reference Range Interpretation Comments ALT (test code = ALT) 6 See_Comment [Auto mated message] The system which ge nerated this result transmit jana reference range : <=65. The reference range was not used to interpr et this result as gabbie l/abnormal. [facility]2021-10-16 10:03:00 Test Item Value Reference Range Interpretation Comments AST (test code = AST) 12 See_Comment [Auto mated message] The system which ge nerated this result transmit jana reference range : <=37. The reference range was not used to interpr et this result as gabbie l/abnormal. [facility]2021-10-16 10:03:00 Test Item Value Reference Range Interpretation Comments Alk Phos (test code = Alk Phos) 47 39-136 [facility]2021-10-16 10:03:00 Test Item Value Reference Range Interpretation Comments Bili Total (test code = Bili Total) 0.5 0.2-1.3 [facility] [place]ieCmasajcFOVAQHWXPC4218-44-23 10:03:00 Test Item Value Reference Range Interpretation Comments WBC (test code = WBC) 8.6 3.7-10.4 [facility] [place]ieBpqpghkMPETWVTUYG1762-12-65 10:03:00 Test Item Value Reference Range Interpretation Comments RBC (test code = RBC) 4.01 4.20-5.40 [facility] [place]ieUnfdvehKIJMKSLJES7461-75-38 10:03:00 Test Item Value Reference Range Interpretation Comments Hgb (test code = Hgb) 13.0 12.0-16.0 [facility] [place]ieEixwyfhMYMKRWEDKM7428-22-42 10:03:00 Test Item Value Reference Range Interpretation Comments Hct (test code = Hct) 39.1 36.0-48.0 [facility] [place]ieJuglrfuTJZQLSDMPT5871-87-47 10:03:00 Test Item Value Reference Range Interpretation Comments MCV (test code = MCV) 97.5 80.0-98.0 [facility] [place]ieOydahpxTQVLUEBOAR8751-39-20 10:03:00 Test Item Value Reference Range Interpretation Comments MCH (test code = MCH) 32.5 pg 27.0-31.0 [facility] [place]ieOzhnzpaXZEXYLFADA4934-57-53 10:03:00 Test Item Value Reference Range Interpretation Comments MCHC (test code = MCHC) 33.3 32.0-36.0 [facility] [place]ieGviggzbGVLYVNZKDA4461-05-54 10:03:00 Test Item Value Reference Range Interpretation Comments RDW (test code = RDW) 14.0 11.5-14.5 [place] 991441-10-16 10:03:00 Test Item Value Reference Range Interpretation Comments Platelet (test code = Platelet) 258 133-450 [place] 991441-10-16 10:03:00 Test Item Value Reference Range Interpretation Comments MPV (test code = MPV) 9.1 7.4-10.4 [facility] [place]ieYbntsorWWJQRPBZMB8608-10-87 10:03:00 Test Item Value Reference Range Interpretation Comments Segs (test code = Segs) 54.9 45.0-75.0 [place] 991441-10-16 10:03:00 Test Item Value Reference Range Interpretation Comments Lymphocytes (test code = Lymphocytes) 34.5 20.0-40.0 [place] 991441-10-16 10:03:00 Test Item Value Reference Range Interpretation Comments Monocytes (test code = Monocytes) 5.8 2.0-12.0 [facility] [place]ieEdnzribTGKCZRLXQZ0497-04-85 10:03:00 Test Item Value Reference Range Interpretation Comments Eosinophils (test code = 4.6 See_Comment [A utomated message] The Eosinophils) system which ge nerated this result tra nsmitted reference range : <=4.0. The reference r luli was not used to int erpret this result as normal/abnormal . [facility] [place]ieDbndsixKOSOYDFMPO7655-70-41 10:03:00 Test Item Value Reference Range Interpretation Comments Basophils (test code = 0.2 See_Comment [Aut omated message] The Basophils) system which ge nerated this result tra nsmitted reference range : <=1.0. The reference r luli was not used to int erpret this result as normal/abnormal . [facility] [place]ieNutficeGMSSSSGUZZ6352-84-34 10:03:00 Test Item Value Reference Range Interpretation Comments Neutrophils # (test code = Neutrophils 4.7 1.5-8.1 #) [facility] [place]ieSyfkqevHPEHTIOLZG8624-67-39 10:03:00 Test Item Value Reference Range Interpretation Comments Lymphocytes # (test code = Lymphocytes 3.0 1.0-5.5 #) [facility] [place]ieDigyfgdOVDVRNBQJW6771-98-52 10:03:00 Test Item Value Reference Range Interpretation Comments Monocytes # (test code 0.5 See_Comment [Aut omated message] The = Monocytes #) system which generated this result tra nsmitted reference range : <=0.8. The reference r luli was not used to int erpret this result as normal/abnormal . [facility]bhGUSZFSRKGR4817-[facility] 10:03:00 Test Item Value Reference Range Interpretation Comments Eosinophils # (test code 0.4 See_Comment [A utomated message] The = Eosinophils #) system whic h generated this result tra nsmitted reference range : <=0.5. The reference r luli was not used to int erpret this result as normal/abnormal . [facility]2021-10-15 08:31:00 Test Item Value Reference Range Interpretation Comments Glucose Lvl (test code = Glucose Lvl) 117 70-99 [place] 222911-10-15 08:31:00 Test Item Value Reference Range Interpretation Comments BUN (test code = BUN) 11 7-22 [place] 222911-10-15 08:31:00 Test Item Value Reference Range Interpretation Comments Creatinine Lvl (test code = Creatinine 1.00 0.50-1.40 Lvl) [place] 222911-10-15 08:31:00 Test Item Value Reference Range Interpretation Comments Sodium Lvl (test code = Sodium Lvl) 139 135-145 [place] 222911-10-15 08:31:00 Test Item Value Reference Range Interpretation Comments Potassium Lvl (test code = Potassium 4.0 3.5-5.1 Lvl) [place] 222911-10-15 08:31:00 Test Item Value Reference Range Interpretation Comments Chloride Lvl (test code = Chloride Lvl) 113 95-109 [place] 222911-10-15 08:31:00 Test Item Value Reference Range Interpretation Comments CO2 (test code = CO2) 18 24-32 [place] 222911-10-15 08:31:00 Test Item Value Reference Range Interpretation Comments Calcium Lvl (test code = Calcium Lvl) 8.9 8.5-10.5 [place] 222911-10-15 08:31:00 Test Item Value Reference Range Interpretation Comments Total Protein (test code = Total 6.6 6.4-8.4 Protein) [place] 222911-10-15 08:31:00 Test Item Value Reference Range Interpretation Comments Albumin Lvl (test code = Albumin Lvl) 3.1 3.5-5.0 [facility] [place] [id number] 08:31:00 Test Item Value Reference Range Interpretation Comments ALT (test code = ALT) 9 See_Comment [Auto mated message] The system which ge nerated this result transmit jana reference range : <=65. The reference range was not used to interpr et this result as gabbie l/abnormal. [facility] [place] [id number] 08:31:00 Test Item Value Reference Range Interpretation Comments AST (test code = AST) 13 See_Comment [Auto mated message] The system which ge nerated this result transmit jana reference range : <=37. The reference range was not used to interpr et this result as gabbie l/abnormal. [facility] [place] [id number] 08:31:00 Test Item Value Reference Range Interpretation Comments Alk Phos (test code = Alk Phos) 54 39-136 [facility] [id number] 08:31:00 Test Item Value Reference Range Interpretation Comments Bili Total (test code = Bili Total) 0.6 0.2-1.3 [facility] [id number] 08:31:00 Test Item Value Reference Range Interpretation Comments AGAP (test code = AGAP) 12.0 10.0-20.0 [facility] [place] [id number] 08:31:00 Test Item Value Reference Range Interpretation Comments B/C Ratio (test code = B/C Ratio) 11 1 6-25 [facility] [place] [id number] 08:31:00 Test Item Value Reference Range Interpretation Comments Globulin (test code = Globulin) 3.5 2.7-4.2 [facility] [place] [id number] 08:31:00 Test Item Value Reference Range Interpretation Comments A/G Ratio (test code = A/G Ratio) 0.9 1 0.7-1.6 [facility] [place] [id number] 08:31:00 Test Item Value Reference Range Interpretation Comments eGFR (test code = eGFR) 65 [facility] MdlsgpsVHURSAPDRG8761-84-26 08:31:00 Test Item Value Reference Range Interpretation Comments WBC (test code = WBC) 8.2 3.7-10.4 [facility]bNMZAELHMZQ6487-64-76 08:31:00 Test Item Value Reference Range Interpretation Comments RBC (test code = RBC) 4.20 4.20-5.40 [place] [id number] 08:31:00 Test Item Value Reference Range Interpretation Comments Hgb (test code = Hgb) 13.5 12.0-16.0 [place] [id number] 08:31:00 Test Item Value Reference Range Interpretation Comments Hct (test code = Hct) 40.6 36.0-48.0 [facility]WvvjnekMKGYPGLEUX8465-87-86 08:31:00 Test Item Value Reference Range Interpretation Comments MCV (test code = MCV) 96.8 80.0-98.0 [place] [id number] 08:31:00 Test Item Value Reference Range Interpretation Comments MCH (test code = MCH) 32.1 pg 27.0-31.0 [facility]ieGywgfnkILRUGYSNSM9573-49-26 08:31:00 Test Item Value Reference Range Interpretation Comments MCHC (test code = MCHC) 33.2 32.0-36.0 [place] [id number] 08:31:00 Test Item Value Reference Range Interpretation Comments RDW (test code = RDW) 14.3 11.5-14.5 [facility]ieLsziayyLDJXZQFFYY0379-88-64 08:31:00 Test Item Value Reference Range Interpretation Comments Platelet (test code = Platelet) 257 133-450 [facility]ieCfrbpauJJTLUNXTXU7122-36-13 08:31:00 Test Item Value Reference Range Interpretation Comments MPV (test code = MPV) 8.8 7.4-10.4 [place] [address]-10-15 08:31:00 Test Item Value Reference Range Interpretation Comments Segs (test code = Segs) 56.0 45.0-75.0 [place] [address]-10-15 08:31:00 Test Item Value Reference Range Interpretation Comments Lymphocytes (test code = Lymphocytes) 33.0 20.0-40.0 [place] [address]-10-15 08:31:00 Test Item Value Reference Range Interpretation Comments Monocytes (test code = Monocytes) 7.6 2.0-12.0 [place] [id number] 08:31:00 Test Item Value Reference Range Interpretation Comments Eosinophils (test code = 2.9 See_Comment [A utomated message] The Eosinophils) system which ge nerated this result tra nsmitted reference range : <=4.0. The reference r luli was not used to int erpret this result as normal/abnormal . [facility]TcpekkiVAEJCQTDAY2710-91-22 08:31:00 Test Item Value Reference Range Interpretation Comments Basophils (test code = 0.5 See_Comment [Aut omated message] The Basophils) system which ge nerated this result tra nsmitted reference range : <=1.0. The reference r luli was not used to int erpret this result as normal/abnormal . [facility]ieQhotckwWZHKVYLQOI3288-27-45 08:31:00 Test Item Value Reference Range Interpretation Comments Neutrophils # (test code = Neutrophils 4.6 1.5-8.1 #) [place] [id number] 08:31:00 Test Item Value Reference Range Interpretation Comments Lymphocytes # (test code = Lymphocytes 2.7 1.0-5.5 #) [place] [id number] 08:31:00 Test Item Value Reference Range Interpretation Comments Monocytes # (test code 0.6 See_Comment [Aut omated message] The = Monocytes #) system which generated this result tra nsmitted reference range : <=0.8. The reference r luli was not used to int erpret this result as normal/abnormal . [facility]ieWzvryqsSHBRXSLFYN0869-55-92 08:31:00 Test Item Value Reference Range Interpretation Comments Eosinophils # (test code 0.2 See_Comment [A utomated message] The = Eosinophils #) system [employer] generated this result tra nsmitted reference range : <=0.5. The reference r luli was not used to int erpret this result as normal/abnormal . [facility] [place] [id number] 08:39:00 Test Item Value Reference Range Interpretation Comments Procalcitonin Lvl <0.05 ng/mL See_Comment [Automate d message] (test code = The system ic h Procalcitonin Lvl) generated this result transmit jana reference range : <=0.10. The reference range was not used to interpret this result as normal/abnormal . [facility] [place] [id number] 08:39:00 Test Item Value Reference Range Interpretation Comments Total Protein (test code = Total 7.6 6.4-8.4 Protein) [facility] [id number] 08:39:00 Test Item Value Reference Range Interpretation Comments Albumin Lvl (test code = Albumin Lvl) 3.9 3.5-5.0 [facility] [id number] 08:39:00 Test Item Value Reference Range Interpretation Comments ALT (test code = ALT) 12 See_Comment [Auto mated message] The system which ge nerated this result transmit jana reference range : <=65. The reference range was not used to interpr et this result as gabbie l/abnormal. [facility] [id number] 08:39:00 Test Item Value Reference Range Interpretation Comments AST (test code = AST) 10 See_Comment [Auto mated message] The system which ge nerated this result transmit jana reference range : <=37. The reference range was not used to interpr et this result as gabbie l/abnormal. [facility] [id number] 08:39:00 Test Item Value Reference Range Interpretation Comments Alk Phos (test code = Alk Phos) 65 39-136 [facility] [id number] 08:39:00 Test Item Value Reference Range Interpretation Comments Bili Total (test code = Bili Total) 0.8 0.2-1.3 [facility] [id number] 08:39:00 Test Item Value Reference Range Interpretation Comments B/C Ratio (test code = B/C Ratio) 11 1 6-25 [facility] [id number] 08:39:00 Test Item Value Reference Range Interpretation Comments Globulin (test code = Globulin) 3.7 2.7-4.2 [facility] [id number] 08:39:00 Test Item Value Reference Range Interpretation Comments A/G Ratio (test code = A/G Ratio) 1.1 1 0.7-1.6 [facility] [id number] 08:39:00 Test Item Value Reference Range Interpretation Comments Magnesium Lvl (test code = Magnesium 2.6 1.8-2.4 Lvl) [facility] [id number] 08:39:00 Test Item Value Reference Range Interpretation Comments Phosphorus (test code = Phosphorus) 3.5 2.5-4.5 [id number] 08:39:00 Test Item Value Reference Range Interpretation Comments WBC (test code = WBC) 9.3 3.7-10.4 [facility]ieRglowpcGOBNNZVBPH6901-70-56 08:39:00 Test Item Value Reference Range Interpretation Comments RBC (test code = RBC) 4.48 4.20-5.40 [facility]ieWbylplfGEIUPHRFDU0592-29-28 08:39:00 Test Item Value Reference Range Interpretation Comments Hgb (test code = Hgb) 14.6 12.0-16.0 [id number] 08:39:00 Test Item Value Reference Range Interpretation Comments Hct (test code = Hct) 43.6 36.0-48.0 [facility]ieSwbtlbaSBSUZSGJDX6275-71-73 08:39:00 Test Item Value Reference Range Interpretation Comments MCV (test code = MCV) 97.3 80.0-98.0 [facility]ieQfbcxxyVWRRFITCOF2676-59-26 08:39:00 Test Item Value Reference Range Interpretation Comments MCH (test code = MCH) 32.5 pg 27.0-31.0 [facility]ieVwiadsgVNNRLJZXDO2580-63-29 08:39:00 Test Item Value Reference Range Interpretation Comments MCHC (test code = MCHC) 33.5 32.0-36.0 [facility]ieWqfzhwbKFJXKJJWIX2703-83-40 08:39:00 Test Item Value Reference Range Interpretation Comments RDW (test code = RDW) 14.5 11.5-14.5 [facility]ieHttsebgMEAPXJBTCL1610-12-59 08:39:00 Test Item Value Reference Range Interpretation Comments Platelet (test code = Platelet) 296 133-450 [facility]ieAqarxckUCGQQYFMQQ5280-10-52 08:39:00 Test Item Value Reference Range Interpretation Comments MPV (test code = MPV) 9.0 7.4-10.4 [facility]ieMotamsnVWGJPJUMNZ0689-42-80 08:39:00 Test Item Value Reference Range Interpretation Comments PT (test code = PT) 13.4 s 12.0-14.7 [facility]ieTxbfvbpTQLYMWMTJG3816-59-09 08:39:00 Test Item Value Reference Range Interpretation Comments INR (test code = INR) 1.03 1 0.85-1.17 [facility]ieQacurbtVDZTNFJBML6939-14-18 08:39:00 Test Item Value Reference Range Interpretation Comments PTT (test code = PTT) 36.3 s 22.9-35.8 [facility]ieAjkgrdzUDLBZVSYBX3977-34-50 08:39:00 Test Item Value Reference Range Interpretation Comments Segs (test code = Segs) 61.3 45.0-75.0 [facility]ieNumlhxrOCMLXJAAOC9171-65-74 08:39:00 Test Item Value Reference Range Interpretation Comments Lymphocytes (test code = Lymphocytes) 29.7 20.0-40.0 [facility]ieWfyukrkJLFBTLPJFU3312-91-70 08:39:00 Test Item Value Reference Range Interpretation Comments Monocytes (test code = Monocytes) 8.1 2.0-12.0 [facility]ieZwxvabcBDTZRHGDML6809-39-22 08:39:00 Test Item Value Reference Range Interpretation Comments Eosinophils (test code = 0.4 See_Comment [A utomated message] The Eosinophils) system which ge nerated this result tra nsmitted reference range : <=4.0. The reference r luli was not used to int erpret this result as normal/abnormal . [id number] 08:39:00 Test Item Value Reference Range Interpretation Comments Basophils (test code = 0.5 See_Comment [Aut omated message] The Basophils) system which ge nerated this result tra nsmitted reference range : <=1.0. The reference r luli was not used to int erpret this result as normal/abnormal . [facility]ieUgecpjcCVYSXDQNTS4134-11-28 08:39:00 Test Item Value Reference Range Interpretation Comments Neutrophils # (test code = Neutrophils 5.7 1.5-8.1 #) [place] [id number] 08:39:00 Test Item Value Reference Range Interpretation Comments Lymphocytes # (test code = Lymphocytes 2.8 1.0-5.5 #) [place] 991441-10-14 08:39:00 Test Item Value Reference Range Interpretation Comments Monocytes # (test code 0.7 See_Comment [Aut omated message] The = Monocytes #) system which generated this result tra nsmitted reference range : <=0.8. The reference r luli was not used to int erpret this result as normal/abnormal . [place] 126911-10-14 08:39:00 Test Item Value Reference Range Interpretation Comments Winslow Lvl (test code = Winslow Lvl) 0.89 0.50-1.50 [facility] Hos[id number] 20:30:00 Test Item Value Reference Range Interpretation Comments Acetaminoph Lvl (test code = no gt 04-26 Acetaminoph Lvl) [facility] [id number] 20:30:00 Test Item Value Reference Range Interpretation Comments Ethanol Lvl (test code = Ethanol Lvl) no gt [facility] HospitalCvvozuvCDUAVSGECO8654-37-74 20:30:00 Test Item Value Reference Range Interpretation Comments Etoh (%) (test code = Etoh (%)) no gt [facility] HospitalWwfotawSKSUXAYUIV3922-34-86 20:30:00 Test Item Value Reference Range Interpretation Comments Salicylate Lvl (test 3.4 See_Comment [Autom ated message] The code = Salicylate Lvl) syste m which generated this result tra nsmitted reference range : <=30.0. The reference r luli was not used to int erpret this result as normal/abnormal . [facility] CenterURINE [id number] 14:23:00 Test Item Value Reference Range Interpretation Comments U Preg (test code = U Negative (04/19/21 9:23 Preg) AM) [facility] CenterUziqpfiPQUQHURUNJ1435-54-79 14:11:00 Test Item Value Reference Range Interpretation Comments Coronavirus (COVID-19) Not Detected JACKSON (test code = (04/19/21 9:11 AM) Coronavirus (COVID-19) JACKSON) [facility] HospitalSirtris Pharmaceuticals [id number] 11:20:00 Test Item Value Reference Range Interpretation Comments ABO/Rh (test code = ABO/Rh) O POS [facility] [employer] [id number] 11:20:00 Test Item Value Reference Range Interpretation Comments Antibody Scrn (test Negative (04/19/21 code = Antibody Scrn) 6:20 AM) [facility] CenterHhiqyhoJLJKHUEMBM5147-24-38 11:17:52 Test Item Value Reference Range Interpretation Comments ACT (TEG) Rapid (test code = ACT (TEG) 82 s 86-118 Rapid) [facility] CenterSqxfhpzKVDDCJXZVD9024-93-10 11:17:52 Test Item Value Reference Range Interpretation Comments Split Point Rapid (test code = Split 0.3 min Point Rapid) [place] [address]-10-13 11:17:52 Test Item Value Reference Range Interpretation Comments R-time Rapid (test code = R-time 0.3 min 0.4-0.7 Rapid) [place] [address]-10-13 11:17:52 Test Item Value Reference Range Interpretation Comments K-time Rapid (test code = K-time 0.9 min 0.6-2.3 Rapid) [place] [address]-10-13 11:17:52 Test Item Value Reference Range Interpretation Comments Angle Rapid (test code = Angle 80 degrees 64-80 Rapid) [place] [address]-10-13 11:17:52 Test Item Value Reference Range Interpretation Comments Max Amplitude Rapid (test code = Max 68 mm 52-71 Amplitude Rapid) [place] [address]-10-13 11:17:52 Test Item Value Reference Range Interpretation Comments G-value Rapid (test code = G-value 10.7 5.0-11.6 Rapid) [place] [address]-10-13 11:17:52 Test Item Value Reference Range Interpretation Comments Estimated % Lysis Rapid 1.1 See_Comment [Au tomated message] The (test code = Estimated syste m which generated % Lysis Rapid) this result t ransmitted reference range : <=7.5. The reference r luli was not used to int erpret this result as normal/abnormal . [place] [address]-10-13 11:17:42 Test Item Value Reference Range Interpretation Comments PT (test code = PT) 12.8 s 12.0-14.7 [place] [address]-10-13 11:17:42 Test Item Value Reference Range Interpretation Comments INR (test code = INR) 0.97 1 0.85-1.17 [place] [address]-10-13 11:17:42 Test Item Value Reference Range Interpretation Comments PTT (test code = PTT) 35.1 s 22.9-35.8 [facility]
[2022-09-05] MEDS ORDERED: NA CHLORIDE 0.9% 1,000 ML ONE ×4 (04:05→13:30)
[2022-09-05] MEDS ORDERED: DIPHENHYDRAMINE 50 MG/ML VIAL ONE (04:05)
[2022-09-05 04:34] LABS: Absolute Lymphocytes (CBC) 2.2 K/uL (0.7-4.9); Hematocrit 44.1 % (36.0-45.0); Lymphocytes % 27.9 % (15.3-44.8); MCV 93.1 fL (80-100); MPV 8.5 fL (7.6-11.3); RBC Red Blood Cell Count 4.74 M/uL (3.86-4.86)
[2022-09-05] MEDS ORDERED: LORazepam 2 MG/ML VIAL ONE ×2 (04:45→19:35)
[2022-09-05 05:13] LABS: ALT/SGPT 13 U/L (13-56); AST/SGOT 13 U/L (15-37); Albumin 3.6 g/dL (3.4-5.0); Alkaline Phosphatase 93 U/L (45-117); BUN Blood Urea Nitrogen 19 mg/dL (7-18); Bicarbonate 29 mmol/L (21-32); Bilirubin Total 0.4 mg/dL (0.2-1.0); Creatine Phosphokinase 68 U/L (26-192); Glomerular Filtration Rate 53 ml/min (=/>90); Glucose Level 94 mg/dL (74-106); Magnesium 2.5 mg/dL (1.6-2.4); Potassium 3.9 mmol/L (3.5-5.1); Protein, Total 6.9 g/dL (6.4-8.2); Sodium Level 137 mmol/L (136-145); Thyroid Stimulating Hormone 0.649 uIU/mL (0.358-3.740); Troponin High Sensitivity 3.4 pg/mL (<58.9)
[2022-09-05 05:35] LABS: Salicylates Level 2.6 mg/dL (2.8-20)
[2022-09-05 05:37] LABS: Lithium 4.6 mmol/L (0.6-1.2)
--- NOTE | 2022-09-05 06:29 | EDPHYS ---
Physician Documentation [facility] Name: Mitzi Murphy Age: 52 yrs Sex: Female : 1970 Arrival Date: 09/05/2022 Time: 03:37 Bed 6 Private MD: ED Physician Carlos Lockett HPI: 09/05 04:58 This 52 yrs old Female presents to ER via EMS with complaints of Shaking. rt 04:58 Unable to obtain HPI due to Psychiatric disturbance. Patient with history of rt schizophrenia and bipolar disorder presents to the ED with shaking. The mother was concerned for seizure, but, EMS reports that there is no loss of consciousness, no tremors noted. The. The patient's mother states that she has not been acting like her normal self and has an appoint with conXt today. Denies other acute complaints at this time, symptoms are moderate in severity, no other aggravating alleviating factors.. Historical: - Allergies: 03:40 No Known Allergies; as6 - PMHx: 03:40 Bipolar disorder; insomnia; manic depressive; TBI- 1993; thyroid problems; as6 - Immunization history:: Adult Immunizations unknown. - Social history:: Smoking status: Patient reports the use of cigarette tobacco products. - Family history:: not pertinent. ROS: 04:58 Unable to obtain ROS due to Psychiatric disturbance. rt Exam: 04:58 Constitutional: This is a well developed, well nourished patient who is awake, alert, rt and in no acute distress. Head/Face: Normocephalic, atraumatic. Chest/axilla: Normal chest wall appearance and motion. Nontender with no deformity. No lesions are appreciated. Cardiovascular: Regular rate and rhythm with a normal S1 and S2. No gallops, murmurs, or rubs. Normal PMI, no JVD. No pulse deficits. Respiratory: Lungs have equal breath sounds bilaterally, clear to auscultation and percussion. No rales, rhonchi or wheezes noted. No increased work of breathing, no retractions or nasal flaring. Abdomen/GI: Soft, non-tender, with normal bowel sounds. No distension or tympany. No guarding or rebound. No evidence of tenderness throughout. Skin: Warm, dry with normal turgor. Normal color with no rashes, no lesions, and no evidence of cellulitis. 04:58 Neuro: Tremors, possible extraparametal symptoms noted. Moves all 4 extremities equally.. 04:58 Psych: Uncooperative, denies SI. 05:02 ECG was reviewed by the Attending Physician. rt Vital Signs: 03:38 BP 103 / 62; Pulse 63; Resp 19 S; Temp 99.2(O); Pulse Ox 96% on R/A; Weight 58 kg (M); as6 Height 5 ft. 3 in. (160.02 cm) (R); 05:32 BP 127 / 115; Pulse 92; Resp 18 S; Pulse Ox 99% on R/A; ha1 06:57 BP 119 / 105; Pulse 68; Resp 21 S; Pulse Ox 97% on R/A; as6 19:39 BP 139 / 77; Pulse 69; Resp 18; Pulse Ox 100% ; jb5 03:38 Body Mass Index 22.65 (58.00 kg, 160.02 cm) as6 MDM: 03:39 Patient medically screened. rt 06:28 Differential Diagnosis altered mental status, [place] toxicity, drug overdose, primary rt psychiatric. Data reviewed: vital signs, nurses notes, lab test result(s), EKG, radiologic studies. Consideration of Admission/Observation Patient was admitted/placed on observation. Management of patient was discussed with the following: Hospitalist: Agrees to admit. I considered the following discharge prescriptions or medication management in the emergency department Medications were administered in the Emergency Department. See MAR. Historians other than the Patient: Parent: Mother provided history regarding present illness. Care significantly affected by the following chronic conditions: Schizophrenia, bipolar disorder. Counseling: I had a detailed discussion with the patient and/or guardian regarding: the historical points, exam findings, and any diagnostic results supporting the discharge/admit diagnosis, lab results, the need for further work-up and treatment in the hospital. 09/05 03:39 Order name: CBC with Diff rt 09/05 03:39 Order name: CMP rt 09/05 03:39 Order name: Magnesium rt 09/05 03:39 Order name: TSH rt 09/05 03:39 Order name: Urine Dipstick-Ancillary (obtain specimen); Complete Time: 14:27 rt 09/05 03:39 Order name: UDS rt 09/05 03:39 Order name: CT Head Brain wo Cont rt 09/05 03:39 Order name: [place] rt 09/05 03:39 Order name: ETOH Level rt 09/05 03:39 Order name: Acetaminophen rt 09/05 03:39 Order name: Salicylate rt 09/05 03:41 Order name: EKG; Complete Time: 03:41 rt 09/05 03:41 Order name: EKG - Nurse/Tech; Complete Time: 03:47 rt 09/05 03:41 Order name: Troponin High Sensitivity rt 09/05 04:38 Order name: CPK rt 09/05 04:45 Order name: CBC with Automated Diff; Complete Time: 05:38 EDMS 09/05 05:18 Order name: Comprehensive Metabolic Panel; Complete Time: 05:38 EDMS 09/05 05:18 Order name: Creatine Phosphokinase; Complete Time: 05:38 EDMS 09/05 05:18 Order name: Troponin High Sensitivity; Complete Time: 05:38 EDMS 09/05 05:18 Order name: Acetaminophen Level; Complete Time: 05:38 EDMS 09/05 05:18 Order name: Magnesium; Complete Time: 05:38 EDMS 09/05 05:18 Order name: Thyroid Stimulating Hormone; Complete Time: 05:38 EDMS 09/05 05:19 Order name: Alcohol Serum/Plasma; Complete Time: 05:38 EDMS 09/05 05:37 Order name: [place]; Complete Time: 05:38 EDMS 09/05 05:37 Order name: Salicylates Level; Complete Time: 05:38 EDMS 09/05 06:33 Order name: SARS RAPID as6 09/05 07:04 Order name: SARS-COV-2 Antigen Rapid; Complete Time: 09:49 EDMS 09/05 10:51 Order name: Urine Dipstick-Ancillary; Complete Time: 14:51 EDMS 09/05 11:09 Order name: Urine Drug Screen; Complete Time: 14:51 EDMS 09/05 11:12 Order name: Basic Metabolic Panel; Complete Time: 14:51 EDMS 09/05 11:18 Order name: Phosphorus; Complete Time: 14:51 EDMS 09/05 11:18 Order name: Creatine Phosphokinase; Complete Time: 14:51 EDMS 09/05 11:18 Order name: T4 Free; Complete Time: 14:51 EDMS 09/05 11:18 Order name: Magnesium; Complete Time: 14:51 EDMS 09/05 11:18 Order name: Thyroid Stimulating Hormone; Complete Time: 14:51 EDMS 09/05 11:52 Order name: Hemoglobin A1c; Complete Time: 14:51 EDMS 09/05 12:05 Order name: [place]; Complete Time: 14:51 EDMS 09/05 14:22 Order name: CT; Complete Time: 19:02 EDMS 09/05 16:26 Order name: [place]; Complete Time: 19:02 EDMS EC:02 Rate is 62 beats/min. Rhythm is regular, Normal Sinus Rhythm with No ectopy. QRS [place] rt is Normal. [place] interval is normal. QRS interval is normal. QT interval is normal. No Q waves. T waves are Normal. No ST changes noted. Interpreted by me. Administered Medications: 04:05 Drug: Benadryl (diphenhydrAMINE) 25 mg Route: IVP; Site: right antecubital; ha1 04:05 Drug: NS 0.9% 1000 ml Route: IV; Rate: 1 bolus; Site: right antecubital; ha1 04:30 Drug: Ativan (LORazepam) 2 mg Route: IM; Site: right deltoid; ha1 05:00 Follow up: Response: No adverse reaction; RASS: Alert and Calm (0) ha1 06:32 Drug: NS 0.9% 1000 ml Route: IV; Rate: 1 bolus; Site: left jugular; as6 06:38 Drug: NS 0.9% 1000 ml Route: IV; Rate: 150 ml/hr; Site: left jugular; as6 Disposition Summary: 09/05/22 06:28 Hospitalization Ordered Hospitalization Status: Inpatient Admission rt Provider: Randy Kong rt Location: Intensive Care Unit rt Condition: Guarded rt Problem: new rt Symptoms: are unchanged rt Bed/Room Type: Standard rt Room Assignment: 7-(09/05/22 19:26) cg Diagnosis - [place] toxicity rt Forms: - Medication Reconciliation Form rt - SBAR form rt Critical care time excluding procedures: 06:28 Critical care time: Bedside Care: 30 minutes, Consultation: 10 minutes. Total time: 40 rt minutes Signatures: Dispatcher [employer] EDDE Ronda Sparrow Corey, MD MD cha Garcia, Cindy, RN RN Shaquille Gamez RN RN as6 Amanda Oshea RN RN ha1 Carlos Lockett MD MD rt Corrections: (The following items were deleted from the chart) 17 06:28 rt bd 19:26 17:36 8- bd cg
--- NOTE | 2022-09-05 06:29 | ER ---
Nurse's Notes [facility] Name: Mitzi Murphy Age: 52 yrs Sex: Female : 1970 Arrival Date: 09/05/2022 Time: 03:37 Bed 6 Private MD: Diagnosis: [place] toxicity Presentation: 09/05 03:40 Chief complaint: EMS states: called out for seizure like activity. on scene pt had as6 tremors, pt has a hx of TBI but mother reports she has been more altered lately. Coronavirus screen: At this time, the client does not indicate any symptoms associated with coronavirus-19. Ebola Screen: No symptoms or risks identified at this time. Initial Sepsis Screen: Does the patient meet any 2 criteria? No. Patient's initial sepsis screen is negative. Does the patient have a suspected source of infection? No. Patient's initial sepsis screen is negative. Risk Assessment: Do you want to hurt yourself or someone else? Patient reports no desire to harm self or others. Onset of symptoms was September 05, 2022. 03:40 Acuity: DIANA 2 as6 03:40 Method Of Arrival: EMS: [facility] as6 Historical: - Allergies: 03:40 No Known Allergies; as6 - PMHx: 03:40 Bipolar disorder; insomnia; manic depressive; TBI- 1993; thyroid problems; as6 - Immunization history:: Adult Immunizations unknown. - Social history:: Smoking status: Patient reports the use of cigarette tobacco products. - Family history:: not pertinent. Screenin:[facility] ED Fall Risk Assessment (Adult) Confusion or Disorientation Yes (5 pts) as6 Score/Fall Risk Level 3 or more points = High Risk. Abuse screen: Denies threats or abuse. Denies injuries from another. Nutritional screening: No deficits noted. Tuberculosis screening: No symptoms or risk factors identified. Assessment: 03:40 General: Appears in no apparent distress. Behavior is cooperative, quiet. Pain: Denies as6 pain. Neuro: Level of Consciousness is awake, alert, confused, tremors . Respiratory: Respiratory effort is even, unlabored. 04:20 General: pt agitated, swearing, pulled out IV and vital signs monitoring equipment . as6 04:35 Reassessment:. General: Appears comfortable, Behavior is uncooperative. Neuro: Level of ha1 Consciousness is awake, alert, confused. Respiratory: Airway is patent Respiratory effort is even, unlabored, Respiratory pattern is regular, symmetrical. 04:35 Reassessment:. Neuro: Oriented to person. ha1 05:24 General: pt's mom would like to be contacted if need be. [phone]. kd3 06:00 General: poison control . recommendation for fluids, renal consult as6 for possible dialysis . Vital Signs: 03:38 BP 103 / 62; Pulse 63; Resp 19 S; Temp 99.2(O); Pulse Ox 96% on R/A; Weight 58 kg (M); as6 Height 5 ft. 3 in. (160.02 cm) (R); 05:32 BP 127 / 115; Pulse 92; Resp 18 S; Pulse Ox 99% on R/A; ha1 06:57 BP 119 / 105; Pulse 68; Resp 21 S; Pulse Ox 97% on R/A; as6 19:39 BP 139 / 77; Pulse 69; Resp 18; Pulse Ox 100% ; jb5 03:38 Body Mass Index 22.65 (58.00 kg, 160.02 cm) as6 ED Course: 03:37 Patient arrived in ED. ja2 03:37 Carlos Lockett MD is Attending Physician. rt 03:38 Shaquille Gordon RN is Primary Nurse. as6 03:38 Arm band placed on. as6 03:43 Triage completed. as6 03:44 Placed in gown. Bed in low position. Call light in reach. Side rails up X2. Client as6 placed on continuous cardiac and pulse oximetry monitoring. NIBP monitoring applied. 03:50 Inserted saline lock: 20 gauge in right antecubital area, using aseptic technique. as6 Blood collected. 06:27 Randy Kong MD is Hospitalizing Provider. rt 06:32 Inserted saline lock: 18 gauge in left EJ, using aseptic technique. as6 18:35 Inserted saline lock: 22 gauge in right hand, using aseptic technique. jb5 19:05 Inserted saline lock: 20 gauge in left wrist, using aseptic technique. zm Administered Medications: 04:05 Drug: Benadryl (diphenhydrAMINE) 25 mg Route: IVP; Site: right antecubital; ha1 04:05 Drug: NS 0.9% 1000 ml Route: IV; Rate: 1 bolus; Site: right antecubital; ha1 04:30 Drug: Ativan (LORazepam) 2 mg Route: IM; Site: right deltoid; ha1 05:00 Follow up: Response: No adverse reaction; RASS: Alert and Calm (0) ha1 06:32 Drug: NS 0.9% 1000 ml Route: IV; Rate: 1 bolus; Site: left jugular; as6 06:38 Drug: NS 0.9% 1000 ml Route: IV; Rate: 150 ml/hr; Site: left jugular; as6 Medication: 04:24 VIS not applicable for this client. as6 Outcome: 06:28 Decision to Hospitalize by Provider. rt 09:31 Admitted to ER Hold. Please see [facility] for further documentation. 09:31 Condition: stable 09:31 Instructed on the need for admit. 19:41 Patient left the ED. as6 Signatures: Neha Bynum, RN RN Renetta Gary jbKavita Cason Ashby, RN RN as6 Alejandra Correa RN RN kd3 Melani Hines Heidy, RN RN ha1 Carlos Lockett MD MD rt
[2022-09-05 07:03] LABS: SARS-CoV-2 Antigen Rapid Res Negative (Negative)
[2022-09-05] MEDS ORDERED: ACETAMINOPHEN 325 MG TABLET PO PRN (09:11)
[2022-09-05] MEDS ORDERED: ONDANSETRON 4 MG/2 ML VIAL IV PRN (09:17)
--- NOTE | 2022-09-05 09:50 | P.HP ---
Certification for Inpatient Patient admitted to: Inpatient With expected LOS: >2 Midnights Patient will require the following post-hospital care: None Practitioner: I am a practitioner with admitting privileges, knowledge of patient current condition, hospital course, and medical plan of care. Services: Services provided to patient in accordance with Admission requirements found in Title 42 Section 412.3 of the Code of Federal Regulations Patient History Date of Service: 09/05/22 Reason for admission: Altered mental status and tremors History of Present Illness: Patient is a 52-year-old female with a past medical history significant for bipolar disorder, insomnia, major depression, TBI, hypothyroidism who presents with complaint of altered mental status and tremors. Patient alert and oriented x1, confused and unable to provide any history. Per nursing staff report and medical record patient was brought to the hospital due to tremulousness and patient's mother was concerned about seizures. Family reported that patient has been confused and was supposed to follow-up with [facility] psychiatry today. No other signs and symptoms reported. Symptoms are aggravated or relieved by nothing. Patient was brought to the hospital for medical evaluation. Allergies No Known Allergies Allergy (Verified 02/14/16 13:33) Home Medications: [place] Carbonate [Lithotabs *] 300 mg PO DAILY 07/02/12 Levothyroxine Sodium [Unithroid] 75 mcg PO DAILY 02/14/16 Duloxetine HCl [Cymbalta] 50 mg PO BID 08/12/20 Eszopiclone 3 mg PO BEDTIME 08/12/20 Gabapentin [Gralise] 600 mg PO TID 08/12/20 Mirtazapine 45 mg PO DAILY 08/12/20 Rosuvastatin Calcium [Crestor] 20 mg PO DAILY 08/12/20 Divalproex Sodium [Depakote ER] 500 mg PO DAILY 03/26/22 Risperidone 4 mg PO BEDTIME 03/26/22 - Past Medical/Surgical History Diabetic: No -: Bipolar disorder -: Schizophrenia -: TBI -: Hypothyroidism -: MDD -: none Psychosocial/ Personal History: Pt stays with her mother, is disabled. - Family History Family History: Reviewed- Non-Contributory - Social History Smoking Status: Unknown if ever smoked Alcohol use: No CD- Drugs: Yes Caffeine use: Yes Place of Residence: Home Review of Systems is unable to be obtained (Patient is confused.) Physical Examination - Physical Exam General: Alert, Oriented x1, Confused HEENT: Atraumatic, PERRLA, Mucous membr. moist/pink, EOMI, Sclerae nonicteric Neck: Supple, 2+ carotid pulse no bruit, No LAD, Without JVD or thyroid abnormality Respiratory: Clear to auscultation bilaterally, Normal air movement Cardiovascular: No edema, Regular rate/rhythm, Normal S1 S2 Capillary refill: <2 Seconds Gastrointestinal: Normal bowel sounds, Soft and benign, No tenderness, Distended Musculoskeletal: No clubbing, No swelling, No contractures, No tenderness Integumentary: No rashes, No breakdown, No significant lesion, No tenderness/swelling Neurological: Normal speech, Normal tone, Normal affect Lymphatics: No axilla or inguinal lymphadenopathy - Studies Laboratory Data (last 24 hrs) 09/05/22 03:50: Sodium 137, Potassium 3.9, BUN 19 H, Creatinine 1.22 H, Glucose 94, Magnesium 2.5 H, Total Bilirubin 0.4, AST 13 L, ALT 13, Alkaline Phosphatase 93 09/05/22 03:50: WBC 8.00, Hgb 14.4, Hct 44.1, Plt Count 338 Assessment and Plan - Plan -- [place] toxicity. Unclear if it is intentional or accidental. Poison control notified. Nephrology consulted. Repeat lithium level pending. Patient's lithium level and renal functions not at levels warranting hemodialysis. Continue IV hydration. 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 --Acute encephalopathy. Likely secondary to lithium toxicity. CT head pending. Continue supportive care. --TERESITA on CKD 2. Likely secondary to lithium toxicity. Continue IV hydration. We will continue to monitor renal functions. --Bipolar disorder\MDD\schizophrenia. Continue home medications when appropriate. --Insomnia. Patient placed on melatonin as needed. --History of TBI. Continue supportive care --Peripheral neuropathy. Continue gabapentin when appropriate. --Hyperlipidemia. Continue statin when appropriate --Hypothyroidism. Continue Synthroid when appropriate. --DVT prophylaxis with Lovenox subQ. Discharge Plan: Home Plan to discharge in: Greater than 2 days - Advance Directives Does patient have a Living Will: No Does patient have a Durable POA for Healthcare: No - Code Status/Comfort Care Code Status Assessed: Yes Physician Review: Patient Assessed, Agree with Above Assessment and Plan Critical Care: No
[2022-09-05] MEDS ORDERED: NA CHLORIDE 0.9% 1,000 ML IV SCH (10:00)
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
[2022-09-05 10:51] LABS: Urine Blood Trace-intact (Negative); Urine Glucose Negative (Negative); Urine Protein Negative (Negative); Urine Specific Gravity 1.015 (1.005-1.030); Urine pH 7.5 (5.0-7.0)
[2022-09-05 11:09] LABS: Barbiturates NEGATIVE (NEGATIVE); Benzodiazepines NEGATIVE (NEGATIVE); Cocaine NEGATIVE (NEGATIVE); METHAMPHETAM NEGATIVE (NEGATIVE); Methadone NEGATIVE (NEGATIVE); Opiates NEGATIVE (NEGATIVE); Phencyclidine NEGATIVE (NEGATIVE); THC Cannibis NEGATIVE (NEGATIVE)
[2022-09-05 11:11] LABS: Potassium 3.6 mmol/L (3.5-5.1)
--- NOTE | 2022-09-05 11:14 | EKG ---
Test Date: 2022-09-05 Test Time: 03:45:43 Seed Trucker: ABDULAZIZ MEASUREMENT RESULTS: Intervals: Rate: 62 [place]: 132 QRSD: 96 QT: 434 QTc: 440 [place]: P: 60 [place]: 132 QRS: 69 T: 56 INTERPRETIVE STATEMENTS: Normal sinus rhythm Normal ECG Compared to ECG 05/15/2022 15:52:24 No significant changes Electronically Signed On 09-05-22 11:13:33 CLINICAL TRIALS ASSISTANT by Jose Roberto Duke
[2022-09-05 11:18] LABS: Magnesium 2.2 mg/dL (1.6-2.4); Phosphorus 2.4 mg/dL (2.5-4.9); Thyroid Stimulating Hormone 0.46 uIU/mL (0.358-3.740)
--- NOTE | 2022-09-05 14:21 | RAD REPORT ---
EXAM DESCRIPTION: CT - Head Brain Wo Cont - 09/05/2022 6:53 am CLINICAL HISTORY: 52 years Female AMS COMPARISON: MRI brain 06/12/2022. CT head 04/18/2021. TECHNIQUE: Noncontrast CT head. This exam was performed according to our departmental dose-optimization program, which includes autom ated exposure control, adjustment of the mA and/or kV according to patient size and/or use of iterati ve reconstruction technique. FINDINGS: Parenchyma: No acute hemorrhage, large territorial infarction, or mass effect. Unchanged e ncephalomalacia within the bilateral anterior inferior frontal lobes, sequela of remote insult/injury . Ventricles and extra-axial spaces: Appropriate for age. Visualized paranasal sinuses: Clear. Mastoid air cells: Clear. Bones: No acute focal abnormality. Additional comment: None. IMPRESSION: 1. No acute intracranial findings. 2. Unchanged encephalomalacia within the bilateral anterior inferior frontal lobes, sequela of yolanda te insult/injury. Electronically signed by: Darrell Granda MD 09/05/2022 4:49 AM FASHION SUPERVISOR - Due to temporary technical issues with the PACS/Fluency reporting system, reports are being signed by the in house radiologists without review as a courtesy to insure prompt reporting. The interpreting radiologist is fully responsible for the content of the report.
[2022-09-05] MEDS: NA CHLORIDE 0.9% 1,000 ML IV SCH ×2 (15:36→20:10)
[2022-09-05] MEDS ORDERED: FUROSEMIDE 20 MG/ 2ML VIAL IV ONE (15:40)
[2022-09-05] MEDS ORDERED: FUROSEMIDE 20 MG/ 2ML VIAL ONE (17:09)
[2022-09-05] MEDS ORDERED: LORazepam 2 MG/ML VIAL IM ONE (19:18)
[2022-09-05] MEDS: ZIPRASIDONE MESYLA 20 MG/VIAL IM PRN (22:14)
[2022-09-05] MEDS: WATER FOR INJ,STERILE 10 ML IM PRN (22:14)
[2022-09-06] MEDS: NA CHLORIDE 0.9% 1,000 ML IV SCH ×3 (02:52→17:33)
[2022-09-06] MEDS: WATER FOR INJ,STERILE 10 ML IM PRN ×3 (04:27→16:15)
[2022-09-06] MEDS: ZIPRASIDONE MESYLA 20 MG/VIAL IM PRN ×4 (04:31→23:55)
[2022-09-06 05:33] LABS: Absolute Lymphocytes (CBC) 2.4 K/uL (0.7-4.9); Hematocrit 35.8 % (36.0-45.0); Lymphocytes % 32.2 % (15.3-44.8); MCV 93.5 fL (80-100); MPV 8.3 fL (7.6-11.3); RBC Red Blood Cell Count 3.83 M/uL (3.86-4.86)
[2022-09-06 05:48] LABS: Potassium 3.5 mmol/L (3.5-5.1)
[2022-09-06] MEDS: ASPIRIN 81 MG CHEWABLE TABLET PO SCH (08:37)
[2022-09-06] MEDS: ENOXAPARIN 40 MG/0.4 ML SQ SCH (08:37)
[2022-09-06] MEDS ORDERED: POTASSIUM 25 MEQ EFFERV TAB PO ONE (09:00)
[2022-09-06] MEDS: BUPRENORPHINE 8 MG SL SCH ×2 (10:10→21:09)
[2022-09-06] MEDS ORDERED: LORazepam 2 MG/ML VIAL ONE (12:26)
[2022-09-06] MEDS ORDERED: DIPHENHYDRAMINE 50 MG/ML VIAL ONE (12:27)
[2022-09-06] MEDS ORDERED: DIPHENHYDRAMINE 50 MG/ML VIAL IV ONE (12:41)
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
[2022-09-06] MEDS: LORazepam 2 MG/ML VIAL IV PRN ×4 (14:50→23:54)
--- NOTE | 2022-09-06 21:09 | P.PN ---
Date of Service: 09/06/22 Vital Signs Temp Pulse Resp BP Pulse Ox 96.9 F 82 19 133/108 H 95 09/06/22 16:00 09/06/22 20:00 09/06/22 20:00 09/06/22 20:00 09/06/22 16:00 Medications Acetaminophen (Acetaminophen 325 Mg Tablet) 650 mg PO Q6H PRN PRN Reason: TEMP > 100' F Aspirin (Aspirin 81 Mg Chewable Tablet) 81 mg PO DAILY [facility] Last Admin: 09/06/22 08:37 Dose: 81 mg Enoxaparin Sodium (Enoxaparin 40 Mg/0.4 Ml) 40 mg SQ DAILY [facility] Last Admin: 09/06/22 08:37 Dose: 40 mg Home Med (Buprenorphine 8 Mg Tablet) 8 ea SL BID [facility] Last Admin: 09/06/22 10:10 Dose: 8 ea Sodium Chloride (Ns 1000 Ml Ivbag) 1,000 mls @ 150 mls/hr IV .Q6H40M [facility] Last Admin: 09/06/22 17:33 Dose: 1,000 mls Lorazepam (Lorazepam 2 Mg/Ml Vial) 2 mg IV Q2H PRN PRN Reason: SEDATION Last Admin: 09/06/22 18:48 Dose: 2 mg Ondansetron HCl (Ondansetron 4 Mg/2 Ml Vial) 4 mg IV Q6HP PRN PRN Reason: NAUSEA / VOMITING Sodium Chloride (Flush Normal Saline 10 Ml) 10 ml IV BID [facility] Last Admin: 09/06/22 20:57 Dose: 10 ml Sterile Water (Water For Inj,Sterile 10 Ml) 1.2 ml IM UD PRN PRN Reason: DILUTION OF MED Last Admin: 09/06/22 16:15 Dose: 1.2 ml Ziprasidone (Ziprasidone Mesyla 20 Mg/Vial) 10 mg IM Q6H PRN PRN Reason: AGITATION Last Admin: 09/06/22 16:17 Dose: 10 mg Assessment/ Plan: Nephrology No dyspnea No chest pain No acute events overnight Limited IH/ ROS due to AMS Vitals, medications, blood work and imaging reviewed in the chart. Agitation. NCAT. MMM. Neck supple. Normal respiratory effort. RRR. Abd ND. No C/C/E. No rash. Awake. Normal speech. Stage I TERESITA likely due to hypovolemia -No NSAIDs -Improving with IVF Hypokalemia -Replete potassium Hypophosphatemia -Replete PO4 Anemia in chronic illness -Monitor H&H [place] toxicity of unclear etiology -Improving with IVF Case reviewed with Dr. Kong
[2022-09-06] MEDS ORDERED: POTASS/SODIUM PHOSPHATE 1 PKT POWD.PACK PO ONE (21:10)
[2022-09-07] MEDS: NA CHLORIDE 0.9% 1,000 ML IV SCH ×2 (00:19→06:39)
[2022-09-07] MEDS: LORazepam 2 MG/ML VIAL IV PRN ×3 (01:58→06:37)
[2022-09-07 05:39] LABS: Absolute Lymphocytes (CBC) 2.9 K/uL (0.7-4.9); Hematocrit 33.8 % (36.0-45.0); Lymphocytes % 32.4 % (15.3-44.8); MCV 93.7 fL (80-100); MPV 8.8 fL (7.6-11.3)
[2022-09-07 05:52] LABS: Phosphorus 2.3 mg/dL (2.5-4.9); Uric Acid 3.8 mg/dL (2.6-6.0)
[2022-09-07] MEDS ORDERED: POTASS/SODIUM PHOSPHATE 1 PKT POWD.PACK PO SCH (07:00)
[2022-09-07] MEDS ORDERED: POTASSIUM PHOS IN 0.9 % NACL 15 MMOL/250 ML BAG IV ONE (07:36)
[2022-09-07] MEDS: Ringers Lactate 1,000 ML IV SCH ×2 (08:03→16:58)
[2022-09-07] MEDS: ZIPRASIDONE MESYLA 20 MG/VIAL IM PRN ×3 (08:03→21:55)
[2022-09-07] MEDS: ENOXAPARIN 40 MG/0.4 ML SQ SCH (08:03)
[2022-09-07] MEDS: BUPRENORPHINE 8 MG SL SCH ×2 (08:39→20:11)
[2022-09-07] MEDS: MULTIVITAMIN TAB PO SCH (09:00)
[2022-09-07] MEDS: ASPIRIN 81 MG CHEWABLE TABLET PO SCH (09:00)
--- NOTE | 2022-09-07 14:49 | P.PN ---
Brief renal note (chart check only) Renal function stable, Cr level improved post hydration. [place] levels have steadily improved. D/c IVF when pt able to maintain adeq PO intake, monitor Na levels. D/c gross. Call if there are questions. Yaakov Orosco MD, ROSALBA
[2022-09-07 18:12] LABS: Specific Gravity 1.008 (1.005-1.030); Urine Bilirubin NEGATIVE (Negative); Urine Blood Negative (Negative); Urine Clarity Clear (Clear); Urine Color Colorless (Yellow); Urine Glucose NEGATIVE (Negative); Urine Protein NEGATIVE (Negative); Urine Urobilinogen Normal (Normal); Urine pH 6.5 (5.0-7.0)
[2022-09-07] MEDS ORDERED: LORazepam 2 MG/ML VIAL IV ONE (20:21)
--- NOTE | 2022-09-07 20:40 | P.PN ---
Subjective Date of Service: 09/07/22 Chief Complaint: Altered mental status and tremors She is alert and oriented x 1. She continues to be agitated and combative with the staff. She remains in restraints for her and our staff's safety. No further history is available at this time. Review of Systems is unable to be obtained Physical Examination - Vital Signs Temperature: 97.6 F Blood Pressure: 136/71 Pulse: 70 Respirations: 17 Pulse Ox (%): 99 Assessment And Plan - Plan - Physical Exam General: Alert, Confused, Other (combative) HEENT: Atraumatic, Sclerae nonicteric Neck: JVD not distended Respiratory: Clear to auscultation bilaterally Cardiovascular: No edema, Regular rate/rhythm, No murmurs Gastrointestinal: Non-distended, No tenderness Musculoskeletal: No clubbing Integumentary: No rashes Neurological: Other (confused, agitated, combative) # Acute Toxic Metabolic Encephalopathy likely secondary to [place] Toxicity # History of Traumatic Brain Injury # Schizophrenia # Bipolar Disorder # Major Depressive Disorder - [place] level: 4.6 -> >3.0 -> 2.8 -> 2.0 -> 1.0 - Poison control contacted - recommended Nephrology consultation - Unclear if intentional or accidental overdose - Nephrology consulted and spoke with Dr. Orosco - recommendations appreciated - Recommends continued IV fluids and monitor levels - Neurology consulted and spoke with Dr. Collins - recommendations appreciated - He recommended an MRI and EEG for neurologic clearance - PRN ziprasidone and lorazepam for agitation - Remove restraints as soon as it is safe to do so - Would benefit from Psychiatry consultation once mental status improved # KDIGO Stage I Acute Kidney Injury likely due to [place] Toxicity - Nephrology consultation and spoke with Dr. Orosco - recommendations appreciated - Recommends continued IV fluids and monitor levels - Creatinine = 1.22 -> 1.05 -> 0.80 - Urinalysis = trace blood, trace leukocyte esterase - Monitor creatinine and urine output - If worsening, obtain renal ultrasound - Renally dose medications # Hypothyroidism # Hyperlipidemia - Hold home medications for now Randy Kong M.D.
[2022-09-07] MEDS: WATER FOR INJ,STERILE 10 ML IM PRN (22:03)
[2022-09-08] MEDS ORDERED: LORazepam 2 MG/ML VIAL IV ONE ×3 (00:35→18:06)
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
[2022-09-08] MEDS: Ringers Lactate 1,000 ML IV SCH ×3 (04:30→23:33)
[2022-09-08] MEDS: WATER FOR INJ,STERILE 10 ML IM PRN ×2 (04:46→21:37)
[2022-09-08] MEDS: ZIPRASIDONE MESYLA 20 MG/VIAL IM PRN ×3 (04:47→21:37)
[2022-09-08] MEDS ORDERED: DIPHENHYDRAMINE 50 MG/ML VIAL IV ONE (05:29)
[2022-09-08 05:47] LABS: Potassium 4.3 mmol/L (3.5-5.1)
[2022-09-08] MEDS: BUPRENORPHINE 8 MG SL SCH ×3 (09:00→17:15)
[2022-09-08] MEDS: ASPIRIN 81 MG CHEWABLE TABLET PO SCH (09:00)
[2022-09-08] MEDS: MULTIVITAMIN TAB PO SCH (09:00)
[2022-09-08] MEDS: THIAMINE 200 MG/2 ML INJ IVP SCH (09:53)
[2022-09-08] MEDS: ENOXAPARIN 40 MG/0.4 ML SQ SCH (09:54)
--- NOTE | 2022-09-08 12:52 | P.PN ---
Subjective Date of Service: 09/08/22 Chief Complaint: Altered mental status and tremors She is alert and oriented x 1. She continues to be agitated and combative with the staff, requiring doses of diphenhydramine, lorazepam, and ziprasidone. She remains in restraints for her and our staff's safety. I spoke to her mother at bedside, who states that she may have actually been "off" for about 2 weeks now. She was unable to locate her lithium prescription bottle and is unsure of how it was being taken. Her mother reports that she had a similar episode in 2020. On review of her chart, she was hospitalized in August 2020 for lithium toxicity (level of 1.9) and discharged to an inpatient psychiatric facility. Bedside RN, Zoe, present on rounds. Review of Systems is unable to be obtained Physical Examination - Vital Signs Temperature: 97.7 F Blood Pressure: 115/69 Pulse: 64 Respirations: 30 Pulse Ox (%): 95 Assessment And Plan - Plan - Physical Exam General: Alert, Confused, Other (combative, but calm s/p medications) HEENT: Atraumatic, Sclerae nonicteric Neck: JVD not distended Respiratory: Clear to auscultation bilaterally Cardiovascular: No edema, Regular rate/rhythm, No murmurs Gastrointestinal: Non-distended, No tenderness Musculoskeletal: No clubbing Integumentary: No rashes Neurological: Unable to assess # Acute Toxic Metabolic Encephalopathy likely secondary to [place] Toxicity # History of Traumatic Brain Injury # Schizophrenia # Bipolar Disorder # Major Depressive Disorder - [place] level: 4.6 -> >3.0 -> 2.8 -> 2.0 -> 1.0 -> 0.5 - Poison control contacted - recommended Nephrology consultation - Unclear if intentional or accidental overdose - Nephrology consulted and spoke with Dr. Brower - recommendations appreciated - Recommends continued IV fluids and monitor levels - Neurology consulted and spoke with Dr. Collins yesterday - recommendations appreciated - He recommended an EEG for neurologic clearance - Unavailable until 09/10/2022 - Upon further evaluation, he does not feel that repeat brain imaging would be of utility - PRN ziprasidone and lorazepam for agitation - Remove restraints as soon as it is safe to do so - Would benefit from Psychiatry consultation once mental status improved # KDIGO Stage I Acute Kidney Injury likely due to [place] Toxicity - resolved - Nephrology consultation and spoke with Dr. Brower - recommendations appreciated - Recommends continued IV fluids and monitor levels - Creatinine = 1.22 -> 1.05 -> 0.80 - Urinalysis = trace blood, trace leukocyte esterase - Monitor creatinine and urine output - If worsening, obtain renal ultrasound - Renally dose medications # Hypothyroidism # Hyperlipidemia - Hold home medications for now Randy Kong M.D.
--- NOTE | 2022-09-08 15:02 | PN ---
Date of Progress Note: 09/08/2022 Time: 1300. Reason: [place] toxicity and altered mental status. Interval History: The patient is still on the ICU. She is sedated now with Geodon. Vitals are othe rwise stable. Electrolytes are unremarkable. [place] level is 0.5. Cannot get an EEG until Saturday. Objective: The patient is drowsy, moans to sternal rub. Pupils reactive. Oculocephalics are presen t. Withdraws all extremities to pain reflexes 1/4. Toes are downgoing. Impression: Psychosis. [place] toxicity. Plan would be trying to wean sedation as tolerated. We w ill follow up on EEG on Saturday. The patient would likely benefit from inpatient psychiatric, but she is going to have to be more awake and interactive in order to be transferred to inpatient psychiatri c unit. We will continue to follow. ARMIDA Voice ID: [id number] Report ID: [id number]
--- NOTE | 2022-09-08 22:00 | P.PN ---
Date of Service: 09/08/22 Vital Signs Temp Pulse Resp BP Pulse Ox 98.4 F 117 H 23 H 126/77 95 09/08/22 16:00 09/08/22 18:00 09/08/22 18:00 09/08/22 16:00 09/08/22 13:03 Medications Acetaminophen (Acetaminophen 325 Mg Tablet) 650 mg PO Q6H PRN PRN Reason: TEMP > 100' F Aspirin (Aspirin 81 Mg Chewable Tablet) 81 mg PO DAILY [facility] Last Admin: 09/08/22 09:00 Dose: Not Given Enoxaparin Sodium (Enoxaparin 40 Mg/0.4 Ml) 40 mg SQ DAILY [facility] Last Admin: 09/08/22 09:54 Dose: 40 mg Home Med (Buprenorphine 8 Mg Tablet) 8 ea SL BID [facility] Last Admin: 09/08/22 17:15 Dose: 8 ea Lactated Ringer's (Lactated Ringers) 1,000 mls @ 100 mls/hr IV .Q10H [facility] Last Admin: 09/08/22 14:22 Dose: 1,000 mls Lorazepam (Lorazepam 2 Mg/Ml Vial) 1 mg IV Q4H PRN PRN Reason: AGITATION Multivitamins/Minerals (Multivitamin Tab) 1 tab PO DAILY [facility] Last Admin: 09/08/22 09:00 Dose: Not Given Ondansetron HCl (Ondansetron 4 Mg/2 Ml Vial) 4 mg IV Q6HP PRN PRN Reason: NAUSEA / VOMITING Sodium Chloride (Flush Normal Saline 10 Ml) 10 ml IV BID [facility] Last Admin: 09/08/22 19:12 Dose: Not Given Sterile Water (Water For Inj,Sterile 10 Ml) 1.2 ml IM UD PRN PRN Reason: DILUTION OF MED Last Admin: 09/08/22 21:37 Dose: 1.2 ml Thiamine HCl (Thiamine 200 Mg/2 Ml Inj) 100 mg IVP DAILY [facility] Last Admin: 09/08/22 09:53 Dose: 100 mg Ziprasidone (Ziprasidone Mesyla 20 Mg/Vial) 10 mg IM Q6H PRN PRN Reason: AGITATION Last Admin: 09/08/22 21:37 Dose: 10 mg Assessment/ Plan: Nephrology No dyspnea No chest pain No acute events overnight Limited IH/ ROS due to AMS Vitals, medications, blood work and imaging reviewed in the chart. NAD. NCAT. MMM. Neck supple. Normal respiratory effort. RRR. Abd ND. No C/C/E. No rash. Somnolent. Normal speech. Stage I TERESITA likely due to hypovolemia -No NSAIDs -Improving with IVF Hypokalemia -Replete potassium prn Hypophosphatemia -Replete PO4 -Encourage nutrition Anemia in chronic illness -Monitor H&H [place] toxicity of unclear etiology -Resolved Case reviewed with Dr. Kong
[2022-09-09] MEDS: LORazepam 2 MG/ML VIAL IV PRN ×5 (02:09→23:58)
[2022-09-09] MEDS: ZIPRASIDONE MESYLA 20 MG/VIAL IM PRN ×3 (04:06→19:25)
[2022-09-09] MEDS: WATER FOR INJ,STERILE 10 ML IM PRN ×3 (04:06→19:25)
[2022-09-09] MEDS: BUPRENORPHINE 8 MG SL SCH ×2 (08:31→22:32)
[2022-09-09] MEDS: THIAMINE 200 MG/2 ML INJ IVP SCH (08:32)
[2022-09-09] MEDS: MULTIVITAMIN TAB PO SCH ×2 (08:33→09:00)
[2022-09-09] MEDS: ASPIRIN 81 MG CHEWABLE TABLET PO SCH ×2 (08:33→09:00)
[2022-09-09] MEDS: ENOXAPARIN 40 MG/0.4 ML SQ SCH (08:33)
[2022-09-09] MEDS: Ringers Lactate 1,000 ML IV SCH ×2 (08:38→22:33)
--- NOTE | 2022-09-09 12:52 | P.PN ---
Subjective Date of Service: 09/09/22 Chief Complaint: Altered mental status and tremors She is alert and oriented x 0. She continues to be agitated and combative with the staff, requiring doses of diphenhydramine, lorazepam, and ziprasidone. She remains in restraints for her and our staff's safety. Concern at this time is for acute psychosis. EEG pending for tomorrow. If normal, will likely require inpatient psychiatric hospitalization. Review of Systems is unable to be obtained Physical Examination - Vital Signs Temperature: 97.1 F Blood Pressure: 122/70 Pulse: 106 Respirations: 18 Pulse Ox (%): 95 Assessment And Plan - Plan - Physical Exam General: Confused, Other (combative, but calm s/p medications) HEENT: Atraumatic, Sclerae nonicteric Neck: JVD not distended Respiratory: Clear to auscultation bilaterally Cardiovascular: No edema, Regular rate/rhythm, No murmurs Gastrointestinal: Non-distended, No tenderness Musculoskeletal: No clubbing Integumentary: No rashes Neurological: Unable to assess # Acute Toxic Metabolic Encephalopathy likely secondary to [place] Toxicity # History of Traumatic Brain Injury # Schizophrenia # Bipolar Disorder # Major Depressive Disorder - [place] level: 4.6 -> >3.0 -> 2.8 -> 2.0 -> 1.0 -> 0.5 - Poison control contacted - recommended Nephrology consultation - Unclear if intentional or accidental overdose - Nephrology consulted and spoke with Dr. Brower - recommendations appreciated - Recommends continued IV fluids and monitor levels - Neurology consulted and spoke with Dr. Collins yesterday - recommendations appreciated - Concern for acute psychosis - He recommended an EEG for neurologic clearance - Unavailable until 09/10/2022 - Upon further evaluation, he does not feel that repeat brain imaging would be of utility - PRN ziprasidone and lorazepam for agitation - Remove restraints as soon as it is safe to do so - Would benefit from Psychiatry consultation once mental status improved - She has not been able to eat since admission. Plan for Dobhoff + tube feeds if mother is in agreement. Nutrition consulted for assistance with tube feeds. # KDIGO Stage I Acute Kidney Injury likely due to [place] Toxicity - resolved - Nephrology consultation and spoke with Dr. Brower - recommendations appreciated - Recommends continued IV fluids and monitor levels - Creatinine = 1.22 -> 1.05 -> 0.80 - Urinalysis = trace blood, trace leukocyte esterase - Monitor creatinine and urine output - If worsening, obtain renal ultrasound - Renally dose medications # Hypothyroidism # Hyperlipidemia - Hold home medications for now Randy Kong M.D.
[2022-09-09] MEDS ORDERED: WATER FOR INJECTION,STERILE 5 ML VIAL PO SCH (14:00)
[2022-09-09] MEDS ORDERED: VITAL AF 1,000 ML BOT FT SCH (14:00)
--- NOTE | 2022-09-09 14:15 | RAD REPORT ---
EXAM DESCRIPTION: RAD - Abdomen 1 View (KUB) - 09/09/2022 1:59 pm CLINICAL HISTORY: Device placement Dobhoff tube placement FINDINGS: The tip of a Dobhoff tube probably lies within the duodenal bulb.
[2022-09-09] MEDS ORDERED: DIPHENHYDRAMINE 50 MG/ML VIAL IV ONE (16:00)
--- NOTE | 2022-09-09 22:50 | P.PN ---
Date of Service: 09/09/22 Vital Signs Temp Pulse Resp BP Pulse Ox 98.8 F 98 H 12 165/99 H 92 09/09/22 16:00 09/09/22 19:00 09/09/22 18:00 09/09/22 19:00 09/09/22 19:00 Medications Acetaminophen (Acetaminophen 325 Mg Tablet) 650 mg PO Q6H PRN PRN Reason: TEMP > 100' F Aspirin (Aspirin 81 Mg Chewable Tablet) 81 mg PO DAILY [facility] Last Admin: 09/09/22 09:00 Dose: Not Given Enoxaparin Sodium (Enoxaparin 40 Mg/0.4 Ml) 40 mg SQ DAILY [facility] Last Admin: 09/09/22 08:33 Dose: 40 mg Home Med (Buprenorphine 8 Mg Tablet) 8 ea SL BID [facility] Last Admin: 09/09/22 22:32 Dose: 8 ea Lactated Ringer's (Lactated Ringers) 1,000 mls @ 100 mls/hr IV .Q10H [facility] Last Admin: 09/09/22 22:33 Dose: 1,000 mls Lorazepam (Lorazepam 2 Mg/Ml Vial) 1 mg IV Q4H PRN PRN Reason: AGITATION Last Admin: 09/09/22 17:40 Dose: 1 mg Multivitamins/Minerals (Multivitamin Tab) 1 tab PO DAILY [facility] Last Admin: 09/09/22 09:00 Dose: Not Given Nutritional Formula (Vital Af 1,000 Ml Bot) 0 ml FT CONT [facility] Last Admin: 09/09/22 15:28 Dose: 1,000 ml Ondansetron HCl (Ondansetron 4 Mg/2 Ml Vial) 4 mg IV Q6HP PRN PRN Reason: NAUSEA / VOMITING Sodium Chloride (Flush Normal Saline 10 Ml) 10 ml IV BID [facility] Last Admin: 09/09/22 19:26 Dose: 10 ml Sterile Water (Water For Inj,Sterile 10 Ml) 1.2 ml IM UD PRN PRN Reason: DILUTION OF MED Last Admin: 09/09/22 19:25 Dose: 0.6 ml Thiamine HCl (Thiamine 200 Mg/2 Ml Inj) 100 mg IVP DAILY [facility] Last Admin: 09/09/22 08:32 Dose: 100 mg Ziprasidone (Ziprasidone Mesyla 20 Mg/Vial) 10 mg IM Q6H PRN PRN Reason: AGITATION Last Admin: 09/09/22 19:25 Dose: 10 mg Assessment/ Plan: Nephrology No dyspnea No chest pain GUEVARA No acute events overnight Limited IH/ ROS due to AMS Vitals, medications, blood work and imaging reviewed in the chart. NAD. NCAT. MMM. Neck supple. Normal respiratory effort. RRR. Abd ND. No C /C/E. No rash. Somnolent. Normal speech. Stage I [place]ES[place] likely due to hypovolemia -No NSAIDs -Improving with IVF Hypokalemia -Replete potassium prn Hypophosphatemia -Replete PO4 prn -Encourage nutrition Anemia in chronic illness -Monitor H&H [place] toxicity of unclear etiology -Resolved Case reviewed with Dr. Kong
[2022-09-10] MEDS: LORazepam 2 MG/ML VIAL IV PRN (03:30)
[2022-09-10] MEDS: WATER FOR INJ,STERILE 10 ML IM PRN (05:30)
[2022-09-10] MEDS: ZIPRASIDONE MESYLA 20 MG/VIAL IM PRN (05:30)
[2022-09-10] MEDS: Ringers Lactate 1,000 ML IV SCH ×2 (08:06→16:16)
[2022-09-10] MEDS: ENOXAPARIN 40 MG/0.4 ML SQ SCH (08:08)
[2022-09-10] MEDS: THIAMINE 200 MG/2 ML INJ IVP SCH (08:08)
[2022-09-10] MEDS: ASPIRIN 81 MG CHEWABLE TABLET PO SCH (08:23)
[2022-09-10] MEDS: MULTIVITAMIN TAB PO SCH (08:24)
[2022-09-10] MEDS: BUPRENORPHINE 8 MG SL SCH ×2 (08:50→22:24)
[2022-09-10] MEDS ORDERED: HYDROCODONE/APAP 10/325 TAB PO PRN (09:53)
--- NOTE | 2022-09-10 09:56 | P.PN ---
Date of Service: 09/10/22 Subjective Patient is waking up and talking but she is moaning quite a bit. She seems pretty lethargic. Trying to feed her breakfast. She is on multiple psychiatric medications. These will need to be readjusted at this point. [place] level is normal but will continue holding. Review of Systems Complaining of diffuse pain Physical Examination - Vital Signs Reviewed - Physical Exam General: Confused, Other (combative, but calm s/p medications) HEENT: Atraumatic, Sclerae nonicteric Neck: JVD not distended Respiratory: Clear to auscultation bilaterally Cardiovascular: No edema, Regular rate/rhythm, No murmurs Gastrointestinal: Non-distended, No tenderness Musculoskeletal: No clubbing Integumentary: No rashes Assessment And Plan -Assessment/Plan # Acute Toxic Metabolic Encephalopathy likely secondary to [place] Toxicity # History of Traumatic Brain Injury # Schizophrenia # Bipolar Disorder # Major Depressive Disorder - [place] level: 4.6 -> >3.0 -> 2.8 -> 2.0 -> 1.0 -> 0.5 - Poison control contacted - recommended Nephrology consultation - Unclear if intentional or accidental overdose - Nephrology consulted and spoke with Dr. Brower - recommendations appreciated - Recommends continued IV fluids and monitor levels - Neurology consulted and spoke with Dr. Collins yesterday - recommendations appreciated - Concern for acute psychosis - He recommended an EEG for neurologic clearance - Unavailable until 09/10/2022 - Upon further evaluation, he does not feel that repeat brain imaging would be of utility - PRN ziprasidone and lorazepam for agitation - Remove restraints as soon as it is safe to do so - Would benefit from Psychiatry consultation once mental status improved - She has not been able to eat since admission. Plan for Dobhoff + tube feeds if mother is in agreement. Nutrition consulted for assistance with tube feeds. # KDIGO Stage I Acute Kidney Injury likely due to [place] Toxicity - resolved - Nephrology consultation and spoke with Dr. Brower - recommendations appreciated - Recommends continued IV fluids and monitor levels - Creatinine = 1.22 -> 1.05 -> 0.80 - Urinalysis = trace blood, trace leukocyte esterase - Monitor creatinine and urine output - If worsening, obtain renal ultrasound - Renally dose medications # Hypothyroidism # Hyperlipidemia - Hold home medications for now
[2022-09-10] MEDS: HYDROMORPHONE HCL 0.5 MG/0.5 ML INJ IV PRN ×2 (10:11→20:03)
[2022-09-10] MEDS: GABAPENTIN 300 MG CAP PO SCH ×3 (11:13→20:02)
[2022-09-10] MEDS: TIZANIDINE 4 MG TABLET PO PRN (11:32)
[2022-09-10] MEDS ORDERED: VITAL AF 1,000 ML BOT FT SCH (12:24)
[2022-09-10 13:05] VITALS: BMI 21.9
[2022-09-10] MEDS ORDERED: LORazepam 2 MG/ML VIAL IV PRN (13:37)
[2022-09-10] MEDS ORDERED: ZIPRASIDONE MESYLA 20 MG/VIAL IM PRN (13:38)
[2022-09-10] MEDS: ROSUVASTATIN 10 MG TAB PO SCH (20:00)
[2022-09-10] MEDS: BENZTROPINE 1 MG TAB PO SCH (20:00)
[2022-09-10] MEDS: ZIPRASIDONE 20 MG CAP PO SCH (20:01)
[2022-09-10] MEDS: MIRTAZAPINE 15 MG TAB PO SCH (20:03)
[2022-09-10] MEDS ORDERED: ZIPRASIDONE 20 MG CAP PO SCH ×2 (21:00)
[2022-09-10] MEDS ORDERED: BUPRENORPHINE HCL 8 MG SL SCH (21:00)
[2022-09-10] MEDS: ENSURE ENLIVE 237 ML CAN PO SCH (22:23)
--- NOTE | 2022-09-11 00:44 | PN ---
Date of Progress Note: 09/10/2022 Reason: [place] overdose. Interval History: The patient is more awake than Saturday more interactive. She does still seem to be exhibiting some psychotic features, but is not excessively agitated and is generally redirected wi th tactile and verbal stimuli. She is no longer requiring restraints. EEG demonstrates generalized slowing with some frontal intermittent rhythmic delta, triphasic waves consistent with the clinical s cenario, but seems prudent to check an ammonia level prior to discharge, so we will order that srinivasan mcclain as she may go to inpatient psychiatric facility as soon as this evening. Physical Examination: She is awake, interactive. She can tell me her name. She follows one-step commands. Strength is gr eater than 4+. Sensation is intact to pain. Reflexes are symmetric. Toes are downgoing. Impression: [place] overdose; psychosis, more longstanding. Plan: Check an ammonia level given the triphasic morphology noted on the EEG, although that can be s een with a variety of toxic metabolic conditions other than hepatic encephalopathy, which is most cla ssically associated. Thank you for the consult. ARMIDA Voice ID: [id number] Report ID: [id number]
[2022-09-11] MEDS: Ringers Lactate 1,000 ML IV SCH ×2 (04:04→13:57)
[2022-09-11 04:49] LABS: Absolute Lymphocytes (CBC) 3.9 K/uL (0.7-4.9); Hematocrit 39.8 % (36.0-45.0); Lymphocytes % 37.2 % (15.3-44.8); MCV 92.5 fL (80-100); MPV 9.7 fL (7.6-11.3); RBC Red Blood Cell Count 4.31 M/uL (3.86-4.86)
[2022-09-11] MEDS: HYDROMORPHONE HCL 0.5 MG/0.5 ML INJ IV PRN (05:00)
[2022-09-11 05:12] LABS: Albumin 3.1 g/dL (3.4-5.0); Bilirubin Total 0.4 mg/dL (0.2-1.0); Protein, Total 6.2 g/dL (6.4-8.2)
[2022-09-11 05:14] LABS: Potassium 4.1 mmol/L (3.5-5.1)
[2022-09-11 05:20] LABS: Blood Morphology Comment NOT SEEN (NOT SEEN); Platelet Estimate ADEQ; White Blood Cell Scan OK (OK)
[2022-09-11] MEDS ORDERED: LEVOTHYROXINE SOD 0.05 MG TABLET PO SCH (06:00)
[2022-09-11] MEDS: MULTIVITAMIN TAB PO SCH (07:26)
[2022-09-11] MEDS: BENZTROPINE 1 MG TAB PO SCH ×2 (07:26→20:28)
[2022-09-11] MEDS: GABAPENTIN 300 MG CAP PO SCH ×3 (07:26→20:29)
[2022-09-11] MEDS: ENOXAPARIN 40 MG/0.4 ML SQ SCH (07:26)
[2022-09-11] MEDS: ASPIRIN 81 MG CHEWABLE TABLET PO SCH (07:27)
[2022-09-11] MEDS: THIAMINE 200 MG/2 ML INJ IVP SCH (07:28)
[2022-09-11] MEDS: ZIPRASIDONE 20 MG CAP PO SCH ×2 (07:28→20:28)
[2022-09-11] MEDS: BUPRENORPHINE 8 MG SL SCH ×2 (07:32→20:42)
--- NOTE | 2022-09-11 08:08 | EEG ---
CHART: [id number] TEST ID#: [id number] DATE OF STUDY: 09/10/2022 THE EEG WAS RECORDED PORTABLE IN THE ICU ON A 17 CHANNEL MACHINE. ELECTRODES WERE APPLIED IN THE USUAL MANNER USING THE INTERNATIONAL 10-20 SYSTEM. THE WAKING BACKGROUND RHYTHM IN THIS RECORD CONSISTS OF POORLY DEVELOPED AND POORLY ORGANIZED WAVES OF 7 HZ., MAXIMAL IN THE POSTERIOR HEAD REGIONS WHICH ATTENUATE NORMALLY WITH EYE OPENING. FREQUENT MODERATE TO HIGH AMPLITUDE 1.5-3 HZ FRONTAL DOMINANT SLOW WAVES ARE NOTED, OCCURRING RHYTHMICALLY AT, AT TIMES, ASSUMING A "TRIPHASIC" MORPHOLOGY. THERE ARE NO FOCAL OR LATERALIZING FEATURES. NO EPILEPTIFORM ACTIVITY APPEARS. SLEEP DID NOT OCCUR. HYPERVENTILATION WAS NOT PERFORMED. PHOTIC STIMULATION WAS NOT DONE. IMPRESSION: ABNORMAL EEG BECAUSE OF FREQUENT FRONTAL DOMINANT RHYTHMIC DELTA ACTIVITY AND GENERALIZED SLOWING OF THE BACKGROUND. THE ABOVE HAS BEEN DESCRIBED IN TOXIC/METABOLIC DISORDERS, DEEP MIDLINE TUMORS INTERICTALLY IN PATIENT'S WITH SEIZURES, OR IN OTHER DISORDERS NOT ADVERSELY AFFECT THE BRAIN IN DIFFUSE FASHION.
[2022-09-11 08:13] VITALS: O2SAT 100
[2022-09-11] MEDS: ENSURE ENLIVE 237 ML CAN PO SCH ×2 (09:00→20:29)
[2022-09-11] MEDS ORDERED: MELOXICAM 7.5 MG TAB PO SCH (09:00)
[2022-09-11] MEDS ORDERED: AMLODIPINE 5 MG TAB PO SCH (09:00)
[2022-09-11] MEDS: TIZANIDINE 4 MG TABLET PO PRN (12:47)
[2022-09-11] MEDS: WATER FOR INJ,STERILE 10 ML IM PRN (13:25)
[2022-09-11] MEDS: MIRTAZAPINE 15 MG TAB PO SCH (20:29)
[2022-09-11 20:30] VITALS: BP 125/78; TEMP 97.8
[2022-09-11] MEDS: ROSUVASTATIN 10 MG TAB PO SCH (20:42)
--- NOTE | 2022-09-18 09:16 | CON ---
The patient was seen in ICU. Reason For Consult: Evaluate patient weekly in the facility and make recommendations. History Of Present Illness: Ms. Mitzi Murphy is a 52-year-old patient who was brought to the altered mental status and 2 weeks prior to her presentation, patient has be en noticed to be more withdrawn and seemed depressed, becoming more isolative, had difficulty maintai danuta personal hygiene and was also eating less . Patient has a chronic history of bipolar disorder and was on lithium, Risperidone, and Depakote. She has a history of 3 days prior to this presentation. she states that she was surprised her presen tation. patient had history of psychosis in the past. She also reports history of ____ and traumatic brain injury. Patient was altered mental status examination. She is a ble to verbalize aggressive behavior. Physical Examination: Vital Signs: Blood pressure 150/84, pulse rate is 85, temperature is 97.3 degrees Fahrenheit, O2 sat is 100%. . Diagnoses: 1.Bipolar disorder, chronic episode, severe with antipsychotic features. 2.Anxiety disorder, unspecified. 3.Traumatic brain injury. 4.[place] toxicity. Plan: 1.We recommend . 2.We recommend Geodon 40 mg p.o. b.i.d. almost daily. 3.We discontinued . 4.We recommend IV Geodon 10 mg agitation. Discussed recommendation with treatment team. BOUCHRA/TREYL Voice ID: [id number] Report ID: [id number]
== END 2022-09-11 20:30 | DRG 917 ==
LOC: ER 03:36 → ERHOLD 07:01 → 3RD-ICU 17:52
PROVIDERS: ADMIT Internal Medicine; ATTEND Hospitalist
DX: T43.592A Poisoning by other antipsychotics and neuroleptics, intentional self-harm, initial encounter (principal); G92.8 Other toxic encephalopathy; N17.9 Acute kidney failure, unspecified; F11.20 Opioid dependence, uncomplicated; F31.9 Bipolar disorder, unspecified; N18.2 Chronic kidney disease, stage 2 (mild); G47.00 Insomnia, unspecified; E78.5 Hyperlipidemia, unspecified; G62.9 Polyneuropathy, unspecified; F20.9 Schizophrenia, unspecified; E87.6 Hypokalemia; E03.9 Hypothyroidism, unspecified; F29 Unspecified psychosis not due to a substance or known physiological condition; E83.39 Other disorders of phosphorus metabolism; F17.210 Nicotine dependence, cigarettes, uncomplicated; Z78.1 Physical restraint status; Z91.51 Personal history of suicidal behavior; Z79.890 Hormone replacement therapy; Z87.820 Personal history of traumatic brain injury; Z79.899 Other long term (current) drug therapy; Z20.822 Contact with and (suspected) exposure to COVID-19
CPT/HCPCS: 36415; 70450; 74018; 80048; 80053; 80061; 80178; 80307; 81003; 82140; 82550; 82947; 83036; 83735; 84100; 84439; 84443; 84484; 84550; 85025; 87811; 93005; 95816; 96372; 96374; 99285; G0480; J1170; J1200; J1650; J1940; J3411; J3486; J7030; J7120

== ENCOUNTER 2024-10-10 08:18 | Emergency (ER) | payer OTHER ==
--- OUTSIDE RECORDS SUMMARY | 2024-10-10 08:23 | XMS REPORT | Continuity of Care Document ---
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 2021-04-24 05:06:00 98.4 F [facility] Heart Rate 2021-04-24 05:06:00 [facility] Respitory Rate 2021-04-24 05:06:00 [facility] Systolic (mm Hg) 2021-04-24 05:06:00 [facility] Diastolic (mm Hg) 2021-04-24 05:06:00 [facility] Temperature Oral (F) 2021-04-24 01:21:00 98.3 F [facility] Heart Rate 2021-04-24 01:21:00 [facility] Respitory Rate 2021-04-24 01:21:00 [facility] Systolic (mm Hg) 2021-04-24 01:21:00 [facility] Diastolic (mm Hg) 2021-04-24 01:21:00 [facility] Temperature Oral (F) 2021-04-23 20:49:00 98.0 F [facility] Heart Rate 2021-04-23 20:49:00 [facility] Respitory Rate 2021-04-23 20:49:00 [facility] Systolic (mm Hg) 2021-04-23 20:49:00 [facility] Diastolic (mm Hg) 2021-04-23 20:49:00 [facility] Height 2021-04-20 08:45:00 162.56 cm [facility] Weight 2021-04-20 08:45:00 [facility] BMI Calculated 2021-04-20 08:45:00 [facility] Height 2021-04-19 00:54:00 162.56 cm [facility] BMI Calculated 2021-04-19 00:54:00 [facility] Weight 2021-04-19 00:54:00 [facility] Encounters Start Date/Time End Date/Time Encounter Type Admission Type Attending [facility] Care Department Encounter ID Source 2024-09-02 09:20:00 [facility] [id number] [facility] 2022-09-14 15:40:00 Outpatient [facility] [id number] - [id number] [facility] 2022-07-20 09:11:38 Outpatient [facility] [id number] [facility] 2022-07-04 13:36:00 [facility] [id number] [facility] 2022-06-21 15:32:00 [facility] [id number] [facility] 2022-06-19 14:44:00 Outpatient Gimenez, Hayes STLMLC STLC [facility] 2022-06-18 08:21:00 Outpatient Gimenez, Hayes STLMLC STLMLC [facility] 2022-04-13 11:32:09 Outpatient [facility] [id number] [facility] 2021-11-30 08:29:44 Outpatient [facility] [id number] [facility] 2021-08-08 13:26:00 Outpatient Gimenez, Hayes STLMLC STLC [facility] 2021-08-02 13:27:04 Outpatient Gimenez, Hayes STLC [facility]LC 16 [facility] 2021-08-02 13:20:29 Outpatient Gimenez, Hayes STLC STLC 29 [facility] 2021-08-02 13:16:34 Outpatient Gimenez, Hayes STLMLC STLC 18 [facility] 2021-08-02 13:08:55 Outpatient Gimenez, Hayes STLMLC STLMLC [id number] [facility] 2021-08-02 12:42:20 Outpatient Gimenez, Hayes STLMLC STLMLC [id number] [facility] 2021-08-02 12:06:12 Outpatient Gimenez, Hayes STLMLC STLMLC [id number] [facility] 2021-08-02 11:37:11 Outpatient Gimenez, Hayes STLMLC STLMLC [id number] [facility] 2021-08-02 11:17:50 Outpatient Gimenez, Hayes STLMLC STLMLC [id number] [facility] 2021-08-02 11:17:40 Outpatient Gimenez, Hayes STLMLC STLMLC [id number] [facility] 2021-08-02 11:10:21 Outpatient Simon [facility]h [facility] [id number] [facility] 2021-08-02 11:09:58 Outpatient GimenezSimon simmonsh STLC [facility] [id number] [facility] 2021-08-02 10:58:51 Outpatient GimenezSimon simmonsh [facility] [id number] [facility] 2021-07-26 01:05:29 Outpatient LIA LEON [facility] [id number] [facility] 2021-07-20 01:04:18 Outpatient LIA LEON [facility] [id number] [facility] 2021-05-19 15:09:14 Outpatient [facility] [id number] [facility] 2021-05-10 12:40:50 Outpatient LIA LEON [facility] [id number] [facility] 2021-04-19 08:45:00 Inpatient AMADO MCCORD [facility] MED [id number] [facility] 2024-09-02 00:00:00 2024-09-02 00:00:00 (TEL) STLC STLC [id number] [facility] 2024-03-13 11:05:00 2024-07-21 11:05:00 Outpatient JONAH NOLAN [facility] [id number] [facility] 2023-05-07 00:00:00 2023-05-07 00:00:00 Outpatient GC_GCBZW_Ka diyala_S PRIV [facility] [id number] [facility] 2022-11-26 00:00:00 2022-11-26 00:00:00 (TEL) STLMLC STLMLC [id number] [facility] 2022-11-07 00:00:00 2022-11-07 00:00:00 (TEL) STLMLC STLMLC [id number] [facility] 2022-10-24 00:00:00 2022-10-24 00:00:00 (TEL) STLMLC STLMLC [id number] [facility] 2022-09-12 09:51:00 2022-09-12 19:55:00 Emergency EM Carlos Eduardo Nino HCACL VIRGIL [id number] [facility] 2022-06-29 00:00:00 2022-06-29 00:00:00 (TEL) STLMLC STLMLC [id number] [facility] 2022-04-05 00:00:00 2022-04-05 00:00:00 SUB ANNUAL [facility] V[facility] STLMLC STLMLC [id number] [facility] 2022-04-05 00:00:00 2022-04-05 00:00:00 OFFICE VISIT ESTAB PT LEVEL 4 STLMLC STLMLC [id number] [facility] 2022-03-05 00:00:00 2022-03-05 00:00:00 (TEL) STLMLC STLMLC [id number] [facility] 2022-02-01 11:02:00 2022-02-01 11:02:00 Emergency Emergency Saldivar, Ernesto [facility] [id number] [facility] 2022-02-01 11:02:00 2022-02-01 11:02:00 Emergency [facility] [id number] [facility] 2021-10-27 00:00:00 2021-10-27 00:00:00 OFFICE VISIT ESTAB PT LEVEL 4 STLMLC STLMLC [id number] [facility] 2021-04-19 13:45:00 2021-05-10 01:22:00 Inpatient [facility] [id number] 85 [facility] 2021-01-19 00:00:00 2021-01-19 00:00:00 Outpatient STLMLC STLMLC [id number] [facility] 2021-01-17 00:00:00 2021-01-17 00:00:00 Outpatient STLMLC STLMLC [id number] [facility] 2021-01-12 00:00:00 2021-01-12 00:00:00 Outpatient STLMLC STLMLC [id number] [facility] 2020-11-01 00:00:00 2020-11-01 00:00:00 Outpatient STLMLC STLMLC [id number] [facility] 2020-11-01 00:00:00 2020-11-01 00:00:00 Outpatient STLMLC STLMLC [id number] [facility] 2020-10-24 00:00:00 2020-10-24 00:00:00 Outpatient STLMLC STLMLC [id number] [facility] 2020-09-26 00:00:00 2020-09-26 00:00:00 Outpatient STLMLC STLMLC [id number] [facility] 2020-07-25 00:00:00 2020-07-25 00:00:00 Outpatient STLMLC STLMLC [id number] [facility] 2020-05-25 00:00:00 2020-05-25 00:00:00 Outpatient STLMLC STLMLC [id number] [facility] 2020-03-10 15:00:00 2020-03-10 15:00:[address] [facility] [id number] [facility] 2020-02-17 09:50:00 2020-02-17 09:50:[address] [facility] [id number] [facility] 2020-02-10 10:34:00 2020-02-10 10:34:[address] [facility] [id number] [facility] 2019-12-17 13:30:00 2019-12-17 13:30:[address] [facility] [id number] [facility] 2019-10-19 13:00:00 2019-10-19 13:00:[address] [facility] [id number] [facility] 2019-10-16 13:49:00 2019-10-16 13:49:[address] [facility] [id number] [facility] 2019-09-21 14:04:00 2019-09-21 14:04:[address] [facility] [id number] [facility] 2019-09-03 10:15:00 2019-09-03 10:15:[address] [facility] [id number] [facility] 2019-07-20 14:15:00 2019-07-20 14:15:[address] [facility] [id number] [facility] 2019-06-24 08:12:00 2019-06-24 08:12:[address] [facility] [id number] [facility] 2019-06-16 11:30:00 2019-06-16 11:30:00 [address] [facility] [id number] [facility] 2019-06-11 10:10:00 2019-06-11 10:10:[address] [facility] [id number] [facility] 2019-06-08 16:35:00 2019-06-08 16:35:[address] [facility] [id number] [facility] 2019-04-16 16:04:00 2019-04-16 16:04:[address] [facility] [id number] [facility] 2019-03-17 11:30:00 2019-03-17 11:30:[address] [facility] [id number] [facility] 2019-02-03 11:56:00 2019-02-03 11:56:[address] [facility] [id number] [facility] 2019-01-26 08:47:00 2019-01-26 08:47:[address] [facility] [id number] [facility] 2019-01-14 09:30:00 2019-01-14 09:30:00 [facility] [facility] [id number] [facility] 2018-10-22 14:50:00 2018-10-22 14:50:[address] [facility] [id number] [facility] 2018-10-15 09:45:00 2018-10-15 09:45:[address] [facility] [id number] [facility] 2018-07-17 08:15:00 2018-07-17 08:15:[address] [facility] [id number] [facility] 2018-04-08 13:00:00 2018-04-08 13:00:00 [address] [facility] [id number] [facility] 2018-02-13 10:56:00 2018-02-13 10:56:[address] [facility] [id number] [facility] 2018-02-06 13:20:00 2018-02-06 13:20:[address] [facility] [id number] [facility] 2018-02-05 08:15:00 2018-02-05 08:15:[address] [facility] [id number] [facility] Results Test Description Test Time Test Comments Results Result Co mments Source COMPREHENSIVE METABOLIC [id number] 12:33:00* Test Item Value Reference Range Interpretation Comme nts SODIUM (test code = NA) 141 mEq/L 134-147 N POTASSIUM (test code = K) 5.7 mEq/L 3.4-5.0 H SPECIMEN 2+ HEMOLYZED.Results known to be adversely affected by hemolysis are: Potassium Magnesium LDH Phosphorus CHLORIDE (test code = CL) 107 mEq/L 100-108 N CARBON DIOXIDE (test code = CO2) 24 mEq/l 21-33 N ANION GAP (test code = GAP) 16 0-20 N GLUCOSE (test code = GLU) 105 mg/dL 70-110 N BLOOD UREA NITROGEN (test code = BUN) < 5 mg/dL 7-18 L GLOMERULAR FILTRATION RATE (test code = GFR) 76.4 90-95 L The Glomerular Filtration Rate is a calculated parameterbased on serum Creatinine, patient age and sex. GFR valuesless than 60 mL/min/1.73 square meters are indicative ofChronic Kidney Disease. Values less than 15 mL/min/1.73square meters indicate Kidney failure. The calculation forGFR is based on the CKD-EPI (2020) calculation. This formulais race indifferent and is the recommended formula for GFRby the National Kidney Foundation for Adults.The GFR will not calculate if the sex is unknown or if thepatient's age is <18 years. CREATININE (test code = CREAT) 0.9 mg/dL 0.6-1.3 N TOTAL PROTEIN (test code = PROT) 8.0 g/dL 6.4-8.2 N ALBUMIN (test code = ALB) 4.70 g/dL 3.4-5.0 N CALCIUM (test code = CA) 9.8 mg/dL 8.0-10.5 N BILIRUBIN TOTAL (test code = BILT) 0.50 mg/dL 0.0-1.0 N SGOT/AST (test code = AST) 48 IUnit/L 15-37 H SGPT/ALT (test code = ALT) 16 IUnit/L 30-65 L ALKALINE PHOSPHATASE TOTAL (test code = ALKP) 106 IUnit/L 20-125 N TSH REFLEX TO [id number] 12:33:00* Test Item Value Reference Range Interpretation Comme nts TSH REFLEX TO FT4 (test code = TSHREFLEX) 0.56 IU/mL 0.42-5.47 N TROP-I HIGH [id number] 12:33:00* Test Item Value Reference Range Interpretation Comme nts TROP-I HIGH SENSITIVITY (test code = TROPIHS) 7 ng/L 0-34 N CAUTION: Units o f the current test methodology (ng/L) differfrom the prior test methodology (ng/mL) by a factor of 1000. 99th Percentile Upper Reference Limit (URL): Females: 34 ng/LMales: 54 ng/L In order to distinguish acute elevations of high sensitivitytroponin from other clinical conditions, the FourthUniversal Definition of Myocardial Infarction stressesclinical assessment and the demonstration of a rise and/orfall in serial troponin results above the URL. These results were obtained using Siemens AteLyxia IM TnIHreagent. Results from different methodologies should not becompared to one another as quantitative results and URLs mayvary by method. [id number] 12:33:00* Test Item Value Reference Range Interpretation Comme nts LITHIUM (test code = LITH) < 0.2 MMOL/L 0.6-1.2 LL TESTING DONE AT [facility] [address] [id number] 12:32:00* Test Item Value Reference Range Interpretation Comme nts LITHIUM (test code = LITH) <0.2 MMOL/L 0.6-1.2 LL UA RFLX MICR CULT IF [id number] 10:56:00* Test Item Value Reference Range Interpretation Comme nts UA COLOR (test code = COLU) YELLOW YEL/STRAW UA APPEARANCE (test code = APPU) CLOUDY CLEAR A UA GLUCOSE DIPSTICK (test co de = DGLUU) NEGATIVE NEGATIVE UA BILIRUBIN DIPSTICK (test code = BILU) NEGATIVE NEGATIVE UA KETONE DIPSTICK (test cod e = KETU) 1+ NEGATIVE A UA SPECIFIC GRAVITY (test co de = SGU) 1.011 1.005-1.030 N UA BLOOD DIPSTICK (test code = KRYSTLE) 2+ NEGATIVE A UA PH DIPSTICK (test code = ALEN) 6.0 5.0-7.0 N UA PROTEIN DIPSTICK (test co de = PROU) 1+ NEGATIVE A UA UROBILINIOGEN DIPSTICK (t est code = URO) 2.0 mg/dL 0.2-1.0 A UA NITRITE DIPSTICK (test co de = ELDA) POSITIVE NEGATIVE A UA LEUKOCYTE ESTERASE DIPSTI CK (test code = LEUU) 3+ NEGATIVE A UA WBC (test code = WBCU) >50 WBC/HPF 0-3 A UA RBC (test code = RBCU) 11-20 RBC/HPF 0-3 UA WBC NO REFLEX (test code = WBCUCL) >50 WBC/HPF 0-3 A UA BACTERIA (test code = BACU) TRACE /HPF NONE SEEN UA SQUAMOUS CELLS (test code = SQU) 0-5 /HPF NONE SEEN UA MUCUS (test code = MUCU) 2+ /LPF NONE SEEN A Indication for culture: Suprapubic PainSpecimen Description: CLEAN CATCHCBC W/AUTO [id number] 10:43:00* Test Item Value Reference Range Interpretation Comme nts WHITE BLOOD CELL (test code = WBC) 9.3 x10 3/uL 4.5-11.0 N RED BLOOD CELL (test code = RBC) 4.80 x10 6/uL 3.54-5.02 N HEMOGLOBIN (test code = HGB) 14.6 g/dL 11.0-15.0 N HEMATOCRIT (test code = HCT) 43.8 % 33.0-45.0 N MEAN CELL VOLUME (test code = MCV) 91.3 fL 81.0-99.0 N MEAN CELL HGB (test code = MCH) 30.4 pg 27.0-33.0 N MEAN CELL HGB CONCETRATION (test code = MCHC) 33.3 g/dL 33.0-37.0 N RED CELL DISTRIBUTION WIDTH CV (test code = RDW) 14.1 % 11.5-14.5 N RED CELL DISTRIBUTION WIDTH SD (test code = RDW-SD) 47.1 fL 37.0-54.0 N PLATELET COUNT (test code = PLT) 322 x10 3/uL 150-400 N MEAN PLATELET VOLUME (test c ode = MPV) 10.1 fL 7.0-9.0 H NEUTROPHIL % (test code = NT%) 62.3 % 56.0-77.0 N IMMATURE GRANULOCYTE % (test code = IG%) 0.4 % 0.0-2.0 N LYMPHOCYTE % (test code = LY%) 25.6 % 14.0-32.0 N MONOCYTE % (test code = MO%) 8.3 % 4.8-9.0 N EOSINOPHIL % (test code = EO%) 3.2 % 0.3-3.7 N BASOPHIL % (test code = BA%) 0.2 % 0.0-2.0 N NUCLEATED RBC % (test code = NRBC%) 0.0 % 0-0 N NEUTROPHIL # (test code = NT#) 5.79 x10 3/uL 2.0-7.6 N IMMATURE GRANULOCYTE # (test code = IG#) 0.04 x10 3/uL 0.00-0.03 H LYMPHOCYTE # (test code = LY#) 2.38 x10 3/uL 1.0-3.8 N MONOCYTE # (test code = MO#) 0.77 x10 3/uL 0.1-0.8 N EOSINOPHIL # (test code = EO#) 0.30 x10 3/uL 0.0-0.2 H BASOPHIL # (test code = BA#) 0.02 x10 3/uL 0.0-0.2 N NUCLEATED RBC # (test code = NRBC#) 0.00 x10 3/uL 0.0-0.1 N MANUAL DIFF REQUIRED (test c ode = MDIFF) NO - XR CHEST 1 [id number] 00:00:00 [facility] : 1970 Sex: F FAX: Carlos Eduardo Nino [place]: St: REG Name: MITZI HERNANDEZ [facility] ER : 1970 Age/S: 52/F [address] [place] [address] Bl Unit #: [id number] Loc: [place] [address] Phys: Carlos Eduardo Nino MD Acct: [id number] Dis Date: Status: REG ER PHONE #: [phone] Exam Date: 09/12/2022 1041 FAX #: [phone]: AMS EXAMS: CPT CODE: [id number] XR CHEST 1 V [id number] PROCEDURE INFORMATION: Exam: XR Chest Exam date and time: 09/12/2022 10:29 AM Age: 52 years old Clinical indication: Other: AMS TECHNIQUE: Imaging protocol: Radiologic exam of the chest. Views: 1 view. COMPARISON: No relevant prior studies available. FINDINGS: Lungs: Mild decreased lung volumes. No consolidation. Pleural spaces: Unremarkable. No pleural effusion. No pneumothorax. Heart/Mediastinum: Heart size is within normal limits. Vasculature is unremarkable. Bones/joints: Unremarkable. IMPRESSION: No acute cardiopulmonary findings. at 1140 Reported and signed by: Mateo Mon M.D. CC: Carlos Eduardo Nino MD Technologist: Reynaldo Shields RT(R) Trnscrd Date/Time/By: 09/12/2022 (1140) : By: IsmaelL Orig Print D/T: S: 09/12/2022 (1140) PAGE 1 Signed ReportUA, Urinalysis Rflx Cult/[id number] 12:20:00* Test Item Value Reference Range Interpretation Comme nts Color,Urine (test code = UCOL) Yellow Yellow Clarity,Urine (test code = UCLAR) Clear Clear Ph, Urine (test code = UPH) 7.5 5.0-9.0 N Specific Bison,Urine (test code = USG) 1.010 1.005-1.030 N Blood,Urine (test code = UBLD) Negative mg/dL Negative Protein,Urine (test code = UPRO) Negative mg/dL Negative Glucose,Urine (UA) (test cod e = UGLU) Negative mg/dL Negative Ketones,Urine (test code = UKET) Negative mg/dL Negative Nitrate,Urine (test code = UNIT) Negative Negative Bilirubin,Urine (test code = UBIL) Negative mg/dL Negative Urobilinogen,Urine (test cod e = UURO) 0.2 E.U./dL Normal Leukocyte Esterase,Urine (te st code = ULEU) Negative mg/dL Negative Complete Blood Count Auto [id number] 12:20:00* Test Item Value Reference Range Interpretation Comme nts White Blood Count (test code = WBCT) 7.0 x10 3/uL 4.4-10.5 N Red Blood Count (test code = RBC) 4.20 x10 6/uL 3.75-5.20 N Hemoglobin (test code = HGBT) 13.4 g/dL 12.2-14.8 N Hematocrit (test code = HCTT) 40.6 % 36.5-44.4 N Mean Corpuscular Volume (audrey t code = MCV) 96.70 fL 80.00-100.00 N Mean Corpuscular Hemoglobin (test code = MCH) 31.9 pg 27.0-32.5 N Mean Corpuscular HGB Conc (test code = MCHC) 33.00 g/dL 32.00-37.50 N RDW Coefficient of Variation (test code = RDWCV) 13.7 % 11.5-14.5 N Platelet Count (test code = PLTT) 318.0 x10 3/uL 140.0-440.0 N Mean Platelet Volume (test code = MPV) 10.0 fL Immature Granulocytes % (Aut o) (test code = IMMGRAN%) 0.1 % 0.0-5.0 N Neutrophils % (Auto) (test code = NE%) 44.4 % 36.0-70.0 N Lymphocytes % (Auto) (test code = LY%) 40.5 % 12.0-44.0 N Monocytes % (Auto) (test cod e = MO%) 10.1 % 0.0-11.0 N Eosinophils % (Auto) (test code = EO%) 4.5 % 0.0-7.0 N Basophils % (Auto) (test cod e = BA%) 0.4 % 0.0-2.0 N Immature Granulocytes # (Aut o) (test code = IMMGRAN#) 0.01 x10 3/uL Neutrophils # (Auto) (test code = NE#) 3.1 x10 3/uL 1.6-7.4 N Lymphocytes # (Auto) (test code = LY#) 2.85 x10 3/uL 0.50-4.60 N Monocytes # (Auto) (test cod e = MO#) 0.71 x10 3/uL 0.00-1.20 N Eosinophils # (Auto) (test code = EO#) 0.32 x10 3/uL 0.00-0.74 N Basophils # (Auto) (test cod e = BA#) 0.03 x10 3/uL 0.00-0.21 N nRBC Abs (test code = NRBCA) 0 nRBC Pct (test code = NRBCP) 0 % Drug Screen,[id number] 12:20:00* Test Item Value Reference Range Interpretation Comme nts PCP Phencyclidine Screen,Uri ne (test code = PCPU) Negative Negative Amphetamine Screen,Urine (te st code = AMPU) Negative Negative Methadone Screen,Urine (test code = METHU) Negative Negative Opiate Screen,Urine (test co de = UOPIS) Negative Negative Barbituates Screen,Urine (te st code = BARBU) Negative Negative Benzodiazepines Screen,Urine (test code = UBENZS) Negative Negative Cocaine Screen,Urine (test c ode = UCOCS) Negative Negative Cannabinoid Screen,Urine (te st code = UTHCS) Negative Negative Propoxyphene Screen, Urine ( test code = UPROP) Negative Negative Comprehensive Metabolic [id number] 12:20:00* Test Item Value Reference Range Interpretation Comme nts SODIUM (test code = NA) 143.0 mmol/L 136.0-145.0 N Potassium,K (test code = K) 4.6 mmol/L 3.0-5.1 N Chloride (test code = CL) 109 mmol/L 98-107 H Carbon Dioxide (test code = CO2) 30 mmol/L 20-31 N Anion Gap (test code = GAP) 4 mmol/L 5-15 L Blood Urea Nitrogen (test co de = BUN) 16 mg/dL 9-23 N Creatinine (test code = CREATT) 0.97 mg/dL 0.55-1.02 N Creatinine Clr Calc Pharmacy (test code = CRCLPHA) 53.05 mL/min Estimated GFR ( [place] (test code = EGFRAA) > 60 mL/min/1.73m2 Estimated GFR (Non Afr [place] (test code = EGFRNAA) > 60 mL/min/1.73m2 BUN/Creatinine Ratio (test c ode = BCRATIO) 16 ratio 10-20 N Glucose (test code = GLU) 96 mg/dL 74-106 N Osmolality,Calculated (test code = OSMOC) 296.7 Calcium (test code = CA) 10.1 mg/dL 8.3-10.6 N Bilirubin,Total (test code = BILIT) 0.4 mg/dL 0.2-1.1 N Aspartate Amino Transferase (test code = AST) 13 U/L 0-34 N Alanine Aminotransferase (te st code = ALT) 8 U/L 10-49 L Total Protein (test code = TP) 6.9 g/dL 5.7-8.2 N Albumin Level (test code = ALB) 4.7 g/dL 3.2-4.8 N Globulin (test code = GLOB) 2.2 mg/dL 2.3-3.5 L Albumin/Globulin Ratio (test code = AGRATIO) 2.1 ratio 0.8-2.0 H Alkaline Phosphatase (test c ode = ALP) 64 U/L 46-116 N Ethanol [id number] 12:20:00* Test Item Value Reference Range Interpretation Comme nts Ethanol (test code = ETOH) < 3 mg/dL The pharmacologi anabelle response to blood alcohol levels mayvary from individual to individual. The fatal concentrationhas been reported to be >400mg/dL. Coronavirus PCR, COVID19 [id number] 12:20:00* Test Item Value Reference Range Interpretation Comme nts Coronavirus PCR, COVID19 Rapid (test code = SARSCOV2) Coronavirus PCR, COVID19 Rapid (test code = HGUOFBD03.1) Reference Range: Negative SARS-CoV-2 PCR Result: (test code = SARS-CoV-2 PCR Result:) Negative by RT-PCR COVID-19 Status: [id number] 14:44:00* Test Item Value Reference Range Interpretation Comme nts Coronavirus (COVID-19) JACKSON (test code = Coronavirus (COVID-19) JACKSON) Not Detected (05/09/21 9:44 AM) [facility] [id number] 10:19:00* Test Item Value Reference Range Interpretation Comme nts Glucose Lvl (test code = Glucose Lvl) 80 70-99 [facility]szutatVYYHIFKGAN3755-04-59 10:19:00* Test Item Value Reference Range Interpretation Comme nts Segs (test code = Segs) 45.5 45.0-75.0 [facility] [id number] 09:19:00* Test Item Value Reference Range Interpretation Comme nts Glucose Lvl (test code = Glucose Lvl) 106 70-99 [facility] AreaXzoazyvIGBQCTHELT5313-06-60 09:19:00* Test Item Value Reference Range Interpretation Comme nts Segs (test code = Segs) 47.4 45.0-75.0 [id number] 09:19:00* Test Item Value Reference Range Interpretation Comme nts [place] Lvl (test code = [place] Lvl) 0.99 0.50-1.50 [facility] [id number] 17:20:00* Test Item Value Reference Range Interpretation Comme nts Magnesium Lvl (test code = M agnesium Lvl) 2.5 1.8-2.4 [facility]CTUDWWMNY5972-50-54 17:20:00* Test Item Value Reference Range Interpretation Comme nts WBC (test code = WBC) 10.2 3.7-10.4 [facility] [id number] 11:05:00* Test Item Value Reference Range Interpretation Comme nts ABO/Rh (test code = ABO/Rh) O POS [facility] [id number] 10:03:00* Test Item Value Reference Range Interpretation Comme nts Glucose Lvl (test code = Glucose Lvl) 83 70-99 [facility] CenterQzzusotNBGKVVEYKM0657-08-48 10:03:00* Test Item Value Reference Range Interpretation Comme nts WBC (test code = WBC) 8.6 3.7-10.4 [facility] [id number] 08:31:00* Test Item Value Reference Range Interpretation Comme nts Glucose Lvl (test code = Glucose Lvl) 117 70-99 [facility] HospitalYwamohpRKZQURTYNZ1747-51-48 08:31:00* Test Item Value Reference Range Interpretation Comme nts WBC (test code = WBC) 8.2 3.7-10.4 [facility] [id number] 08:39:00* Test Item Value Reference Range Interpretation Comme nts Procalcitonin Lvl (test code = Procalcitonin Lvl) <0.05 ng/mL See_Comment [Automated me ssage] The system which generated this result transmitted reference range: <=0.10. The reference range was not used to interpret this result as normal/abnormal. [facility] CenterZkqtnsnFNQKUHDVBJ6445-24-37 08:39:00* Test Item Value Reference Range Interpretation Comme nts WBC (test code = WBC) 9.3 3.7-10.4 [facility] CenterDtsqkuqIFUPJ8444-59-27 08:39:00* Test Item Value Reference Range Interpretation Comme nts [place] Lvl (test code = [place] Lvl) 0.89 0.50-1.50 [facility] CenterDxejgieBITOSLQMMB0587-59-45 20:30:00* Test Item Value Reference Range Interpretation Comme nts Acetaminoph Lvl (test code = Acetaminoph Lvl) no gt - [facility] [id number] 14:23:00* Test Item Value Reference Range Interpretation Comme nts U Preg (test code = U Preg) Negative (04/19/21 9:23 AM) [facility] CenterItgmkuhSDYNOBQNBQ0498-73-86 14:11:00* Test Item Value Reference Range Interpretation Comme nts Coronavirus (COVID-19) JACKSON (test code = Coronavirus (COVID-19) JACKSON) Not Detected (04/19/21 9:11 AM) [facility] [id number] 11:20:00* Test Item Value Reference Range Interpretation Comme nts ABO/Rh (test code = ABO/Rh) O POS [facility] HospitalAcwgeovPOLUFVURAG6574-12-25 11:17:52* Test Item Value Reference Range Interpretation Comme nts ACT (TEG) Rapid (test code = ACT (TEG) Rapid) 82 s 86-118 [facility] AreaOebrhncQOKWCOPBOP4544-48-13 11:17:42* Test Item Value Reference Range Interpretation Comme nts PT (test code = PT) 12.8 s 12.0-14.7 [facility] Notes Date/Time Note Provider Source 2022-09-12 10:19:00 [facility] ([facility]) EMERGENCY PROVIDER REPORT REPORT#:[id number] REPORT STATUS: Signed DATE:09/12/22 TIME: 1019 PATIENT: MITZI HERNANDEZ UNIT #: [id number] ROOM/BED: AGE: 52 SEX: F PCP PHYS: No Primary or Family Physician SERVICE AUTHOR: Carlos Eduardo Nino MD * ALL edits or amendments must be made on the electronic/computer document * HPI-General Illness General Initial Greet Date/Time 09/12/22 1007 Presentation Chief Complaint Altered mental status Free Text HPI Notes Free Text HPI Notes 52-year-old female with a history of bipolar disorder, schizophrenia, TBI who presented to the emergency department as a transfer from [facility] for altered mental status. Patient was just admitted to their facility last night. She was sent there from [facility] where she had an overdose of lithium. CT of the head done at the facility showed encephalomalacia which has been seen in previous imaging including MRI. She was admitted to the ICU for treatment on 09/05/2022. She was medically cleared at their facility and it was recommended from psychiatry that she seek inpatient psychiatric treatment. Review of Systems ROS Statements All systems rev neg except as marked. Past Medical History - Adult Stated Complaint "AMS" Allergies Coded Allergies: No Known Allergies (09/12/22) Additional Medical History Bipolar disorder, schizophrenia, TBI Smoking status for patients 13 years old or older: Unknown,if ever smoked Physical Exam Vital Signs Vital Signs First Documented: Result Date Time Pulse Ox 99 09/12 0954 B/P 133/88 09/12 0954 B/P Mean 103 09/12 953 O2 Delivery Room air 09/12 953 Temp 36.7 09/12 953 Pulse 94 09/12 953 Resp 18 09/12 953 Last Documented: Result Date Time Pulse Ox 97 09/12 1944 B/P 140/90 09/12 1944 B/P Mean 106 09/12 1944 Pulse 82 09/12 1944 Resp 17 09/12 1944 O2 Delivery Room air 09/12 953 Temp 36.7 09/12 953 Review of Vital Signs Reviewed, Vital signs normal Free Text PE Notes Free Text PE Notes General/Const Awake, Alert, no acute distress, nontoxic, appears well clinically HENT Head atraumatic, normocephalic, ears/nose/throat airway patent, TMs clear bilaterally MS Neck Neck Supple, no swelling, no tenderness to palpation Resp/Chest CTAB, No respiratory distress, no rales, no rhonchi, no wheezing Cardiovascular Normal rate, regular rhythm, heart sounds. No rubs murmurs gallops Abdomen/GI Normal bowel sounds, soft, nontender, nondistended. No rebound or guarding MS noLower Ext/Pelvis/MS No swelling, Non-tender Skin Skin Warm, Dry, no abrasions, rashes, lacerations Neurologic Neurologic Oriented X3, Speech NL, no focal neuro deficits, CN 2-12 intact, 5 /5 strength, sensation intact. Patient able to answer questions appropriately. Interpretation Diagnostics Lab Results Interpretation Results Laboratory Tests 09/12/22 1353: [Embedded Image Not Available] 09/12/22 1020: [Embedded Image Not Available] Laboratory Tests: 09/12 09/12 09/12 1353 1030 1020 Chemistry Sodium (134 - 147 mEq/L) 143 141 Potassium (3.4 - 5.0 mEq/L) 4.0 5.7 H Chloride (100 - 108 mEq/L) 110 H 107 Carbon Dioxide (21 - 33 mEq/l) 24 24 Anion Gap (0 - 20) 13 16 BUN (7 - 18 mg/dL) < 5 L < 5 L Creatinine (0.6 - 1.3 mg/dL) 0.8 0.9 Glomerular Filtr Rate (90 - 95) 88.1 L 76.4 L Glucose (70 - 110 mg/dL) 132 H 105 Calcium (8.0 - 10.5 mg/dL) 9.2 9.8 Total Bilirubin (0.0 - 1.0 mg/dL) 0.50 AST (15 - 37 IUnit/L) 48 H ALT (30 - 65 IUnit/L) 16 L Total Alk Phosphatase (20 - 125 IUnit/L) 106 Troponin I High Sens (0 - 34 ng/L) 7 Total Protein (6.4 - 8.2 g/dL) 8.0 Albumin (3.4 - 5.0 g/dL) 4.70 TSH (0.42 - 5.47 IU/mL) 0.56 Hematology WBC (4.5 - 11.0 x10 3/uL) 9.3 RBC (3.54 - 5.02 x10 6/uL) 4.80 Hgb (11.0 - 15.0 g/dL) 14.6 Hct (33.0 - 45.0 %) 43.8 MCV (81.0 - 99.0 fL) 91.3 MCH (27.0 - 33.0 pg) 30.4 MCHC (33.0 - 37.0 g/dL) 33.3 RDW (11.5 - 14.5 %) 14.1 Plt Count (150 - 400 x10 3/uL) 322 MPV (7.0 - 9.0 fL) 10.1 H Neut % (Auto) (56.0 - 77.0 %) 62.3 Lymph % (Auto) (14.0 - 32.0 %) 25.6 [place] % (Auto) (4.8 - 9.0 %) 8.3 Eos % (Auto) (0.3 - 3.7 %) 3.2 Baso % (Auto) (0.0 - 2.0 %) 0.2 Neut # (Auto) (2.0 - 7.6 x10 3/uL) 5.79 Lymph # (Auto) (1.0 - 3.8 x10 3/uL) 2.38 [place] # (Auto) (0.1 - 0.8 x10 3/uL) 0.77 Eos # (Auto) (0.0 - 0.2 x10 3/uL) 0.30 H Baso # (Auto) (0.0 - 0.2 x10 3/uL) 0.02 Abs Immat Gran (auto) (0.00 - 0.03 x10 3/uL) 0.04 H Add Manual Diff NO Immature Gran % (0.0 - 2.0 %) 0.4 Nucleated RBC % (0 - 0 %) 0.0 Nucleated RBCs # (Man) (0.0 - 0.1 x10 3/uL) 0.00 Toxicology [place] (0.6 - 1.2 MMOL/L) < 0.2 *L Urines Urine Color (YEL/STRAW) YELLOW Urine Appearance (CLEAR) CLOUDY H Urine pH (5.0 - 7.0) 6.0 Ur Specific [place] (1.005 - 1.030) 1.011 Urine Protein (NEGATIVE) 1+ H Urine Glucose (UA) (NEGATIVE) NEGATIVE Urine Ketones (NEGATIVE) 1+ H Urine Blood (NEGATIVE) 2+ H Urine Nitrite (NEGATIVE) POSITIVE H Urine Bilirubin (NEGATIVE) NEGATIVE Urine Urobilinogen (0.2 - 1.0 mg/dL) 2.0 H Ur Leukocyte Esterase (NEGATIVE) 3+ H Urine RBC (0 - 3 RBC/HPF) 11-20 Urine WBC (0 - 3 WBC/HPF) >50 H Ur Squamous Epith Cells (NONE SEEN /HPF) 0-5 Urine Bacteria (NONE SEEN /HPF) TRACE Urine Mucus (NONE SEEN /LPF) 2+ H Microbiology: Date/Time Procedure - Status Source Growth 09/12 103 Urine Culture - RES URINE GRAM NEGATIVE MARVIN Recent Impressions: RADIOLOGY - XR CHEST 1 V 09/12 1041 Report Impression - Status: SIGNED Entered: 09/12/2022 1140 IMPRESSION: No acute cardiopulmonary findings. Impression By: Adriane Mon M.D. Lab Imaging Statement Laboratory radiographic studies reviewed and considered in the medical decision-making. ECG #1 Interpretation Text/Dict Note Normal sinus rhythm [address] elevation, ST depression or T wave inversions. Date 09/12/22 Time 1503 Interpreted by and reviewed by me, ED physician Free Text I D Notes Free Text I D Notes Recent Impressions: RADIOLOGY - XR CHEST 1 V 09/12 1041 Report Impression - Status: SIGNED Entered: 09/12/2022 1140 IMPRESSION: No acute cardiopulmonary findings. Impression By: Adriane Mon M.D. Re-Evaluation MDM ED Course Medication(s) Ordered Medication(s) Ordered: Anti-Infective Agents Sig/Jewell Start time Last Medication Dose Route Stop Time Status Admin Ceftriaxone Sodium 1,000 MG X1ED STA 09/12 1337 DC 09/12 Sodium Chloride 10 ML IV 09/12 1339 1356 Free Text MDM Notes Free Text MDM Notes 52-year-old female with a history of bipolar disorder, schizophrenia, TBI who presented to the emergency department as a transfer from [facility] for altered mental status. Patient was just admitted to their facility last night. She was sent there from [facility] where she had an overdose of lithium. CT of the head done at the facility showed encephalomalacia which has been seen in previous imaging including MRI. She was admitted to the ICU for treatment on 09/05/2022. She was medically cleared at their facility and it was recommended from psychiatry that she seek inpatient psychiatric treatment. VSS. Neurologic Oriented X3, Speech NL, no focal neuro deficits, CN 2-12 intact, 5/5 strength, sensation intact. Patient able to answer questions appropriately. Labs show no leukocytosis otherwise normal labs except for UA which showed signs of UTI. [place] level is within normal limits. Patient was given Rocephin. No tachycardia, no elevated white blood cell count does not meet SIRS or sepsis criteria can take p.o. meds for UTI. Patient medically cleared for transfer back to [facility] with antibiotic prescription. Given strict return precautions for worsening symptoms Patient Discharge Departure Vital Signs/Condition Vital Signs First Documented: Result Date Time Pulse Ox 99 09/12 953 B/P 133/88 09/12 953 B/P Mean 103 09/12 953 O2 Delivery Room air 09/12 953 Temp 36.7 09/12 953 Pulse 94 09/12 953 Resp 18 09/12 953 Last Documented: Result Date Time Pulse Ox 97 09/12 1944 B/P 140/90 09/12 1944 B/P Mean 106 09/12 1944 Pulse 82 09/12 1944 Resp 17 09/12 1944 O2 Delivery Room air 09/12 953 Temp 36.7 09/12 953 All vital signs available at the time of this entry have been reviewed. Condition Stable Clinical Impression Clinical Impression Primary Impression: UTI (urinary tract infection) Disposition Decision Discharge )( Discharged to Home Yes )( Time 1500 )( Date 09/12/22 Discharge/Care Plan Counseled Regarding Diagnosis, Lab results, Imaging studies, When to return to ED (Auto) Prescriptions Current Visit Scripts CEPHALEXIN (KEFLEX) 500 MG PO Q6H 7 Days #28 CAPS Patient Instructions Urinary Tract Infections in Women Additional Instructions Follow-up with your primary care doctor take all antibiotics as prescribed do not skip any days Discharge Note I have spoken with the patient and/or caregivers. I have explained the patient's condition, diagnoses and treatment plan based on the information available to me at this time. I have answered the patient's and/or caregiver's questions and addressed any concerns. The patient and/or caregivers have as good an understanding of the patient's diagnosis, condition and treatment plan as can be expected at this point. The vital signs have been stable. The patient's condition is stable and appropriate for discharge from the emergency department. The patient will pursue further outpatient evaluation with the primary care physician or other designated or consulting physician as outlined in the discharge instructions. The patient and/or caregivers are agreeable to this plan of care and follow-up instructions have been explained in detail. The patient and/or caregivers have received these instructions in written format and have expressed an understanding of the discharge instructions. The patient and/or caregivers are aware that any significant change in condition or worsening of symptoms should prompt an immediate return to this or the closest emergency department or a call to 911. at 0310 [facility] #:[id number] END OF REPORT HCACL
[2024-10-10 08:54] LABS: Absolute Eosinophils 0.3 K/uL (0-0.5); Absolute Lymphocytes (CBC) 1.6 K/uL (0.7-4.9); Absolute Monocytes 0.7 K/uL (0.1-1.3); Absolute Neutrophil 3.8 K/uL (1.8-8.0); Basophils % 0.5 % (0-1.3); Eosinophils % 4.2 % (0-4.4); Hematocrit 40.7 % (36.0-45.0); Hemoglobin 13.9 g/dL (12.0-15.0); Lymphocytes % 25.2 % (15.3-44.8); MCV 91.2 fL (80-100); MPV 8.6 fL (7.6-11.3); Monocytes % 10.7 % (3.3-12.3); Neutrophils % 59.4 % (41.7-73.7); Platelets 365 thou/uL (152-406); RBC Red Blood Cell Count 4.47 M/uL (3.86-4.86); Red Cell Distribution Width 13.9 % (12.1-15.2)
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
[2024-10-10] MEDS ORDERED: ZIPRASIDONE MESYLA 20 MG/VIAL IM ONE (09:08)
[2024-10-10] MEDS ORDERED: WATER FOR INJ,STERILE 10 ML ONE (09:09)
[2024-10-10 09:10] LABS: AST/SGOT 14 U/L (15-37); Albumin 3.9 g/dL (3.4-5.0); Albumin/Globulin Ratio 1.1 (1.1-1.8); Alkaline Phosphatase 72 U/L (45-117); Anion Gap 11.5 mEq/L (5.0-15.0); BUN Blood Urea Nitrogen 19 mg/dL (7-18); Bicarbonate 22 mEq/L (21-32); Bilirubin Total 0.6 mg/dL (0.2-1.0); Globulin 3.5 g/dL (2.3-3.5); Glomerular Filtration Rate 53 ml/min (=/>90); Glucose Level 96 mg/dL (74-106); Potassium 3.5 mEq/L (3.5-5.1); Protein, Total 7.4 g/dL (6.4-8.2); Sodium Level 142 mEq/L (136-145)
[2024-10-10 09:11] LABS: ALT/SGPT < 14 U/L (13-56); Bilirubin Direct < 0.2 mg/dL (0-0.2); Bilirubin Indirect, Calculated 0.4 mg/dL (0.2-0.8)
[2024-10-10 09:34] LABS: PT Prothrombin Time 12.2 SECONDS (10-13.0); Protime INR 1.07
[2024-10-10 10:09] VITALS: BP 137/94; TEMP 98.1; O2SAT 99
--- NOTE | 2024-10-12 11:33 | EKG ---
Test Date: 2024-10-10 Test Time: 08:57:47 Electrician Helper: DANTE MEASUREMENT RESULTS: Intervals: Rate: 92 OK: 130 QRSD: 84 QT: 376 QTc: 464 [place]: P: 65 OK: 130 QRS: 69 T: 68 INTERPRETIVE STATEMENTS: Normal sinus rhythm Normal ECG Compared to ECG 09/05/2022 03:45:43 No significant changes Electronically Signed On 10-12-24 11:29:32 CDT by Jacinto Luis
== END 2024-10-10 10:00 ==
LOC: ER 08:18
DX: F20.9 Schizophrenia, unspecified (principal); Z87.820 Personal history of traumatic brain injury
CPT/HCPCS: 93005; 85025; 80048; 36415; 85610; 80076; 85730; 96372; 99285; 80143; 80179; 82077; J3486